=== PATIENT | male | born 1945 | race African-American/Black ===

== ENCOUNTER 2016-06-17 12:29 | Inpatient (IN) | payer OTHER ==
[2016-06-17 12:38] VITALS: BMI 27.4
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
[2016-06-17 15:45] LABS: MCH 29.5 pg (25.7-33.7); MCHC 33.2 g/dl (32.0-35.9); MEAN CELL VOLUME 88.7 fl (80-96); MEAN PLT VOLUME 8.5 fl (7.5-11.1); PLATELET COUNT 175 K/MM3 (134-434); RDW 16.6 % (11.9-15.9); WHITE BLOOD COUNT 6.3 K/mm3 (4.0-10.0)
[2016-06-17 16:12] LABS: ALBUMIN 3.8 g/dl (3.4-5.0); ANION GAP 7 (8-16); BILIRUBIN,TOTAL 0.6 mg/dL (0.2-1.0); CALCIUM 9.2 mg/dL (8.5-10.1); CO2 31 mmol/L (21-32); CREATININE 1.7 mg/dL (0.7-1.3); GLUCOSE,RANDOM 123 mg/dL (74-106); MAGNESIUM 2.3 mg/dL (1.8-2.4); SGOT/AST 12 U/L (15-37); SGPT/ALT 21 U/L (12-78); TOT PROT 7.4 g/dl (6.4-8.2)
[2016-06-17 16:14] LABS: ALK PHOS 90 U/L (45-117); TROPONIN I < 0.02 ng/ml (0.00-0.05)
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
[2016-06-17] MEDS: SODIUM CHLORIDE 1,000 ML IV SCH (19:48)
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
[2016-06-17] MEDS: METOPROLOL TARTRATE 25 MG TABLET (FP) PO SCH (23:29)
[2016-06-17] MEDS: ATORVASTATIN CA 10 MG TABLET (FP) PO SCH (23:37)
[2016-06-18 07:05] LABS: MCH 29.6 pg (25.7-33.7); MCHC 33.2 g/dl (32.0-35.9); MEAN CELL VOLUME 89.3 fl (80-96); MEAN PLT VOLUME 8.4 fl (7.5-11.1); PLATELET COUNT 162 K/MM3 (134-434); RDW 16.9 % (11.9-15.9); WHITE BLOOD COUNT 5.1 K/mm3 (4.0-10.0)
[2016-06-18 07:48] LABS: CALCIUM 8.9 mg/dL (8.5-10.1); CREATININE 1.3 mg/dL (0.7-1.3)
[2016-06-18] MEDS: ASPIRIN 325 MG TABLET PO SCH (09:13)
[2016-06-18] MEDS: amLODIPine BESYLATE 5 MG TABLET (FP) PO SCH (09:13)
[2016-06-18] MEDS: METOPROLOL TARTRATE 25 MG TABLET (FP) PO SCH ×2 (09:13→21:16)
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
--- NOTE | 2016-06-18 15:30 | EKG ---
Test Reason : Blood Pressure : / mmHG Vent. Rate : 074 BPM Atrial Rate : 074 BPM P-R Int : 200 ms QRS Dur : 162 ms QT Int : 404 ms P-R-T Axes : 054 -42 051 degrees QTc Int : 448 ms NORMAL SINUS RHYTHM LEFT AXIS DEVIATION LEFT VENTRICULAR HYPERTROPHY WITH QRS WIDENING NONSPECIFIC ST ABNORMALITY ABNORMAL ECG NO PREVIOUS ECGS AVAILABLE Confirmed by LIDIA PEREZ MD ([id number]) on 06/18/2016 3:29:34 PM Referred By: Confirmed By:LIDIA PEREZ MD
[2016-06-18] MEDS: SODIUM CHLORIDE 1,000 ML IV SCH (19:34)
[2016-06-18] MEDS: ATORVASTATIN CA 10 MG TABLET (FP) PO SCH (21:16)
[2016-06-19 09:01] LABS: CALCIUM 8.7 mg/dL (8.5-10.1); CREATININE 1.3 mg/dL (0.7-1.3)
[2016-06-19] MEDS: amLODIPine BESYLATE 5 MG TABLET (FP) PO SCH (09:33)
[2016-06-19] MEDS: ASPIRIN 325 MG TABLET PO SCH (09:33)
[2016-06-19] MEDS: METOPROLOL TARTRATE 25 MG TABLET (FP) PO SCH ×2 (09:33→21:12)
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
[2016-06-19] MEDS ORDERED: ACETAMINOPHEN 325 MG TABLET (FP) PO ONE (19:20)
[2016-06-19] MEDS ORDERED: ACETAMINOPHEN 325 MG TABLET (FP) ONE (19:21)
[2016-06-19] MEDS: ATORVASTATIN CA 10 MG TABLET (FP) PO SCH (21:12)
[2016-06-19] MEDS: SODIUM CHLORIDE 1,000 ML IV SCH (21:12)
[2016-06-20] MEDS: amLODIPine BESYLATE 5 MG TABLET (FP) PO SCH (09:56)
[2016-06-20] MEDS: METOPROLOL TARTRATE 25 MG TABLET (FP) PO SCH (09:56)
[2016-06-20] MEDS: ASPIRIN 325 MG TABLET PO SCH (09:56)
[2016-06-20 10:15] VITALS: BP 101/58; PULSE 68; TEMP 98.1
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
[2016-06-23 00:07] LABS: ALBUMIN 3.1 g/dL (2.9-4.4); HOMOCYSTEINE (CARDIO) 9.3 umol/L (0.0-15.0); M-SPIKE Not Observed g/dL (Not Observed); TOTAL PROTEIN 6.1 g/dL (6.0-8.5)
== END 2016-06-20 15:00 | disposition home health service (06) | DRG 65 ==
LOC: JER 12:29 → JERBED 17:24 → INTOOBSV 18:07 → UNDOADMOB 18:07 → OBSVTOIN 18:07 → JERBED 22:19 → J4W 22:19
PROVIDERS: ADMIT Internal Medicine; ATTEND Internal Medicine
DX: I63.9 Cerebral infarction, unspecified (principal); N17.9 Acute kidney failure, unspecified; E78.5 Hyperlipidemia, unspecified; D49.6 Neoplasm of unspecified behavior of brain; R42 Dizziness and giddiness; I12.9 Hypertensive chronic kidney disease with stage 1 through stage 4 chronic kidney disease, or unspecified chronic kidney disease; N18.3 Chronic kidney disease, stage 3 (moderate); R29.705 NIHSS score 5
CPT/HCPCS: 36415; 70450-TC; 70486-TC; 80048; 80053; 80061; 82140; 82550; 82607; 83036; 83090; 83721; 83735; 84155; 84165; 84484; 85027; 85651; 86593; 93005; 93010; 93306-TC; 93880-TC; 97116-GP; 97161-GP; 99283-25; G0378

== ENCOUNTER 2017-05-03 07:23 | Inpatient (IN) | payer OTHER ==
--- NOTE | 2017-05-02 09:46 | HP ---
[facility] - Chief Complaint Chief Complaint: right knee pain - Past Medical History Allergies/Adverse Reactions: Allergies Allergy/AdvReac Type Severity Reaction Status Date / Time No Known Drug Allergies Allergy Verified 04/28/17 12:19 - Current Medications Current Medications: Home Medications Medication Instructions Recorded Metoprolol Tartrate [Lopressor] 25 mg PO BID 06/17/16 Simvastatin [Zocor] 20 mg PO DAILY 06/17/16 Clopidogrel Bisulfate [Clopidogrel] 75 mg PO DAILY 04/28/17 Hydrochlorothiazide [Hctz -] 12.5 mg PO DAILY 04/28/17 Lisinopril [Prinivil] 20 mg PO DAILY 04/28/17 [facility] Physical Exam - Physical Examination General Appearance: Well Nourished, Well Developed, Alert & Oriented x3 ENT: Clear Lung: Normal air movement Heart: Regular rate & rhythm Extremities: Other (right knee- + Swelling, + ttp ,decr rom, nvi xrays show grade 4 tricompartmental djd) Neurological: Intact, Alert, Oriented Satellite Impression/Plan - Impression/Plan Impression: right knee djd Operative Procedure: right merline tkr Date to be Performed: 05/03/17
[2017-05-03] MEDS ORDERED: CEFAZOLIN 2 GM in DEXTROSE 5%-WATER - 50 ML IVPB ONE (07:50)
[2017-05-03] MEDS ORDERED: CELECOXIB 200 MG CAPSULE PO ONE (07:50)
[2017-05-03] MEDS ORDERED: TRANEXAMIC ACID 1000 MG/10 ML VIAL IVPUSH ONE (07:50)
[2017-05-03] MEDS ORDERED: GABAPENTIN 300 MG CAPSULE (FP) PO ONE (07:50)
[2017-05-03] MEDS ORDERED: oxyCODONE HCL 10 MG SUSTAINED ACTING TABLET PO ONE (07:50)
[2017-05-03] MEDS ORDERED: DEXAMETHASONE SOD PHOSPHATE/PF 10 MG/ML SDV ONE (09:01)
[2017-05-03] MEDS ORDERED: MIDAZOLAM HCL 2 MG/2 ML SINGLE DOSE VIAL ONE ×2 (09:03→09:26)
[2017-05-03] MEDS ORDERED: ceFAZolin SODIUM 1 GM VIAL ONE ×3 (09:25→09:35)
[2017-05-03] MEDS ORDERED: LIDOCAINE HCL 2% JELLY (5 ML/TUBE) ONE (09:26)
[2017-05-03] MEDS ORDERED: PROPOFOL 20 ML ONE (09:26)
[2017-05-03] MEDS ORDERED: DEXAMETHASONE SOD PHOSPHATE 4 MG/1 ML VIAL ONE (09:26)
[2017-05-03] MEDS ORDERED: LIDOCAINE HCL/PF 2% SDV 5ML VIAL ONE (09:26)
[2017-05-03] MEDS ORDERED: SUCCINYLCHOLINE CHLORIDE 200 MG/10 ML VIAL ONE (09:26)
[2017-05-03] MEDS ORDERED: KETOROLAC TROMETHAMINE 30 MG/1 ML VIAL ONE (09:26)
[2017-05-03] MEDS ORDERED: TRANEXAMIC ACID 1000 MG/10 ML VIAL ONE (09:27)
[2017-05-03] MEDS ORDERED: ROCURONIUM BROMIDE 50 MG/5 ML VIAL ONE (09:30)
[2017-05-03] MEDS ORDERED: METOPROLOL TARTRATE 5 MG/5 ML VIAL ONE (09:57)
[2017-05-03] MEDS ORDERED: VANCOMYCIN 1,000 MG VIAL (RESTRICTED TO ID ONLY) IVPB ONE ×2 (10:16→10:52)
[2017-05-03] MEDS ORDERED: NEOSTIGMINE METHYLSULFATE 0.5 MG/ML - 10 ML MDV ONE (10:21)
[2017-05-03] MEDS ORDERED: GLYCOPYRROLATE 0.2 MG/1 ML VIAL ONE (10:21)
[2017-05-03] MEDS ORDERED: MAG HYDROX/AL HYDROX/SIMETH 30 ML UNIT-DOSE CUP PO PRN (11:20)
[2017-05-03] MEDS ORDERED: MAGNESIUM HYDROX 2400MG/30ML ORAL SUSPENSION 30 ML CUP PO PRN (11:20)
[2017-05-03] MEDS ORDERED: ONDANSETRON 4 MG/2 ML VIAL IVPUSH PRN (11:20)
--- NOTE | 2017-05-03 11:23 | OP ---
Operative Note - Note: Operative Date: 05/03/17 (ben) Pre-Operative Diagnosis: right knee djd Operation: right merline tkr Post-Operative Diagnosis: Same as Pre-op Surgeon: Hero Doan Shearer [employer]: [place] Anesthesiologist/STEAM POWER PLANT OPERATOR: Elie Weiss Anesthesia: General Specimens Removed: bone fragments Estimated Blood Loss (mls): 200 Operative Report Dictated: Yes
[2017-05-03] MEDS ORDERED: LACTATED RINGERS SOLUTION 1,000 ML IV SCH (11:30)
[2017-05-03] MEDS ORDERED: oxyCODONE HCL 5 MG TABLET PO PRN (11:40)
[2017-05-03] MEDS ORDERED: ONDANSETRON 4 MG/2 ML VIAL ONE (12:41)
[2017-05-03] MEDS ORDERED: oxyCODONE HCL 5 MG TABLET ONE (13:10)
[2017-05-03] MEDS: oxyCODONE HCL 5 MG TABLET PO PRN (13:25)
[2017-05-03] MEDS: ACETAMINOPHEN 325 MG TABLET (FP) PO SCH ×3 (13:25→20:48)
[2017-05-03] MEDS: CEFAZOLIN 2 GM/D5W 2 GM/50 ML ML IVPB SCH (17:58)
[2017-05-03] MEDS: ATORVASTATIN CA 10 MG TABLET (FP) PO SCH (21:59)
[2017-05-03] MEDS: METOPROLOL TARTRATE 25 MG TABLET (FP) PO SCH (21:59)
[2017-05-03] MEDS ORDERED: METOPROLOL TARTRATE 50 MG TABLET (FP) PO SCH (22:00)
[2017-05-03] MEDS: SENNOSIDES/DOCUSATE COMBO (SENNA PLUS) TABLET (UD) PO SCH (22:00)
[2017-05-03] MEDS: GABAPENTIN 300 MG CAPSULE (FP) PO SCH (22:00)
[2017-05-04] MEDS: ACETAMINOPHEN 325 MG TABLET (FP) PO SCH ×4 (01:32→21:02)
[2017-05-04] MEDS: CEFAZOLIN 2 GM/D5W 2 GM/50 ML ML IVPB SCH (01:33)
[2017-05-04] MEDS: oxyCODONE HCL 5 MG TABLET PO PRN (06:49)
[2017-05-04 08:11] LABS: HEMATOCRIT 35.3 % (35.4-49); MCH 30.2 pg (25.7-33.7); MCHC 33.9 g/dl (32.0-35.9); MEAN CELL VOLUME 89.1 fl (80-96); MEAN PLT VOLUME 8.6 fl (7.5-11.1); PLATELET COUNT 153 K/MM3 (134-434); RBC 3.96 M/mm3 (4.00-5.60); RDW 15.2 % (11.9-15.9); WHITE BLOOD COUNT 8.9 K/mm3 (4.0-10.8)
[2017-05-04] MEDS: PANTOPRAZOLE 40 MG TABLET (FP) PO SCH (09:45)
[2017-05-04] MEDS: HYDROCHLOROTHIAZIDE 12.5 MG CAPSULE (FP) PO SCH (09:46)
[2017-05-04] MEDS: MULTIVITAMINS (DAILY MVI) TABLET (FP) PO SCH (09:46)
[2017-05-04] MEDS: METOPROLOL TARTRATE 25 MG TABLET (FP) PO SCH ×2 (09:46→21:55)
[2017-05-04] MEDS: CLOPIDOGREL BISULFATE 75 MG TABLET (FP) PO SCH (09:46)
[2017-05-04] MEDS: GABAPENTIN 300 MG CAPSULE (FP) PO SCH ×2 (09:46→21:55)
[2017-05-04] MEDS: LISINOPRIL 20 MG TABLET (FP) PO SCH (09:46)
[2017-05-04] MEDS: SENNOSIDES/DOCUSATE COMBO (SENNA PLUS) TABLET (UD) PO SCH ×2 (09:47→21:56)
--- NOTE | 2017-05-04 09:47 | PN ---
Progress Note (short form) - Note Progress Note: Ortho Pt seen and examined s/p right merline tkr pod #1 Selected Entries 05/04/17 05:18 Temperature 98.0 F Pulse Rate 67 Respiratory 18 Rate Blood Pressure 116/96 Laboratory Tests 05/04/17 07:40 WBC 8.9 Hgb 12.0 Hct 35.3 L Plt Count 153 dressing c/d/i, calf soft, nt rom 0-50, nvi a/p PT dvt ppx pain control d/c home tomorrow if stable
[2017-05-04] MEDS ORDERED: PATIENT'S OWN MEDICATION (NON-FORMULARY) (Simvastatin [Zocor] 20 MG) PO SCH (10:00)
--- NOTE | 2017-05-04 10:15 | PN ---
Progress Note (short form) - Note Progress Note: 72M POD1 s/p right TKR merline under spinal and peripheral nerve blocks. Pt states that pain is well controlled, reports no anesthetic complications. Sensory and motor function is intact in bilateral lower extremities.
--- NOTE | 2017-05-04 10:20 | SPEC ---
DATE OF OPERATION: 05/03/2017 PREOPERATIVE DIAGNOSIS: Degenerative joint disease, right knee. POSTOPERATIVE DIAGNOSIS: Degenerative joint disease, right knee. PROCEDURE: Right total knee replacement with robotic-assisted navigation (Makoplasty). SURGICAL ATTENDING: Hero Doan M.D. MOLD CLOSER HELPER: Kassidy Melchor ANESTHESIA: Regional and general. CLOSURE: A knee system cemented with a 6 femur, 6 tibia, 11 polyethylene, 35 patella, number 1 Vicryl fascia, 0 and 2-0 subcutaneous, 3-0 Monocryl subcuticular with skin glue for skin, 4-0 undyed Vicryl for pin sites. ESTIMATED BLOOD LOSS: Negligible. TOURNIQUET TIME: Approximately 1/2 an hour. COMPLICATIONS: None. CONDITION: To recovery room in stable condition. DESCRIPTION OF OPERATIVE PROCEDURE: Patient was taken to the operating room on May 03, 2017. Regional and general anesthesia was administered by the anesthesiologist. IV Kefzol and TXA were administered by the anesthesiologist. Well-padded pneumatic tourniquet was placed on the proximal thigh. The right lower extremity was prepped and draped in the usual sterile fashion. The leg was exsanguinated with an Esmarch bandage, and tourniquet was inflated to 275 mmHg. A 12 to 15-cm longitudinal midline incision was incised while centered over the patella. The dissection was carried down to the level of the extensor mechanism with sufficient flaps made to adequately perform the procedure. A medial parapatellar arthrotomy was then performed. We made a cuff of tissue on the patella for later closure. The patella was inverted, the knee was flexed up. The fat pad was excised. The subperiosteal dissection was on the anteromedial proximal tibia around towards the direction of the MCL. The ACL and the PCL were transected and debrided. The meniscal remnants of the medial and lateral meniscus were debrided and removed. This allowed the knee to be able to "be brought forward." The checkpoints were malleted into the tibia and into the femur. Two threaded pins were drilled anteroposteriorly proximal to the knee through the previous incision, through the anterior cortex, then just engaging the posterior cortex. To these pins was assembled the femoral navigation array. One handbreadth below the tibial tubercle, 2 stab incisions were used to drill 2 threaded pins in parallel fashion into the tibia, again through the anterior cortex and just engaging the posterior cortex. To these pins was fastened the tibial arrays. The knee was then registered with the navigation device with center of rotation of the hip, medial and lateral malleoli, both checkpoints, and multiple points on both the femur and the tibia to ensure excellent registration. The navigation device was directed off the "top of the bubbles" on both the femur and the tibia. The navigation passed within less than 0.5 mm to plan. The knee was then thoroughly inspected to remove all osteophytes both medially, laterally, and on the femur and the tibia, and whatever osteophytes were available for dissection. The knee was then taken to extension and to flexion, and stressed in both varus and valgus to assess flexion gaps. The virtual position of the components on the navigation device were then manipulated to optimize the position and to ensure equal gaps in both flexion and extension, and both medially and laterally. The robot was then brought into the field and was registered. The cuts were then made both on the femur and on the tibia as to plan. All osteophytes posteriorly were then removed as well. The gaps were then measured again in flexion and extension to be equal in both flexion and extension and medial and laterally. The femoral notch was then made, as we were doing a posterior stabilizing component, with the appropriate sized box. Trial reduction of the femur achieved excellent [id number] fit. A tibial baseplate of appropriate polyethylene thickness was "floated in the knee." It was ensured to be in the excellent position by navigation devices and was pinned in place. The knee was taken through a range of motion, and found to have excellent stability throughout flexion and extension. The patella was calibrated for thickness and osteotomized down to the appropriate level. The appropriate lollipop was used to drill the lug holes in the patella and the trial button was applied. The knee was taken through a range of motion and found to have excellent tracking of the patella, and patella from full extension to full flexion. Trial components were removed, the keel was punched and drilled, and a sclerotic bone on the tibia was drilled to help with cement interdigitation. The knee was thoroughly irrigated with the pulse antibiotic seafood farmer. The real components were then cemented in using monitored arrangement cement techniques with antibiotic cement, and pressurization and extension. After the cement was hardened, the knee was thoroughly inspected to remove any extra cement. The real polyethylene component was then clipped into place. Range of motion, stability, and tracking were as described earlier. The checkpoints and the pins were removed. The knee was thoroughly irrigated with antibiotic irrigation. Vancomycin powder was placed into the knee for antibiotic prophylaxis. The medial parapatellar arthrotomy was then closed using number 1 Vicryl interrupted suture. After closure of the deep layer, the knee was taken through a range of motion, and found to have excellent stability of the patella with no dislocation and no undue tension on the repair. The subcutaneous was pulse antibiotic irrigated, and was then closed with 2-0 Vicryl, 3-0 Monocryl subcuticular with the skin glue for the skin. The distal tibial pin site was irrigated thoroughly as well and then closed with 4-0 undyed Vicryl. A sterile Aquacel dressing was applied, followed by a Glez dressing. Tourniquet was deflated. Total tourniquet time was approximately 30 minutes. No complications. Patient was awakened from anesthesia and transferred to recovery room in stable condition. Postoperative x-rays revealed excellent position of the components. Ronald [id number]
--- NOTE | 2017-05-04 13:57 | CONSULT ---
Consultation: REQUESTING PROVIDER: Dr Doan CONSULT REQUEST: We have been asked to medically evaluate this patient for altered mental status (rapid response). HISTORY OF PRESENT ILLNESS: Patient is a 72 y/o male with a past medical history of CVA (right sided hemiparesis), hypertension, and HLD. Patient is s/ p right total knee replacement, POD#1, Dr Doan. Patient was found unresponsive with no palpable pulse and hypotensive by RN, rapid response was called at 1330 , chest compressions initated and patient regained consciousness soon after, patient remains lethargic REVIEW OF SYSTEMS: CONSTITUTIONAL: present: generalized weakness, Absent: fever, chills, diaphoresis, malaise, loss of appetite, weight change HEENT: Absent: rhinorrhea, nasal congestion, throat pain, throat swelling, difficulty swallowing, mouth swelling, ear pain, eye pain, visual changes CARDIOVASCULAR: Absent: chest pain, syncope, palpitations, irregular heart rate, lightheadedness , peripheral edema RESPIRATORY: Absent: cough, shortness of breath, dyspnea with exertion, orthopnea, wheezing, stridor, hemoptysis GASTROINTESTINAL: Absent: abdominal pain, abdominal distension, nausea, vomiting, diarrhea, constipation, melena, hematochezia GENITOURINARY: Absent: dysuria, frequency, urgency, hesitancy, hematuria, flank pain, genital pain MUSCULOSKELETAL: Absent: myalgia, arthralgia, joint swelling, back pain, neck pain SKIN: Absent: rash, itching, pallor HEMATOLOGIC/IMMUNOLOGIC: Absent: easy bleeding, easy bruising, lymphadenopathy, frequent infections ENDOCRINE: Absent: unexplained weight gain, unexplained weight loss, heat intolerance, cold intolerance NEUROLOGIC: present: altered mental status, bladder incontience, Absent: headache, focal weakness or paresthesias, dizziness, unsteady gait, seizure, bowel incontinence PSYCHIATRIC: Absent: anxiety, depression, suicidal or homicidal ideation, hallucinations. PHYSICAL EXAMINATION Vital Signs - 24 hr 05/03/17 05/03/17 05/03/17 14:11 14:51 22:49 Temperature 97.7 F 97.7 F 98.7 F Pulse Rate 62 62 87 Respiratory 19 19 18 Rate Blood Pressure 144/88 144/88 124/74 O2 Sat by Pulse 100 100 97 Oximetry (%) 05/04/17 05/04/17 05/04/17 05:18 08:22 09:44 Temperature 98.0 F Pulse Rate 67 85 Respiratory 18 18 Rate Blood Pressure 116/96 113/64 O2 Sat by Pulse 97 97 Oximetry (%) GENERAL: lethargic, opens eyes to verbal stimuli and oriented times person and place. HEAD: Normal with no signs of trauma. EYES: Pupils equal, round and reactive to light, extraocular movements intact, sclera anicteric, conjunctiva clear. No lid lag. EARS, NOSE, THROAT: Ears normal, nares patent, oropharynx clear without exudates. Moist mucous membranes. NECK: Normal range of motion, supple without lymphadenopathy, JVD, or masses. LUNGS: Breath sounds equal, clear to auscultation bilaterally. No wheezes, and no crackles. No accessory muscle use. HEART: Regular rate and rhythm, normal S1 and S2 without murmur, rub or gallop. ABDOMEN: Soft, nontender, not distended, normoactive bowel sounds, no guarding, no rebound, no masses. No hepatomegaly or splenomegaly. MUSCULOSKELETAL: No bony deformities or tenderness. No CVA tenderness 4/5. UPPER EXTREMITIES: 2+ pulses, warm, well-perfused. No cyanosis. No clubbing. Cap refill <2 seconds. No peripheral edema. 4/5 RIGHT LOWER EXTREMITY:dressing cdi, less than 3 second capillary refill, + 3 pedal pulse LOWER EXTREMITIES: 2+ pulses, warm, well-perfused. No calf tenderness. No peripheral edema. NEUROLOGICAL: Cranial nerves II-XII intact. Normal speech.. PSYCHIATRIC: Cooperative. Good eye contact. SKIN: Warm, dry, normal turgor, no rashes or lesions noted. Laboratory Results - last 24 hr 05/04/17 07:40 WBC 8.9 RBC 3.96 L Hgb 12.0 Hct 35.3 L MCV 89.1 MCH 30.2 MCHC 33.9 RDW 15.2 Plt Count 153 MPV 8.6 Active Medications Generic Name Dose Route Start Last Admin Trade Name Freq PRN Reason Stop Dose Admin Acetaminophen 650 mg 05/03/17 14:00 05/04/17 07:50 Tylenol - PO 05/06/17 13:59 650 mg Q6H ESAU Administration Al Hydroxide/Mg Hydroxide 30 ml 05/03/17 11:20 Mylanta Oral Suspension - PO Q4H PRN DYSPEPSIA Atorvastatin Calcium 10 mg 05/03/17 22:00 05/03/17 21:59 Lipitor - PO 10 mg HS ESAU Administration Clopidogrel Bisulfate 75 mg 05/04/17 10:00 05/04/17 09:46 Plavix - PO 75 mg DAILY ESAU Administration Gabapentin 300 mg 05/03/17 22:00 05/04/17 09:46 Neurontin - PO 300 mg BID ESAU Administration Hydrochlorothiazide 12.5 mg 05/04/17 10:00 05/04/17 09:46 Hctz - PO 12.5 mg DAILY ESAU Administration Lisinopril 20 mg 05/04/17 10:00 05/04/17 09:46 Prinivil PO 20 mg DAILY ESAU Administration Magnesium Hydroxide 30 ml 05/03/17 11:20 Milk Of Magnesia - PO PRN PRN CONSTIPATION Metoprolol Tartrate 25 mg 05/03/17 22:00 05/04/17 09:46 Lopressor - PO 25 mg BID [facility] Administration Multivitamins/Minerals/Vitamin C 1 tab 05/04/17 10:00 05/04/17 09:46 Tab-A-Vit - PO 1 tab DAILY [facility] Administration Ondansetron HCl 4 mg 05/03/17 11:20 Zofran Injection IVPUSH Q6H PRN NAUSEA Oxycodone HCl 5 mg 05/03/17 11:40 05/04/17 06:49 Roxicodone - PO 5 mg Q3H PRN Administration PAIN LEVEL 1-5 Pantoprazole Sodium 40 mg 05/04/17 10:00 05/04/17 09:45 Protonix - PO 40 mg DAILY [facility] Administration Senna/Docusate Sodium 2 tablet 05/03/17 22:00 05/04/17 09:47 Pericolace - PO 2 tablet BID ESAU Administration ASSESSMENT/PLAN: 1) MS s/p right TKR, Pod #1 - Dr Doan following, PT as per orthopedist - incentive spirometer - advise holding narcotic pain medication due to altered mental status - monitor cbc 2) neuro altered mental status - pt remains lethargic but arousable to verbal stimuli, previous ct scan of head reviewed (06/15) 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 - caution with beta shanti (lopressor) and lisinopril, hctz, strict parameters hyperlipidemia - continue lipitor Dispo: We will continue to follow the patient. Thank you for this consultative opportunity. Visit type - Emergency Visit Emergency Visit: No - New Patient This patient is new to me today: Yes Date on this admission: 05/04/17 - Critical Care Critical Care patient: Yes Total Critical Care Time (in minutes): 45 Critical Care Statement: The care of this patient involved high complexity decision making to prevent further life threatening deterioration of the patient 's condition and/or to evaluate & treat vital organ system(s) failure or risk of failure.
[2017-05-04] MEDS ORDERED: SODIUM CHLORIDE 500 ML IV STA (14:09)
[2017-05-04 14:15] LABS: BASO % 0.4 % (0-2.0); EOS % 1.2 % (0-4.5); HEMATOCRIT 34.5 % (35.4-49); HEMOGLOBIN 11.2 GM/dl (11.7-16.9); LYMPH % 8.5 % (8-40); MCHC 32.4 g/dl (32.0-35.9); MEAN CELL VOLUME 89.3 fl (80-96); MEAN PLT VOLUME 8.8 fl (7.5-11.1); MONO % 15.7 % (3.8-10.2); NEUT % 74.2 % (42.8-82.8); PLATELET COUNT 145 K/MM3 (134-434); RBC 3.87 M/mm3 (4.00-5.60); RDW 15.5 % (11.9-15.9); WHITE BLOOD COUNT 12.3 K/mm3 (4.0-10.8)
[2017-05-04 14:23] LABS: ALK PHOS 52 U/L (32-92); ANION GAP 7 (8-16); BILIRUBIN,TOTAL 0.6 mg/dl (0.2-1.0); BLOOD UREA NITROGEN 25 mg/dl (7-18); CALCIUM 8.8 mg/dl (8.4-10.2); CHLORIDE 105 mmol/L (98-107); CO2 26 mmol/L (22-28); GLUCOSE,RANDOM 150 mg/dl (74-106); MAGNESIUM 1.7 mg/dL (1.8-2.4); PHOSPHOROUS 3.9 mg/dl (2.5-4.6); POTASSIUM 4.1 mmol/L (3.5-5.1); SGOT/AST 16 U/L (10-42); SGPT/ALT 8 U/L (10-40); SODIUM 138 mmol/L (136-145); TOT PROT 5.5 g/dl (6.4-8.3)
[2017-05-04 14:24] LABS: INR 1.18 (0.82-1.09); PROTHROMBIN TIME (PATIENT) 13.2 SEC (10.2-13.0)
[2017-05-04 15:42] LABS: TROPONIN I (DFP) < 0.03 ng/ml (0.03-0.50)
[2017-05-04 16:06] LABS: ARTERIAL BLD GAS O2 SATURATION 99.4 % (90-98.9); ARTERIAL BLOOD GAS BASE EXCESS 1.2 meq/l (-2-2); ARTERIAL BLOOD GAS PCO2 42.6 mmHg (35-45)
[2017-05-04] MEDS ORDERED: levETIRAcetam 500 MG/5 ML INJECTION VIAL IVPB ONE (16:45)
--- NOTE | 2017-05-04 17:20 | HOSP ---
Physical Examination Vital Signs: Vital Signs Temperature 98.0 F 05/04/17 05:18 Pulse Rate 80 05/04/17 15:52 Respiratory Rate 16 05/04/17 15:47 Blood Pressure 123/2 05/04/17 15:47 O2 Sat by Pulse Oximetry (%) 100 05/04/17 15:52 Findings/Remarks: Called by Dr. Doan at 1705 that he would like the hospitalist group to assume care of the patient being transferred from [place] to [facility]. Brief hx provided: Patient had total knee replacement and was found unconscious in his bed today, pulse lost, CPR started, patient had SROC. Informed by Dr. Doan that Dr. Thomas consulted and Keppra 500mg IVPB ordered. Transfer to [facility] CT results reviewed: Interval increased size of the extra axial neoplasm measuring approximately 4.0cm x 4.3cm, with edema in the left frontal lobe, increased mass effects on the overlying frontal lobs, increased compression and displacement of the left lateral ventricle. No midline shift, herniation pattern , or hydrocephalus. No acute intracranial hemorrhage. Called and spoke to Dr. Thomas at 1715, reviewed CT results. Recommendations to start Decadron 10mg IVPB stat followed by Decadron 4mg IVPB q6h. Neurosurgery consult placed. Spoke to Nishi, nursing co supervisor grounds and landscape at [place] to give stat dose of Decadron 10mg IVPB. Per Dr. Eva Almodovar (cardiology) aware Called and left message for Dr. Huerta at 1720, awaiting call back. Call back from Dr. Huerta, reviewed case and CT results. He will evaluate the patient. Trop x1 negative. Will trend troponins. ECHO ordered. Continuous cardiac monitoring Labs: CBC, BMP 05/04/17 13:46 05/04/17 13:46
[2017-05-04] MEDS ORDERED: DEXAMETHASONE SOD PHOSPHATE 10 MG/1 ML VIAL IVPUSH ONE (17:30)
--- NOTE | 2017-05-04 20:24 | EKG ---
Test Reason : Blood Pressure : / mmHG Vent. Rate : 078 BPM Atrial Rate : 078 BPM P-R Int : 192 ms QRS Dur : 090 ms QT Int : 380 ms P-R-T Axes : 046 -28 -87 degrees QTc Int : 433 ms POOR DATA QUALITY, INTERPRETATION MAY BE ADVERSELY AFFECTED NORMAL SINUS RHYTHM MODERATE VOLTAGE CRITERIA FOR LVH, MAY BE NORMAL VARIANT CANNOT RULE OUT SEPTAL INFARCT , AGE UNDETERMINED NONSPECIFIC ST AND T WAVE ABNORMALITY ABNORMAL ECG WHEN COMPARED WITH ECG OF 17-JUN-2016 19:43, NONSPECIFIC T WAVE ABNORMALITY are now present in INFERIOR LEADS Confirmed by RUBIA BARRAGAN MD ([id number]) on 05/04/2017 8:24:15 PM Referred By: Hero Doan Confirmed By:RUBIA BARRAGAN MD
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
[2017-05-04] MEDS ORDERED: DEXAMETHASONE SOD PHOSPHATE 4 MG/1 ML VIAL IVPUSH SCH (21:00)
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
[2017-05-04] MEDS: ATORVASTATIN CA 10 MG TABLET (FP) PO SCH (21:54)
[2017-05-04] MEDS: levETIRAcetam 500 MG TABLET (FP) PO SCH (21:54)
[2017-05-04] MEDS: DEXAMETHASONE SOD PHOSPHATE 4 MG/1 ML VIAL IVPUSH SCH (21:56)
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
[2017-05-04 23:45] VITALS: BMI 28.0
[2017-05-05] MEDS ORDERED: MAGNESIUM SULF 50% (8.12 MEQ/2 ML-1 GM VIAL) IVPB ONE (00:39)
[2017-05-05] MEDS: ACETAMINOPHEN 325 MG TABLET (FP) PO SCH ×2 (01:22→09:12)
[2017-05-05] MEDS: DEXAMETHASONE SOD PHOSPHATE 4 MG/1 ML VIAL IVPUSH SCH ×4 (03:00→21:07)
[2017-05-05 06:12] LABS: HEMATOCRIT 31.2 % (35.4-49); HEMOGLOBIN 10.3 GM/dL (11.7-16.9); MCH 29.5 pg (25.7-33.7); MCHC 33.1 g/dl (32.0-35.9); PLATELET COUNT 139 K/MM3 (134-434); RDW 16.2 % (11.9-15.9); WHITE BLOOD COUNT 13.2 K/mm3 (4.0-10.0)
[2017-05-05 06:40] LABS: ALBUMIN 2.8 g/dl (3.4-5.0); ANION GAP 8 (8-16); BLOOD UREA NITROGEN 19 mg/dL (7-18); CALCIUM 9.1 mg/dL (8.5-10.1); CHLORIDE 105 mmol/L (98-107); CO2 29 mmol/L (21-32); GLUCOSE,RANDOM 128 mg/dL (74-106); MAGNESIUM 2.1 mg/dL (1.8-2.4); POTASSIUM 4.5 mmol/L (3.5-5.1); SODIUM 142 mmol/L (136-145)
[2017-05-05 06:46] LABS: ALK PHOS 58 U/L (45-117); BILIRUBIN,TOTAL 0.5 mg/dL (0.2-1.0); CREATININE 1.6 mg/dL (0.7-1.3); PHOSPHOROUS 3.4 mg/dL (2.5-4.9); SGOT/AST 9 U/L (15-37); SGPT/ALT 10 U/L (12-78); TOT PROT 5.9 g/dl (6.4-8.2)
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
[2017-05-05] MEDS: PANTOPRAZOLE 40 MG TABLET (FP) PO SCH (09:12)
[2017-05-05] MEDS: METOPROLOL TARTRATE 25 MG TABLET (FP) PO SCH ×2 (09:12→21:07)
[2017-05-05] MEDS: MULTIVITAMINS (DAILY MVI) TABLET (FP) PO SCH (09:13)
[2017-05-05] MEDS: LISINOPRIL 20 MG TABLET (FP) PO SCH (09:13)
[2017-05-05] MEDS: SENNOSIDES/DOCUSATE COMBO (SENNA PLUS) TABLET (UD) PO SCH ×2 (09:13→21:07)
[2017-05-05] MEDS: HYDROCHLOROTHIAZIDE 12.5 MG CAPSULE (FP) PO SCH (09:13)
[2017-05-05] MEDS: CLOPIDOGREL BISULFATE 75 MG TABLET (FP) PO SCH (09:13)
[2017-05-05] MEDS: GABAPENTIN 300 MG CAPSULE (FP) PO SCH ×2 (09:13→21:07)
[2017-05-05] MEDS: levETIRAcetam 500 MG TABLET (FP) PO SCH ×2 (09:13→21:07)
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
--- NOTE | 2017-05-05 10:11 | PN ---
Progress Note (short form) - Note Progress Note: Ortho Pt seen and examined s/p right merline tkr pod #2- Had episode where pt was found non-responsive and code was called. Pt regained consciousness soon after. Transferred from [facility] to ICU. Selected Entries 05/05/17 06:00 Temperature 98.6 F Pulse Rate 80 Respiratory 16 Rate Blood Pressure 113/76 Laboratory Tests 05/04/17 05/04/17 05/05/17 13:46 21:20 05:00 WBC 13.2 H D Hgb 10.3 L D Hct 31.2 L D Plt Count 139 Troponin I < 0.03 L < 0.02 dressing c/d/i, calf soft, nt rom 0-50, nvi a/p s/p right tkr, questionable cardiac event vs syncopal episode PT when cleared to do so Neurosurgery consult dvt ppx pain control will follow d/w Dr. Doan
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
[2017-05-05] MEDS ORDERED: MAG HYDROX/AL HYDROX/SIMETH 30 ML UNIT-DOSE CUP PO PRN (11:52)
[2017-05-05] MEDS ORDERED: oxyCODONE HCL 5 MG TABLET PO PRN (11:52)
[2017-05-05] MEDS ORDERED: ONDANSETRON 4 MG/2 ML VIAL IVPUSH PRN (11:52)
[2017-05-05] MEDS ORDERED: MAGNESIUM HYDROX 2400MG/30ML ORAL SUSPENSION 30 ML CUP PO PRN (11:52)
--- NOTE | 2017-05-05 13:07 | PN ---
Teaching Attending Note Name of Resident: Zeenat Wang ATTENDING PHYSICIAN STATEMENT I saw and evaluated the patient. I reviewed the resident's note and discussed the case with the resident. I agree with the resident's findings and plan as documented. SUBJECTIVE: Pt seen and examined in the ICU. No events overnight, no seizure activity noted. OBJECTIVE: Last Vital Signs Temp Pulse Resp BP Pulse Ox 98.0 F 92 H 18 141/100 94 L 05/05/17 10:00 05/05/17 10:00 05/05/17 10:00 05/05/17 10:00 05/05/17 11:54 Intake & Output 05/02/17 05/03/17 05/04/17 05/05/17 23:59 23:59 23:59 23:59 Intake Total 1550 2075 200 Output Total 420 580 100 Balance 1130 1495 100 Weight 192 lb 201 lb 8 oz Gen: NAD at rest Heart: RRR Lung: decreased breath sounds at the bases Abd: soft, nontender Ext: no edema, dressings clean CBC, BMP 05/05/17 05:00 05/05/17 05:00 Active Medications Acetaminophen (Tylenol -) 650 mg PO Q6H ESAU Stop: 05/06/17 13:59 Al Hydroxide/Mg Hydroxide (Mylanta Oral Suspension -) 30 ml PO Q4H PRN PRN Reason: DYSPEPSIA Atorvastatin Calcium (Lipitor -) 10 mg PO HS ESAU Clopidogrel Bisulfate (Plavix -) 75 mg PO DAILY [facility] Dexamethasone Sodium Phosphate (Decadron Injection -) 4 mg IVPUSH Q6H-IV ESA[facility] Gabapentin (Neurontin -) 300 mg PO BID [facility] Hydrochlorothiazide (Hctz -) 12.5 mg PO DAILY [facility] Levetiracetam (Keppra -) 500 mg PO BID [facility] Lisinopril (Prinivil) 20 mg PO DAILY [facility] Magnesium Hydroxide (Milk Of Magnesia -) 30 ml PO PRN PRN PRN Reason: CONSTIPATION Metoprolol Tartrate (Lopressor -) 25 mg PO BID [facility] Multivitamins/Minerals/Vitamin C (Tab-A-Vit -) 1 tab PO DAILY [facility] Ondansetron HCl (Zofran Injection) 4 mg IVPUSH Q6H PRN PRN Reason: NAUSEA Oxycodone HCl (Roxicodone -) 5 mg PO Q3H PRN PRN Reason: PAIN LEVEL 1-5 Pantoprazole Sodium (Protonix -) 40 mg PO DAILY [facility] Senna/Docusate Sodium (Pericolace -) 2 tablet PO BID [facility] ASSESSMENT AND PLAN: s/p R TKR r/o Seizure Meningioma HTN Hyperlipidemia h/o CVA - continue antiepileptics - decadron - pain control - PO as tolerated - OOB to chair - rehab/PT - DVT prophylaxis - can monitor on floor
--- NOTE | 2017-05-05 13:25 | CONSULT ---
Consult - text type - Consultation Consultation Note: NEUROLOGY CONSULTATION is greatly appreciated: Chart and neuroimages reviewed. Case discussed with Drs. Wang and Eva. Patient examined. This 72 yo RH single man lives alone. PMH of HTN, Chol on metoprolol, lisinopril, atorvastatin. Admitted [facility] - after falling with Right sided weakness. Pt. was seen by Dr. Gallegos. Meningioma described but not mentioned in the discharge summery. Pt. reportly was told "stroke" and discharged on Clopidogrel with residual right sided weakness. Review of 2 non-contrast CT scans from that hospitalization supported the presence of a Left parafalcine meningioma with moderate mass effect on the Right lateral ventricle with predominantly downward displacement. The diameter of the diffusely calcified tumor is 3-4 cm. Patient underwent Partial knee replacement yesterday complicated by cardiovascular arrest and possible seizure. Successfully resuscitated. Repeat CT of head (reviewed): shows increased size of the parafalcine meningioma with significant spread over the Right frontal cortex and downward displacement of both lateral horns (L>R) with only min-moderate edema around the tumor. PHAN: No bruits. Cor reg. NEURO: Awake, alert, apathetic and withdrawn. Some left-sided neglect CN: Full lepe. No facial. Decreased tongue KJ's. Gag OK. Motor: Bilateral drift L>R with decreased KJ's, brisk reflexes and b /l Babinskis. Coord: No obvious FTN dystaxia Sensory: Normal IMP: Bilateral Motor signs (L>R) with apathy and "frontal lobe syndrome c/w the large B/L parafalcine meningioma. Possible seizure. Plan: Continue decadron 4 mg q 6 hrs. Continue Keppra 500 mg PO BID. Repeat CT of head WITH Contrast and/or MRI of brain WITH contrast to define and delineate tumor. Await neurosurgical opinion and/or transfer to tertiary care center with a neuro/neurosurgical ICU for resection of meningioma. Thank you very much, Hero Thomas MD
--- NOTE | 2017-05-05 13:45 | PN ---
Physical Exam: SUBJECTIVE: Patient seen and examined at bedside. 24 hr events -Patient received in unit -no seizure activity seen -afebrile overnight Today -resting comfortably in bed, denies NAGEL, fever, chills, double vision, dizziness -seen by Dr. Thomas -for transfer to med surg unit. Order is in. OBJECTIVE: Vital Signs Period Temp Pulse Resp BP Sys/Chin Pulse Ox Last 24 Hr 97.9 F-99.6 F 74-93 12-20 96-142/66-100 94-100 GENERAL: The patient is resting comfortably. AAOx2 (not to time) in no acute distress HEAD: Normal with no signs of trauma. EYES: left gaze palsy noted ENT: Ears normal, nares patent, oropharynx clear without exudates, moist mucous membranes. NECK: Trachea midline, supple LUNGS: Breath sounds equal, clear to auscultation bilaterally, no wheezes, no crackles, no accessory muscle use. HEART: Regular rate and rhythm, S1, S2 without murmur, rub or gallop. 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 tender in upper extremities, inability to complete rapid finger tapping test, sensation intact LOWER EXTREMITIES: b/l babinski, sensation intact PSYCH: apathetic Laboratory Tests 05/04/17 05/04/17 05/04/17 13:46 13:46 14:05 WBC 12.3 H D RBC 3.87 L Hgb 11.2 L Hct 34.5 L RDW Puncture Site Right radial ABG pH 7.40 ABG pCO2 at Pt Temp 42.6 ABG pO2 at Pt Temp 300.0 H* ABG HCO3 25.7 ABG O2 Sat (Measured) 99.4 H ABG O2 Content 19.6 BUN 25 H Creatinine 2.0 H Troponin I < 0.03 L 05/04/17 05/05/17 05/05/17 21:20 05:00 05:00 WBC 13.2 H D RBC 3.50 L Hgb 10.3 L D Hct 31.2 L D RDW 16.2 H Puncture Site ABG pH ABG pCO2 at Pt Temp ABG pO2 at Pt Temp ABG HCO3 ABG O2 Sat (Measured) ABG O2 Content BUN 19 H Creatinine 1.6 H D Troponin I < 0.02 Active Medications Generic Name Dose Route Start Last Admin Trade Name Freq PRN Reason Stop Dose Admin Acetaminophen 650 mg 05/05/17 14:00 Tylenol - PO 05/06/17 13:59 Q6H ESAU Al Hydroxide/Mg Hydroxide 30 ml 05/05/17 11:52 Mylanta Oral Suspension - PO Q4H PRN DYSPEPSIA Atorvastatin Calcium 10 mg 05/05/17 22:00 Lipitor - PO HS [facility] Clopidogrel Bisulfate 75 mg 05/06/17 10:00 Plavix - PO DAILY [facility] Dexamethasone Sodium Phosphate 4 mg 05/05/17 15:00 Decadron Injection - IVPUSH Q6H-IV [facility] Gabapentin 300 mg 05/05/17 22:00 Neurontin - PO BID [facility] Hydrochlorothiazide 12.5 mg 05/06/17 10:00 Hctz - PO DAILY [facility] Levetiracetam 500 mg 05/05/17 22:00 Keppra - PO BID [facility] Lisinopril 20 mg 05/06/17 10:00 Prinivil PO DAILY [facility] Magnesium Hydroxide 30 ml 05/05/17 11:52 Milk Of Magnesia - PO PRN PRN CONSTIPATION Metoprolol Tartrate 25 mg 05/05/17 22:00 Lopressor - PO BID [facility] Multivitamins/Minerals/Vitamin C 1 tab 05/06/17 10:00 Tab-A-Vit - PO DAILY [facility] Ondansetron HCl 4 mg 05/05/17 11:52 Zofran Injection IVPUSH Q6H PRN NAUSEA Oxycodone HCl 5 mg 05/05/17 11:52 Roxicodone - PO Q3H PRN PAIN LEVEL 1-5 Pantoprazole Sodium 40 mg 05/06/17 10:00 Protonix - PO DAILY [facility] Senna/Docusate Sodium 2 tablet 05/05/17 22:00 Pericolace - PO BID [facility] ASSESSMENT/PLAN: 72 y/o M with PMH HTN, HLD, CVA (May) with residual R sided weakness, L sided gaze palsy, who presented to the ED from [place] after possible seizure and s/p cardiac arrest after R TKR. After one round of CPR, pt obtained ROSC. CT of head revealed meningioma with localized edema. Pt managed in ICU for meningioma to monitor for potential worsening of cerebral edema. NEURO #Meningioma with mild cerebral edema, tumor effect -Enlarging menangioma-seen with calcification, compared to CT study from May 2016 -pt's apathy most likely 2/2 to suprafrontal location of meningioma -Continue decadron 4mg IV q6hr -Continue Keppra 500mg PO BID seizure ppx -Discussed with Dr. Thomas -Repeat CT of head WITH Contrast and/or MRI of brain w/contrast -F/u neurosurg opinion on resection of meningioma, possible risk sagittal sinus thrombosis -PT- OOB CARDIO #HTN- controlled -Continue HCTZ 12.5 mg PO qd -Lisinopril 20mg PO qd -Lopressor 25mg PO BID #HLD -Continue Lipitor 10mg PO HS #F/E/N -Will continue to follow electrolytes - Regular diet, thin liquids #Prophylaxis DVT: HEATHER's GI: Protonix 40 mg PO qd #Disposition Stable for transfer to med-surg. Order is in Visit type - Emergency Visit Emergency Visit: No - New Patient This patient is new to me today: Yes Date on this admission: 05/05/17 - Critical Care Critical Care patient: Yes Total Critical Care Time (in minutes): 31 Critical Care Statement: The care of this patient involved high complexity decision making to prevent further life threatening deterioration of the patient 's condition and/or to evaluate & treat vital organ system(s) failure or risk of failure.
[2017-05-05] MEDS ORDERED: ACETAMINOPHEN 325 MG TABLET (FP) PO SCH (14:00)
[2017-05-05] MEDS ORDERED: ACETAMINOPHEN 325 MG TABLET (FP) ONE (14:38)
--- NOTE | 2017-05-05 14:59 | CONSULT ---
Consult - text type - Consultation Consultation Note: Asked to see this patient for evaluation of his Intracranial lesion. Christi Nguyen is a 72 year old male with a history of CAD and HTN who was diagnosed with a Left MCA stroke in May and was treated with anticoagulation. He made a reasonable recovery with mild persisting Right hemiparesis. The patient underwent uneventful Right knee CINTHIA procedure (TKR) on Wednesday, May 03, 2017. On his first postoperative day, he was found unresponsive and a Rapid Response code was called. The patient was hypotensive with no detectable pulses and CPR was initiated and the patient recovered quickly and was transferred from [place] to [facility]. The patient was formally ruled out for Myocardial events with serial enzymes and EKG. The patient has returned to his baseline level of functioning. CT head reveals a 4.3 x 4.0 cm Frontal Falcine meningioma which is larger on the Left side and effaces the frontal horn of the Left lateral ventricle. There is posterior/inferior displacement of the corpus callosum and bifrontal edema with mass effect associated with this lesion. There is no clear MCA infarct visible on this study. When compared with the CT performed in May, I note significant progression in the size of the tumor in less than one year from an approximately 3 x 3 cm lesion with less edema and frontal horn effacement/mass effect. The patient has a mild persisting Right hemiparesis and has a somewhat blunted affect. I discussed the risks, benefits and alternatives to microsurgical resection of this lesion with the patient in great detail. I explained that the risks included, but were not limited to: , coma, paralysis, bleeding, infection, CSF leakage possibly requiring spinal drainage or additional surgery and subtotal resection. Indeed, I explained that the deep aspect of the tumor was likely associated with the pericallosal arteries and that the inferior sagittal sinus was likely involved in the cleft between the large Left and smaller Right sided lobes. Although gross total resection via bifrontal craniotomy may be considered, this would place him at risk for bifrontal lobe injury. I described a Left frontal approach for interhemispheric tumor decompression/debulking with the possibility of leaving a small amount of tumor on the pericallosal vessels or on the contralateral side of the falx. This remnant may be treated with radiosurgery or may be followed with serial scans. I explained that uncapping of the Left frontal lobe with possible transfalcine approach may also be considered. The final determination on extent of resection would be guided by intraoperative findings. All questions were answered. Informed consent was obtained. I discussed this case and plans for surgery on May [address] Doan who agrees with the plans and encourages expedited rehabilitation after the surgery and prophylactic antibiotics in the perioperative phase. MRI with gadolinium would be helpful for surgical planning and should ideally be obtained with a MP Rage (3D stereotactic protocol) to facilitate intraoperative navigation. If MRI is contraindicated (elevated BUN/Cr) Then CT with volumetric protocol can be used. MRA/CTA to evaluate the patency of the sinuses may be useful, however, unlike a parasagittal meningioma, this falcine lesion shouldn't compromise the superior sagittal sinus. Both the Superior and Inferior Sagittal sinuses can likely be sacrificed if needed since division would be within the anterior third of these structures.
[2017-05-05] MEDS ORDERED: ACETAMINOPHEN 325 MG TABLET (FP) PO PRN (15:42)
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
[2017-05-05] MEDS ORDERED: SODIUM CHLORIDE 500 ML IV STA (18:29)
--- NOTE | 2017-05-05 18:29 | PN ---
Progress Note (short form) - Note Progress Note: The benefit of obtaining ct head with contrast for this patient outweighs the risk. her brainmass needs to be appropriately evaluated and her creat is currently at or close to baseline. she will be gently hydrated after.
--- NOTE | 2017-05-05 20:09 | PN ---
Teaching Attending Note Name of Resident: Morris Broderick ATTENDING PHYSICIAN STATEMENT I saw and evaluated the patient. I reviewed the resident's note and discussed the case with the resident. I agree with the resident's findings and plan as documented. SUBJECTIVE: Patient in ICU, comfortable. Pt is a 72 y/o M w/ PMHx CVA w/ residual R hemiparesis, HTN, HLD who was sent to ICU from [facility] following a rapid response after the pt was found unresponsive and hypotensive . Pt had unwitnessed seizure activity. Soon after, pt regained normal vital signs. As per patient, had a pain medicationa nd was deep sleep. OBJECTIVE: Vital Signs Temperature 97.3 F L 05/05/17 14:00 Pulse Rate 80 05/05/17 16:00 Respiratory Rate 18 05/05/17 16:00 Blood Pressure 148/68 05/05/17 16:00 O2 Sat by Pulse Oximetry (%) 94 L 05/05/17 11:54 CBCD WBC 13.2 K/mm3 (4.0-10.0) H D 05/05/17 05:00 RBC 3.50 M/mm3 (4.00-5.60) L 05/05/17 05:00 Hgb 10.3 GM/dL (11.7-16.9) L D 05/05/17 05:00 Hct 31.2 % (35.4-49) L D 05/05/17 05:00 MCV 89.0 fl (80-96) 05/05/17 05:00 MCHC 33.1 g/dl (32.0-35.9) 05/05/17 05:00 RDW 16.2 % (11.9-15.9) H 05/05/17 05:00 Plt Count 139 K/MM3 (134-434) 05/05/17 05:00 MPV 9.0 fl (7.5-11.1) 05/05/17 05:00 CMP Sodium 142 mmol/L (136-145) 05/05/17 05:00 Potassium 4.5 mmol/L (3.5-5.1) 05/05/17 05:00 Chloride 105 mmol/L (98-107) 05/05/17 05:00 Carbon Dioxide 29 mmol/L (21-32) 05/05/17 05:00 Anion Gap 8 (8-16) 05/05/17 05:00 BUN 19 mg/dL (7-18) H 05/05/17 05:00 Creatinine 1.6 mg/dL (0.7-1.3) H D 05/05/17 05:00 Creat Clearance w eGFR 42.46 (>60) 05/05/17 05:00 Random Glucose 128 mg/dL (74-106) H D 05/05/17 05:00 Calcium 9.1 mg/dL (8.5-10.1) 05/05/17 05:00 Total Bilirubin 0.5 mg/dL (0.2-1.0) 05/05/17 05:00 AST 9 U/L (15-37) L D 05/05/17 05:00 ALT 10 U/L (12-78) L D 05/05/17 05:00 Alkaline Phosphatase 58 U/L (45-117) D 05/05/17 05:00 Total Protein 5.9 g/dl (6.4-8.2) L D 05/05/17 05:00 Albumin 2.8 g/dl (3.4-5.0) L D 05/05/17 05:00 CARDIAC ENZYMES Creatine Kinase 85 IU/L (39-308) 05/04/17 21:20 Troponin I < 0.02 ng/ml (0.00-0.05) 05/04/17 21:20 Current Medications Generic Name Dose Route Start Last Admin Trade Name Freq PRN Reason Stop Dose Admin Acetaminophen 650 mg 05/05/17 15:42 Tylenol - PO 05/06/17 13:59 Q4H PRN PAIN LEVEL 1-5 Al Hydroxide/Mg Hydroxide 30 ml 05/05/17 11:52 Mylanta Oral Suspension - PO Q4H PRN DYSPEPSIA Atorvastatin Calcium 10 mg 05/05/17 22:00 Lipitor - PO HS ESAU Clopidogrel Bisulfate 75 mg 05/06/17 10:00 Plavix - PO DAILY ESAU Dexamethasone Sodium Phosphate 4 mg 05/05/17 15:00 05/05/17 14:40 Decadron Injection - IVPUSH 4 mg Q6H-IV ESAU Administration Gabapentin 300 mg 05/05/17 22:00 Neurontin - PO BID ESAU Hydrochlorothiazide 12.5 mg 05/06/17 10:00 Hctz - PO DAILY [facility] Sodium Chloride 500 mls @ 75 mls/hr 05/05/17 18:29 05/05/17 19:31 Normal Saline - IV 05/06/17 01:08 75 mls/hr ASDIR STA Administration Levetiracetam 500 mg 05/05/17 22:00 Keppra - PO BID [facility] Lisinopril 20 mg 05/06/17 10:00 Prinivil PO DAILY [facility] Magnesium Hydroxide 30 ml 05/05/17 11:52 Milk Of Magnesia - PO PRN PRN CONSTIPATION Metoprolol Tartrate 25 mg 05/05/17 22:00 Lopressor - PO BID [facility] Multivitamins/Minerals/Vitamin C 1 tab 05/06/17 10:00 Tab-A-Vit - PO DAILY [facility] Ondansetron HCl 4 mg 05/05/17 11:52 Zofran Injection IVPUSH Q6H PRN NAUSEA Oxycodone HCl 5 mg 05/05/17 11:52 Roxicodone - PO Q3H PRN PAIN LEVEL 1-5 Pantoprazole Sodium 40 mg 05/06/17 10:00 Protonix - PO DAILY [facility] Senna/Docusate Sodium 2 tablet 05/05/17 22:00 Pericolace - PO BID [facility] Home Medications Medication Instructions Recorded Metoprolol Tartrate [Lopressor] 25 mg PO BID 06/17/16 Simvastatin [Zocor] 20 mg PO DAILY 06/17/16 Clopidogrel Bisulfate [Clopidogrel] 75 mg PO DAILY 04/28/17 Hydrochlorothiazide [Hctz -] 12.5 mg PO DAILY 04/28/17 Lisinopril [Prinivil] 20 mg PO DAILY 04/28/17 Oxycodone HCl/Acetaminophen 1 - 2 tab PO Q6H #50 tab MDD 8 05/03/17 [Percocet 5-325 mg Tablet] PE: per resident's note ASSESSMENT AND PLAN: Patient is a 72yo male was transferred from [facility] Patient in ICU, comfortable. Pt is a 72 y/o M w/ PMHx CVA w/ residual R hemiparesis, HTN, HLD who was sent to ICU from [facility] following a rapid response after the pt was found unresponsive and hypotensive . Pt had unwitnessed seizure activity. Soon after, pt regained normal vital signs. As per patient, had a pain medication and was deep sleep. #POD #2 s/p right TKR, Dr. Doan on the case. incentive spirometer continue. # s/p altered mental status as per patient due to pain medication.Previous CT scan of head reviewed (06/15) old infarcts noted with menigoma, STAT CT of head ordered, was noted to have solitary 4.1x 3.7x3.7 enhancing frontal falcine mass lesion is noted ost suggestive of a meningioma, perilesional edema is seen, in mild degree.CHronic bl cerebral and cerebellar infarcts suggestive of embolic etiology. Continue to hold narcotic pain medication. Neuro consult neurosurgeon seen the patient , possible surgery on Tuesday since increased the size of meningioma. # Hx of CVA continue plavix # hypertension continue to monitor, echo reviewed (06/15) lv wnl, pending cardiac profile. # Hyperlipidemia continue lipitor DVT Px: SCds.
[2017-05-05] MEDS: ATORVASTATIN CA 10 MG TABLET (FP) PO SCH (21:07)
[2017-05-06] MEDS: DEXAMETHASONE SOD PHOSPHATE 4 MG/1 ML VIAL IVPUSH SCH ×4 (02:34→21:03)
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
[2017-05-06 09:12] LABS: BASO % 0.4 % (0-2.0); HEMATOCRIT 31.3 % (35.4-49); HEMOGLOBIN 10.1 GM/dL (11.7-16.9); LYMPH % 2.6 % (8-40); MCH 28.8 pg (25.7-33.7); MCHC 32.4 g/dl (32.0-35.9); MEAN CELL VOLUME 88.7 fl (80-96); MEAN PLT VOLUME 8.8 fl (7.5-11.1); MONO % 5.7 % (3.8-10.2); NEUT % 91.3 % (42.8-82.8); PLATELET COUNT 150 K/MM3 (134-434); RBC 3.52 M/mm3 (4.00-5.60); RDW 16.3 % (11.9-15.9); WHITE BLOOD COUNT 15.9 K/mm3 (4.0-10.0)
[2017-05-06 09:30] LABS: ANION GAP 7 (8-16); BLOOD UREA NITROGEN 23 mg/dL (7-18); CHLORIDE 105 mmol/L (98-107); CO2 28 mmol/L (21-32); CREATININE 1.5 mg/dL (0.7-1.3); GLUCOSE,RANDOM 120 mg/dL (74-106); POTASSIUM 4.2 mmol/L (3.5-5.1); SODIUM 140 mmol/L (136-145)
[2017-05-06] MEDS: LISINOPRIL 20 MG TABLET (FP) PO SCH (09:51)
[2017-05-06] MEDS: MULTIVITAMINS (DAILY MVI) TABLET (FP) PO SCH (09:51)
[2017-05-06] MEDS: HYDROCHLOROTHIAZIDE 12.5 MG CAPSULE (FP) PO SCH (09:51)
[2017-05-06] MEDS: PANTOPRAZOLE 40 MG TABLET (FP) PO SCH (09:51)
[2017-05-06] MEDS: GABAPENTIN 300 MG CAPSULE (FP) PO SCH ×2 (09:51→21:03)
[2017-05-06] MEDS: levETIRAcetam 500 MG TABLET (FP) PO SCH ×2 (09:52→21:03)
[2017-05-06] MEDS: METOPROLOL TARTRATE 25 MG TABLET (FP) PO SCH ×2 (09:52→21:03)
[2017-05-06] MEDS: SENNOSIDES/DOCUSATE COMBO (SENNA PLUS) TABLET (UD) PO SCH ×2 (09:52→21:03)
[2017-05-06] MEDS ORDERED: CLOPIDOGREL BISULFATE 75 MG TABLET (FP) PO SCH (10:00)
--- NOTE | 2017-05-06 13:56 | PN ---
Teaching Attending Note Name of Resident: Morris Broderick ATTENDING PHYSICIAN STATEMENT I saw and evaluated the patient. I reviewed the resident's note and discussed the case with the resident. I agree with the resident's findings and plan as documented. SUBJECTIVE: Patient is awake, alert, comfortable. NAD. Able to answer appropiately. OBJECTIVE: Vital Signs Temperature 98.7 F 05/06/17 09:59 Pulse Rate 99 H 05/06/17 09:59 Respiratory Rate 20 05/06/17 09:59 Blood Pressure 127/82 05/06/17 09:59 O2 Sat by Pulse Oximetry (%) 94 L 05/05/17 11:54 CBCD WBC 15.9 K/mm3 (4.0-10.0) H 05/06/17 08:55 RBC 3.52 M/mm3 (4.00-5.60) L 05/06/17 08:55 Hgb 10.1 GM/dL (11.7-16.9) L 05/06/17 08:55 Hct 31.3 % (35.4-49) L 05/06/17 08:55 MCV 88.7 fl (80-96) 05/06/17 08:55 MCHC 32.4 g/dl (32.0-35.9) 05/06/17 08:55 RDW 16.3 % (11.9-15.9) H 05/06/17 08:55 Plt Count 150 K/MM3 (134-434) 05/06/17 08:55 MPV 8.8 fl (7.5-11.1) 05/06/17 08:55 CMP Sodium 140 mmol/L (136-145) 05/06/17 08:55 Potassium 4.2 mmol/L (3.5-5.1) 05/06/17 08:55 Chloride 105 mmol/L (98-107) 05/06/17 08:55 Carbon Dioxide 28 mmol/L (21-32) 05/06/17 08:55 Anion Gap 7 (8-16) L 05/06/17 08:55 BUN 23 mg/dL (7-18) H D 05/06/17 08:55 Creatinine 1.5 mg/dL (0.7-1.3) H 05/06/17 08:55 Creat Clearance w eGFR 42.46 (>60) 05/05/17 05:00 Random Glucose 120 mg/dL (74-106) H 05/06/17 08:55 Calcium 9.0 mg/dL (8.5-10.1) 05/06/17 08:55 Total Bilirubin 0.5 mg/dL (0.2-1.0) 05/05/17 05:00 AST 9 U/L (15-37) L D 05/05/17 05:00 ALT 10 U/L (12-78) L D 05/05/17 05:00 Alkaline Phosphatase 58 U/L (45-117) D 05/05/17 05:00 Total Protein 5.9 g/dl (6.4-8.2) L D 05/05/17 05:00 Albumin 2.8 g/dl (3.4-5.0) L D 05/05/17 05:00 CARDIAC ENZYMES Creatine Kinase 85 IU/L (39-308) 05/04/17 21:20 Troponin I < 0.02 ng/ml (0.00-0.05) 05/04/17 21:20 Current Medications Generic Name Dose Route Start Last Admin Trade Name Freq PRN Reason Stop Dose Admin Acetaminophen 650 mg 05/05/17 15:42 Tylenol - PO 05/06/17 13:59 Q4H PRN PAIN LEVEL 1-5 Al Hydroxide/Mg Hydroxide 30 ml 05/05/17 11:52 Mylanta Oral Suspension - PO Q4H PRN DYSPEPSIA Atorvastatin Calcium 10 mg 05/05/17 22:00 05/05/17 21:07 Lipitor - PO 10 mg HS ESAU Administration Clopidogrel Bisulfate 75 mg 05/06/17 10:00 05/06/17 09:52 Plavix - PO 75 mg DAILY E[facility]U Administration Dexamethasone Sodium Phosphate 4 mg 05/05/17 15:00 05/06/17 09:52 Decadron Injection - IVPUSH 4 mg Q6H-IV ESAU Administration Gabapentin 300 mg 05/05/17 22:00 05/06/17 09:51 Neurontin - PO 300 mg BID E[facility]U Administration Hydrochlorothiazide 12.5 mg 05/06/17 10:00 05/06/17 09:51 Hctz - PO 12.5 mg DAILY [facility] Administration Levetiracetam 500 mg 05/05/17 22:00 05/06/17 09:52 Keppra - PO 500 mg BID E[facility]U Administration Lisinopril 20 mg 05/06/17 10:00 05/06/17 09:51 Prinivil PO 20 mg DAILY [facility] Administration Magnesium Hydroxide 30 ml 05/05/17 11:52 Milk Of Magnesia - PO PRN PRN CONSTIPATION Metoprolol Tartrate 25 mg 05/05/17 22:00 05/06/17 09:52 Lopressor - PO 25 mg BID [facility] Administration Multivitamins/Minerals/Vitamin C 1 tab 05/06/17 10:00 05/06/17 09:51 Tab-A-Vit - PO 1 tab DAILY [facility] Administration Ondansetron HCl 4 mg 05/05/17 11:52 Zofran Injection IVPUSH Q6H PRN NAUSEA Oxycodone HCl 5 mg 05/05/17 11:52 Roxicodone - PO Q3H PRN PAIN LEVEL 1-5 Pantoprazole Sodium 40 mg 05/06/17 10:00 05/06/17 09:51 Protonix - PO 40 mg DAILY [facility] Administration Senna/Docusate Sodium 2 tablet 05/05/17 22:00 05/06/17 09:52 Pericolace - PO 2 tablet BID [facility] Administration Home Medications Medication Instructions Recorded Metoprolol Tartrate [Lopressor] 25 mg PO BID 06/17/16 Simvastatin [Zocor] 20 mg PO DAILY 06/17/16 Clopidogrel Bisulfate [Clopidogrel] 75 mg PO DAILY 04/28/17 Hydrochlorothiazide [Hctz -] 12.5 mg PO DAILY 04/28/17 Lisinopril [Prinivil] 20 mg PO DAILY 04/28/17 Oxycodone HCl/Acetaminophen 1 - 2 tab PO Q6H #50 tab MDD 8 05/03/17 [Percocet 5-325 mg Tablet] PE: AA0x3. CHEST: CTABL HEART: S1S2 positive abdomen: SOft, NT, NR, NG Ext: right TKR Neuro: recalls numbers, cn2-12 grossly intact ASSESSMENT AND PLAN: Patient is a 72yo male was transferred from [facility]. Patient in ICU, comfortable. Pt is a 72 y/o M w/ PMHx CVA w/ residual R hemiparesis, HTN, HLD who was sent to ICU from [facility] following a rapid response after the pt was found unresponsive and hypotensive . Pt had unwitnessed seizure activity. Soon after, pt regained normal vital signs. As per patient, had a pain medication and was deep sleep. #POD #3 s/p right TKR, Dr. Doan on the case. incentive spirometer continue. # s/p altered mental status as per patient due to pain medication.Previous CT scan of head reviewed (06/15) old infarcts noted with menigoma, CT of head report was noted to have solitary 4.1x 3.7x3.7 enhancing frontal falcine mass lesion is noted suggestive of a meningioma L>R , perilesional edema is seen, in mild degree.CHronic bl cerebral and cerebellar infarcts suggestive of embolic etiology. Continue to hold narcotic pain medication. Patient is accepted to [facility], accepted by Dr.Kevin Worthington, as soon as bed available , patient will be transferred to [facility]. On decadron q6h continue Neuro is on the case ,contineu decadron 4 mg q 6 hrs and levetiracetam 500 mg q 12 hrs. Hold Clopidogrel in anticipation of possible surgery. For transfer to [facility] (Dr. Alvin Worthington) as soon as a bed becomes available. Discussed with , patient needs to be in tertiary care for further assessment and evaluation. # Hx of CVA hold plavix # hypertension continue to monitor, echo reviewed (06/15) lv wnl, pending cardiac profile. # Hyperlipidemia continue lipitor DVT Px: SCds.
--- NOTE | 2017-05-06 15:02 | PN ---
Progress Note, [employer] - Note Progress Note: Selected Entries 05/05/17 05/05/17 05/05/17 02:00 06:00 10:00 Breakfast Lunch Temperature 99.6 F 98.6 F 98.0 F 05/05/17 05/05/17 05/06/17 14:00 20:00 06:00 Breakfast Lunch Temperature 97.3 F L 98.3 F 98.1 F 05/06/17 05/06/17 09:59 14:25 Breakfast 75% Lunch 100% Temperature 98.7 F 98.1 F Pt on reg diet/thin liquid, tolerating without difficulty. Speech and affect improved. Maintaining eye contact. Smiling.
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
--- NOTE | 2017-05-06 17:36 | PATH ---
Surgical Pathology Report Patient Name: ELVA GARCIA Med. Rec. #: [id number] /Age/Gender: 1945 (Age: 72) / M Account: [id number] Location: [address] [place] [address] Taken: 05/03/2017 Received: 05/03/2017 Reported: 05/06/2017 Physicians: Hero Doan M.D. Specimen(s) Received BONE OF RIGHT KNEE Clinical History Osteoarthritis right knee Final Diagnosis BONE, RIGHT KNEE, TOTAL KNEE REPLACEMENT: DEGENERATIVE JOINT DISEASE. Electronically Signed Stefani Cruz M.D. Gross Description Received in formalin labeled "bone right knee," is a 13.0 x 11.0 x 2.3 cm aggregate of multiple lizama, irregular portions of bone and soft tissue. The tibial plateau measures 8.7 x 6.0 x 1.6 cm. There is a 4 cm in greatest dimension area of eburnation present. The remaining articular surfaces are lizama-yellow and diffusely granular. The underlying trabecular bone is yellow and hard. Apprentice sections are submitted in one cassette, following decalcification. 05/04/201705/04/2017
--- NOTE | 2017-05-06 18:10 | PN ---
Progress Note (short form) - Note Progress Note: NEUROLOGY FOLLOW-UP: Events reviewed and discussed with Drs. Rutledge and Bradley. Also discussed with Dr. Alvin Worthington, Neuro-oncological surgeon at [facility], who agrees to accept the patient for further assessment and treatment. Pt is improved on decadron and ambulated to with assistance. Mr. Nguyen confirms that he had persistent right sided weakness since May effecting hand function, balance and gait. EXAM: Pt is much more alert and interactive. Less apathetic and withdrawn. Pt. is Ox 3 and understands her "has a brain tumor that is making him weak." Memory, reversals, calculations intact. CN II-XII: Normal Motor: Left drift > right persists. Decreased KJ's. Brisk reflexes. Plantars now silent. Balances and takes a few shuffling steps with assistance. Left circumduction. IMP: Large Frontal, parafalcine, Meningioma. Mild B/L motor involvement (L>R) is improved on decadron. 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 Currently, he is competent to participate in medical decision making. Suggest: Continue decadron 4 mg q 6 hrs and levetiracetam 500 mg q 12 hrs. Hold Clopidogrel in anticipation of possible surgery. For transfer to [facility] (Dr. Alvin Worthington) as soon as a bed becomes available. Thank you very much, Hero Thomas MD
[2017-05-06] MEDS: ATORVASTATIN CA 10 MG TABLET (FP) PO SCH (21:04)
[2017-05-07] MEDS: DEXAMETHASONE SOD PHOSPHATE 4 MG/1 ML VIAL IVPUSH SCH ×3 (02:44→15:11)
--- NOTE | 2017-05-07 09:51 | PN ---
Physical Exam: SUBJECTIVE: Patient seen and examined Patient is feeling better with no acute distress. OBJECTIVE: Vital Signs Temperature 98.1 F 05/07/17 05:02 Pulse Rate 76 05/07/17 05:02 Respiratory Rate 20 05/07/17 05:02 Blood Pressure 128/75 05/07/17 05:02 O2 Sat by Pulse Oximetry (%) 94 L 05/05/17 11:54 GENERAL: The patient is awake, alert, and fully oriented, in no acute distress. HEAD: Normal with no signs of trauma. EYES: PERRL, extraocular movements intact, sclera anicteric, conjunctiva clear. No ptosis. ENT: Ears normal, nares patent, oropharynx clear without exudates, moist mucous membranes. NECK: Trachea midline, full range of motion, supple. LUNGS: Breath sounds equal, clear to auscultation bilaterally, no wheezes, no crackles, no accessory muscle use. HEART: Regular rate and rhythm, S1, S2 without murmur, rub or gallop. ABDOMEN: Soft, nontender, nondistended, normoactive bowel sounds, no guarding, no rebound, no hepatosplenomegaly, no masses. EXTREMITIES: 2+ pulses, warm, well-perfused, no edema. NEUROLOGICAL: Cranial nerves II through XII grossly intact. Normal speech, gait not observed. PSYCH: Normal mood, normal affect. SKIN: Warm, dry, normal turgor, no rashes or lesions noted Active Medications Generic Name Dose Route Start Last Admin Trade Name Freq PRN Reason Stop Dose Admin Al Hydroxide/Mg Hydroxide 30 ml 05/05/17 11:52 Mylanta Oral Suspension - PO Q4H PRN DYSPEPSIA Atorvastatin Calcium 10 mg 05/05/17 22:00 05/06/17 21:04 Lipitor - PO 10 mg HS [facility] Administration Dexamethasone Sodium Phosphate 4 mg 05/05/17 15:00 05/07/17 02:44 Decadron Injection - IVPUSH 4 mg Q6H-IV [facility] Administration Gabapentin 300 mg 05/05/17 22:00 05/06/17 21:03 Neurontin - PO 300 mg BID [facility] Administration Hydrochlorothiazide 12.5 mg 05/06/17 10:00 05/06/17 09:51 Hctz - PO 12.5 mg DAILY [facility] Administration Levetiracetam 500 mg 05/05/17 22:00 05/06/17 21:03 Keppra - PO 500 mg BID [facility] Administration Lisinopril 20 mg 05/06/17 10:00 05/06/17 09:51 Prinivil PO 20 mg DAILY [facility] Administration Magnesium Hydroxide 30 ml 05/05/17 11:52 Milk Of Magnesia - PO PRN PRN CONSTIPATION Metoprolol Tartrate 25 mg 05/05/17 22:00 05/06/17 21:03 Lopressor - PO 25 mg BID [facility] Administration Multivitamins/Minerals/Vitamin C 1 tab 05/06/17 10:00 05/06/17 09:51 Tab-A-Vit - PO 1 tab DAILY [facility] Administration Ondansetron HCl 4 mg 05/05/17 11:52 Zofran Injection IVPUSH Q6H PRN NAUSEA Oxycodone HCl 5 mg 05/05/17 11:52 Roxicodone - PO Q3H PRN PAIN LEVEL 1-5 Pantoprazole Sodium 40 mg 05/06/17 10:00 05/06/17 09:51 Protonix - PO 40 mg DAILY [facility] Administration Senna/Docusate Sodium 2 tablet 05/05/17 22:00 05/06/17 21:03 Pericolace - PO 2 tablet BID [facility] Administration Home Medications Medication Instructions Recorded Metoprolol Tartrate [Lopressor] 25 mg PO BID 06/17/16 Simvastatin [Zocor] 20 mg PO DAILY 06/17/16 Clopidogrel Bisulfate [Clopidogrel] 75 mg PO DAILY 04/28/17 Hydrochlorothiazide [Hctz -] 12.5 mg PO DAILY 04/28/17 Lisinopril [Prinivil] 20 mg PO DAILY 04/28/17 Oxycodone HCl/Acetaminophen 1 - 2 tab PO Q6H #50 tab MDD 8 05/03/17 [Percocet 5-325 mg Tablet] Levetiracetam [Keppra -] 500 mg PO BID #60 tablet 05/06/17 Mag Hydrox/Al Hydrox/Simeth 30 ml PO Q4H PRN cup 05/06/17 [Mylanta Oral Suspension -] Multivitamins [Multivit ([facility] 1 tab PO DAILY tab 05/06/17 Formulary)] Pantoprazole Sodium [Protonix -] 40 mg PO DAILY #30 tablet.ec 05/06/17 Sennosides/Docusate Sodium 2 tablet PO BID tablet 05/06/17 [Pericolace -] CBCD WBC 15.9 K/mm3 (4.0-10.0) H 05/06/17 08:55 RBC 3.52 M/mm3 (4.00-5.60) L 05/06/17 08:55 Hgb 10.1 GM/dL (11.7-16.9) L 05/06/17 08:55 Hct 31.3 % (35.4-49) L 05/06/17 08:55 MCV 88.7 fl (80-96) 05/06/17 08:55 MCHC 32.4 g/dl (32.0-35.9) 05/06/17 08:55 RDW 16.3 % (11.9-15.9) H 05/06/17 08:55 Plt Count 150 K/MM3 (134-434) 05/06/17 08:55 MPV 8.8 fl (7.5-11.1) 05/06/17 08:55 CMP Sodium 140 mmol/L (136-145) 05/06/17 08:55 Potassium 4.2 mmol/L (3.5-5.1) 05/06/17 08:55 Chloride 105 mmol/L (98-107) 05/06/17 08:55 Carbon Dioxide 28 mmol/L (21-32) 05/06/17 08:55 Anion Gap 7 (8-16) L 05/06/17 08:55 BUN 23 mg/dL (7-18) H D 05/06/17 08:55 Creatinine 1.5 mg/dL (0.7-1.3) H 05/06/17 08:55 Creat Clearance w eGFR 42.46 (>60) 05/05/17 05:00 Random Glucose 120 mg/dL (74-106) H 05/06/17 08:55 Calcium 9.0 mg/dL (8.5-10.1) 05/06/17 08:55 Total Bilirubin 0.5 mg/dL (0.2-1.0) 05/05/17 05:00 AST 9 U/L (15-37) L D 05/05/17 05:00 ALT 10 U/L (12-78) L D 05/05/17 05:00 Alkaline Phosphatase 58 U/L (45-117) D 05/05/17 05:00 Total Protein 5.9 g/dl (6.4-8.2) L D 05/05/17 05:00 Albumin 2.8 g/dl (3.4-5.0) L D 05/05/17 05:00 CARDIAC ENZYMES Creatine Kinase 85 IU/L (39-308) 05/04/17 21:20 Troponin I < 0.02 ng/ml (0.00-0.05) 05/04/17 21:20 ASSESSMENT/PLAN: Patient is a 72yo male was transferred from [facility]. Patient in ICU, comfortable. Pt is a 72 y/o M w/ PMHx CVA w/ residual R hemiparesis, HTN, HLD who was sent to ICU from [facility] following a rapid response after the pt was found unresponsive and hypotensive . Pt had unwitnessed seizure activity. Soon after, pt regained normal vital signs. As per patient, had a pain medication and was deep sleep. #POD #4 s/p right TKR, Dr. Doan on the case. incentive spirometer continue. # s/p altered mental status as per patient due to pain medication.Previous CT scan of head reviewed (06/15) old infarcts noted with menigoma, CT of head report was noted to have solitary 4.1x 3.7x3.7 enhancing frontal falcine mass lesion is noted suggestive of a meningioma L>R , perilesional edema is seen, in mild degree.CHronic bl cerebral and cerebellar infarcts suggestive of embolic etiology. Continue to hold narcotic pain medication. Patient is accepted to [facility], accepted by Dr.Kevin Worthington, as soon as bed available , patient will be transferred to [facility]. On decadron q6h continue Neuro is on the case ,contineu decadron 4 mg q 6 hrs and levetiracetam 500 mg q 12 hrs. Hold Clopidogrel in anticipation of possible surgery. For transfer to [facility] (Dr. Alvin Worthington) as soon as a bed becomes available. Discussed with , patient needs to be in tertiary care for further assessment and evaluation. # Hx of CVA hold plavix # hypertension continue to monitor, echo reviewed (06/15) lv wnl, pending cardiac profile. # Hyperlipidemia continue lipitor DVT Px: SCds.
--- NOTE | 2017-05-07 10:04 | PN ---
Progress Note (short form) - Note Progress Note: Ortho Pt seen and examined s/p right merline tkr doing well Selected Entries 05/07/17 05:02 Temperature 98.1 F Pulse Rate 76 Respiratory 20 Rate Blood Pressure 128/75 Laboratory Tests 05/06/17 08:55 WBC 15.9 H Hgb 10.1 L Hct 31.3 L Plt Count 150 dressing c/d/i, calf soft, nt rom 0-90, nvi a/p s/p right tkr- doing well, to be transferred for neurosurgery PT dvt ppx pain control will follow d/w Dr. Doan
[2017-05-07] MEDS ORDERED: PT OWN MED DRAWER 7, Y5N ONE (10:23)
[2017-05-07] MEDS: GABAPENTIN 300 MG CAPSULE (FP) PO SCH (10:27)
[2017-05-07] MEDS: levETIRAcetam 500 MG TABLET (FP) PO SCH (10:27)
[2017-05-07] MEDS: METOPROLOL TARTRATE 25 MG TABLET (FP) PO SCH (10:28)
[2017-05-07] MEDS: PANTOPRAZOLE 40 MG TABLET (FP) PO SCH (10:28)
[2017-05-07] MEDS: LISINOPRIL 20 MG TABLET (FP) PO SCH (10:28)
[2017-05-07] MEDS: HYDROCHLOROTHIAZIDE 12.5 MG CAPSULE (FP) PO SCH (10:28)
[2017-05-07] MEDS: MULTIVITAMINS (DAILY MVI) TABLET (FP) PO SCH (10:28)
[2017-05-07] MEDS: SENNOSIDES/DOCUSATE COMBO (SENNA PLUS) TABLET (UD) PO SCH (10:28)
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
--- NOTE | 2017-05-07 19:01 | DS ---
Physical Exam: SUBJECTIVE: Patient seen and examined Patient is feeling better with no acute distress. Bed is available for patient to [facility] OBJECTIVE: Vital Signs Temperature 98.1 F 05/07/17 14:33 Pulse Rate 66 05/07/17 14:33 Respiratory Rate 18 05/07/17 14:33 Blood Pressure 122/76 05/07/17 14:33 O2 Sat by Pulse Oximetry (%) 94 L 05/05/17 11:54 GENERAL: The patient is awake, alert, and fully oriented, in no acute distress. HEAD: Normal with no signs of trauma. EYES: PERRL, extraocular movements intact, sclera anicteric, conjunctiva clear. ENT: Ears normal, nares patent, oropharynx clear without exudates, moist mucous membranes. NECK: Trachea midline, full range of motion, supple. LUNGS: Breath sounds equal, clear to auscultation bilaterally, no wheezes, no crackles, no accessory muscle use. HEART: Regular rate and rhythm, S1, S2 without murmur, rub or gallop. ABDOMEN: Soft, nontender, nondistended, normoactive bowel sounds, no guarding, no rebound, no hepatosplenomegaly, no masses. EXTREMITIES: 2+ pulses, warm, well-perfused, no edema. RTK day#4 NEUROLOGICAL: Cranial nerves II through XII grossly intact. Normal speech, gait not observed. see neurologist neuro exam. PSYCH: Normal mood, normal affect. SKIN: Warm, dry, normal turgor, no rashes or lesions noted. LABS CBCD WBC 15.9 K/mm3 (4.0-10.0) H 05/06/17 08:55 RBC 3.52 M/mm3 (4.00-5.60) L 05/06/17 08:55 Hgb 10.1 GM/dL (11.7-16.9) L 05/06/17 08:55 Hct 31.3 % (35.4-49) L 05/06/17 08:55 MCV 88.7 fl (80-96) 05/06/17 08:55 MCHC 32.4 g/dl (32.0-35.9) 05/06/17 08:55 RDW 16.3 % (11.9-15.9) H 05/06/17 08:55 Plt Count 150 K/MM3 (134-434) 05/06/17 08:55 MPV 8.8 fl (7.5-11.1) 05/06/17 08:55 CMP Sodium 140 mmol/L (136-145) 05/06/17 08:55 Potassium 4.2 mmol/L (3.5-5.1) 05/06/17 08:55 Chloride 105 mmol/L (98-107) 05/06/17 08:55 Carbon Dioxide 28 mmol/L (21-32) 05/06/17 08:55 Anion Gap 7 (8-16) L 05/06/17 08:55 BUN 23 mg/dL (7-18) H D 05/06/17 08:55 Creatinine 1.5 mg/dL (0.7-1.3) H 05/06/17 08:55 Creat Clearance w eGFR 42.46 (>60) 05/05/17 05:00 Random Glucose 120 mg/dL (74-106) H 05/06/17 08:55 Calcium 9.0 mg/dL (8.5-10.1) 05/06/17 08:55 Total Bilirubin 0.5 mg/dL (0.2-1.0) 05/05/17 05:00 AST 9 U/L (15-37) L D 05/05/17 05:00 ALT 10 U/L (12-78) L D 05/05/17 05:00 Alkaline Phosphatase 58 U/L (45-117) D 05/05/17 05:00 Total Protein 5.9 g/dl (6.4-8.2) L D 05/05/17 05:00 Albumin 2.8 g/dl (3.4-5.0) L D 05/05/17 05:00 CARDIAC ENZYMES Creatine Kinase 85 IU/L (39-308) 05/04/17 21:20 Troponin I < 0.02 ng/ml (0.00-0.05) 05/04/17 21:20 Current Medications Generic Name Dose Route Start Last Admin Trade Name Freq PRN Reason Stop Dose Admin Al Hydroxide/Mg Hydroxide 30 ml 05/05/17 11:52 Mylanta Oral Suspension - PO Q4H PRN DYSPEPSIA Atorvastatin Calcium 10 mg 05/05/17 22:00 05/06/17 21:04 Lipitor - PO 10 mg HS ESAU Administration Dexamethasone Sodium Phosphate 4 mg 12/07/17 15:00 05/07/17 15:11 Decadron Injection - IVPUSH 4 mg Q6H-IV ESAU Administration Gabapentin 300 mg 05/05/17 22:00 05/07/17 10:27 Neurontin - PO 300 mg BID ESAU Administration Hydrochlorothiazide 12.5 mg 05/06/17 10:00 05/07/17 10:28 Hctz - PO 12.5 mg DAILY ESAU Administration Levetiracetam 500 mg 05/05/17 22:00 05/07/17 10:27 Keppra - PO 500 mg BID ESAU Administration Lisinopril 20 mg 05/06/17 10:00 05/07/17 10:28 Prinivil PO 20 mg DAILY ESAU Administration Magnesium Hydroxide 30 ml 05/05/17 11:52 Milk Of Magnesia - PO PRN PRN CONSTIPATION Metoprolol Tartrate 25 mg 05/05/17 22:00 05/07/17 10:28 Lopressor - PO 25 mg BID ESAU Administration Multivitamins/Minerals/Vitamin C 1 tab 05/06/17 10:00 05/07/17 10:28 Tab-A-Vit - PO 1 tab DAILY ESAU Administration Ondansetron HCl 4 mg 05/05/17 11:52 Zofran Injection IVPUSH Q6H PRN NAUSEA Oxycodone HCl 5 mg 05/05/17 11:52 Roxicodone - PO Q3H PRN PAIN LEVEL 1-5 Pantoprazole Sodium 40 mg 05/06/17 10:00 05/07/17 10:28 Protonix - PO 40 mg DAILY ESAU Administration Senna/Docusate Sodium 2 tablet 05/05/17 22:00 05/07/17 10:28 Pericolace - PO 2 tablet BID ESAU Administration Home Medications Medication Instructions Recorded Metoprolol Tartrate [Lopressor] 25 mg PO BID 06/17/16 Simvastatin [Zocor] 20 mg PO DAILY 06/17/16 Clopidogrel Bisulfate [Clopidogrel] 75 mg PO DAILY 04/28/17 Hydrochlorothiazide [Hctz -] 12.5 mg PO DAILY 04/28/17 Lisinopril [Prinivil] 20 mg PO DAILY 04/28/17 Oxycodone HCl/Acetaminophen 1 - 2 tab PO Q6H #50 tab MDD 8 05/03/17 [Percocet 5-325 mg Tablet] Levetiracetam [Keppra -] 500 mg PO BID #60 tablet 05/06/17 Mag Hydrox/Al Hydrox/Simeth 30 ml PO Q4H PRN cup 05/06/17 [Mylanta Oral Suspension -] Multivitamins [Multivit ([facility] 1 tab PO DAILY tab 05/06/17 Formulary)] Pantoprazole Sodium [Protonix -] 40 mg PO DAILY #30 tablet.ec 05/06/17 Sennosides/Docusate Sodium 2 tablet PO BID tablet 05/06/17 [Pericolace -] MRI:Large Frontal, parafalcine, Meningioma. HOSPITAL COURSE: Date of Admission:05/03/17 Date of Discharge: 05/07/17 Patient is a 72yo male was transferred from [facility] Patient in ICU, comfortable. Pt is a 72 y/o M w/ PMHx CVA w/ residual R hemiparesis, HTN, HLD who was sent to ICU from [facility] following a rapid response after the pt was found unresponsive and hypotensive . Pt had unwitnessed seizure activity. Soon after, pt regained normal vital signs. As per patient, had a pain medication and was deep sleep. #POD #4 s/p right TKR, Dr. Doan on the case. incentive spirometer continue. # s/p altered mental status as per patient due to pain medication.Previous CT scan of head reviewed (06/15) old infarcts noted with menigoma, CT of head report was noted to have solitary 4.1x 3.7x3.7 enhancing frontal falcine mass lesion is noted suggestive of a meningioma L>R , perilesional edema is seen, in mild degree.CHronic bl cerebral and cerebellar infarcts suggestive of embolic etiology. Continue to hold narcotic pain medication. Patient is accepted to [facility], accepted by Dr.Kevin Worthington, bed is available at this time ,patient is being transferred to [facility]. On decadron q6h continue ;Neuro is on the case ,continue decadron 4 mg q 6 hrs and levetiracetam 500 mg q 12 hrs. Hold Clopidogrel in anticipation of possible surgery. For transfer to [facility] (Dr. Alvin Worthington) as soon as a bed becomes available. Discussed with , patient needs to be in tertiary care for further assessment and evaluation. # Hx of CVA hold plavix # hypertension continue to monitor, echo reviewed (06/15) lv wnl. # Hyperlipidemia continue lipitor DVT Px: SCds. Minutes to complete discharge: 45 Discharge Summary Reason For Visit: OSTEOARTHRITIS Current Active Problems JESS (acute kidney injury) (Acute) Seizure disorder (Acute) Status post total knee replacement, right (Acute) Brain tumor (Chronic) Condition: Good - Instructions Diet, Activity, Other Instructions: While you were admitted at [facility], you were treated for a cardiac arrest and were further evaluated by our neurosurgery team for a significant increase in size of your previously diagnosed brain tumor. Please continue your home medications as previously prescribed. The following medications were added to your regimen during your stay. Please continue to take them as directed: Keppra 500 mg by mouth, twice a day Follow-ups: Please call Dr. Doan at his office to schedule a follow-up appointment in one week. His contact information has been provided. Please follow-up with your neurologist, Dr. Thomas, to schedule an appointment in two weeks. His contact information has been provided in this packet. Diet: Please adhere to a low salt diet Post-op Instructions-Total Knee Replacement Call the office for a follow-up appointment in 1 week - [phone] Aspirin 325mg daily for 6 weeks. Pain medication was sent into your pharmacy. Apply Graduated Compression Stockings (TEDs) to both lower extremities- remove daily for hygiene ONLY Apply Sequential Compression Device (SCDs) to both Lower extremities remove for PT and hygiene ONLY Apply cold packs to affected area for 15 minutes every 2 hours. Physical Therapist will come to your home for the first 5 days. You will be set up with outpatient PT at your first post-operative visit. Patient may ambulate as tolerated-encourage self care (at least every 2-3 hours while awake) with walker or cane Maintain Aquacel (waterproof) dressing to operative wound (will be removed by surgeon at first office visit) Shower with Aquacel dressing in place-if Aquacel integrity compromised, remove and apply dry sterile dressing and notify Orthopedist. DO NOT SHOWER unless Orthopedists approves without Aquacel dressing CONTACT THE OFFICE FOR ANY CHANGE IN YOUR CONDITION (for example-fever greater than 102 degrees, excessive bleeding from operative site, purulent drainage, severe swelling or pain) GO TO THE EMERGENCY ROOM IF THERE IS A MEDICAL EMERGENCY Knee Precautions: * Keep a rolled towel under affected heel while in bed or chair (to keep knee in extension) * Keep affected leg elevated except during mealtimes * DO NOT PLACE PILLOW UNDER AFFECTED KNEE * If you have any questions, please do not hesitate to call the office - . Referrals: Hero Thomas MD [Staff Physician] - 2 Weeks Hero Doan MD [Staff Physician] - 2 Weeks Disposition: TRANSFER ACUTE CARE/OTHER HOSP - Home Medications Comprehensive Discharge Medication List: Ambulatory Orders Metoprolol Tartrate [Lopressor] 25 mg PO BID 06/17/16 Simvastatin [Zocor] 20 mg PO DAILY 06/17/16 Clopidogrel Bisulfate [Clopidogrel] 75 mg PO DAILY 04/28/17 Hydrochlorothiazide [Hctz -] 12.5 mg PO DAILY 04/28/17 Lisinopril [Prinivil] 20 mg PO DAILY 04/28/17 Oxycodone HCl/Acetaminophen [Percocet 5-325 mg Tablet] 1 - 2 tab PO Q6H #50 tab MDD 8 05/03/17 Levetiracetam [Keppra -] 500 mg PO BID #60 tablet 05/06/17 Mag Hydrox/Al Hydrox/Simeth [Mylanta Oral Suspension -] 30 ml PO Q4H PRN cup Multivitamins [Multivit ([facility] Formulary)] 1 tab PO DAILY tab 05/06/17 Pantoprazole Sodium [Protonix -] 40 mg PO DAILY #30 tablet.ec 05/06/17 Sennosides/Docusate Sodium [Pericolace -] 2 tablet PO BID tablet 05/06/17 This patient is new to me today: No Emergency Visit: Yes ED Registration Date: 05/03/17 Care time: The patient presented to the Emergency Department on the above date and was hospitalized for further evaluation of their emergent condition. Critical Care patient: No - Discharge Referral Referred to [facility] Med [facility].C.: No
[2017-05-07 21:35] VITALS: BP 120/80; PULSE 70; TEMP 98
== END 2017-05-06 20:30 | disposition short-term general hospital (02) | DRG 469 ==
LOC: FM/S 07:23 → JICU 05-04 19:56 → J6S 05-05 18:15
PROVIDERS: ADMIT Orthopaedic Surgery; ATTEND Internal Medicine
PROC: 8E0Y0CZ Robotic Assisted Procedure of Lower Extremity, Open Approach (ICD-10-PCS; 2017-05-03)
PROC: 5A12012 Performance of Cardiac Output, Single, Manual (ICD-10-PCS; 2017-05-03)
PROC: 0SRC0JZ Replacement of Right Knee Joint with Synthetic Substitute, Open Approach (ICD-10-PCS; principal; 2017-05-03 09:25)
PROC: 3E0F7GC Introduction of Other Therapeutic Substance into Respiratory Tract, Via Natural or Artificial Opening (ICD-10-PCS; 2017-05-04)
DX: M17.11 Unilateral primary osteoarthritis, right knee (principal); G93.6 Cerebral edema; I46.9 Cardiac arrest, cause unspecified; I69.351 Hemiplegia and hemiparesis following cerebral infarction affecting right dominant side; N17.9 Acute kidney failure, unspecified; I97.121 Postprocedural cardiac arrest following other surgery; I10 Essential (primary) hypertension; E78.5 Hyperlipidemia, unspecified; R41.82 Altered mental status, unspecified; D32.9 Benign neoplasm of meninges, unspecified; D49.7 Neoplasm of unspecified behavior of endocrine glands and other parts of nervous system; E83.42 Hypomagnesemia; I08.0 Rheumatic disorders of both mitral and aortic valves; I27.20 Pulmonary hypertension, unspecified; Y83.8 Other surgical procedures as the cause of abnormal reaction of the patient, or of later complication, without mention of misadventure at the time of the procedure; G40.909 Epilepsy, unspecified, not intractable, without status epilepticus; I95.89 Other hypotension; I25.10 Atherosclerotic heart disease of native coronary artery without angina pectoris
CPT/HCPCS: 36415; 36600; 70450-TC; 70470-TC; 71010-TC; 72131-TC; 73560-TC-RT; 80048; 80053; 82550; 82803; 83735; 84100; 84484; 85025; 85027; 85610; 88304-TC; 88311-TC; 93005; 93306-TC; 94010; 94760; 97116-GP; 97163-GP; J1100

== ENCOUNTER 2017-05-21 13:07 | Inpatient (IN) | payer OTHER ==
[2017-05-21] MEDS ORDERED: SODIUM CHLORIDE 0.9% 1000 ML INFUS.BAG IV ONE (13:26)
[2017-05-21 13:45] LABS: VENOUS PC02 36.2 mmHg (38-52); VENOUS PH 7.43 (7.32-7.42)
[2017-05-21 13:52] VITALS: BMI 28.8
[2017-05-21 13:53] LABS: BASO % 0.5 % (0-2.0); EOS % 0.2 % (0-4.5); HEMATOCRIT 31.2 % (35.4-49); HEMOGLOBIN 10.2 GM/dL (11.7-16.9); LYMPH % 1.9 % (8-40); MCH 28.2 pg (25.7-33.7); MCHC 32.7 g/dl (32.0-35.9); MEAN CELL VOLUME 86.1 fl (80-96); MEAN PLT VOLUME 7.6 fl (7.5-11.1); MONO % 8.5 % (3.8-10.2); NEUT % 88.9 % (42.8-82.8); PLATELET COUNT 394 K/MM3 (134-434); RBC 3.62 M/mm3 (4.00-5.60); RDW 16.5 % (11.9-15.9); WHITE BLOOD COUNT 17.8 K/mm3 (4.0-10.0)
--- NOTE | 2017-05-21 13:54 | PDOC ---
Attending Attestation - Resident Resident Name: Aleena Arnett - HPI HPI: 05/21/17 14:36 72yo M with significant history of HTN, HLD, CVA in May 2016 (with residual R-sided weakness and L eye exotropia), R TKR 05/03/17 c/b cardiac arrest vs seizure on POD 1 (ROSC after 1 round of CPR), brain mass (probable meningioma, currently being worked up at [facility]) presents from [place] for AMS. Pt was minimally responsive per EMS and his daughter Reny. On arrival to ED, BP 70s/ 40s, rectally afebrile to 99, able to follow simple commands but minimally conversive. Two PIVs placed, with 2L NS running, improvement of BP within 15 mins to 90s/50s. Per his daughter, he had been slowly recovering from his recent admission, however became more lethargic 3 days ago. History limited 2/2 mental status. - Physicial Exam PE: 05/21/17 14:57 GENERAL: eyes closed, lethargic but arousable HEAD: No signs of trauma ENT: dry MM LUNGS: Breath sounds equal, clear to auscultation bilaterally. No wheezes, and no crackles HEART: Regular rate and rhythm, normal S1 and S2, no murmurs, rubs or gallops ABDOMEN: Soft, nontender, normoactive bowel sounds. +multiple well healed midline scars. : Rice with minimal UOP, cloudly appearing urine NEUROLOGICAL: follows simple commands, R sided facial droop SKIN: Warm, Dry, normal turgor, no rashes or lesions noted. - Critical Care Time Total Critical Care Time: 60 Critical Care Statement: The care of this patient involved high complexity decision making to prevent further life threatening deterioration of the patient 's condition and/or to evaluate & treat vital organ system(s) failure or risk of failure. - Medical Decision Making 05/21/17 15:17 72-year-old male with multiple medical problems including recent ICU admission for likely seizure versus cardiac arrest, seizure likely due to to brain mass that is currently being worked up, presents with altered mental status. Patient is hypotensive on arrival and lethargic, with minimal urine output and cloudy appearing urine. Likely urosepsis. The patient has been fluid responsive, will obtain labs, blood cultures, CXR, UA, and cover empirically with Vanc/Zosyn. 05/21/17 17:41 BP has been stable. Added CTH and c-spine given AMS and brain mass as well as neck pain. Discussed admission with Dr. Pack who would like to wait for the CTH/c-spine to return before accepting the patient for admission. Will attempt to get pt to CT. 05/21/17 18:[address] 05/21/17 19:22 Pt pending read of CTH/C-spine, signed out to evening attending for further mgmt and dispo
[2017-05-21] MEDS ORDERED: VANCOMYCIN 1,000 MG in DEXTROSE 5%-WATER - 250 ML IVPB ONE (13:55)
[2017-05-21] MEDS ORDERED: PIPERACILLIN/TAZOB 4.5 GM 4.5 GM in DEXTROSE 5%-WATER - 100 ML IVPB ONE (13:55)
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
[2017-05-21 14:07] LABS: INR 1.2 (0.82-1.09); PROTHROMBIN TIME (PATIENT) 13.6 SEC (9.98-11.88)
[2017-05-21] MEDS ORDERED: VANCOMYCIN 1 GRAM (PRE-DOCKED) 1,000 MG/250 ML BAG IVPB ONE ×2 (14:07→14:08)
[2017-05-21] MEDS ORDERED: PIPERACILLIN/TAZOB 4.5 GM 4.5 GM/100 ML BAG IVPB ONE (14:07)
[2017-05-21 14:10] LABS: ACTIVATED PTT 27.9 SECONDS (26.9-34.4)
[2017-05-21 14:16] LABS: ALBUMIN 2.3 g/dl (3.4-5.0); ANION GAP 13 (8-16); BILIRUBIN,TOTAL 0.5 mg/dL (0.2-1.0); BLOOD UREA NITROGEN 75 mg/dL (7-18); CHLORIDE 104 mmol/L (98-107); CO2 24 mmol/L (21-32); CREATININE 3.7 mg/dL (0.7-1.3); GLUCOSE,RANDOM 160 mg/dL (74-106); POTASSIUM 4.4 mmol/L (3.5-5.1); SGOT/AST 27 U/L (15-37); SGPT/ALT 50 U/L (12-78); SODIUM 141 mmol/L (136-145); TOT PROT 6.8 g/dl (6.4-8.2)
[2017-05-21 14:19] LABS: ALK PHOS 139 U/L (45-117)
[2017-05-21] MEDS ORDERED: SODIUM CHLORIDE 0.9% 500 ML INFUS.BAG IV ONE (14:22)
[2017-05-21 15:42] LABS: URINE APPEARANCE CLOUDY; URINE BILIRUBIN NEGATIVE (NEGATIVE); URINE BLOOD 1+ (NEGATIVE); URINE COLOR DKYELLOW; URINE GLUCOSE (UA) 1+ (NEGATIVE); URINE KETONE NEGATIVE (NEGATIVE); URINE NITRITE NEGATIVE (NEGATIVE); URINE UROBILINOGEN NEGATIVE mg/dL (0.2-1.0)
[2017-05-21 15:43] LABS: URINE LEUK ESTERASE 1+ (NEGATIVE); URINE PROTEIN 2+ (NEGATIVE)
[2017-05-21] MEDS ORDERED: ACETAMINOPHEN 1000 MG/100 ML VIAL (NON FORMULARY) IVPB ONE (15:45)
[2017-05-21 15:50] LABS: URINE HYALINE CAST 22 /lpf
[2017-05-21] MEDS ORDERED: ACETAMINOPHEN INJECTION 100 ML IVPB ONE (15:58)
--- NOTE | 2017-05-21 16:11 | EKG ---
Test Reason : Blood Pressure : / mmHG Vent. Rate : 109 BPM Atrial Rate : 109 BPM P-R Int : 168 ms QRS Dur : 092 ms QT Int : 358 ms P-R-T Axes : 061 -29 086 degrees QTc Int : 482 ms SINUS TACHYCARDIA MODERATE VOLTAGE CRITERIA FOR LVH, MAY BE NORMAL VARIANT CANNOT RULE OUT SEPTAL INFARCT (CITED ON OR BEFORE 04-MAY-2017) ABNORMAL ECG WHEN COMPARED WITH ECG OF 04-MAY-2017 13:45, SERIAL CHANGES OF EVOLVING SEPTAL INFARCT PRESENT Confirmed by DOLORES DE LA FUENTE MD ([id number]) on 05/21/2017 4:11:00 PM Referred By: Confirmed By:DOLORES DE LA FUENTE MD
--- NOTE | 2017-05-21 19:19 | PDOC ---
*Physical Exam - Vital Signs Last Vital Signs Temp Pulse Resp BP Pulse Ox 92 H 22 114/77 98 05/21/17 14:21 05/21/17 14:21 05/21/17 14:21 05/21/17 13:10 ED Treatment Course - LABORATORY CBC & Chemistry Diagram: 05/21/17 12:20 05/21/17 12:20 - ADDITIONAL ORDERS Additional order review: Laboratory Results 05/21/17 05/21/17 05/21/17 14:34 13:26 12:38 PT with INR INR PTT (Actin FS) VBG pH 7.43 H POC VBG pCO2 36.2 L POC VBG pO2 113.0 H Mixed VBG HCO3 23.6 Sodium Potassium Chloride Carbon Dioxide Anion Gap BUN Creatinine Creat Clearance w eGFR Random Glucose Lactic Acid 1.1 Calcium Total Bilirubin AST ALT Alkaline Phosphatase Creatine Kinase Creatine Kinase Index CK-MB (CK-2) Troponin I Total Protein Albumin Urine Color Dkyellow Urine Appearance Cloudy Urine pH 6.0 Ur Specific [place] 1.015 Urine Protein 2+ H Urine Glucose (UA) 1+ H Urine Ketones Negative Urine Blood 1+ H Urine Nitrite Negative Urine Bilirubin Negative Urine Urobilinogen Negative Urine WBC (Auto) 130 Urine RBC (Auto) 23 Hyaline Casts 22 Blood Type Antibody Screen 05/21/17 05/21/17 05/21/17 12:20 12:20 12:20 PT with INR 13.60 H INR 1.20 H PTT (Actin FS) 27.9 VBG pH POC VBG pCO2 POC VBG pO2 Mixed VBG HCO3 Sodium 141 Potassium 4.4 Chloride 104 Carbon Dioxide 24 Anion Gap 13 BUN 75 H D Creatinine 3.7 H D Creat Clearance w eGFR 16.14 Random Glucose 160 H D Lactic Acid Calcium 9.0 Total Bilirubin 0.5 AST 27 D ALT 50 D Alkaline Phosphatase 139 H D Creatine Kinase 245 Creatine Kinase Index 1.1 CK-MB (CK-2) 2.796 Troponin I 0.02 Total Protein 6.8 Albumin 2.3 L Urine Color Urine Appearance Urine pH Ur Specific [place] Urine Protein Urine Glucose (UA) Urine Ketones Urine Blood Urine Nitrite Urine Bilirubin Urine Urobilinogen Urine WBC (Auto) Urine RBC (Auto) Hyaline Casts Blood Type O POSITIVE Antibody Screen Negative 05/21/17 12:20 RBC 3.62 L MCV 86.1 MCHC 32.7 RDW 16.5 H MPV 7.6 D Neutrophils % 88.9 H Lymphocytes % 1.9 L D Monocytes % 8.5 Eosinophils % 0.2 D Basophils % 0.5 - Medications Given in the ED: ED Medications Discontinued Medications Generic Name Dose Route Start Last Admin Trade Name Mila PRN Reason Stop Dose Admin Acetaminophen 1,000 mg 05/21/17 15:45 05/21/17 15:58 Ofirmev Injection - IVPB 05/21/17 15:46 1,000 mg ONCE ONE Administration Vancomycin HCl 1,000 mg/ 250 mls @ 250 mls/hr 05/21/17 13:55 05/21/17 14:15 Dextrose IVPB 05/21/17 14:54 250 mls/hr ONCE ONE Administration Protocol Piperacillin Sod/Tazobactam 100 mls @ 200 mls/hr 05/21/17 13:55 05/21/17 14: 30 Sod 4.5 gm/ Dextrose IVPB 05/21/17 14:24 200 mls/hr ONCE ONE Administration Protocol Sodium Chloride 1,000 ml 05/21/17 13:26 05/21/17 13:41 Normal Saline - IV 05/21/17 13:27 1,000 ml ONCE ONE Administration Sodium Chloride 2,000 ml 05/21/17 14:22 05/21/17 13:15 Normal Saline - IV 05/21/17 14:23 2,000 ml ONCE ONE Administration Medical Decision Making - Medical Decision Making 05/21/17 19:[address] Gu. Patient is 72M with history of possible cardiac arrest, seizure, CVA with deficits, unknown intracranial mass here today complaining of AMS. Patient has urosepsis. SBP initially in the 70s. Given 2L, blood pressure normalized. UA positive. Given vanc/zosyn. Pending CT head and c-spine. Will admit to hospitalist. 05/21/17 21:58 CT cervical spine negative. CT head shows 5x4.4x4.3 mass, enlarged from 4.1x3.7x3.7 on 05/05/17. Will admit to hospitalist. *DC/Admit/Observation/Transfer Diagnosis at time of Disposition: Sepsis - Discharge Dispostion Condition at time of disposition: Stable Admit: Yes - Referrals Referrals: Debbie Paulino MD [Primary Care Provider] - - Patient Instructions - Post Discharge Activity
--- NOTE | 2017-05-22 01:14 | PN ---
Teaching Attending Note Name of Resident: Loli Callahan ATTENDING PHYSICIAN STATEMENT I saw and evaluated the patient. I reviewed the resident's note and discussed the case with the resident. I agree with the resident's findings and plan as documented. SUBJECTIVE: patient presented to failure to thrive OBJECTIVE: laying in be arousal, AAOX3 s1 ands 2 RRR foul smelling urine abdomen soft non-tender lungs CTA ASSESSMENT AND PLAN: admit patient to tele start antibiotics for complicated UTI - ceftriaxone fluid hydration monitor patient neurological status admit to tele if the patient mental status deteriorate please consider transfer patient for neurosurger at [address] [place] [address]
[2017-05-22] MEDS ORDERED: ACETAMINOPHEN 325 MG TABLET (FP) PO PRN (01:59)
[2017-05-22] MEDS ORDERED: oxyCODONE HCL 5 MG TABLET PO PRN ×3 (01:59→10:24)
[2017-05-22] MEDS: SODIUM CHLORIDE 1,000 ML IV SCH (02:30)
[2017-05-22] MEDS ORDERED: CEFTRIAXONE 1 GM in DEXTROSE 5%-WATER - 50 ML IVPB ONE (02:58)
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
[2017-05-22] MEDS: DOCUSATE SODIUM 100 MG CAPSULE (FP) PO SCH ×3 (06:23→22:35)
[2017-05-22 08:57] LABS: BASO % 0.4 % (0-2.0); EOS % 0.7 % (0-4.5); HEMATOCRIT 30.6 % (35.4-49); HEMOGLOBIN 9.7 GM/dL (11.7-16.9); LYMPH % 4.1 % (8-40); MCH 27.5 pg (25.7-33.7); MCHC 31.7 g/dl (32.0-35.9); MEAN CELL VOLUME 86.8 fl (80-96); MEAN PLT VOLUME 7.5 fl (7.5-11.1); NEUT % 85.8 % (42.8-82.8); PLATELET COUNT 354 K/MM3 (134-434); RBC 3.53 M/mm3 (4.00-5.60); RDW 17.5 % (11.9-15.9); WHITE BLOOD COUNT 14.5 K/mm3 (4.0-10.0)
[2017-05-22 09:17] LABS: ALBUMIN 2.1 g/dl (3.4-5.0); ANION GAP 11 (8-16); BILIRUBIN,TOTAL 0.3 mg/dL (0.2-1.0); BLOOD UREA NITROGEN 58 mg/dL (7-18); CALCIUM 9.1 mg/dL (8.5-10.1); CHLORIDE 111 mmol/L (98-107); CO2 25 mmol/L (21-32); CREATININE 2.3 mg/dL (0.7-1.3); GLUCOSE,RANDOM 116 mg/dL (74-106); POTASSIUM 4.2 mmol/L (3.5-5.1); SGOT/AST 41 U/L (15-37); SGPT/ALT 49 U/L (12-78); SODIUM 147 mmol/L (136-145); TOT PROT 6.4 g/dl (6.4-8.2)
[2017-05-22 09:18] LABS: ALK PHOS 120 U/L (45-117)
[2017-05-22] MEDS ORDERED: FLU VACCINE QUAD 60 MCG/0.5 ML (MDV 17-18) IM ONE (10:00)
[2017-05-22] MEDS ORDERED: PNEUMOC 13-VAL CONJ-DIP CRM/PF 0.5 ML DISP.SYRIN IM ONE (10:00)
--- NOTE | 2017-05-22 10:37 | PN ---
Teaching Attending Note Name of Resident: . ATTENDING PHYSICIAN STATEMENT SUBJECTIVE: Patient seen and examined, More awake and interactive than when assessed in the ED, denies any pain, minimal single word responses intermittently, denies any dyspnea or pain currently. OBJECTIVE: Vital Signs Period Temp Pulse Resp BP Sys/Chin Pulse Ox Last 24 Hr 97.1 F-99.1 F 92-116 11- 74-134/57-90 98-100 Intake & Output 05/19/17 05/20/17 05/21/17 05/22/17 23:59 23:59 23:59 23:59 Output Total 700 Balance -700 Weight 195 lb 195 lb General: lying in bed(more awake and interactive than yesterday, in no acute distress) CVS:S1S2 regular Chest: decreased effort, unable to appreciate rales or wheezing abdomen: soft, patient keeps asking to not touch his abdomen, ?suprapubic tenderness, no voluntary or involuntary guarding or rigidity, positive bowel sounds Extremities: no edema, right knee surgical incision healing well Neuro Awake, intermittent opens eyes at volition, intermittently responds with words, oriented to self, knows is april, thought was 2017, but not oriented to place (as discussed with Daughter Reny in ED, patient is usually Ox2 since his gradual decline recently), subtle right hand weakness (present from prior as discussed with daughter yesterday in ED), otherwise power 5/5, PERRLA, not co -operative with sensation exam Home Medication List Medication Instructions Recorded Confirmed Type Metoprolol Tartrate [Lopressor] 25 mg PO BID 06/17/16 05/22/17 History Lisinopril [Prinivil] 20 mg PO DAILY 04/28/17 05/22/17 History Docusate Sodium [Colace] 100 mg PO TID 05/22/17 05/22/17 History Heparin - 5,000 unit SQ Q8H-IV 05/22/17 05/22/17 History Lidocaine 5% Patch [Lidoderm Patch 1 patch TP BID 05/22/17 05/22/17 History -] Oxycodone HCl/Acetaminophen 1 - 2 tab PO Q4H MDD 8 05/22/17 05/22/17 History [Percocet 5-325 mg Tablet] Sennosides [Senna] 8.6 mg PO HS 05/22/17 05/22/17 History Active Medications Generic Name Dose Route Start Last Admin Trade Name Freq PRN Reason Stop Dose Admin Acetaminophen 325 mg 05/22/17 01:59 Tylenol - PO Q6H PRN PAIN LEVEL 1-5 Acetaminophen 650 mg 05/22/17 02:03 Tylenol - PO Q6H PRN PAIN LEVEL 6-10 Atorvastatin Calcium 10 mg 05/22/17 22:00 Lipitor - PO HS ESAU Docusate Sodium 100 mg 05/22/17 06:00 05/22/17 06:23 Colace - PO Not Given TID ESAU Sodium Chloride 1,000 mls @ 100 mls/hr 05/22/17 01:15 05/22/17 02:30 Normal Saline - IV 100 mls/hr ASDIR ESAU Administration CEFTRIAXONE 1 G/50 ML PREMIX 50 mls @ 100 mls/hr 05/22/17 10:00 Ceftriaxone 1 Gm-D5w Bag IVPB BID ESAU Levetiracetam 500 mg 05/22/17 10:00 Keppra - PO BID ESAU Oxycodone HCl 5 mg 05/22/17 10:24 Roxicodone - PO Q6H PRN PAIN Pantoprazole Sodium 40 mg 05/22/17 10:00 Protonix - PO DAILY ESAU Senna 1 tab 05/22/17 22:00 Senna - PO HS [facility] Laboratory Results - last 24 hr 05/21/17 05/21/17 05/21/17 12:20 12:20 12:20 WBC 17.8 H RBC 3.62 L Hgb 10.2 L Hct 31.2 L MCV 86.1 MCH 28.2 MCHC 32.7 RDW 16.5 H Plt Count 394 D MPV 7.6 D Neutrophils % 88.9 H Lymphocytes % 1.9 L D Monocytes % 8.5 Eosinophils % 0.2 D Basophils % 0.5 PT with INR 13.60 H INR 1.20 H PTT (Actin FS) 27.9 VBG pH POC VBG pCO2 POC VBG pO2 Mixed VBG HCO3 Sodium 141 Potassium 4.4 Chloride 104 Carbon Dioxide 24 Anion Gap 13 BUN 75 H D Creatinine 3.7 H D Creat Clearance w eGFR 16.14 Random Glucose 160 H D Lactic Acid Calcium 9.0 Total Bilirubin 0.5 AST 27 D ALT 50 D Alkaline Phosphatase 139 H D Creatine Kinase 245 Creatine Kinase Index 1.1 CK-MB (CK-2) 2.796 Troponin I 0.02 Total Protein 6.8 Albumin 2.3 L Urine Color Urine Appearance Urine pH Ur Specific [place] Urine Protein Urine Glucose (UA) Urine Ketones Urine Blood Urine Nitrite Urine Bilirubin Urine Urobilinogen Ur Leukocyte Esterase Urine WBC (Auto) Urine RBC (Auto) Hyaline Casts Blood Type Antibody Screen 05/21/17 05/21/17 05/21/17 12:20 12:38 13:26 WBC RBC Hgb Hct MCV MCH MCHC RDW Plt Count MPV Neutrophils % Lymphocytes % Monocytes % Eosinophils % Basophils % PT with INR INR PTT (Actin FS) VBG pH 7.43 H POC VBG pCO2 36.2 L POC VBG pO2 113.0 H Mixed VBG HCO3 23.6 Sodium Potassium Chloride Carbon Dioxide Anion Gap BUN Creatinine Creat Clearance w eGFR Random Glucose Lactic Acid 1.1 Calcium Total Bilirubin AST ALT Alkaline Phosphatase Creatine Kinase Creatine Kinase Index CK-MB (CK-2) Troponin I Total Protein Albumin Urine Color Urine Appearance Urine pH Ur Specific [place] Urine Protein Urine Glucose (UA) Urine Ketones Urine Blood Urine Nitrite Urine Bilirubin Urine Urobilinogen Ur Leukocyte Esterase Urine WBC (Auto) Urine RBC (Auto) Hyaline Casts Blood Type O POSITIVE Antibody Screen Negative 05/21/17 05/22/17 05/22/17 14:34 08:25 08:25 WBC 14.5 H RBC 3.53 L Hgb 9.7 L Hct 30.6 L MCV 86.8 MCH 27.5 MCHC 31.7 L RDW 17.5 H Plt Count 354 MPV 7.5 Neutrophils % 85.8 H Lymphocytes % 4.1 L D Monocytes % 9.0 Eosinophils % 0.7 D Basophils % 0.4 PT with INR INR PTT (Actin FS) VBG pH POC VBG pCO2 POC VBG pO2 Mixed VBG HCO3 Sodium 147 H Potassium 4.2 Chloride 111 H Carbon Dioxide 25 Anion Gap 11 BUN 58 H D Creatinine 2.3 H D Creat Clearance w eGFR 27.93 Random Glucose 116 H D Lactic Acid Calcium 9.1 Total Bilirubin 0.3 D AST 41 H D ALT 49 Alkaline Phosphatase 120 H Creatine Kinase Creatine Kinase Index CK-MB (CK-2) Troponin I Total Protein 6.4 Albumin 2.1 L Urine Color Dkyellow Urine Appearance Cloudy Urine pH 6.0 Ur Specific [place] 1.015 Urine Protein 2+ H Urine Glucose (UA) 1+ H Urine Ketones Negative Urine Blood 1+ H Urine Nitrite Negative Urine Bilirubin Negative Urine Urobilinogen Negative Ur Leukocyte Esterase 1+ H Urine WBC (Auto) 130 Urine RBC (Auto) 23 Hyaline Casts 22 Blood Type Antibody Screen CT brain - meningioma unchanged from recent study ASSESSMENT AND PLAN: 72 yom with known diagnosis of meningioma since 05/2015, recently admitted for right knee replacement, course complicated by ?cardiac arrest vs seizure, found with meningioma with surrounding edema, trasnferrred to [facility] earlier this month, surgery planned for 06/2017, just discharged to [place] last week, ongoing poor oral intake over last few weeks, brought in this Sepsis secondary to UTI and severe dehydration. -Sepsis secondary to UTI -HYPotension, suspect predominantly from hypovolumia than sepsis -JESS, likely from hypovolumia/sepsis, r/o obstructive process -Meningioma with progressive cognitive decline over last year, more over last 3- 4 weeks -Recent right knee replacement -Dyslipidemia Plan: Ceftriaxone, follow up blood and urine cultures Continue IV hydration. Encourage oral intake. Check CT A/P to r/o stone/obstructive process given vague suprapubic symptoms, with JESS on admission Given nursing concerns, change diet to dysphagia puree with thin liquids. Aspiration precuations, meals with assist. Speech/swallow evaluation. Continue keppra. Monitor off narcotics for now. Tylenol prn. DVTPPX with heparin PT eval Code status: full (confirmed with daughter Reny yesterday) Dispo pending improvement in medical issues. Anticipate will be discharged back to facility when ready.
[2017-05-22] MEDS ORDERED: PT OWN MED DRAWER 7, Y5N ONE (10:38)
[2017-05-22] MEDS: levETIRAcetam 500 MG TABLET (FP) PO SCH ×2 (10:56→22:31)
[2017-05-22] MEDS: PANTOPRAZOLE 40 MG TABLET (FP) PO SCH (10:56)
[2017-05-22] MEDS: CEFTRIAXONE 1 G/50 ML PREMIX 50 ML IVPB SCH ×2 (13:36→22:34)
[2017-05-22] MEDS: SENNOSIDES 8.6MG TABLET (FP) PO SCH (22:35)
[2017-05-22] MEDS: ATORVASTATIN CA 10 MG TABLET (FP) PO SCH (22:35)
[2017-05-23] MEDS: SODIUM CHLORIDE 1,000 ML IV SCH (01:55)
[2017-05-23] MEDS: DOCUSATE SODIUM 100 MG CAPSULE (FP) PO SCH ×3 (06:13→21:54)
[2017-05-23 07:53] LABS: BASO % 0.6 % (0-2.0); EOS % 1.1 % (0-4.5); HEMATOCRIT 28.5 % (35.4-49); HEMOGLOBIN 9.1 GM/dL (11.7-16.9); MCH 27.7 pg (25.7-33.7); MCHC 31.8 g/dl (32.0-35.9); MEAN CELL VOLUME 87.3 fl (80-96); MEAN PLT VOLUME 7.6 fl (7.5-11.1); NEUT % 82.3 % (42.8-82.8); PLATELET COUNT 325 K/MM3 (134-434); RBC 3.26 M/mm3 (4.00-5.60); RDW 16.4 % (11.9-15.9); WHITE BLOOD COUNT 12.3 K/mm3 (4.0-10.0)
[2017-05-23 08:21] LABS: ANION GAP 10 (8-16); BLOOD UREA NITROGEN 41 mg/dL (7-18); CHLORIDE 118 mmol/L (98-107); CO2 26 mmol/L (21-32); GLUCOSE,RANDOM 121 mg/dL (74-106); POTASSIUM 4.3 mmol/L (3.5-5.1); SODIUM 154 mmol/L (136-145)
[2017-05-23 08:25] LABS: ALK PHOS 120 U/L (45-117); BILIRUBIN,TOTAL 0.3 mg/dL (0.2-1.0); CREATININE 1.8 mg/dL (0.7-1.3); SGOT/AST 53 U/L (15-37); SGPT/ALT 72 U/L (12-78); TOT PROT 6.2 g/dl (6.4-8.2)
[2017-05-23] MEDS: PANTOPRAZOLE 40 MG TABLET (FP) PO SCH (09:12)
[2017-05-23] MEDS: levETIRAcetam 500 MG TABLET (FP) PO SCH ×2 (09:12→21:54)
[2017-05-23] MEDS: CEFTRIAXONE 1 G/50 ML PREMIX 50 ML IVPB SCH ×2 (09:13→21:54)
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
[2017-05-23] MEDS: METOPROLOL TARTRATE 25 MG TABLET (FP) PO SCH ×2 (14:11→21:54)
[2017-05-23] MEDS: ACETAMINOPHEN 325 MG TABLET (FP) PO PRN (17:45)
[2017-05-23 19:07] LABS: HEMATOCRIT 30.2 % (35.4-49); HEMOGLOBIN 9.6 GM/dL (11.7-16.9); MCH 27.7 pg (25.7-33.7); MCHC 31.8 g/dl (32.0-35.9); MEAN CELL VOLUME 87.3 fl (80-96); MEAN PLT VOLUME 7.8 fl (7.5-11.1); PLATELET COUNT 327 K/MM3 (134-434); RBC 3.46 M/mm3 (4.00-5.60); RDW 16.9 % (11.9-15.9); WHITE BLOOD COUNT 12.2 K/mm3 (4.0-10.0)
[2017-05-23 21:28] LABS: ANION GAP 5 (8-16); BLOOD UREA NITROGEN 36 mg/dL (7-18); CALCIUM 8.9 mg/dL (8.5-10.1); CHLORIDE 121 mmol/L (98-107); CO2 29 mmol/L (21-32); CREATININE 1.8 mg/dL (0.7-1.3); GLUCOSE,RANDOM 148 mg/dL (74-106); POTASSIUM 4.4 mmol/L (3.5-5.1); SODIUM 155 mmol/L (136-145)
[2017-05-23] MEDS: SENNOSIDES 8.6MG TABLET (FP) PO SCH (21:54)
[2017-05-23] MEDS: ATORVASTATIN CA 10 MG TABLET (FP) PO SCH (21:54)
[2017-05-24] MEDS: DOCUSATE SODIUM 100 MG CAPSULE (FP) PO SCH ×3 (06:34→21:15)
[2017-05-24 06:53] LABS: BASO % 0.7 % (0-2.0); EOS % 1.7 % (0-4.5); HEMATOCRIT 31.3 % (35.4-49); LYMPH % 7.3 % (8-40); MCH 28.1 pg (25.7-33.7); MEAN CELL VOLUME 87.8 fl (80-96); MEAN PLT VOLUME 7.8 fl (7.5-11.1); MONO % 10.1 % (3.8-10.2); NEUT % 80.2 % (42.8-82.8); PLATELET COUNT 371 K/MM3 (134-434); RBC 3.56 M/mm3 (4.00-5.60); RDW 16.9 % (11.9-15.9); WHITE BLOOD COUNT 12.7 K/mm3 (4.0-10.0)
[2017-05-24 07:33] LABS: ANION GAP 8 (8-16); BLOOD UREA NITROGEN 33 mg/dL (7-18); CALCIUM 9.4 mg/dL (8.5-10.1); CHLORIDE 119 mmol/L (98-107); CO2 30 mmol/L (21-32); CREATININE 1.7 mg/dL (0.7-1.3); GLUCOSE,RANDOM 121 mg/dL (74-106); POTASSIUM 4.2 mmol/L (3.5-5.1); SODIUM 157 mmol/L (136-145)
[2017-05-24] MEDS ORDERED: DEXTROSE 5%-WATER - 1,000 ML IV SCH (08:15)
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
[2017-05-24] MEDS: DEXTROSE 5%-WATER - 1,000 ML IV SCH (10:28)
[2017-05-24] MEDS: levETIRAcetam 500 MG TABLET (FP) PO SCH ×2 (10:38→21:15)
[2017-05-24] MEDS: CEFTRIAXONE 1 G/50 ML PREMIX 50 ML IVPB SCH ×2 (10:38→21:14)
[2017-05-24] MEDS: METOPROLOL TARTRATE 25 MG TABLET (FP) PO SCH ×2 (10:38→21:16)
[2017-05-24] MEDS: PANTOPRAZOLE 40 MG TABLET (FP) PO SCH (10:39)
[2017-05-24] MEDS ORDERED: CYCLOBENZAPRINE HCL 5 MG TABLET PO ONE (14:29)
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
[2017-05-24] MEDS ORDERED: CYCLOBENZAPRINE HCL 10 MG TABLET (FP) PO ONE (15:30)
[2017-05-24 17:19] LABS: ANION GAP 9 (8-16); BLOOD UREA NITROGEN 33 mg/dL (7-18); CALCIUM 9.3 mg/dL (8.5-10.1); CHLORIDE 116 mmol/L (98-107); CO2 28 mmol/L (21-32); CREATININE 1.6 mg/dL (0.7-1.3); GLUCOSE,RANDOM 153 mg/dL (74-106); POTASSIUM 4.1 mmol/L (3.5-5.1); SODIUM 153 mmol/L (136-145)
--- NOTE | 2017-05-24 19:59 | PN ---
Physical Exam: SUBJECTIVE: Patient seen and examined. Pt c/o neck pain. Pt denies chest pain , sob, fever, chills, nausea, vomiting, constipation, diarrhea. No events overnight. OBJECTIVE: Vital Signs Period Temp Pulse Resp BP Sys/Chin Pulse Ox Last 24 Hr 98.8 F-100.7 F 95-134 19-22 130-143/75-90 98-98 GENERAL: Oriented x 2 (to self and location), in NAD. LUNGS: Breath sounds equal, clear to auscultation bilaterally. No wheezes, and no crackles. No accessory muscle use. HEART: Regular rate, tachycardic, +S1/S2, no murmur. ABDOMEN: Soft, nontender, not distended. Abdominal scars noted. MS: Neck: no bony point tenderness, no muscle spasms during exam. Pt unable to turn head voluntarily, and not open to active ROM exercises. Pt able to abduct both shoulders to >90 degrees. LOWER EXTREMITIES: Warm, well-perfused. No calf tenderness. No peripheral edema. SKIN: Warm, dry, normal turgor, no rashes or lesions noted. Laboratory Results - last 24 hr 05/23/17 05/24/17 05/24/17 20:00 06:30 06:40 WBC 12.7 H RBC 3.56 L Hgb 10.0 L Hct 31.3 L MCV 87.8 MCH 28.1 MCHC 32.0 RDW 16.9 H Plt Count 371 MPV 7.8 Neutrophils % 80.2 Lymphocytes % 7.3 L D Monocytes % 10.1 Eosinophils % 1.7 Basophils % 0.7 Sodium 155 H Potassium 4.4 Chloride 121 H Carbon Dioxide 29 Anion Gap 5 L BUN 36 H Creatinine 1.8 H Random Glucose 148 H D Serum Osmolality 333 H Calcium 8.9 Ur Random Sodium 05/24/17 05/24/17 05/24/17 06:40 16:00 17:00 WBC RBC Hgb Hct MCV MCH MCHC RDW Plt Count MPV Neutrophils % Lymphocytes % Monocytes % Eosinophils % Basophils % Sodium 157 H 153 H Potassium 4.2 4.1 Chloride 119 H 116 H Carbon Dioxide 30 28 Anion Gap 8 9 BUN 33 H 33 H Creatinine 1.7 H 1.6 H Random Glucose 121 H 153 H D Serum Osmolality Calcium 9.4 9.3 Ur Random Sodium 85 Active Medications Generic Name Dose Route Start Last Admin Trade Name Freq PRN Reason Stop Dose Admin Acetaminophen 325 mg 05/22/17 01:59 Tylenol - PO Q6H PRN PAIN LEVEL 1-5 Acetaminophen 650 mg 05/22/17 02:03 05/23/17 17:45 Tylenol - PO 650 mg Q6H PRN Administration PAIN LEVEL 6-10 Atorvastatin Calcium 10 mg 05/22/17 22:00 05/23/17 21:54 Lipitor - PO 10 mg HS ESAU Administration Docusate Sodium 100 mg 05/22/17 06:00 05/24/17 13:23 Colace - PO Not Given TID ESAU CEFTRIAXONE 1 G/50 ML PREMIX 50 mls @ 100 mls/hr 05/22/17 10:00 05/24/17 10: 38 Ceftriaxone 1 Gm-D5w Bag IVPB 100 mls/hr BID ESAU Administration Dextrose 1,000 mls @ 100 mls/hr 05/24/17 08:15 05/24/17 10:28 D5w - IV 100 mls/hr ASDIR ESAU Administration Levetiracetam 500 mg 05/22/17 10:00 05/24/17 10:38 Keppra - PO 500 mg BID ESAU Administration Metoprolol Tartrate 12.5 mg 05/23/17 13:00 05/24/17 10:38 Lopressor - PO 12.5 mg BID ESAU Administration Pantoprazole Sodium 40 mg 05/22/17 10:00 05/24/17 10:39 Protonix - PO 40 mg DAILY ESAU Administration Senna 1 tab 05/22/17 22:00 05/23/17 21:54 Senna - PO 1 tab HS ESAU Administration ASSESSMENT/PLAN: 72yo M with PMH of meningioma, CVA with residual Right sided weakness, CAD with [place], seizure, presents from [facility] with decreased responsiveness and AMS, admitted for sepsis 2/2 UTI. # sepsis 2/2 complicated UTI - IV Ceftriaxone (Day 3) - IVFs - blood culture (-) x 72 hrs - urine cultures (+) for E. coli # neck pain - pain control with Tylenol prn - pt encouraged to participate with PT - Flexeril one time dose given - consider Neurosurgery Consult (either from here, or the neurosurgeon scheduled to perform surgery in June on the menigioma. Will f/u with dtr.) # meningioma - stable in size - pt scheduled for neurosurgery in 06/2017 - pt currently being worked up at [facility] - monitor pt's neurological status -> if mental status deteriorates consider transfer for neurosurgery. Progressive mental status decline. - continue Keppra for seizure ppx # JESS - improving - continue to monitor UOP and Cr # anemia - likely dilutional - stable - no overt signs of bleeding # htn - pt currently hypotensive - continue to monitor - hold home medications of Lopressor, Lisinopril, Hydrochlorothiazide # hld - continue home med of Lipitor # constipation - continue home meds of Colace and Senna # hypernatremia - start D5 IVFs @ 100 ml/hr - concern for SIADH given menigioma - f/u urine osmolality and urine random sodium labs - f/u Na+ in the afternoon improved to 153 # FEN - Fluids: D5 @ 100 ml/hr - Electrolytes: continue to monitor - Nutrition: regular diet # Prophylaxis - DVT ppx with kevin SCDs. Hold pharmacologic ppx in light of menigioma. Visit type - Emergency Visit Emergency Visit: Yes ED Registration Date: 05/21/17 Care time: The patient presented to the Emergency Department on the above date and was hospitalized for further evaluation of their emergent condition. - New Patient This patient is new to me today: No - Critical Care Critical Care patient: No
[2017-05-24] MEDS: ACETAMINOPHEN 325 MG TABLET (FP) PO PRN (21:15)
[2017-05-24] MEDS: ATORVASTATIN CA 10 MG TABLET (FP) PO SCH (21:16)
[2017-05-24] MEDS: SENNOSIDES 8.6MG TABLET (FP) PO SCH (21:45)
[2017-05-25] MEDS: DOCUSATE SODIUM 100 MG CAPSULE (FP) PO SCH ×3 (05:19→21:59)
[2017-05-25 08:00] LABS: HEMATOCRIT 31.1 % (35.4-49); HEMOGLOBIN 9.9 GM/dL (11.7-16.9); MCH 27.8 pg (25.7-33.7); MCHC 31.9 g/dl (32.0-35.9); MEAN CELL VOLUME 87.2 fl (80-96); MEAN PLT VOLUME 8.1 fl (7.5-11.1); PLATELET COUNT 339 K/MM3 (134-434); RBC 3.57 M/mm3 (4.00-5.60); RDW 17.2 % (11.9-15.9); WHITE BLOOD COUNT 14.7 K/mm3 (4.0-10.0)
[2017-05-25 08:05] LABS: ANION GAP 9 (8-16); BLOOD UREA NITROGEN 33 mg/dL (7-18); CALCIUM 9.3 mg/dL (8.5-10.1); CHLORIDE 117 mmol/L (98-107); CO2 28 mmol/L (21-32); CREATININE 1.6 mg/dL (0.7-1.3); GLUCOSE,RANDOM 114 mg/dL (74-106); POTASSIUM 4.4 mmol/L (3.5-5.1); SODIUM 154 mmol/L (136-145)
--- NOTE | 2017-05-25 08:39 | PN ---
Physical Exam: SUBJECTIVE: Patient seen and examined. Pt was persistently tachycardic overnight, but slept comfortably for the whole night per nurse. Pt still c/o of neck pain to back of neck limiting range of motion, however no bony tenderness appreciated. No fevers, chills. Rice D/Jeremy. OBJECTIVE: Vital Signs Period Temp Pulse Resp BP Sys/Chin Pulse Ox Last 24 Hr 97.6 F-100.7 F 102-134 18-22 108-138/74-84 97-98 GENERAL: Oriented x 2 (to self and location), in NAD. LUNGS: Breath sounds equal, clear to auscultation bilaterally. No wheezes, and no crackles. No accessory muscle use. HEART: Regular rate, tachycardic, +S1/S2, no murmur. ABDOMEN: Soft, nontender, not distended. Abdominal scars noted. MS: Neck: no bony point tenderness, no muscle spasms during exam. Pt able to turn head voluntarily more to the Left today as compared to yesterday. LOWER EXTREMITIES: Warm, well-perfused. No calf tenderness. No peripheral edema. SKIN: Warm, dry, normal turgor, no rashes or lesions noted. Laboratory Results - last 24 hr 05/24/17 05/24/17 05/24/17 06:30 16:00 17:00 WBC RBC Hgb Hct MCV MCH MCHC RDW Plt Count MPV Sodium 153 H Potassium 4.1 Chloride 116 H Carbon Dioxide 28 Anion Gap 9 BUN 33 H Creatinine 1.6 H Random Glucose 153 H D Serum Osmolality 333 H Calcium 9.3 Urine Osmolality 409 Ur Random Sodium 05/24/17 05/25/17 05/25/17 17:00 05:05 05:05 WBC 14.7 H RBC 3.57 L Hgb 9.9 L Hct 31.1 L MCV 87.2 MCH 27.8 MCHC 31.9 L RDW 17.2 H Plt Count 339 MPV 8.1 Sodium 154 H Potassium 4.4 Chloride 117 H Carbon Dioxide 28 Anion Gap 9 BUN 33 H Creatinine 1.6 H Random Glucose 114 H D Serum Osmolality Calcium 9.3 Urine Osmolality Ur Random Sodium 85 Active Medications Generic Name Dose Route Start Last Admin Trade Name Freq PRN Reason Stop Dose Admin Acetaminophen 325 mg 05/22/17 01:59 Tylenol - PO Q6H PRN PAIN LEVEL 1-5 Acetaminophen 650 mg 05/22/17 02:03 05/24/17 21:15 Tylenol - PO 650 mg Q6H PRN Administration PAIN LEVEL 6-10 Atorvastatin Calcium 10 mg 05/22/17 22:00 05/24/17 21:16 Lipitor - PO 10 mg HS ESAU Administration Docusate Sodium 100 mg 05/22/17 06:00 05/25/17 05:19 Colace - PO Not Given TID ESAU CEFTRIAXONE 1 G/50 ML PREMIX 50 mls @ 100 mls/hr 05/22/17 10:00 05/24/17 21: 14 Ceftriaxone 1 Gm-D5w Bag IVPB 100 mls/hr BID ESAU Administration Dextrose 1,000 mls @ 100 mls/hr 05/24/17 08:15 05/24/17 10:28 D5w - IV 100 mls/hr ASDIR ESAU Administration Levetiracetam 500 mg 05/22/17 10:00 05/24/17 21:15 Keppra - PO 500 mg BID ESAU Administration Metoprolol Tartrate 12.5 mg 05/23/17 13:00 05/24/17 21:16 Lopressor - PO 12.5 mg BID ESAU Administration Pantoprazole Sodium 40 mg 05/22/17 10:00 05/24/17 10:39 Protonix - PO 40 mg DAILY ESAU Administration Senna 1 tab 05/22/17 22:00 05/24/17 21:45 Senna - PO 1 tab HS ESAU Administration ASSESSMENT/PLAN: 72yo M with PMH of meningioma, CVA with residual Right sided weakness, CAD with [place], seizure, presents from [facility] with decreased responsiveness and AMS, admitted for sepsis 2/2 UTI. # sepsis 2/2 complicated UTI - IV Ceftriaxone (Day 4) - can transition to Keflex on discharge - IVFs - blood culture (-) x 72 hrs - urine cultures (+) for E. coli # neck pain - pain control with Tylenol prn - pt encouraged to participate with PT - consider Neurosurgery Consult # meningioma - stable in size - pt scheduled for neurosurgery in 06/2017 - pt currently being worked up at [facility] (per daughter: Dr. Alvin Worthington neurosurgeon affiliated with [facility] scheduled to perform surgery on 06/30/17 in [place], ) - monitor pt's neurological status -> if mental status deteriorates consider transfer for neurosurgery. Progressive mental status decline. - continue Keppra for seizure ppx # JESS - improving - continue to monitor UOP and Cr # anemia - likely dilutional - hgb stable - no overt signs of bleeding # htn - pt currently normotensive, continue to monitor - hold home medications of Lopressor, Lisinopril, Hydrochlorothiazide # hld - continue home med of Lipitor # constipation - continue home meds of Colace and Senna # hypernatremia - continue hypotonic IVFs - Free Water Deficit 4.4 L - concern for Diabetes Insipidus given menigioma - serum osmolality 333 elevated, urine osmolality 409 wnl (300-900), urine random Na 85 - consider ADH challenge # FEN - Fluids: D5 @ 100 ml/hr, also encourage fluids po - Electrolytes: continue to monitor - Nutrition: regular diet # Prophylaxis - DVT ppx with kevin SCDs. Hold pharmacologic ppx in light of menigioma. - deconditioning ppx with PT - encourage participation Visit type - Emergency Visit Emergency Visit: Yes ED Registration Date: 05/21/17 Care time: The patient presented to the Emergency Department on the above date and was hospitalized for further evaluation of their emergent condition. - New Patient This patient is new to me today: No - Critical Care Critical Care patient: No
[2017-05-25] MEDS: levETIRAcetam 500 MG TABLET (FP) PO SCH ×2 (10:32→21:59)
[2017-05-25] MEDS: PANTOPRAZOLE 40 MG TABLET (FP) PO SCH (10:32)
[2017-05-25] MEDS: METOPROLOL TARTRATE 25 MG TABLET (FP) PO SCH (10:32)
[2017-05-25] MEDS: CEFTRIAXONE 1 G/50 ML PREMIX 50 ML IVPB SCH ×2 (10:33→22:26)
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
[2017-05-25] MEDS: DEXTROSE 5%-WATER - 1,000 ML IV SCH (13:21)
--- NOTE | 2017-05-25 13:23 | CONSULT ---
Consultation: REQUESTING PROVIDER: CONSULT REQUEST: We have been asked to medically evaluate this patient for ( hypernatremia). HISTORY OF PRESENT ILLNESS: This is a 72 yo M [facility] resident, with PMH of meningioma, CVA with residual Right sided weakness, CAD s/p [place], SZ and a cardiac arrest 05/15, who presented in severe sepsis due to UTI with hypotension responsive to fluids. Initialy had JESS on CKD, whihc has resolved but over hospital stay developed hypernatremia. Currently tolerating PO and mental status is improved REVIEW OF SYSTEMS: unable to obtain in full due to mental status; denies pain PHYSICAL EXAMINATION Vital Signs - 24 hr 05/24/17 05/24/17 05/24/17 14:25 18:00 19:57 Temperature 100.2 F H 98.2 F Pulse Rate 119 H 110 H Respiratory 19 19 18 Rate Blood Pressure 130/82 119/80 O2 Sat by Pulse 97 Oximetry (%) 05/24/17 05/25/17 05/25/17 20:05 02:00 05:19 Temperature 97.8 F 97.6 F 98.3 F Pulse Rate 118 H 102 H 108 H Respiratory 20 20 20 Rate Blood Pressure 122/78 108/74 115/84 O2 Sat by Pulse Oximetry (%) 05/25/17 06:49 Temperature Pulse Rate Respiratory 20 Rate Blood Pressure O2 Sat by Pulse 98 Oximetry (%) GENERAL: Awake, alert, oriented to self, nad HEAD: Normal with no signs of trauma. EYES: Pupils equal, round and reactive to light, extraocular movements intact, sclera anicteric, conjunctiva clear. No lid lag. EARS, NOSE, THROAT: Moist mucous membranes. NECK: Nsupple LUNGS: Breath sounds equal, clear to auscultation bilaterally. HEART: Regular rate and rhythm, normal S1 and S2 without murmur, rub or gallop. ABDOMEN: Soft, nontender, not distended, normoactive bowel sounds, no guarding, no rebound, no masses. MUSCULOSKELETAL: Normal range of motion at all joints. No bony deformities or tenderness. No CVA tenderness. UPPER EXTREMITIES: 2+ pulses, warm, well-perfused. No cyanosis. No peripheral edema. LOWER EXTREMITIES: 1+ pulses, warm, well-perfused. No calf tenderness. No peripheral edema. NEUROLOGICAL: Cranial nerves II-XII grossly intact. Normal speech. PSYCHIATRIC: Cooperative. SKIN: Warm, dry Laboratory Results - last 24 hr 05/24/17 05/24/17 05/24/17 16:00 17:00 17:00 WBC RBC Hgb Hct MCV MCH MCHC RDW Plt Count MPV Sodium 153 H Potassium 4.1 Chloride 116 H Carbon Dioxide 28 Anion Gap 9 BUN 33 H Creatinine 1.6 H Random Glucose 153 H D Calcium 9.3 Urine Osmolality 409 Ur Random Sodium 85 05/25/17 05/25/17 05:05 05:05 WBC 14.7 H RBC 3.57 L Hgb 9.9 L Hct 31.1 L MCV 87.2 MCH 27.8 MCHC 31.9 L RDW 17.2 H Plt Count 339 MPV 8.1 Sodium 154 H Potassium 4.4 Chloride 117 H Carbon Dioxide 28 Anion Gap 9 BUN 33 H Creatinine 1.6 H Random Glucose 114 H D Calcium 9.3 Urine Osmolality Ur Random Sodium Active Medications Generic Name Dose Route Start Last Admin Trade Name Freq PRN Reason Stop Dose Admin Acetaminophen 325 mg 05/22/17 01:59 Tylenol - PO Q6H PRN PAIN LEVEL 1-5 Acetaminophen 650 mg 05/22/17 02:03 05/24/17 21:15 Tylenol - PO 650 mg Q6H PRN Administration PAIN LEVEL 6-10 Atorvastatin Calcium 10 mg 05/22/17 22:00 05/24/17 21:16 Lipitor - PO 10 mg HS ESAU Administration Docusate Sodium 100 mg 05/22/17 06:00 05/25/17 05:19 Colace - PO Not Given TID ESAU CEFTRIAXONE 1 G/50 ML PREMIX 50 mls @ 100 mls/hr 05/22/17 10:00 05/25/17 10: 33 Ceftriaxone 1 Gm-D5w Bag IVPB 100 mls/hr BID ESAU Administration Dextrose 1,000 mls @ 100 mls/hr 05/24/17 08:15 05/24/17 10:28 D5w - IV 100 mls/hr ASDIR ESAU Administration Levetiracetam 500 mg 05/22/17 10:00 05/25/17 10:32 Keppra - PO 500 mg BID ESAU Administration Metoprolol Tartrate 12.5 mg 05/23/17 13:00 05/25/17 10:32 Lopressor - PO 12.5 mg BID ESAU Administration Pantoprazole Sodium 40 mg 05/22/17 10:00 05/25/17 10:32 Protonix - PO 40 mg DAILY ESAU Administration Senna 1 tab 05/22/17 22:00 05/24/17 21:45 Senna - PO 1 tab HS ESAU Administration ASSESSMENT/PLAN: This is a 72 yo M [facility] resident, with PMH of meningioma, CVA with residual Right sided weakness, CAD s/p [place], SZ and a cardiac arrest 05/15, who presented in severe sepsis due to UTI with hypotension responsive to fluids. Initialy had JESS on CKD, whihc has resolved but over hospital stay developed hypernatremia. JESS on CKD -secondary to sepsis -jess resolved, creat 1.6 at baseline Hypernatremia -Na 154, likely secondary to NS hydration for sepsis BP support -free water deficit 4.4 -continue D5W @ 100, encourage free water intake PO -BMP daily -uo adequate, d/c pugh, void check Complicated UTI -e coli cultures -continue recephin CAD -limit IVF rate to 100 -monitor for overload SZ -keppra Dispo: We will continue to follow the patient. Thank you for this consultative opportunity. Problem List - Problems (1) UTI (urinary tract infection) Code(s): N39.0 - URINARY TRACT INFECTION, SITE NOT SPECIFIED (2) Severe sepsis Code(s): A41.9 - SEPSIS, UNSPECIFIED ORGANISM; R65.20 - SEVERE SEPSIS WITHOUT SEPTIC SHOCK (3) Hypernatremia Code(s): E87.0 - HYPEROSMOLALITY AND HYPERNATREMIA (4) Sepsis Code(s): A41.9 - SEPSIS, UNSPECIFIED ORGANISM Qualifiers: Sepsis type: sepsis due to unspecified organism Qualified Code(s): A41.9 - Sepsis, unspecified organism (5) JESS (acute kidney injury) Code(s): N17.9 - ACUTE KIDNEY FAILURE, UNSPECIFIED (6) Seizure disorder Code(s): G40.909 - EPILEPSY, UNSP, NOT INTRACTABLE, WITHOUT STATUS EPILEPTICUS (7) Status post total knee replacement, right Code(s): Z96.651 - PRESENCE OF RIGHT ARTIFICIAL KNEE JOINT (8) Brain tumor Code(s): D49.6 - NEOPLASM OF UNSPECIFIED BEHAVIOR OF BRAIN (9) HLD (hyperlipidemia) Code(s): E78.5 - HYPERLIPIDEMIA, UNSPECIFIED Qualifiers: Hyperlipidemia type: pure hypercholesterolemia Qualified Code(s): E78.00 - Pure hypercholesterolemia, unspecified; E78.0 - Pure hypercholesterolemia (10) HTN (hypertension) Code(s): I10 - ESSENTIAL (PRIMARY) HYPERTENSION Qualifiers: Hypertension type: essential hypertension Qualified Code(s): I10 - Essential (primary) hypertension (11) CVA (cerebral vascular accident) Code(s): I63.9 - CEREBRAL INFARCTION, UNSPECIFIED Qualifiers: CVA mechanism: unspecified Qualified Code(s): I63.9 - Cerebral infarction, unspecified Visit type - Emergency Visit Emergency Visit: Yes ED Registration Date: 05/21/17 Care time: The patient presented to the Emergency Department on the above date and was hospitalized for further evaluation of their emergent condition. - New Patient This patient is new to me today: Yes Date on this admission: 05/25/17 - Critical Care Critical Care patient: No
--- NOTE | 2017-05-25 13:40 | PN ---
Teaching Attending Note Name of Resident: Josee Oshea (Nephrology) ATTENDING PHYSICIAN STATEMENT I saw and evaluated the patient. I reviewed the resident's note and discussed the case with the resident. I agree with the resident's findings and plan as documented. Renal Please see consult filled out by resident. Pt is a 72 year old male with pmhx of ckd and cardiac arrest was sent in with altered mental status and was found to be septic. I was called to evaluate the patient for JESS and hypernatremia. He is a poor historian. His renal function is improving PMHX cardiac arrest ckd nkda social hx neg ros neg family hx non contrib Current Medications Generic Name Dose Route Start Last Admin Trade Name Freq PRN Reason Stop Dose Admin Acetaminophen 325 mg 05/22/17 01:59 Tylenol - PO Q6H PRN PAIN LEVEL 1-5 Acetaminophen 650 mg 05/22/17 02:03 05/24/17 21:15 Tylenol - PO 650 mg Q6H PRN Administration PAIN LEVEL 6-10 Atorvastatin Calcium 10 mg 05/22/17 22:00 05/24/17 21:16 Lipitor - PO 10 mg HS ESAU Administration Docusate Sodium 100 mg 05/22/17 06:00 05/25/17 05:19 Colace - PO Not Given TID ESAU CEFTRIAXONE 1 G/50 ML PREMIX 50 mls @ 100 mls/hr 05/22/17 10:00 05/25/17 10: 33 Ceftriaxone 1 Gm-D5w Bag IVPB 100 mls/hr BID ESAU Administration Dextrose 1,000 mls @ 100 mls/hr 05/24/17 08:15 05/25/17 13:21 D5w - IV 100 mls/hr ASDIR ESAU Administration Levetiracetam 500 mg 05/22/17 10:00 05/25/17 10:32 Keppra - PO 500 mg BID ESAU Administration Metoprolol Tartrate 25 mg 05/25/17 13:33 Lopressor - PO BID ESAU Pantoprazole Sodium 40 mg 05/22/17 10:00 05/25/17 10:32 Protonix - PO 40 mg DAILY ESAU Administration Senna 1 tab 05/22/17 22:00 05/24/17 21:45 Senna - PO 1 tab HS ESAU Administration Last Vital Signs Temp Pulse Resp BP Pulse Ox 98.3 F 108 H 20 115/84 96 05/25/17 05:19 05/25/17 05:19 05/25/17 08:00 05/25/17 05:19 05/25/17 08:00 Laboratory Tests 05/21/17 05/21/17 05/22/17 12:20 14:34 08:25 Hgb Sodium Creatinine 3.7 H D 2.3 H D Urine Protein 2+ H Urine Glucose (UA) 1+ H 05/23/17 05/24/17 05/25/17 06:37 06:40 05:05 Hgb Sodium 157 H 154 H Creatinine 1.8 H D 1.6 H Urine Protein Urine Glucose (UA) 05/25/17 05:05 Hgb 9.9 L Sodium Creatinine Urine Protein Urine Glucose (UA) Impression 1. JESS 2. CKD 3. CHF 4. c/p cardiac arrest 5. UTI 6. sepsis 7. hypernatremia Plan - cont with hypotonic fluid - renal function is improved - repeat labs in am - discussed with resident and rounds made at bedside - lisette d/c lexy - will follow Dr Flores
--- NOTE | 2017-05-25 13:47 | PN ---
Teaching Attending Note Name of Resident: Loli Callahan ATTENDING PHYSICIAN STATEMENT I saw and evaluated the patient. I reviewed the resident's note and discussed the case with the resident. I agree with the resident's findings and plan as documented. SUBJECTIVE:states neck pain has improved. denies CP, SOB, fever, chills, N/V/C/D OBJECTIVE: Last Vital Signs Temp Pulse Resp BP Pulse Ox 98.3 F 108 H 20 115/84 96 05/25/17 05:19 05/25/17 05:19 05/25/17 08:00 05/25/17 05:19 05/25/17 08:00 General NAD A&O x2 (self and location) back no muscle spasms along the neck, no bone point tenderness, unable to turn head to the left ASSESSMENT AND PLAN: 72 yo M with known diagnosis of meningioma since 05/2015, recently admitted for right knee replacement, course complicated by ?cardiac arrest vs seizure, found with meningioma with surrounding edema, transferred to [facility] earlier this month, surgery planned for 06/2017, just discharged to [place] last week, ongoing poor oral intake over last few weeks, brought in this Sepsis secondary to UTI and severe dehydration. 1.Sepsis secondary to UTI- afebrile. slight uptrend in leukotysis. no fevers. mental status improved. on ceftriaxone day 4. dawkins-sensitive. will transition to keflex when medically optimized. 2. Hypotension- likley sepsis. now resolved. increase metoprolol to 25mg BID 3. Hypernatremia-concern for DI given meningoma. fluid deficit improved 4.5L today. check BMP Q8H. will cont IVF at this time. consider ADH challenge. consult nephrology. 4. JESS- due to sepsis. improving. cont to monitor 5. neck pain- somewhat improved. did not receive flexeril as pt was too sleepy per RN. encouraged to participate with PT. 6. Anemia- likely dilutional. no signs of bleeding.Hgb stable. no indication for transfusion 7. meninigoma- progressive mental status decline. stable in size. planned surgery 06/2017. cont keppra for seizure prophylaxis 8. DVT ppx- SCD. hold pharmacologic in setting of meningioma.
[2017-05-25 17:27] LABS: ANION GAP 9 (8-16); BLOOD UREA NITROGEN 34 mg/dL (7-18); CALCIUM 8.8 mg/dL (8.5-10.1); CHLORIDE 114 mmol/L (98-107); CO2 28 mmol/L (21-32); CREATININE 1.7 mg/dL (0.7-1.3); GLUCOSE,RANDOM 142 mg/dL (74-106); POTASSIUM 4.1 mmol/L (3.5-5.1); SODIUM 151 mmol/L (136-145)
[2017-05-25 19:02] LABS: URINE APPEARANCE SLCLOUDY; URINE BILIRUBIN NEGATIVE (NEGATIVE); URINE BLOOD 2+ (NEGATIVE); URINE COLOR YELLOW; URINE GLUCOSE (UA) NEGATIVE (NEGATIVE); URINE KETONE NEGATIVE (NEGATIVE); URINE LEUK ESTERASE TRACE (NEGATIVE); URINE NITRITE NEGATIVE (NEGATIVE); URINE UROBILINOGEN NEGATIVE mg/dL (0.2-1.0)
[2017-05-25 19:23] LABS: URINE PROTEIN 2+ (NEGATIVE)
[2017-05-25] MEDS: ATORVASTATIN CA 10 MG TABLET (FP) PO SCH (21:59)
[2017-05-25] MEDS: SENNOSIDES 8.6MG TABLET (FP) PO SCH (21:59)
[2017-05-25] MEDS ORDERED: METOPROLOL TARTRATE 25 MG TABLET (FP) PO SCH (22:00)
[2017-05-25 22:01] LABS: URINE MUCUS RARE
[2017-05-26] MEDS: DEXTROSE 5%-WATER - 1,000 ML IV SCH ×2 (01:46→09:31)
[2017-05-26] MEDS: DOCUSATE SODIUM 100 MG CAPSULE (FP) PO SCH ×3 (06:45→21:49)
[2017-05-26 07:19] LABS: HEMATOCRIT 31.4 % (35.4-49); MCH 27.7 pg (25.7-33.7); MCHC 31.8 g/dl (32.0-35.9); MEAN CELL VOLUME 87.1 fl (80-96); MEAN PLT VOLUME 7.9 fl (7.5-11.1); PLATELET COUNT 308 K/MM3 (134-434); RDW 17.1 % (11.9-15.9); WHITE BLOOD COUNT 14.3 K/mm3 (4.0-10.0)
[2017-05-26 07:21] LABS: ANION GAP 7 (8-16); BLOOD UREA NITROGEN 33 mg/dL (7-18); CALCIUM 8.7 mg/dL (8.5-10.1); CHLORIDE 113 mmol/L (98-107); CO2 28 mmol/L (21-32); CREATININE 1.7 mg/dL (0.7-1.3); GLUCOSE,RANDOM 158 mg/dL (74-106); POTASSIUM 3.9 mmol/L (3.5-5.1); SODIUM 148 mmol/L (136-145)
[2017-05-26] MEDS: levETIRAcetam 500 MG TABLET (FP) PO SCH ×2 (09:10→21:49)
[2017-05-26] MEDS: METOPROLOL TARTRATE 50 MG TABLET (FP) PO SCH ×2 (09:10→21:49)
[2017-05-26] MEDS: PANTOPRAZOLE 40 MG TABLET (FP) PO SCH (09:11)
[2017-05-26] MEDS: CEFTRIAXONE 1 G/50 ML PREMIX 50 ML IVPB SCH ×2 (09:12→21:48)
--- NOTE | 2017-05-26 13:31 | PN ---
Teaching Attending Note Name of Resident: Loli Callahan ATTENDING PHYSICIAN STATEMENT I saw and evaluated the patient. I reviewed the resident's note and discussed the case with the resident. I agree with the resident's findings and plan as documented. SUBJECTIVE:neck pain improved. deneis CP, SOB, fever, chills, N/V/C/D OBJECTIVE: Last Vital Signs Temp Pulse Resp BP Pulse Ox 99.1 F 92 H 18 128/75 97 05/26/17 11:48 05/26/17 11:48 05/26/17 11:48 05/26/17 11:48 05/25/17 21:00 General NAD A&O x2 (self and location) back no muscle spasms along the neck, no bone point tenderness, ROM of neck improved. full ROM of B/L shoulders ASSESSMENT AND PLAN: 72 yo M with known diagnosis of meningioma since 05/2015, recently admitted for right knee replacement, course complicated by ?cardiac arrest vs seizure, found with meningioma with surrounding edema, transferred to [facility] earlier this month, surgery planned for 06/2017, just discharged to [place] last week, ongoing poor oral intake over last few weeks, brought in this Sepsis secondary to UTI and severe dehydration. 1.Sepsis secondary to UTI- afebrile. leukocytosis stable. mental status improved. on ceftriaxone day 5. dawkins-sensitive. will transition to keflex when medically optimized. and complete 7 day course 2. Hypotension- likley sepsis. now resolved. increase metoprolol to 50mg BID 3. Hypernatremia-concern for DI given meningoma. improving. will d/c IVF. encourage po water intake. hold diuretic on discharge. nephrology on board 4. JESS- due to sepsis. improving. cont to monitor 5. neck pain- improved. encouraged to participate with PT. 6. Anemia- likely dilutional. no signs of bleeding.Hgb stable. no indication for transfusion 7. meninigoma- progressive mental status decline. stable in size. planned surgery 06/2017. cont keppra for seizure prophylaxis 8. DVT ppx- SCD. hold pharmacologic in setting of meningioma. 9. medically optimized for discharge to [facility]. awaiting placement
--- NOTE | 2017-05-26 15:43 | PN ---
Progress Note, Physician History of Present Illness: Pt seen and examined at bedside. He is more awake and interactive today. - Current Medication List Current Medications: Active Medications Acetaminophen (Tylenol -) 325 mg PO Q6H PRN PRN Reason: PAIN LEVEL 1-5 Acetaminophen (Tylenol -) 650 mg PO Q6H PRN PRN Reason: PAIN LEVEL 6-10 Last Admin: 05/24/17 21:15 Dose: 650 mg Atorvastatin Calcium (Lipitor -) 10 mg PO HS [facility] Last Admin: 05/25/17 21:59 Dose: 10 mg Docusate Sodium (Colace -) 100 mg PO TID [facility] Last Admin: 05/26/17 06:45 Dose: Not Given CEFTRIAXONE 1 G/50 ML PREMIX (Ceftriaxone 1 Gm-D5w Bag) 50 mls @ 100 mls/hr IVPB BID [facility] Last Admin: 05/26/17 09:12 Dose: 100 mls/hr Dextrose (D5w -) 1,000 mls @ 100 mls/hr IV ASDIR [facility] Last Admin: 05/26/17 09:31 Dose: Not Given Levetiracetam (Keppra -) 500 mg PO BID [facility] Last Admin: 05/26/17 09:10 Dose: 500 mg Metoprolol Tartrate (Lopressor -) 50 mg PO BID [facility] Last Admin: 05/26/17 09:10 Dose: 50 mg Pantoprazole Sodium (Protonix -) 40 mg PO DAILY [facility] Last Admin: 05/26/17 09:11 Dose: 40 mg Senna (Senna -) 1 tab PO [facility] Last Admin: 05/25/17 21:59 Dose: 1 tab - Objective Vital Signs: Vital Signs Temperature 98.7 F 05/26/17 14:24 Pulse Rate 99 H 05/26/17 14:24 Respiratory Rate 20 05/26/17 14:24 Blood Pressure 131/87 05/26/17 14:24 O2 Sat by Pulse Oximetry (%) 97 05/25/17 21:00 Constitutional: Yes: Calm Eyes: Yes: Conjunctiva Clear HENT: Yes: Atraumatic Neck: Yes: Supple Cardiovascular: Yes: S1, S2 Respiratory: Yes: CTA Bilaterally Gastrointestinal: Yes: Soft Genitourinary: Yes: WNL Musculoskeletal: Yes: WNL Edema: No Neurological: Yes: Pre-Existing Deficit Labs: CBC, BMP 05/26/17 05:05 05/26/17 05:05 INR, PTT INR 1.20 (0.82-1.09) H 05/21/17 12:20 Problem List - Problems (1) Hypernatremia Code(s): E87.0 - HYPEROSMOLALITY AND HYPERNATREMIA (2) Sepsis Code(s): A41.9 - SEPSIS, UNSPECIFIED ORGANISM Qualifiers: Sepsis type: sepsis due to unspecified organism Qualified Code(s): A41.9 - Sepsis, unspecified organism (3) UTI (urinary tract infection) Code(s): N39.0 - URINARY TRACT INFECTION, SITE NOT SPECIFIED (4) JESS (acute kidney injury) Code(s): N17.9 - ACUTE KIDNEY FAILURE, UNSPECIFIED Assessment/Plan Current Medications Generic Name Dose Route Start Last Admin Trade Name Freq PRN Reason Stop Dose Admin Acetaminophen 325 mg 05/22/17 01:59 Tylenol - PO Q6H PRN PAIN LEVEL 1-5 Acetaminophen 650 mg 05/22/17 02:03 05/24/17 21:15 Tylenol - PO 650 mg Q6H PRN Administration PAIN LEVEL 6-10 Atorvastatin Calcium 10 mg 05/22/17 22:00 05/25/17 21:59 Lipitor - PO 10 mg HS ESAU Administration Docusate Sodium 100 mg 05/22/17 06:00 05/26/17 06:45 Colace - PO Not Given TID ESAU CEFTRIAXONE 1 G/50 ML PREMIX 50 mls @ 100 mls/hr 05/22/17 10:00 05/26/17 09: 12 Ceftriaxone 1 Gm-D5w Bag IVPB 100 mls/hr BID ESAU Administration Dextrose 1,000 mls @ 100 mls/hr 05/24/17 08:15 05/26/17 09:31 D5w - IV Not Given ASDIR ESAU Levetiracetam 500 mg 05/22/17 10:00 05/26/17 09:10 Keppra - PO 500 mg BID ESAU Administration Metoprolol Tartrate 50 mg 05/26/17 10:00 05/26/17 09:10 Lopressor - PO 50 mg BID ESAU Administration Pantoprazole Sodium 40 mg 05/22/17 10:00 05/26/17 09:11 Protonix - PO 40 mg DAILY ESAU Administration Senna 1 tab 05/22/17 22:00 05/25/17 21:59 Senna - PO 1 tab HS ESAU Administration Laboratory Tests 05/24/17 05/24/17 06:30 17:00 Serum Osmolality 333 H Urine Osmolality 409 Impression 1. JESS 2. CKD 3. CHF 4. c/p cardiac arrest 5. UTI 6. sepsis 7. hypernatremia Plan - cont with d5w at 100 cc - sodium is improving - encourage free water intake, pt will need one to one assistance - creatinine at baseline - repeat labs in am - will follow Dr Flores
[2017-05-26] MEDS: SENNOSIDES 8.6MG TABLET (FP) PO SCH (21:49)
[2017-05-26] MEDS: ATORVASTATIN CA 10 MG TABLET (FP) PO SCH (21:49)
--- NOTE | 2017-05-26 23:47 | PN ---
Physical Exam: SUBJECTIVE: Patient seen and examined. Neck pain improving everyday, though still present. Rice removed and pt is voiding. Pt denies chest pain, sob, fever, chills, nausea, vomiting, constipation, diarrhea. OBJECTIVE: Vital Signs Period Temp Pulse Resp BP Sys/Chin Pulse Ox Last 24 Hr 98.0 F-99.1 F 92-113 18-20 105-160/70-123 96-96 GENERAL: Oriented x 2 (to self and location), in NAD. LUNGS: Breath sounds equal, clear to auscultation bilaterally. No wheezes, and no crackles. No accessory muscle use. HEART: Regular rate, tachycardic, +S1/S2, no murmur. ABDOMEN: Soft, nontender, not distended. MS: Neck: no bony point tenderness, no muscle spasms during exam. Pt able to turn head voluntarily more to the Left today as compared to yesterday. LOWER EXTREMITIES: Warm, well-perfused. No calf tenderness. No peripheral edema. SKIN: Warm, dry, normal turgor, no rashes or lesions noted. Laboratory Results - last 24 hr 05/26/17 05/26/17 05:05 05:05 WBC 14.3 H RBC 3.60 L Hgb 10.0 L Hct 31.4 L MCV 87.1 MCH 27.7 MCHC 31.8 L RDW 17.1 H Plt Count 308 MPV 7.9 Sodium 148 H Potassium 3.9 Chloride 113 H Carbon Dioxide 28 Anion Gap 7 L BUN 33 H Creatinine 1.7 H Random Glucose 158 H Calcium 8.7 Active Medications Generic Name Dose Route Start Last Admin Trade Name Freq PRN Reason Stop Dose Admin Acetaminophen 325 mg 05/22/17 01:59 Tylenol - PO Q6H PRN PAIN LEVEL 1-5 Acetaminophen 650 mg 05/22/17 02:03 05/24/17 21:15 Tylenol - PO 650 mg Q6H PRN Administration PAIN LEVEL 6-10 Atorvastatin Calcium 10 mg 05/22/17 22:00 05/26/17 21:49 Lipitor - PO 10 mg HS ESAU Administration Docusate Sodium 100 mg 05/22/17 06:00 05/26/17 21:49 Colace - PO 100 mg TID ESAU Administration CEFTRIAXONE 1 G/50 ML PREMIX 50 mls @ 100 mls/hr 05/22/17 10:00 05/26/17 21: 48 Ceftriaxone 1 Gm-D5w Bag IVPB 100 mls/hr BID ESAU Administration Dextrose 1,000 mls @ 100 mls/hr 05/24/17 08:15 05/26/17 09:31 D5w - IV Not Given ASDIR ESAU Levetiracetam 500 mg 05/22/17 10:00 05/26/17 21:49 Keppra - PO 500 mg BID ESAU Administration Metoprolol Tartrate 50 mg 05/26/17 10:00 05/26/17 21:49 Lopressor - PO 50 mg BID ESAU Administration Pantoprazole Sodium 40 mg 05/22/17 10:00 05/26/17 09:11 Protonix - PO 40 mg DAILY ESAU Administration Senna 1 tab 05/22/17 22:00 05/26/17 21:49 Senna - PO 1 tab HS ESAU Administration ASSESSMENT/PLAN: 72yo M with PMH of meningioma, CVA with residual Right sided weakness, CAD with [place], seizure, presents from [facility] with decreased responsiveness and AMS, admitted for sepsis 2/2 UTI. # sepsis 2/2 complicated UTI - mental status improved - IV Ceftriaxone (Day 5) - can transition to Keflex on discharge - IVFs - blood culture (-) x 72 hrs - urine cultures (+) for E. coli # neck pain - pain control with Tylenol prn - pt encouraged to participate with PT # meningioma - stable in size - pt scheduled for neurosurgery in 06/2017 - pt currently being worked up at [facility] (per daughter: Dr. Alvin Worthington neurosurgeon affiliated with [facility] scheduled to perform surgery on 06/30/17 in [place], ) - monitor pt's neurological status - continue Keppra for seizure ppx # JESS - Nephrology (Dr. Flores) recs appreciated: Cr at baseline - IVFs - continue to monitor UOP and Cr # anemia - likely dilutional - hgb stable - no overt signs of bleeding # htn - Lopressor - hold home medications of Lisinopril, Hydrochlorothiazide # hld - continue home med of Lipitor # constipation - continue home meds of Colace and Senna # hypernatremia - continue hypotonic IVFs - Free Water Deficit 2.5 L - hold diuretic on discharge # FEN - Fluids: D5 @ 100 ml/hr, also encourage fluids po - Electrolytes: continue to monitor - Nutrition: regular diet # Prophylaxis - DVT ppx with kevin SCDs. Hold pharmacologic ppx in light of menigioma. - deconditioning ppx with PT - encourage participation # dispo - pt medically optimized for discharge to [facility], awaiting placement Visit type - Emergency Visit Emergency Visit: Yes ED Registration Date: 05/21/17 Care time: The patient presented to the Emergency Department on the above date and was hospitalized for further evaluation of their emergent condition. - New Patient This patient is new to me today: No - Critical Care Critical Care patient: No
[2017-05-27] MEDS: DOCUSATE SODIUM 100 MG CAPSULE (FP) PO SCH ×2 (05:10→14:21)
[2017-05-27 08:12] LABS: CHLORIDE 107 mmol/L (98-107); POTASSIUM 4.1 mmol/L (3.5-5.1); SODIUM 144 mmol/L (136-145)
[2017-05-27 08:18] LABS: ANION GAP 10 (8-16); BLOOD UREA NITROGEN 29 mg/dL (7-18); CALCIUM 8.9 mg/dL (8.5-10.1); CO2 27 mmol/L (21-32); CREATININE 1.5 mg/dL (0.7-1.3); GLUCOSE,RANDOM 117 mg/dL (74-106)
[2017-05-27] MEDS: levETIRAcetam 500 MG TABLET (FP) PO SCH (09:44)
[2017-05-27] MEDS: METOPROLOL TARTRATE 50 MG TABLET (FP) PO SCH (09:44)
[2017-05-27] MEDS: PANTOPRAZOLE 40 MG TABLET (FP) PO SCH (09:44)
[2017-05-27] MEDS: CEFTRIAXONE 1 G/50 ML PREMIX 50 ML IVPB SCH (09:44)
[2017-05-27] MEDS: DEXTROSE 5%-WATER - 1,000 ML IV SCH (09:45)
--- NOTE | 2017-05-27 12:44 | PN ---
Teaching Attending Note Name of Resident: Loli Callahan ATTENDING PHYSICIAN STATEMENT I saw and evaluated the patient. I reviewed the resident's note and discussed the case with the resident. I agree with the resident's findings and plan as documented. SUBJECTIVE:neck pain improved. denies Cp, SOB, fever, chills, N/V/C/D OBJECTIVE: Last Vital Signs Temp Pulse Resp BP Pulse Ox 98.7 F 113 H 20 132/78 97 05/27/17 05:10 05/26/17 20:27 05/27/17 08:00 05/27/17 05:10 05/27/17 08:00 General NAD A&O x2 (self and location) back no muscle spasms along the neck, no bone point tenderness, ROM of neck improved. full ROM of B/L shoulders ASSESSMENT AND PLAN: 72 yo M with known diagnosis of meningioma since 05/2015, recently admitted for right knee replacement, course complicated by ?cardiac arrest vs seizure, found with meningioma with surrounding edema, transferred to [facility] earlier this month, surgery planned for 06/2017, just discharged to [place] last week, ongoing poor oral intake over last few weeks, brought in this Sepsis secondary to UTI and severe dehydration. 1.Sepsis secondary to UTI- afebrile. leukocytosis stable. mental status improved. on ceftriaxone day 6. dawkins-sensitive. will transition to keflex to complete 7 day course 2. Hypotension- likley sepsis. now resolved. increase metoprolol to 50mg BID 3. Hypernatremia-concern for DI given meningoma. resolved. encourage po water intake. hold diuretic on discharge. nephrology on board 4. JESS- due to sepsis. improving. cont to monitor 5. neck pain- improved. encouraged to participate with PT. cont PT if does not improve can speak with neurosurgeon if there are any surgical options 6. Anemia- likely dilutional. no signs of bleeding.Hgb stable. no indication for transfusion 7. meninigoma- progressive mental status decline. stable in size. planned surgery 06/2017. cont keppra for seizure prophylaxis 8. DVT ppx- SCD. hold pharmacologic in setting of meningioma. 9. d/c today
--- NOTE | 2017-05-27 15:32 | PN ---
Progress Note, Physician History of Present Illness: Pt seen and examined at bedside. He is awake and appears comfortable. - Current Medication List Current Medications: Active Medications Acetaminophen (Tylenol -) 325 mg PO Q6H PRN PRN Reason: PAIN LEVEL 1-5 Acetaminophen (Tylenol -) 650 mg PO Q6H PRN PRN Reason: PAIN LEVEL 6-10 Last Admin: 05/24/17 21:15 Dose: 650 mg Atorvastatin Calcium (Lipitor -) 10 mg PO HS [facility] Last Admin: 05/26/17 21:49 Dose: 10 mg Docusate Sodium (Colace -) 100 mg PO TID [facility] Last Admin: 05/27/17 14:21 Dose: 100 mg CEFTRIAXONE 1 G/50 ML PREMIX (Ceftriaxone 1 Gm-D5w Bag) 50 mls @ 100 mls/hr IVPB BID [facility] Last Admin: 05/27/17 09:44 Dose: 100 mls/hr Dextrose (D5w -) 1,000 mls @ 100 mls/hr IV ASDIR [facility] Last Admin: 05/27/17 09:45 Dose: 100 mls/hr Levetiracetam (Keppra -) 500 mg PO BID [facility] Last Admin: 05/27/17 09:44 Dose: 500 mg Metoprolol Tartrate (Lopressor -) 50 mg PO BID [facility] Last Admin: 05/27/17 09:44 Dose: 50 mg Pantoprazole Sodium (Protonix -) 40 mg PO DAILY [facility] Last Admin: 05/27/17 09:44 Dose: 40 mg Senna (Senna -) 1 tab PO [facility] Last Admin: 05/26/17 21:49 Dose: 1 tab - Objective Vital Signs: Vital Signs Temperature 98.1 F 05/27/17 14:00 Pulse Rate 93 H 05/27/17 14:00 Respiratory Rate 20 05/27/17 08:00 Blood Pressure 124/77 05/27/17 14:00 O2 Sat by Pulse Oximetry (%) 97 05/27/17 08:00 Constitutional: Yes: Calm Eyes: Yes: Conjunctiva Clear HENT: Yes: Atraumatic Neck: Yes: Supple Cardiovascular: Yes: S1, S2 Respiratory: Yes: CTA Bilaterally Gastrointestinal: Yes: Soft Genitourinary: Yes: WNL Musculoskeletal: Yes: WNL Edema: No Neurological: Yes: Pre-Existing Deficit Labs: CBC, BMP 05/26/17 05:05 05/27/17 06:20 INR, PTT INR 1.20 (0.82-1.09) H 05/21/17 12:20 Problem List - Problems (1) Hypernatremia Code(s): E87.0 - HYPEROSMOLALITY AND HYPERNATREMIA (2) Sepsis Code(s): A41.9 - SEPSIS, UNSPECIFIED ORGANISM Qualifiers: Sepsis type: sepsis due to unspecified organism Qualified Code(s): A41.9 - Sepsis, unspecified organism (3) UTI (urinary tract infection) Code(s): N39.0 - URINARY TRACT INFECTION, SITE NOT SPECIFIED (4) JESS (acute kidney injury) Code(s): N17.9 - ACUTE KIDNEY FAILURE, UNSPECIFIED Assessment/Plan Current Medications Generic Name Dose Route Start Last Admin Trade Name Freq PRN Reason Stop Dose Admin Acetaminophen 325 mg 05/22/17 01:59 Tylenol - PO Q6H PRN PAIN LEVEL 1-5 Acetaminophen 650 mg 05/22/17 02:03 05/24/17 21:15 Tylenol - PO 650 mg Q6H PRN Administration PAIN LEVEL 6-10 Atorvastatin Calcium 10 mg 05/22/17 22:00 05/26/17 21:49 Lipitor - PO 10 mg HS ESAU Administration Docusate Sodium 100 mg 05/22/17 06:00 05/27/17 14:21 Colace - PO 100 mg TID ESAU Administration CEFTRIAXONE 1 G/50 ML PREMIX 50 mls @ 100 mls/hr 05/22/17 10:00 05/27/17 09: 44 Ceftriaxone 1 Gm-D5w Bag IVPB 100 mls/hr BID ESAU Administration Dextrose 1,000 mls @ 100 mls/hr 05/24/17 08:15 05/27/17 09:45 D5w - IV 100 mls/hr ASDIR ESAU Administration Levetiracetam 500 mg 05/22/17 10:00 05/27/17 09:44 Keppra - PO 500 mg BID ESAU Administration Metoprolol Tartrate 50 mg 05/26/17 10:00 05/27/17 09:44 Lopressor - PO 50 mg BID ESAU Administration Pantoprazole Sodium 40 mg 05/22/17 10:00 05/27/17 09:44 Protonix - PO 40 mg DAILY E[facility]U Administration Senna 1 tab 05/22/17 22:00 05/26/17 21:49 Senna - PO 1 tab HS ESAU Administration Impression 1. JESS 2. CKD 3. CHF 4. c/p cardiac arrest 5. UTI 6. sepsis 7. hypernatremia Plan - sodium is improving - encourage free water intake, pt will need one to one assistance and will not drink on his own - cont fluids for now - renal function is improving - will follow Dr Flores
--- NOTE | 2017-05-27 18:48 | DS ---
Physical Exam: SUBJECTIVE: Patient seen and examined. Pt denies chest pain, sob, abdominal pain, fever, chills. Neck pain improved, and ROM markedly improved. OBJECTIVE: Vital Signs Period Temp Pulse Resp BP Sys/Chin Pulse Ox Last 24 Hr 97.9 F-99.1 F 93-113 20-20 97-132/64-85 96-97 PHYSICAL EXAM GENERAL: Oriented x 2 (to self and location), in NAD. LUNGS: Breath sounds equal, clear to auscultation bilaterally. No wheezes, and no crackles. No accessory muscle use. HEART: Regular rate, tachycardic, +S1/S2, no murmur. ABDOMEN: Soft, nontender, not distended. MS: Neck: no bony point tenderness, no muscle spasms during exam. Pt able to turn head voluntarily more to the Left today as compared to yesterday. LOWER EXTREMITIES: Warm, well-perfused. No calf tenderness. No peripheral edema. SKIN: Warm, dry, normal turgor, no rashes or lesions noted. LABS Laboratory Results - last 24 hr 05/27/17 06:20 Sodium 144 Potassium 4.1 Chloride 107 Carbon Dioxide 27 Anion Gap 10 BUN 29 H Creatinine 1.5 H Random Glucose 117 H D Calcium 8.9 HOSPITAL COURSE: Date of Admission:05/21/17 Date of Discharge: 05/27/17 72yo M with PMH of meningioma, CVA with residual Right sided weakness, CAD with SC, seizure, presents from [facility] with decreased responsiveness and AMS, admitted for sepsis 2/2 UTI. Pt received IV antibiotics. Pt c/o neck pain: pt encouraged to participate in PT and pain was controlled with Tylenol prn. Pt experienced persistent hypernatremia during this hospitalization. Pt was encouraged to drink fluids po and was given IV fluids. 05/21/17 CXR -> no acute chest pathology 05/21/[address] -> degenerative changes. No acute fracture or subluxation. 05/21/[address] -> no gross evidence of any acute interval changes to known meningioma. 05/22/17 Ab/Pel CT -> no renal calculi or significant hydronephrosis. 05/21/17 blood cultures (-) x 5 days 05/21/17 urine culture (+) for E. coli Pt's known meningioma is stable in size. Pt is scheduled for neurosurgery on 06/30/[address] Alvin Worthington, neurosurgeon affiliated with [facility] ([phone]) . Pt walked 5 ft with PT today with rolling walker, shuffling, unsteady gait. Pt is medically stable for discharge to SNF. Minutes to complete discharge: 35 Discharge Summary Reason For Visit: SEPSIS Current Active Problems Hypernatremia (Acute) Sepsis (Acute) Severe sepsis (Acute) UTI (urinary tract infection) (Acute) Condition: Stable - Instructions Diet, Activity, Other Instructions: -You were admitted for a urinary tract infection that required IV antibiotics. -You will be discharged with antibiotics to complete a total of 7 days. You filemon complete the antibiotics tomorrow. -Your Blood pressure medication Metoprolol has been increased and now you will take 50mg twice a day -Two of your medications, lisinopril and Hydrochlorothiazide, has been stopped -Continue taking Keppra to avoid seizures -Continue with physical therapy for your neck pain. If your pain does not improve speak with your neurosurgeon if there are surgical options -Please follow up with your primary care physician -You may resume your Dysphagia Puree diet and it is encouraged to drink plenty of water to prevent from becoming dehydrated -If you experience any symptoms such as fever >101, chest pain, shortness of breath, etc, please return to the emergency department Referrals: Debbie Paulino MD [Primary Care Provider] - Disposition: [facility] - Home Medications Comprehensive Discharge Medication List: Ambulatory Orders Metoprolol Tartrate [Lopressor] 25 mg PO BID 06/17/16 Levetiracetam [Keppra -] 500 mg PO BID #60 tablet 05/06/17 Pantoprazole Sodium [Protonix -] 40 mg PO DAILY #30 tablet.ec 05/06/17 Atorvastatin Ca [Lipitor] 10 mg PO HS tablet 05/07/17 Docusate Sodium [Colace] 100 mg PO TID 05/22/17 Sennosides [Senna] 8.6 mg PO HS 05/22/17 Acetaminophen [Tylenol .Regular Strength -] 325 mg PO Q6H PRN tablet 05/27/17 Acetaminophen [Tylenol .Regular Strength -] 650 mg PO Q6H PRN tablet 05/27/17 Cephalexin [Keflex] 500 mg PO BID #3 capsule 05/27/17 Lisinopril 5 mg PO DAILY #15 tablet 05/27/17 Metoprolol Tartrate [Lopressor -] 50 mg PO BID tablet 05/27/17 This patient is new to me today: No Emergency Visit: Yes ED Registration Date: 05/21/17 Care time: The patient presented to the Emergency Department on the above date and was hospitalized for further evaluation of their emergent condition. Critical Care patient: No - Discharge Referral Referred to [facility] Med P.C.: No
[2017-05-27 22:51] VITALS: BP 106/70; PULSE 88; TEMP 98.8
== END 2017-05-27 19:36 | DRG 872 ==
LOC: JER 13:07 → JERBED 22:02 → J4W 05-22 00:26
PROVIDERS: ADMIT Internal Medicine; ATTEND Internal Medicine
DX: A41.9 Sepsis, unspecified organism (principal); I69.351 Hemiplegia and hemiparesis following cerebral infarction affecting right dominant side; G40.802 Other epilepsy, not intractable, without status epilepticus; N39.0 Urinary tract infection, site not specified; N17.9 Acute kidney failure, unspecified; E87.0 Hyperosmolality and hypernatremia; I25.10 Atherosclerotic heart disease of native coronary artery without angina pectoris; I25.2 Old myocardial infarction; D32.9 Benign neoplasm of meninges, unspecified; I12.9 Hypertensive chronic kidney disease with stage 1 through stage 4 chronic kidney disease, or unspecified chronic kidney disease; N18.9 Chronic kidney disease, unspecified; E78.5 Hyperlipidemia, unspecified; K21.9 Gastro-esophageal reflux disease without esophagitis; K59.09 Other constipation; I95.89 Other hypotension; D64.9 Anemia, unspecified; M54.2 Cervicalgia; E86.0 Dehydration; Z96.651 Presence of right artificial knee joint; Z90.81 Acquired absence of spleen
CPT/HCPCS: 36415; 70450-TC; 71010-TC; 72125-TC; 74176-TC; 80048; 80053; 81003; 81015; 82550; 82553; 82803; 83605; 83930; 83935; 84300; 84484; 85025; 85027; 85610; 85730; 86850; 86900; 86901; 87040; 87086; 87186; 93005; 93010; 97116-GP; 97161-GP; 99284-25

== ENCOUNTER 2017-06-01 14:45 | Inpatient (IN) | payer OTHER ==
[2017-06-01 16:08] VITALS: BMI 29.5
[2017-06-01] MEDS ORDERED: SODIUM CHLORIDE 1,000 ML IV STA (16:29)
[2017-06-01] MEDS ORDERED: ACETAMINOPHEN 1000 MG/100 ML VIAL (NON FORMULARY) IVPB ONE (16:29)
[2017-06-01] MEDS ORDERED: ACETAMINOPHEN INJECTION 100 ML IVPB ONE (16:38)
[2017-06-01 17:15] LABS: URINE APPEARANCE SLCLOUDY; URINE BILIRUBIN NEGATIVE (NEGATIVE); URINE BLOOD 1+ (NEGATIVE); URINE COLOR YELLOW; URINE GLUCOSE (UA) NEGATIVE (NEGATIVE); URINE KETONE NEGATIVE (NEGATIVE); URINE NITRITE NEGATIVE (NEGATIVE); URINE UROBILINOGEN NEGATIVE mg/dL (0.2-1.0)
[2017-06-01] MEDS ORDERED: VANCOMYCIN 1,000 MG in DEXTROSE 5%-WATER - 250 ML IVPB ONE (17:18)
[2017-06-01] MEDS ORDERED: VANCOMYCIN 1 GRAM (PRE-DOCKED) 1,000 MG/250 ML BAG IVPB ONE (17:24)
[2017-06-01 17:27] LABS: BASO % 0.8 % (0-2.0); EOS % 0.1 % (0-4.5); HEMATOCRIT 28.4 % (35.4-49); HEMOGLOBIN 9.1 GM/dL (11.7-16.9); LYMPH % 3.2 % (8-40); MCH 27.7 pg (25.7-33.7); MCHC 32.2 g/dl (32.0-35.9); MEAN PLT VOLUME 8.1 fl (7.5-11.1); MONO % 7.2 % (3.8-10.2); NEUT % 88.7 % (42.8-82.8); PLATELET COUNT 306 K/MM3 (134-434); RDW 17.1 % (11.9-15.9); WHITE BLOOD COUNT 22.6 K/mm3 (4.0-10.0)
[2017-06-01] MEDS ORDERED: PIPERACILLIN/TAZOB 3.375 GM 3.375 GM in DEXTROSE 5%-WATER - 50 ML IVPB SCH (17:30)
[2017-06-01 17:34] LABS: VENOUS PC02 32.6 mmHg (38-52); VENOUS PH 7.4 (7.32-7.42)
[2017-06-01] MEDS ORDERED: PIPERACILLIN/TAZOB 3.375 GM 3.375 GM/50 ML BAG IVPB ONE (17:42)
[2017-06-01 17:46] LABS: INR 1.37 (0.82-1.09); PROTHROMBIN TIME (PATIENT) 15.5 SEC (9.98-11.88)
--- NOTE | 2017-06-01 17:47 | PDOC ---
*Physical Exam - Vital Signs Last Vital Signs Temp Pulse Resp BP Pulse Ox 101.6 F H 113 H 22 109/81 99 06/01/17 16:06 06/01/17 16:06 06/01/17 16:06 06/01/17 16:06 06/01/17 16:06 - Physical Exam Comments: 06/01/17 17:46 Pt seen by Midlevel Provider under my direct supervision Pt interviewed and examined Ancillary studies reviewed I agree with plan as outlined by Midlevel Provider EKG: Sinus tachycardia, rate of 116 bpm, left axis deviation, no ST elevations or depressions T wave inversion I, aVL ED Treatment Course - LABORATORY CBC & Chemistry Diagram: 06/02/17 07:20 06/02/17 07:20 - ADDITIONAL ORDERS Additional order review: Laboratory Results 06/01/17 16:16 VBG pH 7.40 POC VBG pCO2 32.6 L POC VBG pO2 157.0 H* D Mixed VBG HCO3 24.3 - Medications Given in the ED: ED Medications Discontinued Medications Generic Name Dose Route Start Last Admin Trade Name Mila PRN Reason Stop Dose Admin Acetaminophen 1,000 mg 06/01/17 16:29 06/01/17 17:17 Ofirmev Injection - IVPB 06/01/17 16:30 1,000 mg ONCE ONE Administration Sodium Chloride 1,000 mls @ 1,000 mls/hr 06/01/17 16:29 06/01/17 17:17 Normal Saline - IV 06/01/17 17:28 1,000 mls/hr ASDIR STA Administration *DC/Admit/Observation/Transfer Diagnosis at time of Disposition: Sepsis, Pneumonia - Referrals - Patient Instructions - Post Discharge Activity
[2017-06-01 17:48] LABS: ACTIVATED PTT 25.9 SECONDS (26.9-34.4)
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
[2017-06-01 18:17] LABS: ALBUMIN 1.8 g/dl (3.4-5.0); ANION GAP 8 (8-16); BILIRUBIN,TOTAL 0.3 mg/dL (0.2-1.0); BLOOD UREA NITROGEN 57 mg/dL (7-18); CALCIUM 8.9 mg/dL (8.5-10.1); CHLORIDE 113 mmol/L (98-107); CO2 28 mmol/L (21-32); CREATININE 2.7 mg/dL (0.7-1.3); GLUCOSE,RANDOM 125 mg/dL (74-106); SGOT/AST 40 U/L (15-37); SGPT/ALT 76 U/L (12-78); SODIUM 149 mmol/L (136-145); TOT PROT 6.8 g/dl (6.4-8.2)
[2017-06-01 18:20] LABS: ALK PHOS 133 U/L (45-117)
[2017-06-01 18:30] LABS: URINE LEUK ESTERASE 3+ (NEGATIVE); URINE PROTEIN 1+ (NEGATIVE)
--- NOTE | 2017-06-01 19:54 | HP ---
CHIEF COMPLAINT: PCP: HISTORY OF PRESENT ILLNESS: ER course was notable for: (1) (2) (3) Recent Travel: PAST MEDICAL HISTORY: PAST SURGICAL HISTORY: Social History: Smoking: Alcohol: Drugs: Family History: Allergies No Known Drug Allergies Allergy (Verified 04/28/17 12:19) HOME MEDICATIONS: Home Medications Medication Instructions Recorded Aa/Hydrolyzed Collagen, Whey [Lps 30 ml PO BID 06/01/17 15-30 Liquid] Acetaminophen [Tylenol] 650 mg PO QID 06/01/17 Atorvastatin Ca [Lipitor] 10 mg PO HS 06/01/17 Ceftriaxone 1 gm/D5w [Rocephin 1 1 gm IV DAILY 06/01/17 gm Premix Ivpb -] Docusate Sodium [Colace] 300 mg PO HS 06/01/17 Levetiracetam 500 mg PO BID 06/01/17 Lisinopril 5 mg PO DAILY 06/01/17 Metoprolol Tartrate 50 mg PO BID 06/01/17 Omeprazole Magnesium [Prilosec] 10 mg PO HS 06/01/17 Sennosides [Senna] 2 tab PO DAILY 06/01/17 REVIEW OF SYSTEMS CONSTITUTIONAL: Absent: fever, chills, diaphoresis, generalized weakness, malaise, loss of appetite, weight change HEENT: Absent: rhinorrhea, nasal congestion, throat pain, throat swelling, difficulty swallowing, mouth swelling, ear pain, eye pain, visual changes CARDIOVASCULAR: Absent: chest pain, syncope, palpitations, irregular heart rate, lightheadedness , peripheral edema RESPIRATORY: Absent: cough, shortness of breath, dyspnea with exertion, orthopnea, wheezing, stridor, hemoptysis GASTROINTESTINAL: Absent: abdominal pain, abdominal distension, nausea, vomiting, diarrhea, constipation, melena, hematochezia GENITOURINARY: Absent: dysuria, frequency, urgency, hesitancy, hematuria, flank pain, genital pain MUSCULOSKELETAL: Absent: myalgia, arthralgia, joint swelling, back pain, neck pain SKIN: Absent: rash, itching, pallor HEMATOLOGIC/IMMUNOLOGIC: Absent: easy bleeding, easy bruising, lymphadenopathy, frequent infections ENDOCRINE: Absent: unexplained weight gain, unexplained weight loss, heat intolerance, cold intolerance NEUROLOGIC: Absent: headache, focal weakness or paresthesias, dizziness, unsteady gait, seizure, mental status changes, bladder or bowel incontinence PSYCHIATRIC: Absent: anxiety, depression, suicidal or homicidal ideation, hallucinations. PHYSICAL EXAMINATION Vital Signs - 24 hr 06/01/17 16:06 Temperature 101.6 F H Pulse Rate 113 H Respiratory 22 Rate Blood Pressure 109/81 O2 Sat by Pulse 99 Oximetry (%) GENERAL: Awake, alert, and fully oriented, in no acute distress. HEAD: Normal with no signs of trauma. EYES: Pupils equal, round and reactive to light, extraocular movements intact, sclera anicteric, conjunctiva clear. No lid lag. EARS, NOSE, THROAT: Ears normal, nares patent, oropharynx clear without exudates. Moist mucous membranes. NECK: Normal range of motion, supple without lymphadenopathy, JVD, or masses. LUNGS: Breath sounds equal, clear to auscultation bilaterally. No wheezes, and no crackles. No accessory muscle use. HEART: Regular rate and rhythm, normal S1 and S2 without murmur, rub or gallop. ABDOMEN: Soft, nontender, not distended, normoactive bowel sounds, no guarding, no rebound, no masses. No hepatomegaly or splenomegaly. MUSCULOSKELETAL: Normal range of motion at all joints. No bony deformities or tenderness. No CVA tenderness. UPPER EXTREMITIES: 2+ pulses, warm, well-perfused. No cyanosis. No clubbing. No peripheral edema. LOWER EXTREMITIES: 2+ pulses, warm, well-perfused. No calf tenderness. No peripheral edema. NEUROLOGICAL: Cranial nerves II-XII intact. Normal speech. Normal gait. PSYCHIATRIC: Cooperative. Good eye contact. Appropriate mood and affect. SKIN: Warm, dry, normal turgor, no rashes or lesions noted, normal capillary refill. Laboratory Results - last 24 hr 06/01/17 06/01/17 06/01/17 16:16 16:16 16:16 WBC 22.6 H D RBC 3.30 L Hgb 9.1 L Hct 28.4 L MCV 86.0 MCH 27.7 MCHC 32.2 RDW 17.1 H Plt Count 306 MPV 8.1 Neutrophils % 88.7 H Lymphocytes % 3.2 L D Monocytes % 7.2 Eosinophils % 0.1 D Basophils % 0.8 PT with INR INR PTT (Actin FS) VBG pH 7.40 POC VBG pCO2 32.6 L POC VBG pO2 157.0 H* D Mixed VBG HCO3 24.3 Sodium Potassium Chloride Carbon Dioxide Anion Gap BUN Creatinine Creat Clearance w eGFR Random Glucose Lactic Acid 1.0 Calcium Total Bilirubin AST ALT Alkaline Phosphatase Creatine Kinase Troponin I Total Protein Albumin Urine Color Urine Appearance Urine pH Ur Specific Balm Urine Protein Urine Glucose (UA) Urine Ketones Urine Blood Urine Nitrite Urine Bilirubin Urine Urobilinogen 06/01/17 06/01/17 06/01/17 17:10 17:10 17:10 WBC RBC Hgb Hct MCV MCH MCHC RDW Plt Count MPV Neutrophils % Lymphocytes % Monocytes % Eosinophils % Basophils % PT with INR 15.50 H INR 1.37 H PTT (Actin FS) 25.9 L VBG pH POC VBG pCO2 POC VBG pO2 Mixed VBG HCO3 Sodium 149 H Potassium 5.0 D Chloride 113 H Carbon Dioxide 28 Anion Gap 8 BUN 57 H D Creatinine 2.7 H D Creat Clearance w eGFR 23.22 Random Glucose 125 H Lactic Acid Calcium 8.9 Total Bilirubin 0.3 AST 40 H D ALT 76 Alkaline Phosphatase 133 H Creatine Kinase 144 Troponin I 0.02 Total Protein 6.8 Albumin 1.8 L Urine Color Yellow Urine Appearance Slcloudy Urine pH 7.0 D Ur Specific Balm 1.014 Urine Protein 1+ H Urine Glucose (UA) Negative Urine Ketones Negative Urine Blood 1+ H Urine Nitrite Negative Urine Bilirubin Negative Urine Urobilinogen Negative CBC, BMP 06/01/17 16:16 06/01/17 17:10 EKG: Sinus tachycardia, rate of 116 bpm, left axis deviation, no ST elevations or depressions T wave inversion I, aVL ASSESSMENT/PLAN:
[2017-06-01 20:25] LABS: EPI CELLS RARE /HPF (FEW); URINE MUCUS RARE
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
[2017-06-01] MEDS: SODIUM CHLORIDE 1,000 ML IV SCH (21:41)
--- NOTE | 2017-06-01 21:50 | PN ---
Teaching Attending Note Name of Resident: Brittney Rosado ATTENDING PHYSICIAN STATEMENT I saw and evaluated the patient. I reviewed the resident's note and discussed the case with the resident. I agree with the resident's findings and plan as documented. SUBJECTIVE:information gathered from daughter present at bedside 72 year old male with a PMHx of Meningioma, CVA with residual right sided weakness, HTN, HLD, CAD, GERD who was sent from [facility] due to fever. as per daughter he appears to be at baseline. was notified by SNF that he was having non productive cough and weakness with temp 100.4 and CXR was done there showing PNA. pt admits to cough. dneies Cp, SOB, chills, N/v/C/D, neck pain OBJECTIVE: Last Vital Signs Temp Pulse Resp BP Pulse Ox 99.5 F 104 H 14 102/61 99 06/01/17 20:29 06/01/17 20:29 06/01/17 20:29 06/01/17 20:29 06/01/17 16:06 General mild tachypnic CV S1 S2 RRR no murmur/rub/gallop Lungs poor air entry, decreased breath sounds anteriorly Abdomen soft NT/ND Extremities no pedal edema ASSESSMENT AND PLAN: 72 year old male with a PMHx of Meningioma, CVA with residual right sided weakness, HTN, HLD, CAD, GERD who was sent from [facility] due to fever 1. Sepsis due to PNA- concern for aspiration vs HCAP with recent hospitalization. medicine admission. Tm101.6. tachycardic and leukocytosis. NPO , IVF, cont Zosyn started in the ER, and tylenol prn. elevate HOB. Consult swallow therapist. was on puree diet last admission. lactic acidosis negative. ID consulted. supplemental oxygen to maintain spO2 .90% 2. Hypernatremia- likley due to poor po intake. IVF. 3. JESS- due to dehydration. IVF. avoid nephrotoxic agents 4. Meningioma- planned surgery next month. cont keppra prophylaxis 5. HTN- hold oral antihypertensives during sepsis. will re-start as needed 6. DVT ppx- hep sq 7. case spoke with daughter present at bedside. all questions answered. verbalized understanding and agreement with plan
[2017-06-01] MEDS ORDERED: PANTOPRAZOLE 20 MG TABLET (FP) PO SCH (22:15)
[2017-06-01] MEDS: DOCUSATE SODIUM 100 MG CAPSULE (FP) PO SCH (23:30)
[2017-06-01] MEDS: ATORVASTATIN CA 10 MG TABLET (FP) PO SCH (23:30)
[2017-06-01] MEDS: levETIRAcetam 500 MG TABLET (FP) PO SCH (23:30)
[2017-06-02] MEDS: SODIUM CHLORIDE 1,000 ML IV SCH (02:04)
[2017-06-02] MEDS: PIPERACILLIN/TAZOB 2.25 GM 2.25 GM/50 ML BAG IVPB SCH ×3 (02:34→18:13)
[2017-06-02] MEDS: HEPARIN NA (PORCINE) 5,000 UNITS/ML 1ML VIAL SQ SCH ×3 (06:17→22:57)
[2017-06-02 07:36] LABS: HEMATOCRIT 26.8 % (35.4-49); HEMOGLOBIN 8.4 GM/dL (11.7-16.9); MCH 27.3 pg (25.7-33.7); MCHC 31.4 g/dl (32.0-35.9); MEAN PLT VOLUME 8.3 fl (7.5-11.1); PLATELET COUNT 347 K/MM3 (134-434); RBC 3.08 M/mm3 (4.00-5.60); RDW 17.3 % (11.9-15.9); WHITE BLOOD COUNT 26.1 K/mm3 (4.0-10.0)
[2017-06-02 08:01] LABS: ALBUMIN 1.7 g/dl (3.4-5.0); ANION GAP 11 (8-16); BILIRUBIN,TOTAL 0.4 mg/dL (0.2-1.0); BLOOD UREA NITROGEN 46 mg/dL (7-18); CALCIUM 8.5 mg/dL (8.5-10.1); CHLORIDE 117 mmol/L (98-107); CO2 25 mmol/L (21-32); GLUCOSE,RANDOM 119 mg/dL (74-106); POTASSIUM 4.5 mmol/L (3.5-5.1); SGOT/AST 40 U/L (15-37); SGPT/ALT 63 U/L (12-78); SODIUM 153 mmol/L (136-145); TOT PROT 6.4 g/dl (6.4-8.2)
[2017-06-02 08:02] LABS: ALK PHOS 124 U/L (45-117)
[2017-06-02] MEDS ORDERED: DEXTROSE 5%-0.45% SALINE 1,000 ML IV SCH (08:15)
[2017-06-02] MEDS ORDERED: ACETAMINOPHEN INJECTION 100 ML IVPB ONE (09:26)
[2017-06-02] MEDS ORDERED: ACETAMINOPHEN 1000 MG/100 ML VIAL (NON FORMULARY) IVPB ONE (09:26)
[2017-06-02] MEDS: ACETAMINOPHEN 1000 MG/100 ML VIAL (NON FORMULARY) IVPB ONE ×2 (09:33→09:34)
[2017-06-02] MEDS: DEXTROSE 5%-WATER - 1,000 ML IV SCH (09:34)
[2017-06-02] MEDS ORDERED: PIPERACILLIN/TAZOBACTAM 2.25 GM VIAL IVPB ONE (09:43)
[2017-06-02] MEDS: levETIRAcetam 500 MG TABLET (FP) PO SCH (09:50)
[2017-06-02] MEDS: SENNOSIDES 8.6MG TABLET (FP) PO SCH (09:50)
[2017-06-02 10:21] LABS: ARTERIAL BLD GAS O2 SATURATION 93.4 % (90-98.9); ARTERIAL BLOOD GAS BASE EXCESS -1.5 meq/l (-2-2); ARTERIAL BLOOD GAS PCO2 40.5 mmHg (35-45); ARTERIAL BLOOD GAS PO2 73.2 mmHg (70-100); ARTERIAL BLOOD GAS pH 7.37 (7.35-7.45)
[2017-06-02 10:24] LABS: ALLENS TEST POSITIVE
[2017-06-02] MEDS ORDERED: AZITHROMYCIN IVPB 500 MG in DEXTROSE 5%-WATER - 250 ML IVPB SCH (10:45)
[2017-06-02] MEDS ORDERED: AZITHROMYCIN IVPB 250 ML IVPB ONE (10:58)
--- NOTE | 2017-06-02 12:18 | PN ---
Progress Note (short form) - Note Progress Note: PULMONARY CONSULTATION DICTATED 06/02/17 IMP ACUTE RESPIRATORY DISTRESS PNEUMONIA LIKELY ASPIRATION SIRS S/P CVA MENINGIOMA HTN HLD HYPERNATREMIA ACUTE ON CHRONIC KIDNEY INJURY PLAN IV ANTIBIOTICS O2 NIPPV IF PT DEVELOPES INCREASED RESPIRATORY DISTRESS INHALED BRONCHODILATORS STEROIDS X 24HRS CULTURES CHEST CT IVF MONITOR LYTES,NA,RENAL FUNCTION DR LERMA Problem List - Problems (1) Pneumonia Code(s): J18.9 - PNEUMONIA, UNSPECIFIED ORGANISM (2) Sepsis Code(s): A41.9 - SEPSIS, UNSPECIFIED ORGANISM Qualifiers: Sepsis type: sepsis due to unspecified organism Qualified Code(s): A41.9 - Sepsis, unspecified organism (3) Brain tumor Code(s): D49.6 - NEOPLASM OF UNSPECIFIED BEHAVIOR OF BRAIN (4) HTN (hypertension) Code(s): I10 - ESSENTIAL (PRIMARY) HYPERTENSION Qualifiers: Hypertension type: essential hypertension Qualified Code(s): I10 - Essential (primary) hypertension (5) CVA (cerebral vascular accident) Code(s): I63.9 - CEREBRAL INFARCTION, UNSPECIFIED Qualifiers: CVA mechanism: unspecified Qualified Code(s): I63.9 - Cerebral infarction, unspecified (6) Yzedo-jc-yevgyud kidney injury Code(s): N17.9 - ACUTE KIDNEY FAILURE, UNSPECIFIED; N18.9 - CHRONIC KIDNEY DISEASE, UNSPECIFIED (7) Hypernatremia Code(s): E87.0 - HYPEROSMOLALITY AND HYPERNATREMIA (8) Respiratory distress Code(s): R06.03 - ACUTE RESPIRATORY DISTRESS
[2017-06-02] MEDS ORDERED: ALBUTEROL SO4 0.083% IH SOL 2.5 MG/3 ML VIAL.NEB. NEB PRN (12:26)
--- NOTE | 2017-06-02 12:30 | EKG ---
Test Reason : Blood Pressure : / mmHG Vent. Rate : 116 BPM Atrial Rate : 116 BPM P-R Int : 158 ms QRS Dur : 090 ms QT Int : 326 ms P-R-T Axes : 068 -42 082 degrees QTc Int : 453 ms POOR DATA QUALITY, INTERPRETATION MAY BE ADVERSELY AFFECTED SINUS TACHYCARDIA LEFT AXIS DEVIATION MODERATE VOLTAGE CRITERIA FOR LVH, MAY BE NORMAL VARIANT CANNOT RULE OUT ANTERIOR INFARCT (CITED ON OR BEFORE 04-MAY-2017) ABNORMAL ECG WHEN COMPARED WITH ECG OF 21-MAY-2017 13:46, QUESTIONABLE CHANGE IN INITIAL FORCES OF SEPTAL LEADS T WAVE INVERSION LESS EVIDENT IN LATERAL LEADS Confirmed by JADIEL ROCHA, LUCAS ([id number]) on 06/02/2017 12:29:57 PM Referred By: Confirmed By:LUCAS DUVALL MD
--- NOTE | 2017-06-02 12:57 | CONS ---
DATE OF CONSULTATION: 06/02/2017 REFERRING PHYSICIAN: Inge Pack MD The patient is a 72-year-old black male, custodial resident, past medical history of meningioma, CVA with residual right-sided weakness, hypertension, hyperlipidemia, ASHD, GERD, transferred from [facility] secondary to fever. Apparently the patient is having a nonproductive cough and weakness, and temperature 100.4 at the custodial. Chest x-ray is performed, which revealed pneumonia. Patient was transferred to [facility] with the above. On admission, he was noted to be febrile to 101. He was also to be congested. He was evaluated by Dr. Osorio, who placed him on broad-spectrum antibiotics. No further history is available at the time. The patient is currently nonverbal, in moderate respiratory distress. Past medical history, again, includes meningioma, CVA with residual right-sided weakness, hypertension, hyperlipidemia, ASHD, GERD. REVIEW OF SYSTEMS: Unable to obtain. Current medications include Zithromax, acetaminophen, Keppra, pantoprazole, vancomycin, piperacillin. PHYSICAL EXAMINATION: General: The patient is a thin black male, well developed, awake, congested, in moderate respiratory distress. Vital Signs: Currently temperature is 101, heart rate is 118, blood pressure 130/99, respiratory rate is 26, O2 saturation is 98% on 2 L. HEENT: Normocephalic, atraumatic. Neck: Supple. Heart: Tachycardic, S1, S2. Chest: Bilateral rhonchi throughout. Abdomen: Soft. Bowel sounds are positive. Extremities: No cyanosis, edema. LABORATORY DATA: WBC is 26.1, hemoglobin 8.4, hematocrit 26.8, with a platelet count of 347,000. INR is 1.37. Blood gas: pH 7.37, pCO2 of 40, pO2 of 73, bicarbonate 23, and saturation of 93.4 on 2.5 L. Chemistries: BUN 46, creatinine 2.0. BNP is 947. Chest x-ray: Has a small right basilar infiltrate. IMPRESSION: 1. Respiratory distress secondary to likely pneumonia, right lower lobe, healthcare-associated pneumonia. 2. Cerebrovascular accident. 3. History of meningioma. 4. Hypertension. 5. Hyperlipidemia. PLAN: IV antibiotics, inhaled bronchodilator, supplemental O2, BiPAP if patient develops increased respiratory distress. Short course of IV steroids. CT scan of the chest. Also obtain cultures, aspiration precautions. VANITA LERMA M.D. DOMINIQUE/[id number]
[2017-06-02] MEDS: methylPREDNISolone NA SUCC 40 MG/1 ML VIAL IVPUSH SCH ×2 (13:06→18:12)
--- NOTE | 2017-06-02 15:09 | PN ---
Physical Exam: SUBJECTIVE: Patient seen and examined. Drowsy, but arousable. Pt denies chest pain, abdominal pain, neck pain. No events overnight. OBJECTIVE: Vital Signs Period Temp Pulse Resp BP Sys/Chin Pulse Ox Last 24 Hr 98.8 F-101.6 F 104-129 14-26 102-141/61-99 96-99 GENERAL: The patient is awake, alert, and fully oriented, in no acute distress. HEAD: Normal with no signs of trauma. LUNGS: Scattered rhonchi appreciated. HEART: Regular rhythm, tachycardic, S1, S2 without murmur, rub or gallop. ABDOMEN: Soft, nontender, nondistended, no guarding. EXTREMITIES: Warm, well-perfused, no edema. PSYCH: Normal mood, normal affect. SKIN: Warm, dry, normal turgor, no rashes or lesions noted Laboratory Results - last 24 hr 06/01/17 06/01/17 06/01/17 16:16 16:16 16:16 WBC 22.6 H D RBC 3.30 L Hgb 9.1 L Hct 28.4 L MCV 86.0 MCH 27.7 MCHC 32.2 RDW 17.1 H Plt Count 306 MPV 8.1 Neutrophils % 88.7 H Lymphocytes % 3.2 L D Monocytes % 7.2 Eosinophils % 0.1 D Basophils % 0.8 PT with INR INR PTT (Actin FS) Puncture Site ABG pH ABG pCO2 at Pt Temp ABG pO2 at Pt Temp ABG HCO3 ABG O2 Sat (Measured) ABG O2 Content ABG Base Excess Jeff Test VBG pH 7.40 POC VBG pCO2 32.6 L POC VBG pO2 157.0 H* D Mixed VBG HCO3 24.3 O2 Delivery Device Oxygen Flow Rate Mechanical Rate PEEP Sodium Potassium Chloride Carbon Dioxide Anion Gap BUN Creatinine Creat Clearance w eGFR POC Glucometer Random Glucose Lactic Acid 1.0 Calcium Total Bilirubin AST ALT Alkaline Phosphatase Creatine Kinase Troponin I B-Natriuretic Peptide Total Protein Albumin Urine Color Urine Appearance Urine pH Ur Specific [place] Urine Protein Urine Glucose (UA) Urine Ketones Urine Blood Urine Nitrite Urine Bilirubin Urine Urobilinogen Ur Leukocyte Esterase Urine WBC (Auto) Urine RBC (Auto) Ur Epithelial Cells Urine Mucus 06/01/17 06/01/17 06/01/17 17:10 17:10 17:10 WBC RBC Hgb Hct MCV MCH MCHC RDW Plt Count MPV Neutrophils % Lymphocytes % Monocytes % Eosinophils % Basophils % PT with INR 15.50 H INR 1.37 H PTT (Actin FS) 25.9 L Puncture Site ABG pH ABG pCO2 at Pt Temp ABG pO2 at Pt Temp ABG HCO3 ABG O2 Sat (Measured) ABG O2 Content ABG Base Excess Jeff Test VBG pH POC VBG pCO2 POC VBG pO2 Mixed VBG HCO3 O2 Delivery Device Oxygen Flow Rate Mechanical Rate PEEP Sodium 149 H Potassium 5.0 D Chloride 113 H Carbon Dioxide 28 Anion Gap 8 BUN 57 H D Creatinine 2.7 H D Creat Clearance w eGFR 23.22 POC Glucometer Random Glucose 125 H Lactic Acid Calcium 8.9 Total Bilirubin 0.3 AST 40 H D ALT 76 Alkaline Phosphatase 133 H Creatine Kinase 144 Troponin I 0.02 B-Natriuretic Peptide Total Protein 6.8 Albumin 1.8 L Urine Color Yellow Urine Appearance Slcloudy Urine pH 7.0 D Ur Specific [place] 1.014 Urine Protein 1+ H Urine Glucose (UA) Negative Urine Ketones Negative Urine Blood 1+ H Urine Nitrite Negative Urine Bilirubin Negative Urine Urobilinogen Negative Ur Leukocyte Esterase 1+ H Urine WBC (Auto) 147 Urine RBC (Auto) None Ur Epithelial Cells Rare Urine Mucus Rare 06/01/17 06/02/17 06/02/17 21:45 07:20 07:20 WBC 26.1 H RBC 3.08 L Hgb 8.4 L Hct 26.8 L MCV 87.0 MCH 27.3 MCHC 31.4 L RDW 17.3 H Plt Count 347 MPV 8.3 Neutrophils % Lymphocytes % Monocytes % Eosinophils % Basophils % PT with INR INR PTT (Actin FS) Puncture Site ABG pH ABG pCO2 at Pt Temp ABG pO2 at Pt Temp ABG HCO3 ABG O2 Sat (Measured) ABG O2 Content ABG Base Excess Jeff Test VBG pH POC VBG pCO2 POC VBG pO2 Mixed VBG HCO3 O2 Delivery Device Oxygen Flow Rate Mechanical Rate PEEP Sodium 153 H Potassium 4.5 Chloride 117 H Carbon Dioxide 25 Anion Gap 11 BUN 46 H Creatinine 2.0 H D Creat Clearance w eGFR 32.82 POC Glucometer Random Glucose 119 H Lactic Acid 1.1 Calcium 8.5 Total Bilirubin 0.4 D AST 40 H ALT 63 Alkaline Phosphatase 124 H Creatine Kinase Troponin I B-Natriuretic Peptide Total Protein 6.4 Albumin 1.7 L Urine Color Urine Appearance Urine pH Ur Specific [place] Urine Protein Urine Glucose (UA) Urine Ketones Urine Blood Urine Nitrite Urine Bilirubin Urine Urobilinogen Ur Leukocyte Esterase Urine WBC (Auto) Urine RBC (Auto) Ur Epithelial Cells Urine Mucus 06/02/17 06/02/17 06/02/17 08:14 10:10 10:15 WBC RBC Hgb Hct MCV MCH MCHC RDW Plt Count MPV Neutrophils % Lymphocytes % Monocytes % Eosinophils % Basophils % PT with INR INR PTT (Actin FS) Puncture Site Right radial ABG pH 7.37 ABG pCO2 at Pt Temp 40.5 ABG pO2 at Pt Temp 73.2 D ABG HCO3 23.0 ABG O2 Sat (Measured) 93.4 ABG O2 Content 10.8 L ABG Base Excess -1.5 Jeff Test Positive VBG pH POC VBG pCO2 POC VBG pO2 Mixed VBG HCO3 O2 Delivery Device Nasal cannula Oxygen Flow Rate 2.5 Mechanical Rate No PEEP 0.0 Sodium Potassium Chloride Carbon Dioxide Anion Gap BUN Creatinine Creat Clearance w eGFR POC Glucometer 123 Random Glucose Lactic Acid Calcium Total Bilirubin AST ALT Alkaline Phosphatase Creatine Kinase Troponin I B-Natriuretic Peptide 947.62 H Total Protein Albumin Urine Color Urine Appearance Urine pH Ur Specific [place] Urine Protein Urine Glucose (UA) Urine Ketones Urine Blood Urine Nitrite Urine Bilirubin Urine Urobilinogen Ur Leukocyte Esterase Urine WBC (Auto) Urine RBC (Auto) Ur Epithelial Cells Urine Mucus 06/02/17 10:15 WBC RBC Hgb Hct MCV MCH MCHC RDW Plt Count MPV Neutrophils % Lymphocytes % Monocytes % Eosinophils % Basophils % PT with INR INR PTT (Actin FS) Puncture Site ABG pH ABG pCO2 at Pt Temp ABG pO2 at Pt Temp ABG HCO3 ABG O2 Sat (Measured) ABG O2 Content ABG Base Excess Jeff Test VBG pH POC VBG pCO2 POC VBG pO2 Mixed VBG HCO3 O2 Delivery Device Oxygen Flow Rate Mechanical Rate PEEP Sodium Potassium Chloride Carbon Dioxide Anion Gap BUN Creatinine Creat Clearance w eGFR POC Glucometer Random Glucose Lactic Acid 1.3 Calcium Total Bilirubin AST ALT Alkaline Phosphatase Creatine Kinase Troponin I B-Natriuretic Peptide Total Protein Albumin Urine Color Urine Appearance Urine pH Ur Specific [place] Urine Protein Urine Glucose (UA) Urine Ketones Urine Blood Urine Nitrite Urine Bilirubin Urine Urobilinogen Ur Leukocyte Esterase Urine WBC (Auto) Urine RBC (Auto) Ur Epithelial Cells Urine Mucus Active Medications Generic Name Dose Route Start Last Admin Trade Name Freq PRN Reason Stop Dose Admin Albuterol Sulfate 1 amp 06/02/17 12:26 Ventolin 0.083% Nebulizer Soln - NEB Q4H PRN SHORT OF BREATH/WHEEZING Albuterol/Ipratropium 1 amp 06/02/17 18:00 Duoneb - NEB QIDR ESAU Atorvastatin Calcium 10 mg 06/01/17 22:00 06/01/17 23:30 Lipitor - PO 10 mg HS ESAU Administration Docusate Sodium 300 mg 06/01/17 22:00 06/01/17 23:30 Colace - PO 300 mg HS ESAU Administration Heparin Sodium (Porcine) 5,000 unit 06/02/17 06:00 06/02/17 14:22 Heparin - SQ 5,000 unit TID ESAU Administration Piperacillin/Tazobactam/Dextrose 2.25 gm in 50 mls @ 100 mls/hr 06/02/17 02: 00 06/02/17 09:50 Zosyn 2.25gm Ivpb (Premix) IVPB 100 mls/hr Q8H-IV ESAU Administration Protocol Dextrose 1,000 mls @ 100 mls/hr 06/02/17 09:15 06/02/17 09:34 D5w - IV 100 mls/hr ASDIR ESAU Administration Azithromycin 500 mg/ Dextrose 250 mls @ 250 mls/hr 06/02/17 10:45 06/02/17 10 :56 IVPB 250 mls/hr DAILY ESAU Administration Levetiracetam 500 mg 06/01/17 22:00 06/02/17 09:50 Keppra - PO 500 mg BID ESAU Administration Methylprednisolone Sodium Succinate 40 mg 06/02/17 12:30 06/02/17 13:06 Solu-Medrol - IVPUSH 40 mg Q8H-IV ESAU Administration Pantoprazole Sodium 20 mg 06/01/17 22:15 06/01/17 23:30 Protonix - PO 20 mg HS ESAU Administration Senna 2 tab 06/02/17 10:00 06/02/17 09:50 Senna - PO 2 tab DAILY ESAU Administration IMAGIN06/01/17 CXR -> probably small Right basilar infiltrate and/or small Right pleural effusion 06/02/17 CXR -> no evidence of pulmonary infiltrates, CHF, PTX, or large pleural effusion ASSESSMENT/PLAN: 72M with PMH Meningioma, CVA (with residual Right sided weakness), htn, hld, CAD , GERD, presents with fever and CXR suggestive of asp pna. # sepsis 2/2 asp pna vs HAP - Day 2 IV Zosyn - IV Vanc given in ER - Influenza A&B (-) - Legionella and strep pneumo (-) - f/u RSV - f/u urine and blood cultures - IVFs - Pulmonary (Dr. Lundberg) recs appreciated: O2 prn, Duonebs, Albuterol, Solu- medrol x 24 hrs # JESS - likely 2/2 dehydration - avoid nephrotoxic agents - continue to monitor - IVFs # meningioma - known, neurosurgery scheduled on 06/30/[address] Alvin Worthington, neurosurgeon affiliated with [facility] ([phone]) - continue home med of Keppra for seizure prevention # htn - currently normotensive - hold home meds for now # hypernatremia - likely 2/2 poor po intake / dehydration - Free Water Deficit 4.2 L - IVFs # FEN - Fluids: D5 @ 100 ml/hr - Electrolytes: hypernatremia noted, continue to monitor - Nutrition: npo # Prophylaxis - DVT ppx with Heparin - GI ppx with Protonix Visit type - Emergency Visit Emergency Visit: Yes ED Registration Date: 06/01/17 Care time: The patient presented to the Emergency Department on the above date and was hospitalized for further evaluation of their emergent condition. - New Patient This patient is new to me today: Yes Date on this admission: 06/02/17 - Critical Care Critical Care patient: No
--- NOTE | 2017-06-02 17:33 | PN ---
Teaching Attending Note Name of Resident: Loli Callahan ATTENDING PHYSICIAN STATEMENT Time of evaluation: 10:10 AM I saw and evaluated the patient. I reviewed the resident's note and discussed the case with the resident. I agree with the resident's findings and plan as documented. SUBJECTIVE: Patient was seen in Ed, was noted dyspneic, tachycardic, and tachypneic with audible gurgling. minimal verbal responses at baseline. denies any pain or dyspnea currently, further ROS limited. OBJECTIVE: Vital Signs Period Temp Pulse Resp BP Sys/Chin Pulse Ox Last 24 Hr 98.8 F-101 F 104-129 14-26 102-141/61-99 96-99 Intake & Output 05/30/17 05/31/17 06/01/17 06/02/17 23:59 23:59 23:59 23:59 Intake Total 1633 Output Total 200 Balance 1433 Weight 200 lb 200 lb General: lying in bed, tachypneic, with some use of accessory muscles of respiration, CVS: S1s2 regular tachycardic Chest: coarse scattered rhonchi, few right basilar rales, positive air entry bilaterally Abdomen: soft, NT, ND, positive bowel sounds Extremities: no edema neuro right facial droop and right sided subtle weakness (which was present on my previous during his recent admission) Home Medication List Medication Instructions Recorded Confirmed Type Aa/Hydrolyzed Collagen, Whey [Lps 30 ml PO BID 06/01/17 06/01/17 History 15-30 Liquid] Acetaminophen [Tylenol] 650 mg PO QID 06/01/17 06/01/17 History Atorvastatin Ca [Lipitor] 10 mg PO HS 06/01/17 06/01/17 History Ceftriaxone 1 gm/D5w [Rocephin 1 1 gm IV DAILY 06/01/17 06/01/17 History gm Premix Ivpb -] Docusate Sodium [Colace] 300 mg PO HS 06/01/17 06/01/17 History Levetiracetam 500 mg PO BID 06/01/17 06/01/17 History Lisinopril 5 mg PO DAILY 06/01/17 06/01/17 History Metoprolol Tartrate 50 mg PO BID 06/01/17 06/01/17 History Omeprazole Magnesium [Prilosec] 10 mg PO HS 06/01/17 06/01/17 History Sennosides [Senna] 2 tab PO DAILY 06/01/17 06/01/17 History Active Medications Generic Name Dose Route Start Last Admin Trade Name Mila PRN Reason Stop Dose Admin Albuterol Sulfate 1 amp 06/02/17 12:26 Ventolin 0.083% Nebulizer Soln - NEB Q4H PRN SHORT OF BREATH/WHEEZING Albuterol/Ipratropium 1 amp 06/02/17 18:00 Duoneb - NEB QIDR ESAU Atorvastatin Calcium 10 mg 06/01/17 22:00 06/01/17 23:30 Lipitor - PO 10 mg HS ESAU Administration Docusate Sodium 300 mg 06/01/17 22:00 06/01/17 23:30 Colace - PO 300 mg HS ESAU Administration Heparin Sodium (Porcine) 5,000 unit 06/02/17 06:00 06/02/17 14:22 Heparin - SQ 5,000 unit TID ESAU Administration Piperacillin/Tazobactam/Dextrose 2.25 gm in 50 mls @ 100 mls/hr 06/02/17 02: 00 06/02/17 09:50 Zosyn 2.25gm Ivpb (Premix) IVPB 100 mls/hr Q8H-IV ESAU Administration Protocol Dextrose 1,000 mls @ 100 mls/hr 06/02/17 09:15 06/02/17 09:34 D5w - IV 100 mls/hr ASDIR ESAU Administration Levetiracetam 500 mg 06/01/17 22:00 06/02/17 09:50 Keppra - PO 500 mg BID ESAU Administration Methylprednisolone Sodium Succinate 40 mg 06/02/17 12:30 06/02/17 13:06 Solu-Medrol - IVPUSH 40 mg Q8H-IV ESAU Administration Pantoprazole Sodium 20 mg 06/01/17 22:15 06/01/17 23:30 Protonix - PO 20 mg HS ESAU Administration Senna 2 tab 06/02/17 10:00 06/02/17 09:50 Senna - PO 2 tab DAILY ESAU Administration Laboratory Results - last 24 hr 06/01/17 06/01/17 06/01/17 16:16 16:16 16:16 WBC 22.6 H D RBC 3.30 L Hgb 9.1 L Hct 28.4 L MCV 86.0 MCH 27.7 MCHC 32.2 RDW 17.1 H Plt Count 306 MPV 8.1 Neutrophils % 88.7 H Lymphocytes % 3.2 L D Monocytes % 7.2 Eosinophils % 0.1 D Basophils % 0.8 PT with INR INR PTT (Actin FS) Puncture Site ABG pH ABG pCO2 at Pt Temp ABG pO2 at Pt Temp ABG HCO3 ABG O2 Sat (Measured) ABG O2 Content ABG Base Excess Jeff Test VBG pH 7.40 POC VBG pCO2 32.6 L POC VBG pO2 157.0 H* D Mixed VBG HCO3 24.3 O2 Delivery Device Oxygen Flow Rate Mechanical Rate PEEP Sodium Potassium Chloride Carbon Dioxide Anion Gap BUN Creatinine Creat Clearance w eGFR POC Glucometer Random Glucose Lactic Acid 1.0 Calcium Total Bilirubin AST ALT Alkaline Phosphatase Creatine Kinase Troponin I B-Natriuretic Peptide Total Protein Albumin Urine Color Urine Appearance Urine pH Ur Specific [place] Urine Protein Urine Glucose (UA) Urine Ketones Urine Blood Urine Nitrite Urine Bilirubin Urine Urobilinogen Ur Leukocyte Esterase Urine WBC (Auto) Urine RBC (Auto) Ur Epithelial Cells Urine Mucus 06/01/17 06/01/17 06/01/17 17:10 17:10 17:10 WBC RBC Hgb Hct MCV MCH MCHC RDW Plt Count MPV Neutrophils % Lymphocytes % Monocytes % Eosinophils % Basophils % PT with INR 15.50 H INR 1.37 H PTT (Actin FS) 25.9 L Puncture Site ABG pH ABG pCO2 at Pt Temp ABG pO2 at Pt Temp ABG HCO3 ABG O2 Sat (Measured) ABG O2 Content ABG Base Excess Jeff Test VBG pH POC VBG pCO2 POC VBG pO2 Mixed VBG HCO3 O2 Delivery Device Oxygen Flow Rate Mechanical Rate PEEP Sodium 149 H Potassium 5.0 D Chloride 113 H Carbon Dioxide 28 Anion Gap 8 BUN 57 H D Creatinine 2.7 H D Creat Clearance w eGFR 23.22 POC Glucometer Random Glucose 125 H Lactic Acid Calcium 8.9 Total Bilirubin 0.3 AST 40 H D ALT 76 Alkaline Phosphatase 133 H Creatine Kinase 144 Troponin I 0.02 B-Natriuretic Peptide Total Protein 6.8 Albumin 1.8 L Urine Color Yellow Urine Appearance Slcloudy Urine pH 7.0 D Ur Specific [place] 1.014 Urine Protein 1+ H Urine Glucose (UA) Negative Urine Ketones Negative Urine Blood 1+ H Urine Nitrite Negative Urine Bilirubin Negative Urine Urobilinogen Negative Ur Leukocyte Esterase 1+ H Urine WBC (Auto) 147 Urine RBC (Auto) None Ur Epithelial Cells Rare Urine Mucus Rare 06/01/17 06/02/17 06/02/17 21:45 07:20 07:20 WBC 26.1 H RBC 3.08 L Hgb 8.4 L Hct 26.8 L MCV 87.0 MCH 27.3 MCHC 31.4 L RDW 17.3 H Plt Count 347 MPV 8.3 Neutrophils % Lymphocytes % Monocytes % Eosinophils % Basophils % PT with INR INR PTT (Actin FS) Puncture Site ABG pH ABG pCO2 at Pt Temp ABG pO2 at Pt Temp ABG HCO3 ABG O2 Sat (Measured) ABG O2 Content ABG Base Excess Jeff Test VBG pH POC VBG pCO2 POC VBG pO2 Mixed VBG HCO3 O2 Delivery Device Oxygen Flow Rate Mechanical Rate PEEP Sodium 153 H Potassium 4.5 Chloride 117 H Carbon Dioxide 25 Anion Gap 11 BUN 46 H Creatinine 2.0 H D Creat Clearance w eGFR 32.82 POC Glucometer Random Glucose 119 H Lactic Acid 1.1 Calcium 8.5 Total Bilirubin 0.4 D AST 40 H ALT 63 Alkaline Phosphatase 124 H Creatine Kinase Troponin I B-Natriuretic Peptide Total Protein 6.4 Albumin 1.7 L Urine Color Urine Appearance Urine pH Ur Specific [place] Urine Protein Urine Glucose (UA) Urine Ketones Urine Blood Urine Nitrite Urine Bilirubin Urine Urobilinogen Ur Leukocyte Esterase Urine WBC (Auto) Urine RBC (Auto) Ur Epithelial Cells Urine Mucus 06/02/17 06/02/17 06/02/17 08:14 10:10 10:15 WBC RBC Hgb Hct MCV MCH MCHC RDW Plt Count MPV Neutrophils % Lymphocytes % Monocytes % Eosinophils % Basophils % PT with INR INR PTT (Actin FS) Puncture Site Right radial ABG pH 7.37 ABG pCO2 at Pt Temp 40.5 ABG pO2 at Pt Temp 73.2 D ABG HCO3 23.0 ABG O2 Sat (Measured) 93.4 ABG O2 Content 10.8 L ABG Base Excess -1.5 Jeff Test Positive VBG pH POC VBG pCO2 POC VBG pO2 Mixed VBG HCO3 O2 Delivery Device Nasal cannula Oxygen Flow Rate 2.5 Mechanical Rate No PEEP 0.0 Sodium Potassium Chloride Carbon Dioxide Anion Gap BUN Creatinine Creat Clearance w eGFR POC Glucometer 123 Random Glucose Lactic Acid Calcium Total Bilirubin AST ALT Alkaline Phosphatase Creatine Kinase Troponin I B-Natriuretic Peptide 947.62 H Total Protein Albumin Urine Color Urine Appearance Urine pH Ur Specific [place] Urine Protein Urine Glucose (UA) Urine Ketones Urine Blood Urine Nitrite Urine Bilirubin Urine Urobilinogen Ur Leukocyte Esterase Urine WBC (Auto) Urine RBC (Auto) Ur Epithelial Cells Urine Mucus 06/02/17 10:15 WBC RBC Hgb Hct MCV MCH MCHC RDW Plt Count MPV Neutrophils % Lymphocytes % Monocytes % Eosinophils % Basophils % PT with INR INR PTT (Actin FS) Puncture Site ABG pH ABG pCO2 at Pt Temp ABG pO2 at Pt Temp ABG HCO3 ABG O2 Sat (Measured) ABG O2 Content ABG Base Excess Jeff Test VBG pH POC VBG pCO2 POC VBG pO2 Mixed VBG HCO3 O2 Delivery Device Oxygen Flow Rate Mechanical Rate PEEP Sodium Potassium Chloride Carbon Dioxide Anion Gap BUN Creatinine Creat Clearance w eGFR POC Glucometer Random Glucose Lactic Acid 1.3 Calcium Total Bilirubin AST ALT Alkaline Phosphatase Creatine Kinase Troponin I B-Natriuretic Peptide Total Protein Albumin Urine Color Urine Appearance Urine pH Ur Specific [place] Urine Protein Urine Glucose (UA) Urine Ketones Urine Blood Urine Nitrite Urine Bilirubin Urine Urobilinogen Ur Leukocyte Esterase Urine WBC (Auto) Urine RBC (Auto) Ur Epithelial Cells Urine Mucus Microbiology 06/01/17 17:10 Blood - Peripheral Venous Blood Culture - Preliminary NO GROWTH OBTAINED AFTER 24 HOURS, INCUBATION TO CONTINUE FOR 4 DAYS. 06/02/17 01:00 Urine For Antigen Detection Legionella Antigen - Final 06/02/17 01:00 Urine For Antigen Detection Streptococcus pneumoniae Antigen (M - Final 06/02/17 01:00 Urine For Antigen Detection Legionella Antigen - Final 06/02/17 01:00 Urine For Antigen Detection Streptococcus pneumoniae Antigen (M - Final 06/02/17 12:00 Nasopharyngeal Swab Respiratory Virus (PCR) - Preliminary 06/01/17 17:10 Nasopharyngeal Swab Influenza Types A,B Antigen (SADIQ) - Final 06/01/17 17:10 Nasopharyngeal Swab - Final CXr 1 - ?right basilar infiltrate/Right effusion CXR 2 reviewed personally, overall unchanged EKG sinus tachycardia 120s, no acute ST-T changes ASSESSMENT AND PLAN: 72 year old male with a PMHx of Meningioma, CVA with residual right sided weakness, HTN, HLD, CAD, GERD, recently admitted to [facility] with dehydration/Sepsis /UTI/hypernatremia, readmitted with sepsis, likely from aspiration PNA, hypovolumia and hypernatremia. -Sepsis, likely aspiration pneumonia, based on current audible gurgling on exam and decreased mental status -Hypernatremia -Dehydration -Hyperchloremia -JESS, suspect prerenal from poor oral intake, more than from sepsis based on exam -Meningioma/CVA right sided weakness -Seizure disorder -HTN -HLD -?CAD -GERD Plan: Zosyn day 1, add azithromycin, follow up blood cultures. Sputum cultures as available. Urine pNA studies neg. Flu neg. Check RVP. Discuss with ID if needs MRSA coverage Aspiration precautions, NPO PUlmonary input noted, placed on short course of solumedrol. Check CT chest non contrast. Recent 2D echo reviewed. change IVF to D5W at 100 ml/hr (similar course on recent admit when was seen by nephrology and placed on D5W). Repeat Na later today. renal function improved with hydration. Seizure precautions. Change keppra and Protonix to IV for now. DVTPPX dispo transfer to telemetry, patient has recurrent admission with hypernatremia, also concerns of poor oral intake at the intermediate given his progressive functional and neurological decline over last year. Nutrition input when infectious symptoms improved. Will need to address PEG till planned for meningioma surgery if similar recent occurances. Prognosis guarded currently.
[2017-06-02] MEDS: ALBUTEROL SO4 2.5/IPRATROPIUM 0.5 INH SOL 3 ML VIAL.NEB. NEB SCH ×2 (17:40→23:13)
[2017-06-02 18:47] LABS: ANION GAP 8 (8-16); BLOOD UREA NITROGEN 41 mg/dL (7-18); CALCIUM 8.6 mg/dL (8.5-10.1); CHLORIDE 117 mmol/L (98-107); CO2 27 mmol/L (21-32); CREATININE 1.7 mg/dL (0.7-1.3); GLUCOSE,RANDOM 174 mg/dL (74-106); POTASSIUM 4.7 mmol/L (3.5-5.1); SODIUM 152 mmol/L (136-145)
[2017-06-02] MEDS ORDERED: levETIRAcetam 500 MG/5 ML INJECTION VIAL IVPB SCH (22:00)
[2017-06-02] MEDS: LEVETIRACETAM INJECTION 500 MG in DEXTROSE 5%-WATER - 100 ML IVPB SCH (22:55)
[2017-06-02] MEDS: ATORVASTATIN CA 10 MG TABLET (FP) PO SCH (22:57)
[2017-06-02] MEDS: DOCUSATE SODIUM 100 MG CAPSULE (FP) PO SCH (22:57)
[2017-06-03] MEDS: PIPERACILLIN/TAZOB 2.25 GM 2.25 GM/50 ML BAG IVPB SCH ×3 (01:50→17:31)
[2017-06-03] MEDS: methylPREDNISolone NA SUCC 40 MG/1 ML VIAL IVPUSH SCH ×3 (01:50→17:30)
[2017-06-03] MEDS: HEPARIN NA (PORCINE) 5,000 UNITS/ML 1ML VIAL SQ SCH ×3 (05:40→22:46)
[2017-06-03] MEDS ORDERED: ACETAMINOPHEN 325 MG TABLET (FP) PO ONE (06:45)
[2017-06-03] MEDS: ALBUTEROL SO4 2.5/IPRATROPIUM 0.5 INH SOL 3 ML VIAL.NEB. NEB SCH ×4 (06:45→23:35)
--- NOTE | 2017-06-03 08:44 | PN ---
Teaching Attending Note Name of Resident: Loli Callahan ATTENDING PHYSICIAN STATEMENT Time of evaluation: 11:30 AM I saw and evaluated the patient. I reviewed the resident's note and discussed the case with the resident. I agree with the resident's findings and plan as documented. SUBJECTIVE: Patient seen and examined. more awake and conversant today, no pain or dyspnea, headache earlier that resolved with tylenol. OBJECTIVE: Vital Signs Period Temp Pulse Resp BP Sys/Chin Pulse Ox Last 24 Hr 97.6 F-101 F 101-122 19-26 114-141/73-96 95-99 Intake & Output 05/31/17 06/01/17 06/02/17 06/03/17 23:59 23:59 23:59 23:59 Intake Total 1633 2620 Output Total 200 Balance 1433 2620 Weight 200 lb 200 lb General: more awake and conversant today CVS: S1S2 regular Chest: better effort, few right basilar rales Abdomen: soft, NT, ND, positive bowel sounds extremities: no edema Home Medication List Medication Instructions Recorded Confirmed Type Aa/Hydrolyzed Collagen, Whey [Lps 30 ml PO BID 06/01/17 06/01/17 History 15-30 Liquid] Acetaminophen [Tylenol] 650 mg PO QID 06/01/17 06/01/17 History Atorvastatin Ca [Lipitor] 10 mg PO HS 06/01/17 06/01/17 History Ceftriaxone 1 gm/D5w [Rocephin 1 1 gm IV DAILY 06/01/17 06/01/17 History gm Premix Ivpb -] Docusate Sodium [Colace] 300 mg PO HS 06/01/17 06/01/17 History Levetiracetam 500 mg PO BID 06/01/17 06/01/17 History Lisinopril 5 mg PO DAILY 06/01/17 06/01/17 History Metoprolol Tartrate 50 mg PO BID 06/01/17 06/01/17 History Omeprazole Magnesium [Prilosec] 10 mg PO HS 06/01/17 06/01/17 History Sennosides [Senna] 2 tab PO DAILY 06/01/17 06/01/17 History Active Medications Generic Name Dose Route Start Last Admin Trade Name Freq PRN Reason Stop Dose Admin Albuterol Sulfate 1 amp 06/02/17 12:26 Ventolin 0.083% Nebulizer Soln - NEB Q4H PRN SHORT OF BREATH/WHEEZING Albuterol/Ipratropium 1 amp 06/02/17 18:00 06/03/17 06:45 Duoneb - NEB 1 amp QIDR ESAU Administration Atorvastatin Calcium 10 mg 06/01/17 22:00 06/02/17 22:57 Lipitor - PO 10 mg HS ESAU Administration Docusate Sodium 300 mg 06/01/17 22:00 06/02/17 22:57 Colace - PO 300 mg HS ESAU Administration Heparin Sodium (Porcine) 5,000 unit 06/02/17 06:00 06/03/17 05:40 Heparin - SQ 5,000 unit TID ESAU Administration Piperacillin/Tazobactam/Dextrose 2.25 gm in 50 mls @ 100 mls/hr 06/02/17 02: 00 06/03/17 01:50 Zosyn 2.25gm Ivpb (Premix) IVPB 100 mls/hr Q8H-IV ESAU Administration Protocol Dextrose 1,000 mls @ 100 mls/hr 06/02/17 09:15 06/02/17 09:34 D5w - IV 100 mls/hr ASDIR ESAU Administration Levetiracetam 500 mg/ Dextrose 105 mls @ 420 mls/hr 06/02/17 22:00 06/02/17 22:55 IVPB 420 mls/hr BID ESAU Administration Methylprednisolone Sodium Succinate 40 mg 06/02/17 12:30 06/03/17 01:50 Solu-Medrol - IVPUSH 40 mg Q8H-IV ESAU Administration Pantoprazole Sodium 40 mg 06/03/17 10:00 Protonix Iv IVPUSH DAILY ESAU Senna 2 tab 06/02/17 10:00 06/02/17 09:50 Senna - PO 2 tab DAILY ESAU Administration Microbiology 06/01/17 16:16 Blood - Peripheral Venous Blood Culture - Preliminary NO GROWTH OBTAINED AFTER 24 HOURS, INCUBATION TO CONTINUE FOR 4 DAYS. 06/01/17 17:10 Blood - Peripheral Venous Blood Culture - Preliminary NO GROWTH OBTAINED AFTER 24 HOURS, INCUBATION TO CONTINUE FOR 4 DAYS. 06/02/17 01:00 Urine For Antigen Detection Legionella Antigen - Final 06/02/17 01:00 Urine For Antigen Detection Streptococcus pneumoniae Antigen (M - Final 06/02/17 01:00 Urine For Antigen Detection Legionella Antigen - Final 06/02/17 01:00 Urine For Antigen Detection Streptococcus pneumoniae Antigen (M - Final 06/02/17 12:00 Nasopharyngeal Swab Respiratory Virus (PCR) - Preliminary 06/01/17 17:10 Nasopharyngeal Swab Influenza Types A,B Antigen (SADIQ) - Final 06/01/17 17:10 Nasopharyngeal Swab - Final Laboratory Results - last 24 hr 06/01/17 06/02/17 06/03/17 21:45 18:00 05:25 WBC 22.4 H RBC 2.94 L Hgb 8.0 L Hct 25.4 L MCV 86.2 MCH 27.2 MCHC 31.5 L RDW 18.0 H Plt Count 344 MPV 8.3 Neutrophils % (Manual) 97.0 H* Band Neutrophils % 0.0 Lymphocytes % (Manual) 1.0 L Monocytes % (Manual) 1 L Eosinophils % (Manual) 0.0 Basophils % (Manual) 0.0 Myelocytes % (Man) 0 Metamyelocytes 0 Hypochromia 0 Platelet Estimate Normal Polychromasia 0 Poikilocytosis 0 Anisocytosis 2+ Microcytosis 1+ Macrocytosis 1+ Sodium 152 H Potassium 4.7 Chloride 117 H Carbon Dioxide 27 Anion Gap 8 BUN 41 H Creatinine 1.7 H Creat Clearance w eGFR Random Glucose 174 H D Calcium 8.6 Phosphorus Magnesium Total Bilirubin AST ALT Alkaline Phosphatase Total Protein Albumin M.pneumoniae IgM Titer <770 06/03/17 05:25 WBC RBC Hgb Hct MCV MCH MCHC RDW Plt Count MPV Neutrophils % (Manual) Band Neutrophils % Lymphocytes % (Manual) Monocytes % (Manual) Eosinophils % (Manual) Basophils % (Manual) Myelocytes % (Man) Metamyelocytes Hypochromia Platelet Estimate Polychromasia Poikilocytosis Anisocytosis Microcytosis Macrocytosis Sodium 149 H Potassium 4.1 Chloride 114 H Carbon Dioxide 24 Anion Gap 11 BUN 39 H Creatinine 1.4 H Creat Clearance w eGFR 49.54 Random Glucose 187 H Calcium 8.7 Phosphorus 2.6 D Magnesium 2.6 H D Total Bilirubin 0.4 AST 38 H ALT 60 Alkaline Phosphatase 122 H Total Protein 6.2 L Albumin 1.6 L M.pneumoniae IgM Titer CT chest results reviewed ASSESSMENT AND PLAN: 72 year old male with a PMHx of Meningioma, CVA with residual right sided weakness, HTN, HLD, CAD, GERD, recently admitted to [facility] with dehydration/Sepsis /UTI/hypernatremia, readmitted with sepsis, likely from aspiration PNA, hypovolumia and hypernatremia. -Sepsis, likely bibasilar aspiration pneumonia, based on current audible gurgling on exam and decreased mental status -Hypernatremia -Dehydration -Hyperchloremia -JESS, suspect prerenal from poor oral intake, more than from sepsis based on exam -Meningioma/CVA right sided weakness -Seizure disorder -HTN -HLD -?CAD -GERD Plan: Zosyn day 3, received azithromycin on admission but atypical studies neg and presentation more consistent with aspiration, follow up blood cultures. Sputum cultures as available. Urine pNA studies neg. Flu neg. Follow up RVP. ID input appreciated Aspiration precautions, speech/swallow input appreciated. Dysphagia puree with nectar thick liquids. PUlmonary input noted, placed on short course of solumedrol. CT chest results noted. Recent 2D echo reviewed. IVF to D5W at 100 ml/hr (similar course on recent admit when was seen by nephrology and placed on D5W). Monitor sodium levels, improved today renal function improved with hydration. Seizure precautions. Change keppra and protonix back to PO. . DVTPPX dispo pending improvement in symptoms. patient has recurrent admission with hypernatremia, also concerns of poor oral intake at the retirement given his progressive functional and neurological decline over last year. Nutrition input when infectious symptoms improved. Will need to address PEG till planned for meningioma surgery if similar recent occurances. Prognosis guarded currently.
[2017-06-03 08:50] LABS: HEMATOCRIT 25.4 % (35.4-49); MCH 27.2 pg (25.7-33.7); MCHC 31.5 g/dl (32.0-35.9); MEAN CELL VOLUME 86.2 fl (80-96); MEAN PLT VOLUME 8.3 fl (7.5-11.1); PLATELET COUNT 344 K/MM3 (134-434); RBC 2.94 M/mm3 (4.00-5.60); WHITE BLOOD COUNT 22.4 K/mm3 (4.0-10.0)
[2017-06-03 08:58] LABS: ALBUMIN 1.6 g/dl (3.4-5.0); ANION GAP 11 (8-16); BLOOD UREA NITROGEN 39 mg/dL (7-18); CALCIUM 8.7 mg/dL (8.5-10.1); CHLORIDE 114 mmol/L (98-107); CO2 24 mmol/L (21-32); GLUCOSE,RANDOM 187 mg/dL (74-106); MAGNESIUM 2.6 mg/dL (1.8-2.4); POTASSIUM 4.1 mmol/L (3.5-5.1); SODIUM 149 mmol/L (136-145)
[2017-06-03 09:03] LABS: ALK PHOS 122 U/L (45-117); BILIRUBIN,TOTAL 0.4 mg/dL (0.2-1.0); CREATININE 1.4 mg/dL (0.7-1.3); PHOSPHOROUS 2.6 mg/dL (2.5-4.9); SGOT/AST 38 U/L (15-37); SGPT/ALT 60 U/L (12-78); TOT PROT 6.2 g/dl (6.4-8.2)
[2017-06-03] MEDS ORDERED: PANTOPRAZOLE SODIUM 40 MG VIAL IVPUSH SCH (10:00)
--- NOTE | 2017-06-03 10:29 | EKG ---
Test Reason : Blood Pressure : / mmHG Vent. Rate : 120 BPM Atrial Rate : 120 BPM P-R Int : 162 ms QRS Dur : 092 ms QT Int : 314 ms P-R-T Axes : 000 222 104 degrees QTc Int : 443 ms SINUS TACHYCARDIA RIGHT SUPERIOR AXIS DEVIATION ABNORMAL ECG Confirmed by LIDIA PEREZ MD ([id number]) on 06/03/2017 10:29:39 AM Referred By: Confirmed By:LIDIA PEREZ MD
[2017-06-03] MEDS: DEXTROSE 5%-WATER - 1,000 ML IV SCH ×2 (10:37→17:32)
[2017-06-03] MEDS: SENNOSIDES 8.6MG TABLET (FP) PO SCH (10:37)
[2017-06-03] MEDS: LEVETIRACETAM INJECTION 500 MG in DEXTROSE 5%-WATER - 100 ML IVPB SCH (10:38)
--- NOTE | 2017-06-03 12:05 | PN ---
Progress Note, Physician History of Present Illness: PULMONARY ALERT,LESS CONGESTED,LESS DYSPNEIC - Current Medication List Current Medications: Active Medications Albuterol Sulfate (Ventolin 0.083% Nebulizer Soln -) 1 amp NEB Q4H PRN PRN Reason: SHORT OF BREATH/WHEEZING Albuterol/Ipratropium (Duoneb -) 1 amp NEB QIDR [facility] Last Admin: 06/03/17 06:45 Dose: 1 amp Atorvastatin Calcium (Lipitor -) 10 mg PO HS [facility] Last Admin: 06/02/17 22:57 Dose: 10 mg Docusate Sodium (Colace -) 300 mg PO HS [facility] Last Admin: 06/02/17 22:57 Dose: 300 mg Heparin Sodium (Porcine) (Heparin -) 5,000 unit SQ TID [facility] Last Admin: 06/03/17 05:40 Dose: 5,000 unit Piperacillin/Tazobactam/Dextrose (Zosyn 2.25gm Ivpb (Premix)) 2.25 gm in 50 mls @ 100 mls/hr IVPB Q8H-IV ESAU PRN Reason: Protocol Last Admin: 06/03/17 10:38 Dose: 100 mls/hr Dextrose (D5w -) 1,000 mls @ 100 mls/hr IV ASDIR [facility] Last Admin: 06/03/17 10:37 Dose: Not Given Levetiracetam 500 mg/ Dextrose 105 mls @ 420 mls/hr IVPB BID [facility] Last Admin: 06/03/17 10:38 Dose: 420 mls/hr Methylprednisolone Sodium Succinate (Solu-Medrol -) 40 mg IVPUSH Q8H-IV [facility] Last Admin: 06/03/17 10:36 Dose: 40 mg Pantoprazole Sodium (Protonix Iv) 40 mg IVPUSH DAILY [facility] Last Admin: 06/03/17 10:37 Dose: 40 mg Senna (Senna -) 2 tab PO DAILY [facility] Last Admin: 06/03/17 10:37 Dose: Not Given - Objective Vital Signs: Vital Signs Temperature 98.1 F 06/03/17 08:19 Pulse Rate 101 H 06/03/17 08:19 Respiratory Rate 20 06/03/17 08:19 Blood Pressure 132/80 06/03/17 08:19 O2 Sat by Pulse Oximetry (%) 96 06/03/17 08:00 Constitutional: Yes: Well Nourished, Calm Eyes: Yes: WNL HENT: Yes: WNL Neck: Yes: WNL Cardiovascular: Yes: Regular Rate and Rhythm, S1, S2 Respiratory: Yes: Rhonchi (LESS RHONCHI KAELA,COARSE RALES KAELA) Gastrointestinal: Yes: Normal Bowel Sounds, Soft Extremities: Yes: WNL Edema: No Labs: CBC, BMP 06/03/17 05:25 06/03/17 05:25 INR, PTT INR 1.37 (0.82-1.09) H 06/01/17 17:10 - ....Imaging Cat Scan: Report Reviewed, Image Reviewed Problem List - Problems (1) Pneumonia Code(s): J18.9 - PNEUMONIA, UNSPECIFIED ORGANISM (2) Sepsis Code(s): A41.9 - SEPSIS, UNSPECIFIED ORGANISM Qualifiers: Sepsis type: sepsis due to unspecified organism Qualified Code(s): A41.9 - Sepsis, unspecified organism (3) Brain tumor Code(s): D49.6 - NEOPLASM OF UNSPECIFIED BEHAVIOR OF BRAIN (4) HTN (hypertension) Code(s): I10 - ESSENTIAL (PRIMARY) HYPERTENSION Qualifiers: Hypertension type: essential hypertension Qualified Code(s): I10 - Essential (primary) hypertension (5) CVA (cerebral vascular accident) Code(s): I63.9 - CEREBRAL INFARCTION, UNSPECIFIED Qualifiers: CVA mechanism: unspecified Qualified Code(s): I63.9 - Cerebral infarction, unspecified (6) [id number] kidney injury Code(s): N17.9 - ACUTE KIDNEY FAILURE, UNSPECIFIED; N18.9 - CHRONIC KIDNEY DISEASE, UNSPECIFIED (7) Hypernatremia Code(s): E87.0 - HYPEROSMOLALITY AND HYPERNATREMIA (8) Respiratory distress Code(s): R06.03 - ACUTE RESPIRATORY DISTRESS Assessment/Plan IMP ACUTE RESPIRATORY DISTRESS PNEUMONIA LIKELY ASPIRATION SIRS S/P CVA MENINGIOMA HTN HLD HYPERNATREMIA ACUTE ON CHRONIC KIDNEY INJURY PLAN IV ANTIBIOTICS O2 NIPPV IF PT DEVELOPES INCREASED RESPIRATORY DISTRESS INHALED BRONCHODILATORS STEROIDS IVF MONITOR LYTES,NA,RENAL FUNCTION DR LERMA Problem List - Problems (1) Pneumonia Code(s): J18.9 - PNEUMONIA, UNSPECIFIED ORGANISM (2) Sepsis Code(s): A41.9 - SEPSIS, UNSPECIFIED ORGANISM Qualifiers: Sepsis type: sepsis due to unspecified organism Qualified Code(s): A41.9 - Sepsis, unspecified organism (3) Brain tumor Code(s): D49.6 - NEOPLASM OF UNSPECIFIED BEHAVIOR OF BRAIN (4) HTN (hypertension) Code(s): I10 - ESSENTIAL (PRIMARY) HYPERTENSION Qualifiers: Hypertension type: essential hypertension Qualified Code(s): I10 - Essential (primary) hypertension (5) CVA (cerebral vascular accident) Code(s): I63.9 - CEREBRAL INFARCTION, UNSPECIFIED Qualifiers: CVA mechanism: unspecified Qualified Code(s): I63.9 - Cerebral infarction, unspecified (6) [id number] kidney injury Code(s): N17.9 - ACUTE KIDNEY FAILURE, UNSPECIFIED; N18.9 - CHRONIC KIDNEY DISEASE, UNSPECIFIED (7) Hypernatremia Code(s): E87.0 - HYPEROSMOLALITY AND HYPERNATREMIA (8) Respiratory distress Code(s): R06.03 - ACUTE RESPIRATORY DISTRESS
--- NOTE | 2017-06-03 12:31 | PN ---
Progress Note, Physician History of Present Illness: much more awake and alert says he is feeling ebtter - Current Medication List Current Medications: Active Medications Albuterol Sulfate (Ventolin 0.083% Nebulizer Soln -) 1 amp NEB Q4H PRN PRN Reason: SHORT OF BREATH/WHEEZING Albuterol/Ipratropium (Duoneb -) 1 amp NEB QIDR [facility] Last Admin: 06/03/17 06:45 Dose: 1 amp Atorvastatin Calcium (Lipitor -) 10 mg PO HS [facility] Last Admin: 06/02/17 22:57 Dose: 10 mg Docusate Sodium (Colace -) 300 mg PO HS [facility] Last Admin: 06/02/17 22:57 Dose: 300 mg Heparin Sodium (Porcine) (Heparin -) 5,000 unit SQ TID [facility] Last Admin: 06/03/17 05:40 Dose: 5,000 unit Piperacillin/Tazobactam/Dextrose (Zosyn 2.25gm Ivpb (Premix)) 2.25 gm in 50 mls @ 100 mls/hr IVPB Q8H-IV ESAU PRN Reason: Protocol Last Admin: 06/03/17 10:38 Dose: 100 mls/hr Dextrose (D5w -) 1,000 mls @ 100 mls/hr IV ASDIR [facility] Last Admin: 06/03/17 10:37 Dose: Not Given Levetiracetam 500 mg/ Dextrose 105 mls @ 420 mls/hr IVPB BID [facility] Last Admin: 06/03/17 10:38 Dose: 420 mls/hr Methylprednisolone Sodium Succinate (Solu-Medrol -) 40 mg IVPUSH Q8H-IV [facility] Last Admin: 06/03/17 10:36 Dose: 40 mg Pantoprazole Sodium (Protonix Iv) 40 mg IVPUSH DAILY [facility] Last Admin: 06/03/17 10:37 Dose: 40 mg Senna (Senna -) 2 tab PO DAILY [facility] Last Admin: 06/03/17 10:37 Dose: Not Given - Objective Vital Signs: Vital Signs Temperature 98.1 F 06/03/17 08:19 Pulse Rate 101 H 06/03/17 08:19 Respiratory Rate 20 06/03/17 08:19 Blood Pressure 132/80 06/03/17 08:19 O2 Sat by Pulse Oximetry (%) 96 06/03/17 08:00 Constitutional: Yes: No Distress, Calm Cardiovascular: Yes: Regular Rate and Rhythm Respiratory: Yes: Regular, Poor Air Entry, Rhonchi Gastrointestinal: Yes: Normal Bowel Sounds, Soft Musculoskeletal: Yes: WNL Extremities: Yes: WNL Neurological: Yes: Alert, Oriented Psychiatric: Yes: Alert Labs: CBC, BMP 06/03/17 05:25 06/03/17 05:25 INR, PTT INR 1.37 (0.82-1.09) H 06/01/17 17:10 Assessment/Plan patient probably has aspiration pneumonia Problem List - Problems (1) Pneumonia Code(s): J18.9 - PNEUMONIA, UNSPECIFIED ORGANISM (2) Sepsis Code(s): A41.9 - SEPSIS, UNSPECIFIED ORGANISM Qualifiers: Sepsis type: sepsis due to unspecified organism Qualified Code(s): A41.9 - Sepsis, unspecified organism (3) Brain tumor Code(s): D49.6 - NEOPLASM OF UNSPECIFIED BEHAVIOR OF BRAIN (4) HTN (hypertension) Code(s): I10 - ESSENTIAL (PRIMARY) HYPERTENSION Qualifiers: Hypertension type: essential hypertension Qualified Code(s): I10 - Essential (primary) hypertension (5) CVA (cerebral vascular accident) Code(s): I63.9 - CEREBRAL INFARCTION, UNSPECIFIED Qualifiers: CVA mechanism: unspecified Qualified Code(s): I63.9 - Cerebral infarction, unspecified (6) Pwwuy-fy-[id number] kidney injury Code(s): N17.9 - ACUTE KIDNEY FAILURE, UNSPECIFIED; N18.9 - CHRONIC KIDNEY DISEASE, UNSPECIFIED (7) Hypernatremia Code(s): E87.0 - HYPEROSMOLALITY AND HYPERNATREMIA (8) Respiratory distress Code(s): R06.03 - ACUTE RESPIRATORY DISTRESS plan continue abx incentive lata nutrition rest as per primary
[2017-06-03 12:37] LABS: ANISOCYTOSIS 2+; MACROCYTOSIS 1+; PLATELET ESTIMATE NORMAL
--- NOTE | 2017-06-03 14:45 | PN ---
Physical Exam: SUBJECTIVE: Patient seen and examined. Pt drowsy, but much more conversant today upon arousable. Pt AAOx3. Pt denies chest pain, abdominal pain, neck pain, sob. Pt c/o headache, relieved with Tylenol. OBJECTIVE: Vital Signs Period Temp Pulse Resp BP Sys/Chin Pulse Ox Last 24 Hr 97.6 F-98.5 F 101-109 19-24 114-137/73-86 95-96 GENERAL: The patient is awake, alert, and fully oriented, in no acute distress. LUNGS: less rhonchi than yesterday, coarse kevin rales. HEART: Regular rhythm, tachycardic, S1, S2 without murmur, rub or gallop. ABDOMEN: Soft, nontender, nondistended, normoactive bowel sounds, no guarding. EXTREMITIES: Warm, well-perfused, no edema. NEURO: Muscle strength 5/5 for kevin hip flexion, kevin elbow flexion/extension, hand squeeze. Sensation intact and symmetric throughout. PSYCH: Normal mood, normal affect. SKIN: Warm, dry, normal turgor, no rashes or lesions noted Laboratory Results - last 24 hr 06/02/17 06/03/17 06/03/17 18:00 05:25 05:25 WBC 22.4 H RBC 2.94 L Hgb 8.0 L Hct 25.4 L MCV 86.2 MCH 27.2 MCHC 31.5 L RDW 18.0 H Plt Count 344 MPV 8.3 Neutrophils % (Manual) 97.0 H* Band Neutrophils % 0.0 Lymphocytes % (Manual) 1.0 L Monocytes % (Manual) 1 L Eosinophils % (Manual) 0.0 Basophils % (Manual) 0.0 Myelocytes % (Man) 0 Metamyelocytes 0 Hypochromia 0 Platelet Estimate Normal Polychromasia 0 Poikilocytosis 0 Anisocytosis 2+ Microcytosis 1+ Macrocytosis 1+ Sodium 152 H 149 H Potassium 4.7 4.1 Chloride 117 H 114 H Carbon Dioxide 27 24 Anion Gap 8 11 BUN 41 H 39 H Creatinine 1.7 H 1.4 H Creat Clearance w eGFR 49.54 Random Glucose 174 H D 187 H Calcium 8.6 8.7 Phosphorus 2.6 D Magnesium 2.6 H D Total Bilirubin 0.4 AST 38 H ALT 60 Alkaline Phosphatase 122 H Total Protein 6.2 L Albumin 1.6 L Active Medications Generic Name Dose Route Start Last Admin Trade Name Freq PRN Reason Stop Dose Admin Albuterol Sulfate 1 amp 06/02/17 12:26 Ventolin 0.083% Nebulizer Soln - NEB Q4H PRN SHORT OF BREATH/WHEEZING Albuterol/Ipratropium 1 amp 06/02/17 18:00 06/03/17 11:30 Duoneb - NEB 1 amp QIDR E[facility]U Administration Atorvastatin Calcium 10 mg 06/01/17 22:00 06/02/17 22:57 Lipitor - PO 10 mg HS ESAU Administration Docusate Sodium 300 mg 06/01/17 22:00 06/02/17 22:57 Colace - PO 300 mg HS ESAU Administration Heparin Sodium (Porcine) 5,000 unit 06/02/17 06:00 06/03/17 14:11 Heparin - SQ Not Given TID ESAU Piperacillin/Tazobactam/Dextrose 2.25 gm in 50 mls @ 100 mls/hr 06/02/17 02: 00 06/03/17 10:38 Zosyn 2.25gm Ivpb (Premix) IVPB 100 mls/hr Q8H-IV ESAU Administration Protocol Dextrose 1,000 mls @ 100 mls/hr 06/02/17 09:15 06/03/17 10:37 D5w - IV Not Given ASDIR ESAU Levetiracetam 500 mg/ Dextrose 105 mls @ 420 mls/hr 06/02/17 22:00 06/03/17 10:38 IVPB 420 mls/hr BID ESAU Administration Methylprednisolone Sodium Succinate 40 mg 06/02/17 12:30 06/03/17 10:36 Solu-Medrol - IVPUSH 40 mg Q8H-IV ESAU Administration Pantoprazole Sodium 40 mg 06/03/17 10:00 06/03/17 10:37 Protonix Iv IVPUSH 40 mg DAILY ESAU Administration Senna 2 tab 06/02/17 10:00 06/03/17 10:37 Senna - PO Not Given DAILY E[facility]U IMAGIN06/03/[address] -> kevin subpleural opacity within mid and lower posterior chest, which may be atelectasis and/or infiltrates. Very small Right pleural effusion. 2.3 cm Right upper lobe subpleural opacity probably localized atelectasis or small infiltrate vs (less likely) neoplastic. Rec f/u CT in 6 weeks. ASSESSMENT/PLAN: 72M with PMH Meningioma, CVA (with residual Right sided weakness), htn, hld, CAD , GERD, presents with fever and CXR suggestive of asp pna. # sepsis 2/2 asp pna vs HAP - Day 3 IV Zosyn - ID (Dr. Osorio) recs appreciated: continue current antibiotic regimen - urine culture (-) - blood culture (-) x 24 hrs - f/u RSV - IVFs - Pulmonary (Dr. Lundberg) recs appreciated: O2 prn, Duonebs, Albuterol, Solu- medrol for one more day # JESS - likely 2/2 dehydration - improving - avoid nephrotoxic agents - continue to monitor - IVFs # meningioma - known, neurosurgery scheduled on 06/30/[address] Alvin Worthington, neurosurgeon affiliated with [facility] ([phone]) - continue home med of Keppra for seizure prevention # htn - currently normotensive - hold home meds for now # hypernatremia - likely 2/2 poor po intake / dehydration - Free Water Deficit 2.9 L - f/u Speech and Swallow eval for po recommendations - consider PEG placement for adequate nutrition and fluids prior to neurosurgery - IVFs # FEN - Fluids: D5 @ 100 ml/hr - Electrolytes: hypernatremia noted, continue to monitor - Nutrition: npo # Prophylaxis - DVT ppx with Heparin - GI ppx with Protonix - deconditioning ppx with PT Visit type - Emergency Visit Emergency Visit: Yes ED Registration Date: 06/01/17 Care time: The patient presented to the Emergency Department on the above date and was hospitalized for further evaluation of their emergent condition. - New Patient This patient is new to me today: No - Critical Care Critical Care patient: No
--- NOTE | 2017-06-03 15:56 | CONSULT ---
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, Seizure (Possible seizure due to neoplasm), Other (Suspect enlarging menigioma) Cardiovascular: Yes: Aneurysm, Aortic Insufficiency, HTN, Hyperlipdemia, Mitral Insufficiency, Pulmonary Hypertension Pulmonary: Yes: Other (dyspnea) Gastrointestinal: Yes: GERD, Other (Abd trauma) Renal/: Yes: Other (JESS) Musculoskeletal: Yes: Hemiparesis - Past Surgical History Past Surgical History: Yes: Joint Replacement - Smoking History Smoking history: Never smoked Have you smoked in the past 12 months: No If you are a former smoker, when did you quit?: 60 YRS AGO - Alcohol/Substance Use Hx Alcohol Use: No History - Admission Reason For Visit: SEVERE SEPSIS - Diagnostics X-ray: Report Reviewed - General Mental Status: Awake and Alert, Able to Follow Commands Attention: Intact Ability to Follow Directions: Good Head/Neck Control: WFL - Hearing Hearing: Normal Speech Evaluation - Communication Primary Language: WOLOF - Speech Characteristics Voice Loudness: Normal Voice Pitch: Yes: Normal Voice Phonatory-based Quality: Yes: Breathy Nasal Resonance: Hypernasal Articulation: Yes: Precise Rate of Speech: Intact - Language/Auditory Comprehension Observation: Comprehends Conversational Speech: Yes - Swallow Evaluation/Bedside Assessment Current Nutritional Intake: NPO Oral Secretions: Yes: WFL Tracheostomy Present: No Patient on Ventilator: No Dentition: Yes: Edentulous Facial Symmetry at Rest: Facial Droop Right Facial Symmetry on Retraction: Facial Droop Right Facial Movement: Controlled Sensation: Normal Jaw Position: Closed at Rest Against Resistance Opening: Normal Pucker Lips: Normal Smile: Weak Lingual Movement: Deviates Right Lingual Movement Strgth Against Opposition: Reduced Soft Palate Description: Normal Color Hard Palate Description: Normal Color Gag Reflex: Strong Velopharyngeal Movement: Hypernasality Laryngeal Elevation: WFL Laryngeal Movement: Able to Palpate Needs Assistance: Yes Rate of Intake: WFL Bolus Size: WFL Labial Seal: WFL Oral Prep Time: WFL A-P Transit: WFL Pocketing: None Timing of Swallow: Delayed Coughing/Throat Clear: No Change in Voice: No Recommendations - Dysphagia Impressions/Plan Swallowing Skills: Impaired Dysphagia Impressions: Mild Impairment Dysphagia Evaluation Summary: 72 year old male with mild signs of aspiration [ increased respiration] after the swallow for thin liquids. Patient is able to tolerate purees and nectar thickened liquids without signs of aspiration. 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
[2017-06-03] MEDS: levETIRAcetam 500 MG TABLET (FP) PO SCH (22:46)
[2017-06-03] MEDS: ATORVASTATIN CA 10 MG TABLET (FP) PO SCH (22:46)
[2017-06-03] MEDS: DOCUSATE SODIUM 100 MG CAPSULE (FP) PO SCH (22:46)
[2017-06-04] MEDS ORDERED: PT OWN MED DRAWER 7, Y5N ONE (02:17)
[2017-06-04] MEDS: PIPERACILLIN/TAZOB 2.25 GM 2.25 GM/50 ML BAG IVPB SCH ×3 (02:19→17:07)
[2017-06-04] MEDS: methylPREDNISolone NA SUCC 40 MG/1 ML VIAL IVPUSH SCH ×4 (02:19→22:38)
[2017-06-04] MEDS: HEPARIN NA (PORCINE) 5,000 UNITS/ML 1ML VIAL SQ SCH ×3 (06:08→22:38)
[2017-06-04] MEDS: ALBUTEROL SO4 2.5/IPRATROPIUM 0.5 INH SOL 3 ML VIAL.NEB. NEB SCH ×4 (06:25→23:46)
[2017-06-04 08:56] LABS: ANION GAP 10 (8-16); BLOOD UREA NITROGEN 42 mg/dL (7-18); CALCIUM 8.6 mg/dL (8.5-10.1); CHLORIDE 113 mmol/L (98-107); CO2 25 mmol/L (21-32); GLUCOSE,RANDOM 145 mg/dL (74-106); POTASSIUM 3.9 mmol/L (3.5-5.1); SODIUM 148 mmol/L (136-145)
[2017-06-04 08:59] LABS: CREATININE 1.5 mg/dL (0.7-1.3)
[2017-06-04 08:59] LABS: HEMATOCRIT 24.7 % (35.4-49); HEMOGLOBIN 7.8 GM/dL (11.7-16.9); MCH 27.1 pg (25.7-33.7); MCHC 31.5 g/dl (32.0-35.9); MEAN PLT VOLUME 7.9 fl (7.5-11.1); PLATELET COUNT 350 K/MM3 (134-434); RBC 2.87 M/mm3 (4.00-5.60); RDW 17.6 % (11.9-15.9); WHITE BLOOD COUNT 22.9 K/mm3 (4.0-10.0)
[2017-06-04] MEDS: SENNOSIDES 8.6MG TABLET (FP) PO SCH (10:21)
[2017-06-04] MEDS: PANTOPRAZOLE SOD 40 MG SUSPENSION PACKET PO SCH (10:21)
[2017-06-04] MEDS: DEXTROSE 5%-WATER - 1,000 ML IV SCH (10:21)
[2017-06-04] MEDS: levETIRAcetam 500 MG TABLET (FP) PO SCH ×2 (10:21→22:38)
--- NOTE | 2017-06-04 10:55 | PN ---
Progress Note, Physician History of Present Illness: PULMONARY ALERT,COMFORTABLE,NAD,LESS CONGESTION - Current Medication List Current Medications: Active Medications Albuterol Sulfate (Ventolin 0.083% Nebulizer Soln -) 1 amp NEB Q4H PRN PRN Reason: SHORT OF BREATH/WHEEZING Albuterol/Ipratropium (Duoneb -) 1 amp NEB QIDR [facility] Last Admin: 06/04/17 06:25 Dose: 1 amp Atorvastatin Calcium (Lipitor -) 10 mg PO HS [facility] Last Admin: 06/03/17 22:46 Dose: 10 mg Docusate Sodium (Colace -) 300 mg PO HS [facility] Last Admin: 06/03/17 22:46 Dose: 300 mg Heparin Sodium (Porcine) (Heparin -) 5,000 unit SQ TID [facility] Last Admin: 06/04/17 06:08 Dose: 5,000 unit Piperacillin/Tazobactam/Dextrose (Zosyn 2.25gm Ivpb (Premix)) 2.25 gm in 50 mls @ 100 mls/hr IVPB Q8H-IV ESAU PRN Reason: Protocol Last Admin: 06/04/17 10:31 Dose: 100 mls/hr Dextrose (D5w -) 1,000 mls @ 100 mls/hr IV ASDIR [facility] Last Admin: 06/04/17 10:21 Dose: 100 mls/hr Levetiracetam (Keppra -) 500 mg PO BID [facility] Last Admin: 06/04/17 10:21 Dose: 500 mg Methylprednisolone Sodium Succinate (Solu-Medrol -) 40 mg IVPUSH Q8H-IV [facility] Last Admin: 06/04/17 10:21 Dose: 40 mg Pantoprazole Sodium (Protonix Packets For Oral Suspension -) 40 mg PO DAILY [facility] Last Admin: 06/04/17 10:21 Dose: 40 mg Senna (Senna -) 2 tab PO DAILY [facility] Last Admin: 06/04/17 10:21 Dose: 2 tab - Objective Vital Signs: Vital Signs Temperature 98.3 F 06/04/17 06:21 Pulse Rate 103 H 06/04/17 06:21 Respiratory Rate 20 06/04/17 06:21 Blood Pressure 129/90 06/04/17 06:21 O2 Sat by Pulse Oximetry (%) 98 06/03/17 21:00 Constitutional: Yes: Well Nourished, Calm Eyes: Yes: WNL HENT: Yes: WNL Neck: Yes: WNL Cardiovascular: Yes: Regular Rate and Rhythm, S1, S2 Respiratory: Yes: Rhonchi (FEW RNONCHI) Gastrointestinal: Yes: Normal Bowel Sounds, Soft Extremities: Yes: WNL Edema: No Peripheral Pulses WNL: No Labs: CBC, BMP 06/04/17 08:35 06/04/17 05:25 INR, PTT INR 1.37 (0.82-1.09) H 06/01/17 17:10 Problem List - Problems (1) Pneumonia Code(s): J18.9 - PNEUMONIA, UNSPECIFIED ORGANISM (2) Sepsis Code(s): A41.9 - SEPSIS, UNSPECIFIED ORGANISM Qualifiers: Sepsis type: sepsis due to unspecified organism Qualified Code(s): A41.9 - Sepsis, unspecified organism (3) Brain tumor Code(s): D49.6 - NEOPLASM OF UNSPECIFIED BEHAVIOR OF BRAIN (4) HTN (hypertension) Code(s): I10 - ESSENTIAL (PRIMARY) HYPERTENSION Qualifiers: Hypertension type: essential hypertension Qualified Code(s): I10 - Essential (primary) hypertension (5) CVA (cerebral vascular accident) Code(s): I63.9 - CEREBRAL INFARCTION, UNSPECIFIED Qualifiers: CVA mechanism: unspecified Qualified Code(s): I63.9 - Cerebral infarction, unspecified (6) [id number]-tfoqlsa kidney injury Code(s): N17.9 - ACUTE KIDNEY FAILURE, UNSPECIFIED; N18.9 - CHRONIC KIDNEY DISEASE, UNSPECIFIED (7) Hypernatremia Code(s): E87.0 - HYPEROSMOLALITY AND HYPERNATREMIA (8) Respiratory distress Code(s): R06.03 - ACUTE RESPIRATORY DISTRESS Assessment/Plan IMP ACUTE RESPIRATORY DISTRESS IMPROVED PNEUMONIA LIKELY ASPIRATION SIRS S/P CVA MENINGIOMA HTN HLD HYPERNATREMIA ACUTE ON CHRONIC KIDNEY INJURY PLAN IV ANTIBIOTICS PER ID O2 NIPPV IF PT DEVELOPES INCREASED RESPIRATORY DISTRESS INHALED BRONCHODILATORS STEROID TAPER IVF MONITOR LYTES,NA,RENAL FUNCTION DR LERMA Problem List - Problems (1) Pneumonia Code(s): J18.9 - PNEUMONIA, UNSPECIFIED ORGANISM (2) Sepsis Code(s): A41.9 - SEPSIS, UNSPECIFIED ORGANISM Qualifiers: Sepsis type: sepsis due to unspecified organism Qualified Code(s): A41.9 - Sepsis, unspecified organism (3) Brain tumor Code(s): D49.6 - NEOPLASM OF UNSPECIFIED BEHAVIOR OF BRAIN (4) HTN (hypertension) Code(s): I10 - ESSENTIAL (PRIMARY) HYPERTENSION Qualifiers: Hypertension type: essential hypertension Qualified Code(s): I10 - Essential (primary) hypertension (5) CVA (cerebral vascular accident) Code(s): I63.9 - CEREBRAL INFARCTION, UNSPECIFIED Qualifiers: CVA mechanism: unspecified Qualified Code(s): I63.9 - Cerebral infarction, unspecified (6) Wlnhl-zr-[id number] kidney injury Code(s): N17.9 - ACUTE KIDNEY FAILURE, UNSPECIFIED; N18.9 - CHRONIC KIDNEY DISEASE, UNSPECIFIED (7) Hypernatremia Code(s): E87.0 - HYPEROSMOLALITY AND HYPERNATREMIA (8) Respiratory distress Code(s): R06.03 - ACUTE RESPIRATORY DISTRESS
--- NOTE | 2017-06-04 11:06 | PN ---
Teaching Attending Note Name of Resident: . ATTENDING PHYSICIAN STATEMENT Time of evaluation: 9:10 AM I saw and evaluated the patient. I reviewed the resident's note and discussed the case with the resident. I agree with the resident's findings and plan as documented. SUBJECTIVE: Patient seen and examined. more awake, appropriately conversant today, denies any pain or dyspnea, trying to urinate but unable to OBJECTIVE: Vital Signs Period Temp Pulse Resp BP Sys/Chin Pulse Ox Last 24 Hr 97.9 F-98.8 F 100-111 19-20 117-142/69-90 98 Intake & Output 06/01/17 06/02/17 06/03/17 06/04/17 23:59 23:59 23:59 23:59 Intake Total 1633 2630 850 Output Total 200 Balance 1433 2630 850 Weight 200 lb 200 lb General: lying in bed awake and conversant Chest: bibasilar rales, improved effort Abdomen: soft, nT, ND, positive bowel sound, urge to urinate on suprapubic palpation, Extremites: no edema Home Medication List Medication Instructions Recorded Confirmed Type Aa/Hydrolyzed Collagen, Whey [Lps 30 ml PO BID 06/01/17 06/01/17 History 15-30 Liquid] Acetaminophen [Tylenol] 650 mg PO QID 06/01/17 06/01/17 History Atorvastatin Ca [Lipitor] 10 mg PO HS 06/01/17 06/01/17 History Ceftriaxone 1 gm/D5w [Rocephin 1 1 gm IV DAILY 06/01/17 06/01/17 History gm Premix Ivpb -] Docusate Sodium [Colace] 300 mg PO HS 06/01/17 06/01/17 History Levetiracetam 500 mg PO BID 06/01/17 06/01/17 History Lisinopril 5 mg PO DAILY 06/01/17 06/01/17 History Metoprolol Tartrate 50 mg PO BID 06/01/17 06/01/17 History Omeprazole Magnesium [Prilosec] 10 mg PO HS 06/01/17 06/01/17 History Sennosides [Senna] 2 tab PO DAILY 06/01/17 06/01/17 History Active Medications Generic Name Dose Route Start Last Admin Trade Name Freq PRN Reason Stop Dose Admin Albuterol Sulfate 1 amp 06/02/17 12:26 Ventolin 0.083% Nebulizer Soln - NEB Q4H PRN SHORT OF BREATH/WHEEZING Albuterol/Ipratropium 1 amp 06/02/17 18:00 06/04/17 06:25 Duoneb - NEB 1 amp QIDR [facility] Administration Atorvastatin Calcium 10 mg 06/01/17 22:00 06/03/17 22:46 Lipitor - PO 10 mg HS [facility] Administration Docusate Sodium 300 mg 06/01/17 22:00 06/03/17 22:46 Colace - PO 300 mg HS [facility]U Administration Heparin Sodium (Porcine) 5,000 unit 06/02/17 06:00 06/04/17 06:08 Heparin - SQ 5,000 unit TID [facility] Administration Piperacillin/Tazobactam/Dextrose 2.25 gm in 50 mls @ 100 mls/hr 06/02/17 02: 00 06/04/17 10:31 Zosyn 2.25gm Ivpb (Premix) IVPB 100 mls/hr Q8H-IV [facility] Administration Protocol Dextrose 1,000 mls @ 100 mls/hr 06/02/17 09:15 06/04/17 10:21 D5w - IV 100 mls/hr ASDIR [facility] Administration Levetiracetam 500 mg 06/03/17 22:00 06/04/17 10:21 Keppra - PO 500 mg BID E[facility] Administration Methylprednisolone Sodium Succinate 40 mg 06/04/17 11:00 Solu-Medrol - IVPUSH Q12H [facility] Pantoprazole Sodium 40 mg 06/04/17 10:00 06/04/17 10:21 Protonix Packets For Oral Suspension - PO 40 mg DAILY [facility] Administration Senna 2 tab 06/02/17 10:00 06/04/17 10:21 Senna - PO 2 tab DAILY [facility] Administration Laboratory Results - last 24 hr 06/01/17 06/03/17 06/04/17 21:45 05:25 05:25 WBC RBC Hgb Hct MCV MCH MCHC RDW Plt Count MPV Neutrophils % (Manual) 97.0 H* Band Neutrophils % 0.0 Lymphocytes % (Manual) 1.0 L Monocytes % (Manual) 1 L Eosinophils % (Manual) 0.0 Basophils % (Manual) 0.0 Myelocytes % (Man) 0 Metamyelocytes 0 Hypochromia 0 Platelet Estimate Normal Polychromasia 0 Poikilocytosis 0 Anisocytosis 2+ Microcytosis 1+ Macrocytosis 1+ Sodium 148 H Potassium 3.9 Chloride 113 H Carbon Dioxide 25 Anion Gap 10 BUN 42 H Creatinine 1.5 H Random Glucose 145 H D Calcium 8.6 M.pneumoniae IgM Titer <770 06/04/17 08:35 WBC 22.9 H RBC 2.87 L Hgb 7.8 L Hct 24.7 L MCV 86.0 MCH 27.1 MCHC 31.5 L RDW 17.6 H Plt Count 350 MPV 7.9 Neutrophils % (Manual) Band Neutrophils % Lymphocytes % (Manual) Monocytes % (Manual) Eosinophils % (Manual) Basophils % (Manual) Myelocytes % (Man) Metamyelocytes Hypochromia Platelet Estimate Polychromasia Poikilocytosis Anisocytosis Microcytosis Macrocytosis Sodium Potassium Chloride Carbon Dioxide Anion Gap BUN Creatinine Random Glucose Calcium M.pneumoniae IgM Titer Microbiology 06/03/17 03:00 Sputum - Expectorated Gram Stain - Final 06/03/17 03:00 Sputum - Expectorated Sputum Culture - Preliminary NORMAL RESPIRATORY FRAN 06/01/17 16:16 Blood - Peripheral Venous Blood Culture - Preliminary NO GROWTH OBTAINED AFTER 48 HOURS, INCUBATION TO CONTINUE FOR 3 DAYS. 06/01/17 17:10 Blood - Peripheral Venous Blood Culture - Preliminary NO GROWTH OBTAINED AFTER 48 HOURS, INCUBATION TO CONTINUE FOR 3 DAYS. 06/01/17 17:10 Urine - Urine Pugh Urine Culture - Final NO GROWTH OBTAINED 06/02/17 01:00 Urine For Antigen Detection Legionella Antigen - Final 06/02/17 01:00 Urine For Antigen Detection Streptococcus pneumoniae Antigen (M - Final 06/02/17 01:00 Urine For Antigen Detection Legionella Antigen - Final 06/02/17 01:00 Urine For Antigen Detection Streptococcus pneumoniae Antigen (M - Final 06/02/17 12:00 Nasopharyngeal Swab Respiratory Virus (PCR) - Preliminary 06/01/17 17:10 Nasopharyngeal Swab Influenza Types A,B Antigen (SADIQ) - Final 06/01/17 17:10 Nasopharyngeal Swab - Final CT chest reviewed ASSESSMENT AND PLAN: 72 year old male with a PMHx of Meningioma, CVA with residual right sided weakness, HTN, HLD, CAD, GERD, recently admitted to [facility] with dehydration/Sepsis /UTI/hypernatremia, readmitted with sepsis, likely from aspiration PNA, hypovolumia and hypernatremia. -Sepsis, likely bibasilar aspiration pneumonia, based on current audible gurgling on exam and decreased mental status -Hypernatremia -Dehydration -Hyperchloremia -JESS, suspect prerenal from poor oral intake, more than from sepsis based on exam -Meningioma/CVA right sided weakness -Seizure disorder -HTN -HLD -?CAD -GERD Plan: Zosyn day 4, received azithromycin on admission but atypical studies neg and presentation more consistent with aspiration, follow up blood cultures. Sputum cultures nnoted, discuss with ID if Vanco indicated. However, leucocytosis could be from steroids and patient also looks much improved clinically. Urine pNA studies neg. Flu neg. Follow up RVP. Aspiration precautions, speech/swallow input appreciated. Dysphagia puree with nectar thick liquids. 1:1 assist. PUlmonary input noted, placed on short course of solumedrol. CT chest results noted. Taper solumedrol to 40 mg iV q12h today. Recent 2D echo reviewed. IVF to D5W at 100 ml/hr (similar course on recent admit when was seen by nephrology and placed on D5W). Monitor sodium levels, improved today renal function improved with hydration. Mild bump, ?urinary retention, asked RN to bladder scan and pugh placement if > 300 ml, Encourage OOB, Bowel regimen. Flomax as indicated. Seizure precautions. Continue keppra. PPI DVTPPX dispo pending improvement in symptoms. encourage OOB, PT eval, d/c planning in 2-3 days if continues to improve.
--- NOTE | 2017-06-04 12:30 | PN ---
Progress Note, Physician History of Present Illness: Infectious Disease f/u: Pt seen and examined. Records reviewed, events noted. Pt today is arousable, responsive but weak. Does not appear to be in acute distress. Remains afebrile. - Current Medication List Current Medications: Active Medications Albuterol Sulfate (Ventolin 0.083% Nebulizer Soln -) 1 amp NEB Q4H PRN PRN Reason: SHORT OF BREATH/WHEEZING Albuterol/Ipratropium (Duoneb -) 1 amp NEB QIDR [facility] Last Admin: 06/04/17 11:54 Dose: 1 amp Atorvastatin Calcium (Lipitor -) 10 mg PO HS [facility] Last Admin: 06/03/17 22:46 Dose: 10 mg Docusate Sodium (Colace -) 300 mg PO HS [facility] Last Admin: 06/03/17 22:46 Dose: 300 mg Heparin Sodium (Porcine) (Heparin -) 5,000 unit SQ TID [facility] Last Admin: 06/04/17 06:08 Dose: 5,000 unit Piperacillin/Tazobactam/Dextrose (Zosyn 2.25gm Ivpb (Premix)) 2.25 gm in 50 mls @ 100 mls/hr IVPB Q8H-IV [facility] PRN Reason: Protocol Last Admin: 06/04/17 10:31 Dose: 100 mls/hr Dextrose (D5w -) 1,000 mls @ 100 mls/hr IV ASDIR [facility] Last Admin: 06/04/17 10:21 Dose: 100 mls/hr Levetiracetam (Keppra -) 500 mg PO BID [facility] Last Admin: 06/04/17 10:21 Dose: 500 mg Methylprednisolone Sodium Succinate (Solu-Medrol -) 40 mg IVPUSH Q12H [facility] Last Admin: 06/04/17 11:14 Dose: Not Given Pantoprazole Sodium (Protonix Packets For Oral Suspension -) 40 mg PO DAILY [facility] Last Admin: 06/04/17 10:21 Dose: 40 mg Senna (Senna -) 2 tab PO DAILY [facility] Last Admin: 06/04/17 10:21 Dose: 2 tab - Objective Vital Signs: Vital Signs Temperature 98.3 F 06/04/17 06:21 Pulse Rate 103 H 06/04/17 06:21 Respiratory Rate 20 06/04/17 06:21 Blood Pressure 129/90 06/04/17 06:21 O2 Sat by Pulse Oximetry (%) 98 06/03/17 21:00 Constitutional: Yes: No Distress HENT: Yes: Atraumatic Neck: Yes: Supple Cardiovascular: Yes: Tachycardia Respiratory: Yes: Regular, Rhonchi Gastrointestinal: Yes: Normal Bowel Sounds, Soft Genitourinary: Yes: WNL Musculoskeletal: Yes: WNL Extremities: Yes: WNL Neurological: Yes: Lethargy Labs: CBC, BMP 06/04/17 08:35 06/04/17 05:25 INR, PTT INR 1.37 (0.82-1.09) H 06/01/17 17:10 - ....Imaging Cat Scan: Report Reviewed (b/l subpleural opacities, Rt effusion, RUL opacity) Problem List - Problems (1) Leukocytosis Code(s): D72.829 - ELEVATED WHITE BLOOD CELL COUNT, UNSPECIFIED (2) Pneumonia Code(s): J18.9 - PNEUMONIA, UNSPECIFIED ORGANISM (3) Sepsis Code(s): A41.9 - SEPSIS, UNSPECIFIED ORGANISM Qualifiers: Sepsis type: sepsis due to unspecified organism Qualified Code(s): A41.9 - Sepsis, unspecified organism (4) Brain tumor Code(s): D49.6 - NEOPLASM OF UNSPECIFIED BEHAVIOR OF BRAIN (5) HTN (hypertension) Code(s): I10 - ESSENTIAL (PRIMARY) HYPERTENSION Qualifiers: Hypertension type: essential hypertension Qualified Code(s): I10 - Essential (primary) hypertension (6) CVA (cerebral vascular accident) Code(s): I63.9 - CEREBRAL INFARCTION, UNSPECIFIED Qualifiers: CVA mechanism: unspecified Qualified Code(s): I63.9 - Cerebral infarction, unspecified Assessment/Plan Patient with persistent leukocytosis, slightly improved from previous, on steroids Suspected Aspiration PNA - cont. current antibiotics for now - monitor wbc - afebrile, BP stable continue monitor closely
[2017-06-04] MEDS: ATORVASTATIN CA 10 MG TABLET (FP) PO SCH (22:38)
[2017-06-04] MEDS: DOCUSATE SODIUM 100 MG CAPSULE (FP) PO SCH (22:38)
[2017-06-05] MEDS: PIPERACILLIN/TAZOB 2.25 GM 2.25 GM/50 ML BAG IVPB SCH ×2 (03:30→11:27)
[2017-06-05] MEDS: ALBUTEROL SO4 2.5/IPRATROPIUM 0.5 INH SOL 3 ML VIAL.NEB. NEB SCH ×4 (06:30→23:34)
[2017-06-05] MEDS: HEPARIN NA (PORCINE) 5,000 UNITS/ML 1ML VIAL SQ SCH ×4 (07:21→21:46)
[2017-06-05 07:23] LABS: BASO % 0.2 % (0-2.0); HEMATOCRIT 24.9 % (35.4-49); HEMOGLOBIN 7.9 GM/dL (11.7-16.9); LYMPH % 3.1 % (8-40); MCH 27.5 pg (25.7-33.7); MCHC 31.9 g/dl (32.0-35.9); MEAN CELL VOLUME 86.1 fl (80-96); MEAN PLT VOLUME 8.1 fl (7.5-11.1); MONO % 3.4 % (3.8-10.2); NEUT % 93.3 % (42.8-82.8); PLATELET COUNT 372 K/MM3 (134-434); RBC 2.89 M/mm3 (4.00-5.60); RDW 17.4 % (11.9-15.9)
[2017-06-05 07:44] LABS: ANION GAP 7 (8-16); BLOOD UREA NITROGEN 36 mg/dL (7-18); CALCIUM 8.4 mg/dL (8.5-10.1); CHLORIDE 111 mmol/L (98-107); CO2 28 mmol/L (21-32); GLUCOSE,RANDOM 158 mg/dL (74-106); POTASSIUM 4.6 mmol/L (3.5-5.1); SODIUM 146 mmol/L (136-145)
[2017-06-05 07:45] LABS: CREATININE 1.4 mg/dL (0.7-1.3)
[2017-06-05] MEDS: levETIRAcetam 500 MG TABLET (FP) PO SCH ×2 (09:28→21:46)
[2017-06-05] MEDS: SENNOSIDES 8.6MG TABLET (FP) PO SCH (09:28)
[2017-06-05] MEDS: PANTOPRAZOLE SOD 40 MG SUSPENSION PACKET PO SCH (09:28)
--- NOTE | 2017-06-05 10:33 | PN ---
Teaching Attending Note Name of Resident: . ATTENDING PHYSICIAN STATEMENT SUBJECTIVE: Patient seen and examined, More awake and conversant. No complaints. OBJECTIVE: Vital Signs Period Temp Pulse Resp BP Sys/Chin Pulse Ox Last 24 Hr 98.0 F-98.6 F 77-100 18-20 118-135/75-99 97 Intake & Output 06/02/17 06/03/17 06/04/17 06/05/17 23:59 23:59 23:59 23:59 Intake Total 1633 2630 1090 Output Total 200 Balance 1433 2630 1090 Weight 200 lb General: lying in bed awake and conversant Abdomen: soft, NT, ND, positive bowel sounds CVS:S1S2 regular Chest: few basilar rales, improved air entry Extremities: no edema Home Medication List Medication Instructions Recorded Confirmed Type Aa/Hydrolyzed Collagen, Whey [Lps 30 ml PO BID 06/01/17 06/01/17 History 15-30 Liquid] Acetaminophen [Tylenol] 650 mg PO QID 06/01/17 06/01/17 History Atorvastatin Ca [Lipitor] 10 mg PO HS 06/01/17 06/01/17 History Ceftriaxone 1 gm/D5w [Rocephin 1 1 gm IV DAILY 06/01/17 06/01/17 History gm Premix Ivpb -] Docusate Sodium [Colace] 300 mg PO HS 06/01/17 06/01/17 History Levetiracetam 500 mg PO BID 06/01/17 06/01/17 History Lisinopril 5 mg PO DAILY 06/01/17 06/01/17 History Metoprolol Tartrate 50 mg PO BID 06/01/17 06/01/17 History Omeprazole Magnesium [Prilosec] 10 mg PO HS 06/01/17 06/01/17 History Sennosides [Senna] 2 tab PO DAILY 06/01/17 06/01/17 History Active Medications Generic Name Dose Route Start Last Admin Trade Name Freq PRN Reason Stop Dose Admin Albuterol Sulfate 1 amp 06/02/17 12:26 Ventolin 0.083% Nebulizer Soln - NEB Q4H PRN SHORT OF BREATH/WHEEZING Albuterol/Ipratropium 1 amp 06/02/17 18:00 06/05/17 06:30 Duoneb - NEB 1 amp QIDR [facility] Administration Atorvastatin Calcium 10 mg 06/01/17 22:00 06/04/17 22:38 Lipitor - PO 10 mg HS [facility] Administration Docusate Sodium 300 mg 06/01/17 22:00 06/04/17 22:38 Colace - PO 300 mg HS [facility] Administration Heparin Sodium (Porcine) 5,000 unit 06/02/17 06:00 06/05/17 07:21 Heparin - SQ 5,000 unit TID [facility]U Administration Piperacillin/Tazobactam/Dextrose 2.25 gm in 50 mls @ 100 mls/hr 06/02/17 02: 00 06/05/17 03:30 Zosyn 2.25gm Ivpb (Premix) IVPB 100 mls/hr Q8H-IV E[facility]U Administration Protocol Dextrose 1,000 mls @ 100 mls/hr 06/02/17 09:15 06/04/17 10:21 D5w - IV 100 mls/hr ASDIR [facility] Administration Levetiracetam 500 mg 06/03/17 22:00 06/04/17 22:38 Keppra - PO 500 mg BID [facility] Administration Methylprednisolone Sodium Succinate 40 mg 06/04/17 11:00 06/04/17 22:38 Solu-Medrol - IVPUSH 40 mg Q12H [facility] Administration Pantoprazole Sodium 40 mg 06/04/17 10:00 06/04/17 10:21 Protonix Packets For Oral Suspension - PO 40 mg DAILY [facility] Administration Senna 2 tab 06/02/17 10:00 06/04/17 10:21 Senna - PO 2 tab DAILY [facility] Administration Laboratory Results - last 24 hr 06/05/17 06/05/17 06/05/17 05:25 05:25 05:25 WBC 19.0 H RBC 2.89 L Hgb 7.9 L Hct 24.9 L MCV 86.1 MCH 27.5 MCHC 31.9 L RDW 17.4 H Plt Count 372 MPV 8.1 Neutrophils % 93.3 H Lymphocytes % 3.1 L Monocytes % 3.4 L Eosinophils % 0.0 D Basophils % 0.2 Sodium 146 H Potassium 4.6 Chloride 111 H Carbon Dioxide 28 Anion Gap 7 L BUN 36 H Creatinine 1.4 H Random Glucose 158 H Hemoglobin A1c % 6.9 H D Calcium 8.4 L Microbiology 06/01/17 16:16 Blood - Peripheral Venous Blood Culture - Preliminary NO GROWTH OBTAINED AFTER 72 HOURS, INCUBATION TO CONTINUE FOR 2 DAYS. 06/01/17 17:10 Blood - Peripheral Venous Blood Culture - Preliminary NO GROWTH OBTAINED AFTER 72 HOURS, INCUBATION TO CONTINUE FOR 2 DAYS. 06/03/17 03:00 Sputum - Expectorated Gram Stain - Final 06/03/17 03:00 Sputum - Expectorated Sputum Culture - Preliminary NORMAL RESPIRATORY FRAN 06/01/17 17:10 Urine - Urine Rice Urine Culture - Final NO GROWTH OBTAINED 06/02/17 01:00 Urine For Antigen Detection Legionella Antigen - Final 06/02/17 01:00 Urine For Antigen Detection Streptococcus pneumoniae Antigen (M - Final 06/02/17 01:00 Urine For Antigen Detection Legionella Antigen - Final 06/02/17 01:00 Urine For Antigen Detection Streptococcus pneumoniae Antigen (M - Final 06/02/17 12:00 Nasopharyngeal Swab Respiratory Virus (PCR) - Preliminary 06/01/17 17:10 Nasopharyngeal Swab Influenza Types A,B Antigen (SADIQ) - Final 06/01/17 17:10 Nasopharyngeal Swab - Final ASSESSMENT AND PLAN: 72 year old male with a PMHx of Meningioma, CVA with residual right sided weakness, HTN, HLD, CAD, GERD, recently admitted to [facility] with dehydration/Sepsis /UTI/hypernatremia, readmitted with sepsis, likely from aspiration PNA, hypovolumia and hypernatremia. -Sepsis, likely bibasilar aspiration pneumonia, based on current audible gurgling on exam and decreased mental status -Hypernatremia -Dehydration -Hyperchloremia -JESS, suspect prerenal from poor oral intake, more than from sepsis based on exam -Meningioma/CVA right sided weakness -Seizure disorder -HTN -HLD -?CAD -GERD Plan: Zosyn day 5, received azithromycin on admission but atypical studies neg and presentation more consistent with aspiration, Blood cultures neg so far. Sputum cultures noted, ID input appreciated, WBC improved, saturating well on room air (confirmed with RN). Urine pNA studies neg. Flu neg. Follow up RVP. Aspiration precautions, speech/swallow input appreciated. Dysphagia puree with nectar thick liquids. 1:1 assist. PUlmonary input noted, placed on short course of solumedrol. CT chest results noted. Change to prednisone 60 mg daily today. Recent 2D echo reviewed. IVF to D5W at 100 ml/hr (similar course on recent admit when was seen by nephrology and placed on D5W). Monitor sodium levels, improved today renal function improved with hydration. Encourage OOB, Bowel regimen. Seizure precautions. Continue keppra. PPI DVTPPX dispo pending improvement in symptoms. encourage OOB, PT eval, d/c planning in 2-3 days if continues to improve. Plan discussed with RN in detail, all questions answered.
--- NOTE | 2017-06-05 11:06 | PN ---
Progress Note, Physician History of Present Illness: PULMONARY ALERT,FEELING BETTER,-RESP DISTRESS - Current Medication List Current Medications: Active Medications Albuterol Sulfate (Ventolin 0.083% Nebulizer Soln -) 1 amp NEB Q4H PRN PRN Reason: SHORT OF BREATH/WHEEZING Albuterol/Ipratropium (Duoneb -) 1 amp NEB QIDR [facility] Last Admin: 06/05/17 06:30 Dose: 1 amp Atorvastatin Calcium (Lipitor -) 10 mg PO HS [facility] Last Admin: 06/04/17 22:38 Dose: 10 mg Docusate Sodium (Colace -) 300 mg PO HS [facility] Last Admin: 06/04/17 22:38 Dose: 300 mg Heparin Sodium (Porcine) (Heparin -) 5,000 unit SQ TID [facility] Last Admin: 06/05/17 07:21 Dose: 5,000 unit Piperacillin/Tazobactam/Dextrose (Zosyn 2.25gm Ivpb (Premix)) 2.25 gm in 50 mls @ 100 mls/hr IVPB Q8H-IV [facility] PRN Reason: Protocol Last Admin: 06/05/17 03:30 Dose: 100 mls/hr Dextrose (D5w -) 1,000 mls @ 100 mls/hr IV ASDIR [facility] Last Admin: 06/04/17 10:21 Dose: 100 mls/hr Levetiracetam (Keppra -) 500 mg PO BID [facility] Last Admin: 06/04/17 22:38 Dose: 500 mg Pantoprazole Sodium (Protonix Packets For Oral Suspension -) 40 mg PO DAILY [facility] Last Admin: 06/04/17 10:21 Dose: 40 mg Prednisone (Deltasone -) 60 mg PO DAILY [facility] Senna (Senna -) 2 tab PO DAILY [facility] Last Admin: 06/04/17 10:21 Dose: 2 tab - Objective Vital Signs: Vital Signs Temperature 98.4 F 06/05/17 06:00 Pulse Rate 94 H 06/05/17 06:00 Respiratory Rate 20 06/05/17 06:00 Blood Pressure 118/90 06/05/17 06:00 O2 Sat by Pulse Oximetry (%) 97 06/04/17 21:00 Constitutional: Yes: Calm, Thin Eyes: Yes: WNL HENT: Yes: WNL Neck: Yes: WNL Cardiovascular: Yes: Regular Rate and Rhythm, S1, S2 Respiratory: Yes: Rales (BIBASILAR CRACKLES) Gastrointestinal: Yes: Normal Bowel Sounds, Soft Extremities: Yes: WNL Edema: No Labs: CBC, BMP 06/05/17 05:25 06/05/17 05:25 INR, PTT INR 1.37 (0.82-1.09) H 06/01/17 17:10 Problem List - Problems (1) Pneumonia Code(s): J18.9 - PNEUMONIA, UNSPECIFIED ORGANISM (2) Sepsis Code(s): A41.9 - SEPSIS, UNSPECIFIED ORGANISM Qualifiers: Sepsis type: sepsis due to unspecified organism Qualified Code(s): A41.9 - Sepsis, unspecified organism (3) Brain tumor Code(s): D49.6 - NEOPLASM OF UNSPECIFIED BEHAVIOR OF BRAIN (4) HTN (hypertension) Code(s): I10 - ESSENTIAL (PRIMARY) HYPERTENSION Qualifiers: Hypertension type: essential hypertension Qualified Code(s): I10 - Essential (primary) hypertension (5) CVA (cerebral vascular accident) Code(s): I63.9 - CEREBRAL INFARCTION, UNSPECIFIED Qualifiers: CVA mechanism: unspecified Qualified Code(s): I63.9 - Cerebral infarction, unspecified (6) Ewngn-te-zdqpcty kidney injury Code(s): N17.9 - ACUTE KIDNEY FAILURE, UNSPECIFIED; N18.9 - CHRONIC KIDNEY DISEASE, UNSPECIFIED (7) Hypernatremia Code(s): E87.0 - HYPEROSMOLALITY AND HYPERNATREMIA (8) Respiratory distress Code(s): R06.03 - ACUTE RESPIRATORY DISTRESS Assessment/Plan IMP ACUTE RESPIRATORY DISTRESS IMPROVED PNEUMONIA LIKELY ASPIRATION SIRS S/P CVA MENINGIOMA HTN HLD HYPERNATREMIA IMPROVING ACUTE ON CHRONIC KIDNEY INJURY PLAN IV ANTIBIOTICS PER ID O2 INHALED BRONCHODILATORS PREDNISONE IVF MONITOR LYTES,NA,RENAL FUNCTION DR LERMA Problem List - Problems (1) Pneumonia Code(s): J18.9 - PNEUMONIA, UNSPECIFIED ORGANISM (2) Sepsis Code(s): A41.9 - SEPSIS, UNSPECIFIED ORGANISM Qualifiers: Sepsis type: sepsis due to unspecified organism Qualified Code(s): A41.9 - Sepsis, unspecified organism (3) Brain tumor Code(s): D49.6 - NEOPLASM OF UNSPECIFIED BEHAVIOR OF BRAIN (4) HTN (hypertension) Code(s): I10 - ESSENTIAL (PRIMARY) HYPERTENSION Qualifiers: Hypertension type: essential hypertension Qualified Code(s): I10 - Essential (primary) hypertension (5) CVA (cerebral vascular accident) Code(s): I63.9 - CEREBRAL INFARCTION, UNSPECIFIED Qualifiers: CVA mechanism: unspecified Qualified Code(s): I63.9 - Cerebral infarction, unspecified (6) Yqscx-yo-pmdmgww kidney injury Code(s): N17.9 - ACUTE KIDNEY FAILURE, UNSPECIFIED; N18.9 - CHRONIC KIDNEY DISEASE, UNSPECIFIED (7) Hypernatremia Code(s): E87.0 - HYPEROSMOLALITY AND HYPERNATREMIA (8) Respiratory distress Code(s): R06.03 - ACUTE RESPIRATORY DISTRESS
[2017-06-05] MEDS: DEXTROSE 5%-WATER - 1,000 ML IV SCH (11:28)
[2017-06-05] MEDS: predniSONE 20 MG TABLET (UD) PO SCH (11:29)
--- NOTE | 2017-06-05 14:46 | PN ---
Progress Note, Physician History of Present Illness: Pt denies shortness of breath, no cough. Denies fever/chills. - Current Medication List Current Medications: Active Medications Albuterol Sulfate (Ventolin 0.083% Nebulizer Soln -) 1 amp NEB Q4H PRN PRN Reason: SHORT OF BREATH/WHEEZING Albuterol/Ipratropium (Duoneb -) 1 amp NEB QIDR [facility] Last Admin: 06/05/17 12:00 Dose: 1 amp Atorvastatin Calcium (Lipitor -) 10 mg PO HS [facility] Last Admin: 06/04/17 22:38 Dose: 10 mg Docusate Sodium (Colace -) 300 mg PO HS [facility] Last Admin: 06/04/17 22:38 Dose: 300 mg Heparin Sodium (Porcine) (Heparin -) 5,000 unit SQ TID [facility] Last Admin: 06/05/17 14:09 Dose: Not Given Piperacillin/Tazobactam/Dextrose (Zosyn 2.25gm Ivpb (Premix)) 2.25 gm in 50 mls @ 100 mls/hr IVPB Q8H-IV [facility] PRN Reason: Protocol Last Admin: 06/05/17 11:27 Dose: 100 mls/hr Dextrose (D5w -) 1,000 mls @ 100 mls/hr IV ASDIR [facility] Last Admin: 06/05/17 11:28 Dose: 100 mls/hr Levetiracetam (Keppra -) 500 mg PO BID [facility] Last Admin: 06/05/17 09:28 Dose: 500 mg Pantoprazole Sodium (Protonix Packets For Oral Suspension -) 40 mg PO DAILY [facility] Last Admin: 06/05/17 09:28 Dose: 40 mg Prednisone (Deltasone -) 60 mg PO DAILY [facility] Last Admin: 06/05/17 11:29 Dose: 60 mg Senna (Senna -) 2 tab PO DAILY [facility] Last Admin: 06/05/17 09:28 Dose: 2 tab - Objective Vital Signs: Vital Signs Temperature 98.8 F 06/05/17 14:36 Pulse Rate 91 H 06/05/17 14:36 Respiratory Rate 20 06/05/17 14:36 Blood Pressure 117/83 06/05/17 14:36 O2 Sat by Pulse Oximetry (%) 97 06/04/17 21:00 Constitutional: Yes: No Distress, Calm Cardiovascular: Yes: Regular Rate and Rhythm Respiratory: Yes: CTA Bilaterally Gastrointestinal: Yes: Normal Bowel Sounds, Soft Genitourinary: Yes: WNL Neurological: Yes: Alert, Oriented Labs: CBC, BMP 06/05/17 05:25 06/05/17 05:25 INR, PTT INR 1.37 (0.82-1.09) H 06/01/17 17:10 Problem List - Problems (1) Leukocytosis Code(s): D72.829 - ELEVATED WHITE BLOOD CELL COUNT, UNSPECIFIED (2) Pneumonia Code(s): J18.9 - PNEUMONIA, UNSPECIFIED ORGANISM (3) Sepsis Code(s): A41.9 - SEPSIS, UNSPECIFIED ORGANISM Qualifiers: Sepsis type: sepsis due to unspecified organism Qualified Code(s): A41.9 - Sepsis, unspecified organism (4) Brain tumor Code(s): D49.6 - NEOPLASM OF UNSPECIFIED BEHAVIOR OF BRAIN (5) HTN (hypertension) Code(s): I10 - ESSENTIAL (PRIMARY) HYPERTENSION Qualifiers: Hypertension type: essential hypertension Qualified Code(s): I10 - Essential (primary) hypertension (6) CVA (cerebral vascular accident) Code(s): I63.9 - CEREBRAL INFARCTION, UNSPECIFIED Qualifiers: CVA mechanism: unspecified Qualified Code(s): I63.9 - Cerebral infarction, unspecified Assessment/Plan Patient with persistent leukocytosis, slightly improved from previous, on steroids Suspected Aspiration PNA s/p Acute respiratory distress - cont. Zosyn - monitor wbc - afebrile, BP stable continue monitor closely
[2017-06-05] MEDS: ATORVASTATIN CA 10 MG TABLET (FP) PO SCH (21:46)
[2017-06-05] MEDS: DOCUSATE SODIUM 100 MG CAPSULE (FP) PO SCH (21:46)
[2017-06-06] MEDS: PIPERACILLIN/TAZOB 2.25 GM 2.25 GM/50 ML BAG IVPB SCH ×4 (02:19→17:18)
[2017-06-06] MEDS: HEPARIN NA (PORCINE) 5,000 UNITS/ML 1ML VIAL SQ SCH ×3 (06:27→22:20)
[2017-06-06] MEDS: ALBUTEROL SO4 2.5/IPRATROPIUM 0.5 INH SOL 3 ML VIAL.NEB. NEB SCH ×3 (06:55→16:15)
[2017-06-06 07:27] LABS: HEMATOCRIT 25.2 % (35.4-49); HEMOGLOBIN 7.9 GM/dL (11.7-16.9); MCHC 31.3 g/dl (32.0-35.9); MEAN CELL VOLUME 86.3 fl (80-96); PLATELET COUNT 332 K/MM3 (134-434); RBC 2.92 M/mm3 (4.00-5.60); RDW 17.5 % (11.9-15.9)
[2017-06-06 08:00] LABS: ANION GAP 6 (8-16); BLOOD UREA NITROGEN 33 mg/dL (7-18); CALCIUM 8.3 mg/dL (8.5-10.1); CHLORIDE 112 mmol/L (98-107); CO2 31 mmol/L (21-32); CREATININE 1.2 mg/dL (0.7-1.3); GLUCOSE,RANDOM 104 mg/dL (74-106); MAGNESIUM 2.3 mg/dL (1.8-2.4); PHOSPHOROUS 2.6 mg/dL (2.5-4.9); SODIUM 149 mmol/L (136-145)
[2017-06-06] MEDS: predniSONE 20 MG TABLET (UD) PO SCH (09:46)
[2017-06-06] MEDS: DEXTROSE 5%-WATER - 1,000 ML IV SCH ×2 (09:46→12:39)
[2017-06-06] MEDS: levETIRAcetam 500 MG TABLET (FP) PO SCH ×2 (09:47→22:20)
[2017-06-06] MEDS: PANTOPRAZOLE SOD 40 MG SUSPENSION PACKET PO SCH (09:47)
[2017-06-06] MEDS: SENNOSIDES 8.6MG TABLET (FP) PO SCH (09:47)
[2017-06-06 11:48] LABS: ANISOCYTOSIS 1+; MACROCYTOSIS 0; PLATELET ESTIMATE NORMAL; TARGET CELLS 1+
--- NOTE | 2017-06-06 11:48 | PN ---
Progress Note, Physician History of Present Illness: pulmonary alert,oob-chair,-c/o sob,-cough,-congestion - Current Medication List Current Medications: Active Medications Albuterol Sulfate (Ventolin 0.083% Nebulizer Soln -) 1 amp NEB Q4H PRN PRN Reason: SHORT OF BREATH/WHEEZING Albuterol/Ipratropium (Duoneb -) 1 amp NEB QIDR [facility] Last Admin: 06/06/17 11:05 Dose: Not Given Atorvastatin Calcium (Lipitor -) 10 mg PO HS [facility] Last Admin: 06/05/17 21:46 Dose: 10 mg Docusate Sodium (Colace -) 300 mg PO HS [facility] Last Admin: 06/05/17 21:46 Dose: 300 mg Heparin Sodium (Porcine) (Heparin -) 5,000 unit SQ TID [facility] Last Admin: 06/06/17 06:27 Dose: 5,000 unit Piperacillin/Tazobactam/Dextrose (Zosyn 2.25gm Ivpb (Premix)) 2.25 gm in 50 mls @ 100 mls/hr IVPB Q8H-IV [facility] PRN Reason: Protocol Last Admin: 06/06/17 09:46 Dose: Not Given Dextrose (D5w -) 1,000 mls @ 100 mls/hr IV ASDIR [facility] Last Admin: 06/06/17 09:46 Dose: Not Given Levetiracetam (Keppra -) 500 mg PO BID [facility] [place] Last Admin: 06/06/17 09:47 Dose: 500 mg Pantoprazole Sodium (Protonix Packets For Oral Suspension -) 40 mg PO DAILY [facility] [place] Last Admin: 06/06/17 09:47 Dose: 40 mg Prednisone (Deltasone -) 60 mg PO DAILY [facility] [place] Last Admin: 06/06/17 09:46 Dose: 60 mg Senna (Senna -) 2 tab PO DAILY [facility] Last Admin: 06/06/17 09:47 Dose: 2 tab - Objective Vital Signs: Vital Signs Temperature 98.1 F 06/06/17 09:42 Pulse Rate 85 06/06/17 09:42 Respiratory Rate 20 06/06/17 09:42 Blood Pressure 150/90 06/06/17 09:42 O2 Sat by Pulse Oximetry (%) 98 06/06/17 09:00 Constitutional: Yes: Well Nourished, Calm Eyes: Yes: WNL HENT: Yes: WNL Neck: Yes: WNL Cardiovascular: Yes: Regular Rate and Rhythm, S1, S2 Respiratory: Yes: Diminished Gastrointestinal: Yes: Normal Bowel Sounds, Soft Extremities: Yes: WNL Edema: No Labs: CBC, BMP 06/06/17 07:00 06/06/17 07:00 INR, PTT INR 1.37 (0.82-1.09) H 06/01/17 17:10 Problem List - Problems (1) Pneumonia Code(s): J18.9 - PNEUMONIA, UNSPECIFIED ORGANISM (2) Sepsis Code(s): A41.9 - SEPSIS, UNSPECIFIED ORGANISM Qualifiers: Sepsis type: sepsis due to unspecified organism Qualified Code(s): A41.9 - Sepsis, unspecified organism (3) Brain tumor Code(s): D49.6 - NEOPLASM OF UNSPECIFIED BEHAVIOR OF BRAIN (4) HTN (hypertension) Code(s): I10 - ESSENTIAL (PRIMARY) HYPERTENSION Qualifiers: Hypertension type: essential hypertension Qualified Code(s): I10 - Essential (primary) hypertension (5) CVA (cerebral vascular accident) Code(s): I63.9 - CEREBRAL INFARCTION, UNSPECIFIED Qualifiers: CVA mechanism: unspecified Qualified Code(s): I63.9 - Cerebral infarction, unspecified (6) Wndnh-ut-cqrgtey kidney injury Code(s): N17.9 - ACUTE KIDNEY FAILURE, UNSPECIFIED; N18.9 - CHRONIC KIDNEY DISEASE, UNSPECIFIED (7) Hypernatremia Code(s): E87.0 - HYPEROSMOLALITY AND HYPERNATREMIA (8) Respiratory distress Code(s): R06.03 - ACUTE RESPIRATORY DISTRESS Assessment/Plan IMP ACUTE RESPIRATORY DISTRESS IMPROVED PNEUMONIA LIKELY ASPIRATION SIRS S/P CVA MENINGIOMA HTN HLD HYPERNATREMIA IMPROVING ACUTE ON CHRONIC KIDNEY INJURY PLAN IV ANTIBIOTICS PER ID O2 INHALED BRONCHODILATORS PREDNISONE IVF MONITOR LYTES,NA,RENAL FUNCTION DR LERMA Problem List - Problems (1) Pneumonia Code(s): J18.9 - PNEUMONIA, UNSPECIFIED ORGANISM (2) Sepsis Code(s): A41.9 - SEPSIS, UNSPECIFIED ORGANISM Qualifiers: Sepsis type: sepsis due to unspecified organism Qualified Code(s): A41.9 - Sepsis, unspecified organism (3) Brain tumor Code(s): D49.6 - NEOPLASM OF UNSPECIFIED BEHAVIOR OF BRAIN (4) HTN (hypertension) Code(s): I10 - ESSENTIAL (PRIMARY) HYPERTENSION Qualifiers: Hypertension type: essential hypertension Qualified Code(s): I10 - Essential (primary) hypertension (5) CVA (cerebral vascular accident) Code(s): I63.9 - CEREBRAL INFARCTION, UNSPECIFIED Qualifiers: CVA mechanism: unspecified Qualified Code(s): I63.9 - Cerebral infarction, unspecified (6) Vgxci-cf-ophfpiu kidney injury Code(s): N17.9 - ACUTE KIDNEY FAILURE, UNSPECIFIED; N18.9 - CHRONIC KIDNEY DISEASE, UNSPECIFIED (7) Hypernatremia Code(s): E87.0 - HYPEROSMOLALITY AND HYPERNATREMIA (8) Respiratory distress Code(s): R06.03 - ACUTE RESPIRATORY DISTRESS
[2017-06-06 11:50] LABS: CORRECTED WBC 21.58 K/mm3; WHITE BLOOD COUNT 24.6 K/mm3 (4.0-10.0)
--- NOTE | 2017-06-06 12:42 | PN ---
Teaching Attending Note Name of Resident: Loli Callahan ATTENDING PHYSICIAN STATEMENT Time of evaluation: 11:00 AM I saw and evaluated the patient. I reviewed the resident's note and discussed the case with the resident. I agree with the resident's findings and plan as documented. SUBJECTIVE: patient seen and examined. awake, appropriate conversant, oriented to self and hospital. Denies any pain, dyspnea or new complaints. OBJECTIVE: Vital Signs Period Temp Pulse Resp BP Sys/Chin Pulse Ox Last 24 Hr 97.7 F-98.8 F 82-94 18-20 117-150/53-90 96-98 Intake & Output 06/03/17 06/04/17 06/05/17 06/06/17 23:59 23:59 23:59 23:59 Intake Total 2630 1090 360 Balance 2630 1090 360 General: lying in bed awake, no distress CVS:S1S2 regular Chest: few basilar rales, improved air entry Extremities: o edema Home Medication List Medication Instructions Recorded Confirmed Type Aa/Hydrolyzed Collagen, Whey [Lps 30 ml PO BID 06/01/17 06/01/17 History 15-30 Liquid] Acetaminophen [Tylenol] 650 mg PO QID 06/01/17 06/01/17 History Atorvastatin Ca [Lipitor] 10 mg PO HS 06/01/17 06/01/17 History Ceftriaxone 1 gm/D5w [Rocephin 1 1 gm IV DAILY 06/01/17 06/01/17 History gm Premix Ivpb -] Docusate Sodium [Colace] 300 mg PO HS 06/01/17 06/01/17 History Levetiracetam 500 mg PO BID 06/01/17 06/01/17 History Lisinopril 5 mg PO DAILY 06/01/17 06/01/17 History Metoprolol Tartrate 50 mg PO BID 06/01/17 06/01/17 History Omeprazole Magnesium [Prilosec] 10 mg PO HS 06/01/17 06/01/17 History Sennosides [Senna] 2 tab PO DAILY 06/01/17 06/01/17 History Active Medications Generic Name Dose Route Start Last Admin Trade Name Freq PRN Reason Stop Dose Admin Albuterol Sulfate 1 amp 06/02/17 12:26 Ventolin 0.083% Nebulizer Soln - NEB Q4H PRN SHORT OF BREATH/WHEEZING Albuterol/Ipratropium 1 amp 06/02/17 18:00 06/06/17 11:05 Duoneb - NEB Not Given QIDR ESAU Atorvastatin Calcium 10 mg 06/01/17 22:00 06/05/17 21:46 Lipitor - PO 10 mg HS ESAU Administration Docusate Sodium 300 mg 06/01/17 22:00 06/05/17 21:46 Colace - PO 300 mg HS ESAU Administration Heparin Sodium (Porcine) 5,000 unit 06/02/17 06:00 06/06/17 06:27 Heparin - SQ 5,000 unit TID ESAU Administration Piperacillin/Tazobactam/Dextrose 2.25 gm in 50 mls @ 100 mls/hr 06/02/17 02: 00 06/06/17 12:15 Zosyn 2.25gm Ivpb (Premix) IVPB 100 mls/hr Q8H-IV ESAU Administration Protocol Dextrose 1,000 mls @ 100 mls/hr 06/02/17 09:15 06/06/17 12:39 D5w - IV 100 mls/hr ASDIR ESAU Administration Levetiracetam 500 mg 06/03/17 22:00 06/06/17 09:47 Keppra - PO 500 mg BID ESAU Administration Pantoprazole Sodium 40 mg 06/04/17 10:00 06/06/17 09:47 Protonix Packets For Oral Suspension - PO 40 mg DAILY ESAU Administration Prednisone 60 mg 06/05/17 10:45 06/06/17 09:46 Deltasone - PO 60 mg DAILY ESAU Administration Senna 2 tab 06/02/17 10:00 06/06/17 09:47 Senna - PO 2 tab DAILY ESAU Administration Laboratory Results - last 24 hr 06/06/17 06/06/17 07:00 07:00 WBC 24.6 H Corrected WBC (auto) 21.58 RBC 2.92 L Hgb 7.9 L Hct 25.2 L MCV 86.3 MCH 27.0 MCHC 31.3 L RDW 17.5 H Plt Count 332 MPV 8.0 Neutrophils % No Result Required. Neutrophils % (Manual) 84.4 H Band Neutrophils % 0.0 Lymphocytes % No Result Required. Lymphocytes % (Manual) 6.3 L D Monocytes % (Manual) 5 D Eosinophils % (Manual) 0.0 Basophils % (Manual) 0.0 Myelocytes % (Man) 1 D Nucleated RBC % 14 H* Metamyelocytes 0 Hypochromia 1+ Platelet Estimate Normal Polychromasia 1+ Poikilocytosis 1+ Anisocytosis 1+ Microcytosis 1+ Macrocytosis 0 Target Cells 1+ Sodium 149 H Potassium 4.0 Chloride 112 H Carbon Dioxide 31 Anion Gap 6 L BUN 33 H Creatinine 1.2 Random Glucose 104 D Calcium 8.3 L Phosphorus 2.6 Magnesium 2.3 Ferritin 1569.229 H Microbiology 06/01/17 16:16 Blood - Peripheral Venous Blood Culture - Preliminary NO GROWTH OBTAINED AFTER 96 HOURS, INCUBATION TO CONTINUE FOR 1 DAYS. 06/01/17 17:10 Blood - Peripheral Venous Blood Culture - Preliminary NO GROWTH OBTAINED AFTER 96 HOURS, INCUBATION TO CONTINUE FOR 1 DAYS. 06/03/17 03:00 Sputum - Expectorated Gram Stain - Final 06/03/17 03:00 Sputum - Expectorated Sputum Culture - Final NORMAL RESPIRATORY FRAN 06/01/17 17:10 Urine - Urine Rice Urine Culture - Final NO GROWTH OBTAINED 06/02/17 01:00 Urine For Antigen Detection Legionella Antigen - Final 06/02/17 01:00 Urine For Antigen Detection Streptococcus pneumoniae Antigen (M - Final 06/02/17 01:00 Urine For Antigen Detection Legionella Antigen - Final 06/02/17 01:00 Urine For Antigen Detection Streptococcus pneumoniae Antigen (M - Final 06/02/17 12:00 Nasopharyngeal Swab Respiratory Virus (PCR) - Preliminary 06/01/17 17:10 Nasopharyngeal Swab Influenza Types A,B Antigen (SADIQ) - Final 06/01/17 17:10 Nasopharyngeal Swab - Final ASSESSMENT AND PLAN: 72 year old male with a PMHx of Meningioma, CVA with residual right sided weakness, HTN, HLD, CAD, GERD, recently admitted to [facility] with dehydration/Sepsis /UTI/hypernatremia, readmitted with sepsis, likely from aspiration PNA, hypovolumia and hypernatremia. -Sepsis, likely bibasilar aspiration pneumonia -Hypernatremia -Dehydration -Hyperchloremia -JESS, suspect prerenal from poor oral intake, more than from sepsis based on exam -Meningioma/CVA right sided weakness -Seizure disorder -HTN -HLD -?CAD -GERD Plan: Zosyn day 6 , received azithromycin on admission but atypical studies neg and presentation more consistent with aspiration, Blood cultures neg so far. Sputum cultures noted, ID input appreciated, WBC worsening today, unable to get antibiotics overnight (multiple attempts at IV and patient refused), but improved clinically. Strict aspiration precautions, HOB elevated, trend WBC and follow up with ID for now. Repeat CXR tomorrow if WBC continue to rise or new fevers. Urine pNA studies neg. Flu neg. Follow up RVP. Patient more awake, discussed with Edda Powell, will re-assess if able to have free water. PUlmonary input noted, solumedrol changed to prednisone, taper to 50 mg daily for now. Recent 2D echo reviewed. IVF to D5W at 100 ml/hr (similar course on recent admit when was seen by nephrology and placed on D5W). Worsening hypernatremia, likely from inablity to get IVF overnight and lack of free water in diet. IVF resumed, discussed with Edda, will follow up. Monitor sodium levels. renal function improved with hydration. Encourage OOB, Bowel regimen. Seizure precautions. Continue keppra. PPI DVTPPX dispo pending improvement in symptoms. encourage OOB, PT eval, Patient with recurrent admissions with hypernatremia/dehydration and sepsis. Per discussion with daughter on prior admission, has had progressive cognitive decline over last 1 year, is planned for meningioma resection in 06/2017. Dr. Osorio also suggests that may be a candidate for PEG tube in the interim. GI consult for possible PEG if persistent poor oral intake, lack of free water and hypernatremia after infectious symptoms have improved. Daughter agreable with PEG as indicated. Plan discussed with RN in detail, all questions answered.
--- NOTE | 2017-06-06 13:32 | PN ---
Progress Note, Physician History of Present Illness: stable improving much better - Current Medication List Current Medications: Active Medications Albuterol Sulfate (Ventolin 0.083% Nebulizer Soln -) 1 amp NEB Q4H PRN PRN Reason: SHORT OF BREATH/WHEEZING Albuterol/Ipratropium (Duoneb -) 1 amp NEB QIDR [facility] Last Admin: 06/06/17 11:05 Dose: Not Given Atorvastatin Calcium (Lipitor -) 10 mg PO HS [facility] Last Admin: 06/05/17 21:46 Dose: 10 mg Docusate Sodium (Colace -) 300 mg PO HS [facility] Last Admin: 06/05/17 21:46 Dose: 300 mg Heparin Sodium (Porcine) (Heparin -) 5,000 unit SQ TID [facility] Last Admin: 06/06/17 06:27 Dose: 5,000 unit Piperacillin/Tazobactam/Dextrose (Zosyn 2.25gm Ivpb (Premix)) 2.25 gm in 50 mls @ 100 mls/hr IVPB Q8H-IV ESAU PRN Reason: Protocol Last Admin: 06/06/17 12:15 Dose: 100 mls/hr Dextrose (D5w -) 1,000 mls @ 100 mls/hr IV ASDIR [facility] Last Admin: 06/06/17 12:39 Dose: 100 mls/hr Levetiracetam (Keppra -) 500 mg PO BID [facility] Last Admin: 06/06/17 09:47 Dose: 500 mg Pantoprazole Sodium (Protonix Packets For Oral Suspension -) 40 mg PO DAILY [facility] Last Admin: 06/06/17 09:47 Dose: 40 mg Prednisone (Deltasone -) 50 mg PO DAILY [facility] Senna (Senna -) 2 tab PO DAILY [facility] Last Admin: 06/06/17 09:47 Dose: 2 tab - Objective Vital Signs: Vital Signs Temperature 98.1 F 06/06/17 09:42 Pulse Rate 85 06/06/17 09:42 Respiratory Rate 20 06/06/17 09:42 Blood Pressure 150/90 06/06/17 09:42 O2 Sat by Pulse Oximetry (%) 98 06/06/17 09:00 Constitutional: Yes: No Distress, Calm Cardiovascular: Yes: Regular Rate and Rhythm Respiratory: Yes: Regular, Poor Air Entry Gastrointestinal: Yes: Normal Bowel Sounds, Soft Musculoskeletal: Yes: WNL Extremities: Yes: WNL Neurological: Yes: Alert, Oriented Psychiatric: Yes: Alert, Oriented Labs: CBC, BMP 06/06/17 07:00 06/06/17 07:00 INR, PTT INR 1.37 (0.82-1.09) H 06/01/17 17:10 Assessment/Plan patient probably has aspiration pneumonia Problem List - Problems (1) Pneumonia Code(s): J18.9 - PNEUMONIA, UNSPECIFIED ORGANISM (2) Sepsis Code(s): A41.9 - SEPSIS, UNSPECIFIED ORGANISM Qualifiers: Sepsis type: sepsis due to unspecified organism Qualified Code(s): A41.9 - Sepsis, unspecified organism (3) Brain tumor Code(s): D49.6 - NEOPLASM OF UNSPECIFIED BEHAVIOR OF BRAIN (4) HTN (hypertension) Code(s): I10 - ESSENTIAL (PRIMARY) HYPERTENSION Qualifiers: Hypertension type: essential hypertension Qualified Code(s): I10 - Essential (primary) hypertension (5) CVA (cerebral vascular accident) Code(s): I63.9 - CEREBRAL INFARCTION, UNSPECIFIED Qualifiers: CVA mechanism: unspecified Qualified Code(s): I63.9 - Cerebral infarction, unspecified (6) [id number] kidney injury Code(s): N17.9 - ACUTE KIDNEY FAILURE, UNSPECIFIED; N18.9 - CHRONIC KIDNEY DISEASE, UNSPECIFIED (7) Hypernatremia Code(s): E87.0 - HYPEROSMOLALITY AND HYPERNATREMIA (8) Respiratory distress Code(s): R06.03 - ACUTE RESPIRATORY DISTRESS plan continue iv abx will monitor the progreass rest continue current mgmt incentive lata
--- NOTE | 2017-06-06 14:27 | PN ---
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 as per daughter he appears to be at baseline. was notified by SNF that he was having non productive cough and weakness with temp 100.4 and CXR was done there showing PNA. Pt was recently admitted with uti in [place] puree/thin liquid based on 05/24/[address] [facility] evaluation. At [facility], diet order was puree/nectar thick liquids. 06/03/17 Initial Swallowing evaluation performed with the following Recommendations - Dysphagia Impressions/Plan Swallowing Skills: Impaired Dysphagia Impressions: Mild Impairment Dysphagia Evaluation Summary: 72 year old male with mild signs of aspiration [ increased respiration] after the swallow for thin liquids. Patient is able to tolerate purees and nectar thickened liquids without signs of aspiration. - Recommendations Diet Consistency: Dysphagia Minced Medication Administration: Crushed with applesauce Liquids: [place] Thick Selected Entries 05/22/17 05/22/17 05/22/17 11:50 13:29 19:00 Breakfast 50% Lunch 100% Supper 100% Temperature 05/23/17 05/23/17 05/23/17 01:00 05:00 10:00 Breakfast Lunch Supper Temperature 98.2 F 99.6 F 99.6 F 05/23/17 05/23/17 05/23/17 11:25 14:00 18:00 Breakfast 50% Lunch Supper 75% Temperature 98.8 F 99.5 F 05/23/17 05/24/17 05/24/17 22:00 02:00 06:00 Breakfast Lunch Supper Temperature 98.8 F 98.9 F 98.8 F 06/05/17 06/05/17 06/05/17 02:00 06:00 10:00 Breakfast Lunch Supper Temperature 98.1 F 98.4 F 98.6 F 06/05/17 06/05/17 06/05/17 10:57 14:36 17:00 Breakfast 100% Lunch 100% Supper Temperature 98.8 F 98.0 F 06/05/17 06/05/17 06/06/17 19:00 22:00 02:00 Breakfast Lunch Supper 100% Temperature 97.7 F 98.7 F 06/06/17 06/06/17 06/06/17 06:00 09:42 10:00 Breakfast 50% Lunch Supper Temperature 98.1 F 98.1 F 06/06/17 06/06/17 06/06/17 11:20 14:19 14:20 Breakfast 75% Lunch 75% Supper Temperature 98.8 F Laboratory Tests 05/22/17 05/23/17 05/24/17 08:25 06:37 06:40 WBC 14.5 H 12.3 H 12.7 H 06/02/17 06/03/17 06/04/17 07:20 05:25 08:35 WBC 26.1 H 22.4 H 22.9 H 06/05/17 06/06/17 05:25 07:00 WBC 19.0 H 24.6 H Per EMR Worsening hypernatremia, likely from inablity to get IVF overnight and lack of free water in diet. Asked to reevaluate for possible tolerance of thin liquids. Pt exhausted after up OOB all day. Not arousable sufficiently for PO trials, IMP: Admitted with PNA following puree/nectar thick liquid diet order at [place]. REC: MBS to upgrade diet safely, r/o silent aspiration.
--- NOTE | 2017-06-06 16:39 | PN ---
Physical Exam: SUBJECTIVE: Patient seen and examined. Pt alert, OOB to wheelchair, much more conversant today. Pt AAOx2, to self and place. Pt denies pain, sob. OBJECTIVE: Vital Signs Period Temp Pulse Resp BP Sys/Chin Pulse Ox Last 24 Hr 97.7 F-98.8 F 82-94 18-20 120-150/53-90 96-98 GENERAL: AAOx2, NAD. LUNGS: Few bibasilar rales. HEART: Regular rhythm, tachycardic, S1, S2 without murmur, rub or gallop. ABDOMEN: Soft, nontender, nondistended, no guarding. EXTREMITIES: Warm, well-perfused, no edema. PSYCH: Normal mood, normal affect. SKIN: Warm, dry, normal turgor, no rashes or lesions noted Laboratory Results - last 24 hr 06/06/17 06/06/17 07:00 07:00 WBC 24.6 H Corrected WBC (auto) 21.58 RBC 2.92 L Hgb 7.9 L Hct 25.2 L MCV 86.3 MCH 27.0 MCHC 31.3 L RDW 17.5 H Plt Count 332 MPV 8.0 Neutrophils % No Result Required. Neutrophils % (Manual) 84.4 H Band Neutrophils % 0.0 Lymphocytes % No Result Required. Lymphocytes % (Manual) 6.3 L D Monocytes % (Manual) 5 D Eosinophils % (Manual) 0.0 Basophils % (Manual) 0.0 Myelocytes % (Man) 1 D Nucleated RBC % 14 H* Metamyelocytes 0 Hypochromia 1+ Platelet Estimate Normal Polychromasia 1+ Poikilocytosis 1+ Anisocytosis 1+ Microcytosis 1+ Macrocytosis 0 Target Cells 1+ Sodium 149 H Potassium 4.0 Chloride 112 H Carbon Dioxide 31 Anion Gap 6 L BUN 33 H Creatinine 1.2 Random Glucose 104 D Calcium 8.3 L Phosphorus 2.6 Magnesium 2.3 Ferritin 1569.229 H Active Medications Generic Name Dose Route Start Last Admin Trade Name Freq PRN Reason Stop Dose Admin Albuterol Sulfate 1 amp 06/02/17 12:26 Ventolin 0.083% Nebulizer Soln - NEB Q4H PRN SHORT OF BREATH/WHEEZING Albuterol/Ipratropium 1 amp 06/02/17 18:00 06/06/17 11:05 Duoneb - NEB Not Given QIDR ESAU Amino Acids 30 ml 06/06/17 17:30 Prosource No Carb Liquid Pkt PO BID@0800,1730 ESAU Atorvastatin Calcium 10 mg 06/01/17 22:00 06/05/17 21:46 Lipitor - PO 10 mg HS ESAU Administration Docusate Sodium 300 mg 06/01/17 22:00 06/05/17 21:46 Colace - PO 300 mg HS ESAU Administration Heparin Sodium (Porcine) 5,000 unit 06/02/17 06:00 06/06/17 14:08 Heparin - SQ 5,000 unit TID ESAU Administration Piperacillin/Tazobactam/Dextrose 2.25 gm in 50 mls @ 100 mls/hr 06/02/17 02: 00 06/06/17 12:15 Zosyn 2.25gm Ivpb (Premix) IVPB 100 mls/hr Q8H-IV ESAU Administration Protocol Dextrose 1,000 mls @ 100 mls/hr 06/02/17 09:15 06/06/17 12:39 D5w - IV 100 mls/hr ASDIR ESAU Administration Levetiracetam 500 mg 06/03/17 22:00 06/06/17 09:47 Keppra - PO 500 mg BID ESAU Administration Pantoprazole Sodium 40 mg 06/04/17 10:00 06/06/17 09:47 Protonix Packets For Oral Suspension - PO 40 mg DAILY E[facility]U Administration Prednisone 50 mg 06/07/17 10:00 Deltasone - PO DAILY ESAU Senna 2 tab 06/02/17 10:00 06/06/17 09:47 Senna - PO 2 tab DAILY ESAU Administration ASSESSMENT/PLAN: 72M with PMH Meningioma, CVA (with residual Right sided weakness), htn, hld, CAD , GERD, presents with fever and CXR suggestive of asp pna, admitted for sepsis. # sepsis 2/2 asp pna vs HAP - Day 6 IV Zosyn - ID (Dr. Osorio) recs appreciated: continue current antibiotic regimen - blood culture (-) x 96 hrs - f/u RSV - sputum culture (-) - IVFs - Pulmonary (Dr. Lundberg) recs appreciated: O2 prn, Duonebs, Albuterol, Prednisone (taper to 50mg daily for now) - worsening leukocytosis noted today, likely 2/2 difficulty getting IV access overnight causing pt to miss 2 doses of Zosyn. IV access obtained today. Zosyn and IVFs resumed. - aspiration precautions # JESS - likely 2/2 dehydration - resolved - avoid nephrotoxic agents - continue to monitor - IVFs # meningioma - known, neurosurgery scheduled on 06/30/[address] Alvin Worthington, neurosurgeon affiliated with [facility] ([phone]) - continue home med of Keppra for seizure prevention # htn - currently normotensive - hold home meds for now # hypernatremia - likely 2/2 poor po intake / dehydration - worsened since yesterday likely 2/2 to difficulty securing IV access overnight - Free Water Deficit 2.9 L - seen by Speech Therapy -> f/u MBS tomorrow - consider PEG placement for adequate nutrition and fluids prior to neurosurgery. Daughter agreeable. - IVFs # FEN - Fluids: D5 @ 100 ml/hr - Electrolytes: hypernatremia noted, continue to monitor - Nutrition: dysphagia puree with nectar thick liquids, ProSource 30ml BID # Prophylaxis - DVT ppx with Heparin - GI ppx with Protonix - deconditioning ppx with PT, encourage OOB Visit type - Emergency Visit Emergency Visit: Yes ED Registration Date: 06/01/17 Care time: The patient presented to the Emergency Department on the above date and was hospitalized for further evaluation of their emergent condition. - New Patient This patient is new to me today: No - Critical Care Critical Care patient: No
[2017-06-06] MEDS: AMINO ACIDS/PROTEIN HYDROLYS 30 ML LIQUID.PKT PO SCH (17:28)
[2017-06-06] MEDS: DOCUSATE SODIUM 100 MG CAPSULE (FP) PO SCH ×2 (22:20→22:30)
[2017-06-06] MEDS: ATORVASTATIN CA 10 MG TABLET (FP) PO SCH (22:21)
[2017-06-07] MEDS: ALBUTEROL SO4 2.5/IPRATROPIUM 0.5 INH SOL 3 ML VIAL.NEB. NEB SCH ×5 (00:08→20:40)
[2017-06-07] MEDS ORDERED: PT OWN MED DRAWER 7, Y5N ONE ×2 (01:49→18:43)
[2017-06-07] MEDS: PIPERACILLIN/TAZOB 2.25 GM 2.25 GM/50 ML BAG IVPB SCH ×3 (01:57→18:02)
[2017-06-07] MEDS: HEPARIN NA (PORCINE) 5,000 UNITS/ML 1ML VIAL SQ SCH ×3 (06:12→22:01)
[2017-06-07 07:42] LABS: ANION GAP 11 (8-16); BLOOD UREA NITROGEN 27 mg/dL (7-18); CALCIUM 8.5 mg/dL (8.5-10.1); CHLORIDE 110 mmol/L (98-107); CO2 26 mmol/L (21-32); GLUCOSE,RANDOM 119 mg/dL (74-106); POTASSIUM 3.8 mmol/L (3.5-5.1); SODIUM 147 mmol/L (136-145)
[2017-06-07 07:43] LABS: CREATININE 1.3 mg/dL (0.7-1.3)
[2017-06-07 07:49] LABS: HEMATOCRIT 25.7 % (35.4-49); HEMOGLOBIN 7.9 GM/dL (11.7-16.9); MCH 26.8 pg (25.7-33.7); MCHC 30.7 g/dl (32.0-35.9); MEAN CELL VOLUME 87.4 fl (80-96); MEAN PLT VOLUME 8.1 fl (7.5-11.1); PLATELET COUNT 318 K/MM3 (134-434); RBC 2.94 M/mm3 (4.00-5.60); RDW 18.1 % (11.9-15.9); WHITE BLOOD COUNT 21.3 K/mm3 (4.0-10.0)
[2017-06-07 08:57] LABS: SERUM IRON SATURATION 35 % (15-55); TOTAL IRON BINDING CAPACITY 189 ug/dL (250-450); UIBC 122 ug/dL (111-343)
[2017-06-07] MEDS ORDERED: predniSONE 20 MG TABLET (UD) PO SCH (10:00)
[2017-06-07] MEDS: levETIRAcetam 500 MG TABLET (FP) PO SCH ×2 (10:02→22:00)
[2017-06-07] MEDS: AMINO ACIDS/PROTEIN HYDROLYS 30 ML LIQUID.PKT PO SCH ×2 (10:06→16:35)
[2017-06-07] MEDS: SENNOSIDES 8.6MG TABLET (FP) PO SCH (10:07)
[2017-06-07] MEDS: PANTOPRAZOLE SOD 40 MG SUSPENSION PACKET PO SCH (10:07)
--- NOTE | 2017-06-07 10:43 | PN ---
Progress Note, PSYCHIATRIC TECHNICIAN ASSISTANT - Note Progress Note: Pt is awake, verbal. He dislikes the thickened liquids. Edentulous. Pending MBS today to r/o silent aspiration and upgrade diet.
--- NOTE | 2017-06-07 11:19 | PN ---
Progress Note, Physician History of Present Illness: PULMONARY ALERT,NAD,-SOB - Current Medication List Current Medications: Active Medications Albuterol Sulfate (Ventolin 0.083% Nebulizer Soln -) 1 amp NEB Q4H PRN PRN Reason: SHORT OF BREATH/WHEEZING Albuterol/Ipratropium (Duoneb -) 1 amp NEB RQID ESAU Amino Acids (Prosource No Carb Liquid Pkt) 30 ml PO BID@0800,1730 [facility] Last Admin: 06/07/17 10:06 Dose: 30 ml Atorvastatin Calcium (Lipitor -) 10 mg PO HS [facility] Last Admin: 06/06/17 22:21 Dose: 10 mg Docusate Sodium (Colace -) 300 mg PO HS [facility] Last Admin: 06/06/17 22:30 Dose: Not Given Heparin Sodium (Porcine) (Heparin -) 5,000 unit SQ TID [facility] Last Admin: 06/07/17 06:12 Dose: 5,000 unit Piperacillin/Tazobactam/Dextrose (Zosyn 2.25gm Ivpb (Premix)) 2.25 gm in 50 mls @ 100 mls/hr IVPB Q8H-IV ESAU PRN Reason: Protocol Last Admin: 06/07/17 10:15 Dose: 100 mls/hr Dextrose (D5w -) 1,000 mls @ 100 mls/hr IV ASDIR [facility] Last Admin: 06/06/17 12:39 Dose: 100 mls/hr Levetiracetam (Keppra -) 500 mg PO BID [facility] Last Admin: 06/07/17 10:02 Dose: 500 mg Pantoprazole Sodium (Protonix Packets For Oral Suspension -) 40 mg PO DAILY [facility] Last Admin: 06/07/17 10:07 Dose: 40 mg Prednisone (Deltasone -) 50 mg PO DAILY [facility] Last Admin: 06/07/17 10:02 Dose: 50 mg Senna (Senna -) 2 tab PO DAILY [facility] Last Admin: 06/07/17 10:07 Dose: 2 tab - Objective Vital Signs: Vital Signs Temperature 98.1 F 06/07/17 10:00 Pulse Rate 78 06/07/17 10:00 Respiratory Rate 20 06/07/17 10:00 Blood Pressure 143/89 06/07/17 10:00 O2 Sat by Pulse Oximetry (%) 97 06/07/17 09:00 Constitutional: Yes: Well Nourished, Calm Eyes: Yes: WNL HENT: Yes: WNL Neck: Yes: Supple Cardiovascular: Yes: Regular Rate and Rhythm, S1, S2 Respiratory: Yes: Diminished Gastrointestinal: Yes: Normal Bowel Sounds, Soft Extremities: Yes: WNL Edema: No Labs: CBC, BMP 06/07/17 06:50 06/07/17 06:50 INR, PTT INR 1.37 (0.82-1.09) H 06/01/17 17:10 Problem List - Problems (1) Pneumonia Code(s): J18.9 - PNEUMONIA, UNSPECIFIED ORGANISM (2) Sepsis Code(s): A41.9 - SEPSIS, UNSPECIFIED ORGANISM Qualifiers: Sepsis type: sepsis due to unspecified organism Qualified Code(s): A41.9 - Sepsis, unspecified organism (3) Brain tumor Code(s): D49.6 - NEOPLASM OF UNSPECIFIED BEHAVIOR OF BRAIN (4) HTN (hypertension) Code(s): I10 - ESSENTIAL (PRIMARY) HYPERTENSION Qualifiers: Hypertension type: essential hypertension Qualified Code(s): I10 - Essential (primary) hypertension (5) CVA (cerebral vascular accident) Code(s): I63.9 - CEREBRAL INFARCTION, UNSPECIFIED Qualifiers: CVA mechanism: unspecified Qualified Code(s): I63.9 - Cerebral infarction, unspecified (6) [id number]-[id number] kidney injury Code(s): N17.9 - ACUTE KIDNEY FAILURE, UNSPECIFIED; N18.9 - CHRONIC KIDNEY DISEASE, UNSPECIFIED (7) Hypernatremia Code(s): E87.0 - HYPEROSMOLALITY AND HYPERNATREMIA (8) Respiratory distress Code(s): R06.03 - ACUTE RESPIRATORY DISTRESS Assessment/Plan IMP ACUTE RESPIRATORY DISTRESS IMPROVED PNEUMONIA LIKELY ASPIRATION SIRS S/P CVA MENINGIOMA HTN HLD HYPERNATREMIA IMPROVING ACUTE ON CHRONIC KIDNEY INJURY PLAN IV ANTIBIOTICS PER ID O2 INHALED BRONCHODILATORS PREDNISONE TAPER IVF MONITOR LYTES,NA,RENAL FUNCTION DR LERMA Problem List - Problems (1) Pneumonia Code(s): J18.9 - PNEUMONIA, UNSPECIFIED ORGANISM (2) Sepsis Code(s): A41.9 - SEPSIS, UNSPECIFIED ORGANISM Qualifiers: Sepsis type: sepsis due to unspecified organism Qualified Code(s): A41.9 - Sepsis, unspecified organism (3) Brain tumor Code(s): D49.6 - NEOPLASM OF UNSPECIFIED BEHAVIOR OF BRAIN (4) HTN (hypertension) Code(s): I10 - ESSENTIAL (PRIMARY) HYPERTENSION Qualifiers: Hypertension type: essential hypertension Qualified Code(s): I10 - Essential (primary) hypertension (5) CVA (cerebral vascular accident) Code(s): I63.9 - CEREBRAL INFARCTION, UNSPECIFIED Qualifiers: CVA mechanism: unspecified Qualified Code(s): I63.9 - Cerebral infarction, unspecified (6) Bwcvg-vw-fogyevv kidney injury Code(s): N17.9 - ACUTE KIDNEY FAILURE, UNSPECIFIED; N18.9 - CHRONIC KIDNEY DISEASE, UNSPECIFIED (7) Hypernatremia Code(s): E87.0 - HYPEROSMOLALITY AND HYPERNATREMIA (8) Respiratory distress Code(s): R06.03 - ACUTE RESPIRATORY DISTRESS
[2017-06-07] MEDS: DEXTROSE 5%-WATER - 1,000 ML IV SCH ×2 (13:54→21:59)
--- NOTE | 2017-06-07 14:09 | PN ---
Teaching Attending Note Name of Resident: Loli Callahan ATTENDING PHYSICIAN STATEMENT I saw and evaluated the patient. I reviewed the resident's note and discussed the case with the resident. I agree with the resident's findings and plan as documented. SUBJECTIVE:asymptomatic. states his breathing is improved. denies Cp, SOB, fever , chills, N/V/C/D OBJECTIVE: Last Vital Signs Temp Pulse Resp BP Pulse Ox 98.1 F 78 20 143/89 97 06/07/17 10:00 06/07/17 10:00 06/07/17 10:00 06/07/17 10:00 06/07/17 09:00 General NAD A&OX3 CV S1 S2 RRR no murmur/rub/gallop Lungs CTA B/L no wheezing/rales/rhonchi Abdomen soft NT/ND Extremities no pedal edema ASSESSMENT AND PLAN: 72 year old male with a PMHx of Meningioma, CVA with residual right sided weakness, HTN, HLD, CAD, GERD who was sent from [facility] due to fever 1. Sepsis due to PNA- concern for aspiration vs HCAP with recent hospitalization. afebrile. leukocytosis likely due to steroids. on Zosyn day 6. spoke with ID can transition to po abx after 7 days IV. on prednisone 50mg. can do quick taper. MBS scheduled for today to evaluate diet. ID consulted. supplemental oxygen to maintain spO2 >90% 2. Hypernatremia- likley due to poor po intake.improving. cont low dose D5w. 3. JESS- due to dehydration. resolved. avoid nephrotoxic agents 4. Meningioma- planned surgery next month. cont keppra prophylaxis 5. HTN- above goal. will re-start lisinopril 5mg. 6. DVT ppx- hep sq 7. d/c planning tomorrow
--- NOTE | 2017-06-07 15:08 | PN ---
Progress Note, Physician History of Present Illness: patient stable doing well looks much better breathing better - Current Medication List Current Medications: Active Medications Albuterol Sulfate (Ventolin 0.083% Nebulizer Soln -) 1 amp NEB Q4H PRN PRN Reason: SHORT OF BREATH/WHEEZING Albuterol/Ipratropium (Duoneb -) 1 amp NEB RQID [facility] Last Admin: 06/07/17 11:10 Dose: 1 amp Amino Acids (Prosource No Carb Liquid Pkt) 30 ml PO BID@0800,1730 [facility] Last Admin: 06/07/17 10:06 Dose: 30 ml Atorvastatin Calcium (Lipitor -) 10 mg PO HS [facility] Last Admin: 06/06/17 22:21 Dose: 10 mg Docusate Sodium (Colace -) 300 mg PO HS [facility] Last Admin: 06/06/17 22:30 Dose: Not Given Heparin Sodium (Porcine) (Heparin -) 5,000 unit SQ TID [facility] Last Admin: 06/07/17 06:12 Dose: 5,000 unit Piperacillin/Tazobactam/Dextrose (Zosyn 2.25gm Ivpb (Premix)) 2.25 gm in 50 mls @ 100 mls/hr IVPB Q8H-IV [facility] PRN Reason: Protocol Last Admin: 06/07/17 10:15 Dose: 100 mls/hr Dextrose (D5w -) 1,000 mls @ 100 mls/hr IV ASDIR [facility] Last Admin: 06/07/17 13:54 Dose: 100 mls/hr Levetiracetam (Keppra -) 500 mg PO BID [facility] Last Admin: 06/07/17 10:02 Dose: 500 mg Lisinopril (Prinivil) 5 mg PO DAILY [facility] Pantoprazole Sodium (Protonix Packets For Oral Suspension -) 40 mg PO DAILY [facility] Last Admin: 06/07/17 10:07 Dose: 40 mg Prednisone (Deltasone -) 40 mg PO DAILY [facility] Senna (Senna -) 2 tab PO DAILY [facility] Last Admin: 06/07/17 10:07 Dose: 2 tab - Objective Vital Signs: Vital Signs Temperature 98.1 F 06/07/17 10:00 Pulse Rate 78 06/07/17 10:00 Respiratory Rate 20 06/07/17 10:00 Blood Pressure 143/89 06/07/17 10:00 O2 Sat by Pulse Oximetry (%) 97 06/07/17 09:00 Constitutional: Yes: No Distress Cardiovascular: Yes: Regular Rate and Rhythm Respiratory: Yes: Regular, CTA Bilaterally Gastrointestinal: Yes: Normal Bowel Sounds, Soft Musculoskeletal: Yes: WNL Extremities: Yes: WNL Neurological: Yes: Alert, Oriented Psychiatric: Yes: Alert, Oriented Labs: CBC, BMP 06/07/17 06:50 06/07/17 06:50 INR, PTT INR 1.37 (0.82-1.09) H 06/01/17 17:10 Assessment/Plan patient probably has aspiration pneumonia Problem List - Problems (1) Pneumonia Code(s): J18.9 - PNEUMONIA, UNSPECIFIED ORGANISM (2) Sepsis Code(s): A41.9 - SEPSIS, UNSPECIFIED ORGANISM Qualifiers: Sepsis type: sepsis due to unspecified organism Qualified Code(s): A41.9 - Sepsis, unspecified organism (3) Brain tumor Code(s): D49.6 - NEOPLASM OF UNSPECIFIED BEHAVIOR OF BRAIN (4) HTN (hypertension) Code(s): I10 - ESSENTIAL (PRIMARY) HYPERTENSION Qualifiers: Hypertension type: essential hypertension Qualified Code(s): I10 - Essential (primary) hypertension (5) CVA (cerebral vascular accident) Code(s): I63.9 - CEREBRAL INFARCTION, UNSPECIFIED Qualifiers: CVA mechanism: unspecified Qualified Code(s): I63.9 - Cerebral infarction, unspecified (6) Sthyr-jw-qhhqoli kidney injury Code(s): N17.9 - ACUTE KIDNEY FAILURE, UNSPECIFIED; N18.9 - CHRONIC KIDNEY DISEASE, UNSPECIFIED (7) Hypernatremia Code(s): E87.0 - HYPEROSMOLALITY AND HYPERNATREMIA (8) Respiratory distress Code(s): R06.03 - ACUTE RESPIRATORY DISTRESS plan will change to oral abx tomorrow rest as per primary team
[2017-06-07] MEDS: LISINOPRIL 5 MG TABLET (FP) PO SCH (16:10)
--- NOTE | 2017-06-07 19:08 | PN ---
Physical Exam: SUBJECTIVE: Patient seen and examined. Pt AAOx2, to self and place. Pt denies chest pain, sob, abdominal pain, fever, chills. OBJECTIVE: Vital Signs Period Temp Pulse Resp BP Sys/Chin Pulse Ox Last 24 Hr 97.5 F-98.4 F 73-79 20-20 130-150/80-93 97-98 GENERAL: AAOx2, NAD. LUNGS: CTAB. HEART: RRR, S1, S2 without murmur, rub or gallop. ABDOMEN: Soft, nontender, nondistended, no guarding. EXTREMITIES: Warm, well-perfused, no edema. PSYCH: Normal mood, normal affect. SKIN: Warm, dry, normal turgor, no rashes or lesions noted Laboratory Results - last 24 hr 06/06/17 06/07/17 06/07/17 07:00 06:50 06:50 WBC 21.3 H RBC 2.94 L Hgb 7.9 L Hct 25.7 L MCV 87.4 MCH 26.8 MCHC 30.7 L RDW 18.1 H Plt Count 318 MPV 8.1 Sodium 147 H Potassium 3.8 Chloride 110 H Carbon Dioxide 26 Anion Gap 11 BUN 27 H Creatinine 1.3 Random Glucose 119 H Calcium 8.5 Iron 67 TIBC 189 L Iron Saturation 35 Active Medications Generic Name Dose Route Start Last Admin Trade Name Freq PRN Reason Stop Dose Admin Albuterol Sulfate 1 amp 06/02/17 12:26 Ventolin 0.083% Nebulizer Soln - NEB Q4H PRN SHORT OF BREATH/WHEEZING Albuterol/Ipratropium 1 amp 06/07/17 09:06 06/07/17 16:10 Duoneb - NEB Not Given RQID [facility] Amino Acids 30 ml 06/06/17 17:30 06/07/17 16:35 Prosource No Carb Liquid Pkt PO 30 ml BID@0800,1730 [facility] Administration Atorvastatin Calcium 10 mg 06/01/17 22:00 06/06/17 22:21 Lipitor - PO 10 mg HS [facility] Administration Docusate Sodium 300 mg 06/01/17 22:00 06/06/17 22:30 Colace - PO Not Given HS [facility] Heparin Sodium (Porcine) 5,000 unit 06/02/17 06:00 06/07/17 16:10 Heparin - SQ 5,000 unit TID [facility] Administration Piperacillin/Tazobactam/Dextrose 2.25 gm in 50 mls @ 100 mls/hr 06/02/17 02: 00 06/07/17 18:02 Zosyn 2.25gm Ivpb (Premix) IVPB 100 mls/hr Q8H-IV [facility] Administration Protocol Dextrose 1,000 mls @ 100 mls/hr 06/02/17 09:15 06/07/17 13:54 D5w - IV 100 mls/hr ASDIR [facility] Administration Levetiracetam 500 mg 06/03/17 22:00 06/07/17 10:02 Keppra - PO 500 mg BID [facility] Administration Lisinopril 5 mg 06/07/17 14:15 06/07/17 16:10 Prinivil PO 5 mg DAILY [facility] Administration Pantoprazole Sodium 40 mg 06/04/17 10:00 06/07/17 10:07 Protonix Packets For Oral Suspension - PO 40 mg DAILY [facility] Administration Prednisone 40 mg 06/08/17 10:00 Deltasone - PO DAILY [facility] Senna 2 tab 06/02/17 10:00 06/07/17 10:07 Senna - PO 2 tab DAILY [facility] Administration ASSESSMENT/PLAN: 72M with PMH Meningioma, CVA (with residual Right sided weakness), htn, hld, CAD , GERD, presents with fever and CXR suggestive of asp pna, admitted for sepsis. # sepsis 2/2 asp pna vs HAP - Day 6 IV Zosyn - ID (Dr. Oosrio) recs appreciated: can transition to po abx after 7 days of IV. - blood culture (-) x 5 days - RSV (-) - IVFs - Pulmonary (Dr. Lundberg) recs appreciated: O2 prn, Duonebs, Albuterol, Prednisone (taper to 50mg daily for now) - leukocytosis improving - aspiration precautions # JESS - likely 2/2 dehydration - resolved - avoid nephrotoxic agents # meningioma - known, neurosurgery scheduled on 06/30/[address] Alvin Worthington, neurosurgeon affiliated with [facility] ([phone]) - continue home med of Keppra for seizure prevention # htn - home medication of Lisinopril 5mg daily added # hypernatremia - likely 2/2 poor po intake / dehydration - improved since yesterday - Free Water Deficit 2.3 L - MBS -> upgrade to thin liquids per Speech Therapy - consider PEG placement for adequate nutrition and fluids prior to neurosurgery. Daughter agreeable. - continue IVFs # FEN - Fluids: D5 @ 100 ml/hr - Electrolytes: hypernatremia noted, continue to monitor - Nutrition: dysphagia chopped with thin liquids per Speech Therapy after MBS today, ProSource 30ml BID # Prophylaxis - DVT ppx with Heparin - GI ppx with Protonix - deconditioning ppx with PT, encourage OOB Visit type - Emergency Visit Emergency Visit: Yes ED Registration Date: 06/01/17 Care time: The patient presented to the Emergency Department on the above date and was hospitalized for further evaluation of their emergent condition. - New Patient This patient is new to me today: No - Critical Care Critical Care patient: No
[2017-06-07] MEDS: ATORVASTATIN CA 10 MG TABLET (FP) PO SCH (22:00)
[2017-06-07] MEDS: DOCUSATE SODIUM 100 MG CAPSULE (FP) PO SCH (22:01)
[2017-06-08] MEDS: PIPERACILLIN/TAZOB 2.25 GM 2.25 GM/50 ML BAG IVPB SCH ×2 (01:38→10:18)
[2017-06-08] MEDS: HEPARIN NA (PORCINE) 5,000 UNITS/ML 1ML VIAL SQ SCH ×3 (06:03→22:42)
[2017-06-08] MEDS: ALBUTEROL SO4 2.5/IPRATROPIUM 0.5 INH SOL 3 ML VIAL.NEB. NEB SCH ×4 (08:00→22:20)
[2017-06-08 08:50] LABS: HEMATOCRIT 27.2 % (35.4-49); HEMOGLOBIN 8.4 GM/dL (11.7-16.9); MCH 26.6 pg (25.7-33.7); MCHC 30.7 g/dl (32.0-35.9); MEAN CELL VOLUME 86.6 fl (80-96); MEAN PLT VOLUME 8.3 fl (7.5-11.1); PLATELET COUNT 347 K/MM3 (134-434); RBC 3.15 M/mm3 (4.00-5.60); RDW 18.3 % (11.9-15.9); WHITE BLOOD COUNT 23.2 K/mm3 (4.0-10.0)
[2017-06-08 09:15] LABS: CHLORIDE 104 mmol/L (98-107); SODIUM 141 mmol/L (136-145)
[2017-06-08 09:22] LABS: ANION GAP 13 (8-16); BLOOD UREA NITROGEN 24 mg/dL (7-18); CALCIUM 8.8 mg/dL (8.5-10.1); CO2 24 mmol/L (21-32); CREATININE 1.2 mg/dL (0.7-1.3); GLUCOSE,RANDOM 101 mg/dL (74-106)
[2017-06-08] MEDS: DEXTROSE 5%-WATER - 1,000 ML IV SCH (10:19)
[2017-06-08] MEDS: AMINO ACIDS/PROTEIN HYDROLYS 30 ML LIQUID.PKT PO SCH ×2 (10:19→17:04)
[2017-06-08] MEDS: PANTOPRAZOLE SOD 40 MG SUSPENSION PACKET PO SCH (10:19)
[2017-06-08] MEDS: SENNOSIDES 8.6MG TABLET (FP) PO SCH (10:19)
[2017-06-08] MEDS: predniSONE 20 MG TABLET (UD) PO SCH (10:19)
[2017-06-08] MEDS: levETIRAcetam 500 MG TABLET (FP) PO SCH ×2 (10:20→22:42)
[2017-06-08] MEDS: LISINOPRIL 5 MG TABLET (FP) PO SCH (10:21)
--- NOTE | 2017-06-08 11:45 | PN ---
Teaching Attending Note Name of Resident: Loli Callahan ATTENDING PHYSICIAN STATEMENT I saw and evaluated the patient. I reviewed the resident's note and discussed the case with the resident. I agree with the resident's findings and plan as documented. SUBJECTIVE:clinically improved. dneies CP, SOB, fever, chills, cough, N/V/C/D OBJECTIVE: Last Vital Signs Temp Pulse Resp BP Pulse Ox 98.4 F 89 22 107/78 93 L 06/08/17 10:00 06/08/17 10:00 06/08/17 10:00 06/08/17 10:06/08/17 09:00 General NAD A&OX3 CV S1 S2 RRR no murmur/rub/gallop Lungs CTA B/L no wheezing/rales/rhonchi Abdomen soft NT/ND Extremities no pedal edema ASSESSMENT AND PLAN: 72 year old male with a PMHx of Meningioma, CVA with residual right sided weakness, HTN, HLD, CAD, GERD who was sent from [facility] due to fever 1. Sepsis due to PNA- concern for aspiration vs HCAP with recent hospitalization. afebrile. leukocytosis likely due to steroids. on Zosyn day 7. after completion of zosyn today can be d/c on oral abx. awaiting ID to make recommendation. steroid taper. MBS done yesterday and upgrade to chopped diet. ID on board. supplemental oxygen to maintain spO2 >90% 2. Hypernatremia- likley due to poor po intake.resolved. d/c IVF 3. New onset DM- likley due to steroids. educated on importance of dietary changes. will hold starting medications at this time and give chance for patient to make lifestyle adjustments. dietary consult 4. JESS- due to dehydration. resolved. avoid nephrotoxic agents 5. Meningioma- planned surgery next month. cont keppra prophylaxis 6. HTN- improved. cont lisinopril 5mg. 7. DVT ppx- hep sq 8. d/c to [facility] today
--- NOTE | 2017-06-08 11:52 | PN ---
Progress Note, Physician History of Present Illness: pulmonary alert,nad,-dyspnea,-tachypnea - Current Medication List Current Medications: Active Medications Albuterol Sulfate (Ventolin 0.083% Nebulizer Soln -) 1 amp NEB Q4H PRN PRN Reason: SHORT OF BREATH/WHEEZING Albuterol/Ipratropium (Duoneb -) 1 amp NEB RQID [facility] Last Admin: 06/08/17 08:00 Dose: 1 amp Amino Acids (Prosource No Carb Liquid Pkt) 30 ml PO BID@0800,1730 [facility] Last Admin: 06/08/17 10:19 Dose: 30 ml Atorvastatin Calcium (Lipitor -) 10 mg PO HS [facility] Last Admin: 06/07/17 22:00 Dose: 10 mg Docusate Sodium (Colace -) 300 mg PO HS [facility] Last Admin: 06/07/17 22:01 Dose: 300 mg Heparin Sodium (Porcine) (Heparin -) 5,000 unit SQ TID [facility] Last Admin: 06/08/17 06:03 Dose: 5,000 unit Piperacillin/Tazobactam/Dextrose (Zosyn 2.25gm Ivpb (Premix)) 2.25 gm in 50 mls @ 100 mls/hr IVPB Q8H-IV [facility] PRN Reason: Protocol Last Admin: 06/08/17 10:18 Dose: 100 mls/hr Levetiracetam (Keppra -) 500 mg PO BID [facility] Last Admin: 06/08/17 10:20 Dose: 500 mg Lisinopril (Prinivil) 5 mg PO DAILY [facility] Last Admin: 06/08/17 10:21 Dose: 5 mg Pantoprazole Sodium (Protonix Packets For Oral Suspension -) 40 mg PO DAILY [facility] Last Admin: 06/08/17 10:19 Dose: 40 mg Prednisone (Deltasone -) 40 mg PO DAILY [facility] Last Admin: 06/08/17 10:19 Dose: 40 mg Senna (Senna -) 2 tab PO DAILY [facility] Last Admin: 06/08/17 10:19 Dose: 2 tab - Objective Vital Signs: Vital Signs Temperature 98.4 F 06/08/17 10:00 Pulse Rate 89 06/08/17 10:00 Respiratory Rate 22 06/08/17 10:00 Blood Pressure 107/78 06/08/17 10:00 O2 Sat by Pulse Oximetry (%) 93 L 06/08/17 09:00 Constitutional: Yes: Well Nourished, Calm Eyes: Yes: WNL HENT: Yes: WNL Cardiovascular: Yes: Regular Rate and Rhythm, S1, S2 Respiratory: Yes: Diminished Gastrointestinal: Yes: Normal Bowel Sounds, Soft Extremities: Yes: WNL Edema: No Labs: CBC, BMP 06/08/17 05:42 06/08/17 05:42 INR, PTT INR 1.37 (0.82-1.09) H 06/01/17 17:10 Problem List - Problems (1) Pneumonia Code(s): J18.9 - PNEUMONIA, UNSPECIFIED ORGANISM (2) Sepsis Code(s): A41.9 - SEPSIS, UNSPECIFIED ORGANISM Qualifiers: Sepsis type: sepsis due to unspecified organism Qualified Code(s): A41.9 - Sepsis, unspecified organism (3) Brain tumor Code(s): D49.6 - NEOPLASM OF UNSPECIFIED BEHAVIOR OF BRAIN (4) HTN (hypertension) Code(s): I10 - ESSENTIAL (PRIMARY) HYPERTENSION Qualifiers: Hypertension type: essential hypertension Qualified Code(s): I10 - Essential (primary) hypertension (5) CVA (cerebral vascular accident) Code(s): I63.9 - CEREBRAL INFARCTION, UNSPECIFIED Qualifiers: CVA mechanism: unspecified Qualified Code(s): I63.9 - Cerebral infarction, unspecified (6) Eqery-ue-nsevrva kidney injury Code(s): N17.9 - ACUTE KIDNEY FAILURE, UNSPECIFIED; N18.9 - CHRONIC KIDNEY DISEASE, UNSPECIFIED (7) Hypernatremia Code(s): E87.0 - HYPEROSMOLALITY AND HYPERNATREMIA (8) Respiratory distress Code(s): R06.03 - ACUTE RESPIRATORY DISTRESS Assessment/Plan IMP ACUTE RESPIRATORY DISTRESS IMPROVED PNEUMONIA improved S/P CVA MENINGIOMA HTN HLD HYPERNATREMIA IMPROVING ACUTE ON CHRONIC KIDNEY INJURY PLAN O2 prn INHALED BRONCHODILATORS PREDNISONE TAPER DR LERMA Problem List - Problems (1) Pneumonia Code(s): J18.9 - PNEUMONIA, UNSPECIFIED ORGANISM (2) Sepsis Code(s): A41.9 - SEPSIS, UNSPECIFIED ORGANISM Qualifiers: Sepsis type: sepsis due to unspecified organism Qualified Code(s): A41.9 - Sepsis, unspecified organism (3) Brain tumor Code(s): D49.6 - NEOPLASM OF UNSPECIFIED BEHAVIOR OF BRAIN (4) HTN (hypertension) Code(s): I10 - ESSENTIAL (PRIMARY) HYPERTENSION Qualifiers: Hypertension type: essential hypertension Qualified Code(s): I10 - Essential (primary) hypertension (5) CVA (cerebral vascular accident) Code(s): I63.9 - CEREBRAL INFARCTION, UNSPECIFIED Qualifiers: CVA mechanism: unspecified Qualified Code(s): I63.9 - Cerebral infarction, unspecified (6) Jazsf-pp-xepchbj kidney injury Code(s): N17.9 - ACUTE KIDNEY FAILURE, UNSPECIFIED; N18.9 - CHRONIC KIDNEY DISEASE, UNSPECIFIED (7) Hypernatremia Code(s): E87.0 - HYPEROSMOLALITY AND HYPERNATREMIA (8) Respiratory distress Code(s): R06.03 - ACUTE RESPIRATORY DISTRESS
--- NOTE | 2017-06-08 15:07 | PN ---
Progress Note, COPYIST - Note Progress Note: Pt upgraded to chopped diet with thin liquids with good tolerance reported. Suggested adding 1-2 soft items per tray eg pancakes, fish, pasta etc. Selected Entries 06/07/17 06/07/17 06/07/17 02:04 05:46 10:00 Breakfast Supper Temperature 97.5 F L 98.1 F 98.1 F 06/07/17 06/07/17 06/07/17 14:00 17:00 19:48 Breakfast Supper 100% Temperature 98.4 F 97.6 F 06/07/17 06/08/17 06/08/17 22:00 02:59 10:00 Breakfast Supper Temperature 97.8 F 97.7 F 98.4 F 06/08/17 10:42 Breakfast 75% Supper Temperature Laboratory Tests 06/08/17 05:42 WBC 23.2 H
[2017-06-08] MEDS ORDERED: PIPERACILLIN/TAZOB 2.25 GM 2.25 GM/50 ML BAG IVPB ONE (16:00)
[2017-06-08] MEDS ORDERED: PIPERACILLIN/TAZOB 2.25 GM/50 ML PREMIX BAG IVPB ONE (16:00)
--- NOTE | 2017-06-08 16:01 | PN ---
Physical Exam: SUBJECTIVE: Patient seen and examined. Pt is clinically improved. Pt denies chest pain, sob, abdominal pain, fever, chills. No events overnight. OBJECTIVE: Vital Signs Period Temp Pulse Resp BP Sys/Chin Pulse Ox Last 24 Hr 97.6 F-99.0 F 71-101 20-22 107-144/78-93 93-98 GENERAL: AAOx3, NAD. LUNGS: CTAB. HEART: RRR, S1, S2 without murmur, rub or gallop. ABDOMEN: Soft, nontender, nondistended, no guarding. EXTREMITIES: Warm, well-perfused, no edema. PSYCH: Normal mood, normal affect. SKIN: Warm, dry, normal turgor, no rashes or lesions noted Laboratory Results - last 24 hr 06/08/17 06/08/17 05:42 05:42 WBC 23.2 H RBC 3.15 L Hgb 8.4 L Hct 27.2 L MCV 86.6 MCH 26.6 MCHC 30.7 L RDW 18.3 H Plt Count 347 MPV 8.3 Sodium 141 Potassium 4.0 Chloride 104 Carbon Dioxide 24 Anion Gap 13 BUN 24 H Creatinine 1.2 Random Glucose 101 Calcium 8.8 Active Medications Generic Name Dose Route Start Last Admin Trade Name Freq PRN Reason Stop Dose Admin Albuterol Sulfate 1 amp 06/02/17 12:26 Ventolin 0.083% Nebulizer Soln - NEB Q4H PRN SHORT OF BREATH/WHEEZING Albuterol/Ipratropium 1 amp 06/07/17 09:06 06/08/17 08:00 Duoneb - NEB 1 amp RQID [facility] Administration Amino Acids 30 ml 06/06/17 17:30 06/08/17 10:19 Prosource No Carb Liquid Pkt PO 30 ml BID@0800,1730 [facility] Administration Atorvastatin Calcium 10 mg 06/01/17 22:00 06/07/17 22:00 Lipitor - PO 10 mg HS [facility] Administration Docusate Sodium 300 mg 06/01/17 22:00 06/07/17 22:01 Colace - PO 300 mg HS [facility] Administration Heparin Sodium (Porcine) 5,000 unit 06/02/17 06:00 06/08/17 13:47 Heparin - SQ 5,000 unit TID [facility] Administration Levetiracetam 500 mg 06/03/17 22:00 06/08/17 10:20 Keppra - PO 500 mg BID [facility] Administration Lisinopril 5 mg 06/07/17 14:15 06/08/17 10:21 Prinivil PO 5 mg DAILY [facility] Administration Pantoprazole Sodium 40 mg 06/04/17 10:00 06/08/17 10:19 Protonix Packets For Oral Suspension - PO 40 mg DAILY [facility] Administration Piperacillin/Tazobactam/Dextrose 2.25 gm 06/08/17 16:00 Zosyn 2.25gm Ivpb (Premix) IVPB 06/08/17 16:01 ONCE ONE Prednisone 40 mg 06/08/17 10:00 06/08/17 10:19 Deltasone - PO 40 mg DAILY [facility] Administration Senna 2 tab 06/02/17 10:00 06/08/17 10:19 Senna - PO 2 tab DAILY [facility] Administration ASSESSMENT/PLAN: 72M with PMH of Meningioma, CVA (with residual Right sided weakness), htn, hld, CAD, GERD, presents with fever and CXR suggestive of asp pna, admitted for sepsis. # sepsis 2/2 asp pna vs HAP - Day 7 IV Zosyn, last dose today - ID (Dr. Osorio) recs appreciated: can transition to po abx after 7 days of IV. - Pulmonary (Dr. Lundberg) recs appreciated: O2 prn, Duonebs, Albuterol, Prednisone (taper to 40mg today) - leukocytosis likely 2/2 steroids - aspiration precautions # new onset DM - hgba1c 6.9, was 6.2 in 05/2016 - Pt educated on importance of dietary changes. Pt verbalized understanding. Will give pt a chance to make lifestyle changes before starting medication. - Dietary Consult # JESS - likely 2/2 dehydration - resolved - avoid nephrotoxic agents # meningioma - known, neurosurgery scheduled on 06/30/[address] Alvin Worthington, neurosurgeon affiliated with [facility] ([phone]) - continue home med of Keppra for seizure prevention # htn - continue Lisinopril # hypernatremia - likely 2/2 poor po intake / dehydration - resolved - IVFs D/Jeremy - consider PEG placement for adequate nutrition and fluids prior to neurosurgery. Daughter agreeable. # FEN - Fluids: po - Electrolytes: hypernatremia noted, continue to monitor - Nutrition: dysphagia chopped with 1-2 soft items with meals and thin liquids per Speech Therapy, ProSource 30ml BID # Prophylaxis - DVT ppx with Heparin - GI ppx with Protonix - deconditioning ppx with PT, encourage OOB # Dispo - pending authorization for discharge back to [facility] Visit type - Emergency Visit Emergency Visit: Yes ED Registration Date: 06/01/17 Care time: The patient presented to the Emergency Department on the above date and was hospitalized for further evaluation of their emergent condition. - New Patient This patient is new to me today: No - Critical Care Critical Care patient: No
--- NOTE | 2017-06-08 17:59 | PN ---
Progress Note, Physician History of Present Illness: patient stable doing well looks much better - Current Medication List Current Medications: Active Medications Albuterol Sulfate (Ventolin 0.083% Nebulizer Soln -) 1 amp NEB Q4H PRN PRN Reason: SHORT OF BREATH/WHEEZING Albuterol/Ipratropium (Duoneb -) 1 amp NEB RQID [facility] Last Admin: 06/08/17 16:30 Dose: 1 amp Amino Acids (Prosource No Carb Liquid Pkt) 30 ml PO BID@0800,1730 [facility] Last Admin: 06/08/17 17:04 Dose: 30 ml Atorvastatin Calcium (Lipitor -) 10 mg PO HS [facility] Last Admin: 06/07/17 22:00 Dose: 10 mg Docusate Sodium (Colace -) 300 mg PO HS [facility] Last Admin: 06/07/17 22:01 Dose: 300 mg Heparin Sodium (Porcine) (Heparin -) 5,000 unit SQ TID [facility] Last Admin: 06/08/17 13:47 Dose: 5,000 unit Levetiracetam (Keppra -) 500 mg PO BID [facility] Last Admin: 06/08/17 10:20 Dose: 500 mg Lisinopril (Prinivil) 5 mg PO DAILY [facility] Last Admin: 06/08/17 10:21 Dose: 5 mg Pantoprazole Sodium (Protonix Packets For Oral Suspension -) 40 mg PO DAILY [facility] Last Admin: 06/08/17 10:19 Dose: 40 mg Prednisone (Deltasone -) 40 mg PO DAILY [facility] Last Admin: 06/08/17 10:19 Dose: 40 mg Senna (Senna -) 2 tab PO DAILY [facility] Last Admin: 06/08/17 10:19 Dose: 2 tab - Objective Vital Signs: Vital Signs Temperature 99.0 F 06/08/17 14:00 Pulse Rate 101 H 06/08/17 14:00 Respiratory Rate 22 06/08/17 10:00 Blood Pressure 123/84 06/08/17 14:00 O2 Sat by Pulse Oximetry (%) 93 L 06/08/17 09:00 Constitutional: Yes: No Distress, Calm Cardiovascular: Yes: Regular Rate and Rhythm Respiratory: Yes: Regular, Poor Air Entry Gastrointestinal: Yes: Normal Bowel Sounds, Soft Musculoskeletal: Yes: WNL Extremities: Yes: WNL Neurological: Yes: Alert, Oriented Psychiatric: Yes: Alert, Oriented Labs: CBC, BMP 06/08/17 05:42 06/08/17 05:42 INR, PTT INR 1.37 (0.82-1.09) H 06/01/17 17:10 Assessment/Plan patient probably has aspiration pneumonia Problem List - Problems (1) Pneumonia Code(s): J18.9 - PNEUMONIA, UNSPECIFIED ORGANISM (2) Sepsis Code(s): A41.9 - SEPSIS, UNSPECIFIED ORGANISM Qualifiers: Sepsis type: sepsis due to unspecified organism Qualified Code(s): A41.9 - Sepsis, unspecified organism (3) Brain tumor Code(s): D49.6 - NEOPLASM OF UNSPECIFIED BEHAVIOR OF BRAIN (4) HTN (hypertension) Code(s): I10 - ESSENTIAL (PRIMARY) HYPERTENSION Qualifiers: Hypertension type: essential hypertension Qualified Code(s): I10 - Essential (primary) hypertension (5) CVA (cerebral vascular accident) Code(s): I63.9 - CEREBRAL INFARCTION, UNSPECIFIED Qualifiers: CVA mechanism: unspecified Qualified Code(s): I63.9 - Cerebral infarction, unspecified (6) Hgyuc-la-usrkcrl kidney injury Code(s): N17.9 - ACUTE KIDNEY FAILURE, UNSPECIFIED; N18.9 - CHRONIC KIDNEY DISEASE, UNSPECIFIED (7) Hypernatremia Code(s): E87.0 - HYPEROSMOLALITY AND HYPERNATREMIA (8) Respiratory distress Code(s): R06.03 - ACUTE RESPIRATORY DISTRESS plan will change abx to clinda to continue for another 5 days
[2017-06-08] MEDS ORDERED: CLINDAMYCIN HCL 300 MG CAPSULE PO SCH (18:00)
[2017-06-08] MEDS: DOCUSATE SODIUM 100 MG CAPSULE (FP) PO SCH (22:42)
[2017-06-08] MEDS: ATORVASTATIN CA 10 MG TABLET (FP) PO SCH (22:42)
[2017-06-09] MEDS: CLINDAMYCIN HCL 150 MG CAPSULE (FP) PO SCH ×3 (00:20→13:42)
[2017-06-09] MEDS: HEPARIN NA (PORCINE) 5,000 UNITS/ML 1ML VIAL SQ SCH ×2 (06:45→15:45)
[2017-06-09] MEDS: ALBUTEROL SO4 2.5/IPRATROPIUM 0.5 INH SOL 3 ML VIAL.NEB. NEB SCH ×3 (08:00→16:10)
[2017-06-09 09:08] LABS: HEMATOCRIT 26.7 % (35.4-49); HEMOGLOBIN 8.4 GM/dL (11.7-16.9); MCH 27.3 pg (25.7-33.7); MCHC 31.7 g/dl (32.0-35.9); MEAN CELL VOLUME 86.3 fl (80-96); MEAN PLT VOLUME 7.4 fl (7.5-11.1); PLATELET COUNT 356 K/MM3 (134-434); RBC 3.09 M/mm3 (4.00-5.60); RDW 18.1 % (11.9-15.9); WHITE BLOOD COUNT 20.5 K/mm3 (4.0-10.0)
[2017-06-09 09:36] LABS: ANION GAP 7 (8-16); BLOOD UREA NITROGEN 25 mg/dL (7-18); CALCIUM 8.6 mg/dL (8.5-10.1); CHLORIDE 107 mmol/L (98-107); CO2 27 mmol/L (21-32); GLUCOSE,RANDOM 101 mg/dL (74-106); POTASSIUM 3.9 mmol/L (3.5-5.1); SODIUM 141 mmol/L (136-145)
[2017-06-09] MEDS: SENNOSIDES 8.6MG TABLET (FP) PO SCH (10:48)
[2017-06-09] MEDS: PANTOPRAZOLE SOD 40 MG SUSPENSION PACKET PO SCH (10:48)
[2017-06-09] MEDS: LISINOPRIL 5 MG TABLET (FP) PO SCH (10:48)
[2017-06-09] MEDS: levETIRAcetam 500 MG TABLET (FP) PO SCH (10:48)
[2017-06-09] MEDS: AMINO ACIDS/PROTEIN HYDROLYS 30 ML LIQUID.PKT PO SCH (10:48)
[2017-06-09] MEDS: predniSONE 20 MG TABLET (UD) PO SCH (10:48)
--- NOTE | 2017-06-09 11:53 | PN ---
Progress Note, FISH TRAPPER - Note Progress Note: Selected Entries 06/08/17 06/08/17 06/08/17 02:59 10:00 14:00 Breakfast Temperature 97.7 F 98.4 F 99.0 F 06/08/17 06/08/17 06/09/17 17:00 22:00 02:00 Breakfast Temperature 99.1 F 98.2 F 98.3 F 06/09/17 11:07 Breakfast 100% Temperature Laboratory Tests 06/07/17 06/08/17 06/09/17 06:50 05:42 09:01 WBC 21.3 H 23.2 H 20.5 H Tolerating chopped diet weith 1-2 soft items and thin liquid. No overt signs of aspiration and good appetite.
--- NOTE | 2017-06-09 12:56 | PN ---
Progress Note, Physician History of Present Illness: patient looks stable no complaints wbc still high - Current Medication List Current Medications: Active Medications Albuterol Sulfate (Ventolin 0.083% Nebulizer Soln -) 1 amp NEB Q4H PRN PRN Reason: SHORT OF BREATH/WHEEZING Albuterol/Ipratropium (Duoneb -) 1 amp NEB RQID [facility] Last Admin: 06/09/17 08:00 Dose: 1 amp Amino Acids (Prosource No Carb Liquid Pkt) 30 ml PO BID@0800,1730 [facility] Last Admin: 06/09/17 10:48 Dose: 30 ml Atorvastatin Calcium (Lipitor -) 10 mg PO HS [facility] Last Admin: 06/08/17 22:42 Dose: 10 mg Clindamycin HCl (Cleocin -) 300 mg PO Q6HPO [facility] Last Admin: 06/09/17 06:44 Dose: 300 mg Docusate Sodium (Colace -) 300 mg PO HS [facility] Last Admin: 06/08/17 22:42 Dose: 300 mg Heparin Sodium (Porcine) (Heparin -) 5,000 unit SQ TID [facility] Last Admin: 06/09/17 06:45 Dose: 5,000 unit Levetiracetam (Keppra -) 500 mg PO BID [facility] Last Admin: 06/09/17 10:48 Dose: 500 mg Lisinopril (Prinivil) 5 mg PO DAILY [facility] Last Admin: 06/09/17 10:48 Dose: 5 mg Pantoprazole Sodium (Protonix Packets For Oral Suspension -) 40 mg PO DAILY [facility] Last Admin: 06/09/17 10:48 Dose: 40 mg Prednisone (Deltasone -) 40 mg PO DAILY [facility] Last Admin: 06/09/17 10:48 Dose: 40 mg Senna (Senna -) 2 tab PO DAILY [facility] Last Admin: 06/09/17 10:48 Dose: 2 tab - Objective Vital Signs: Vital Signs Temperature 98.3 F 06/09/17 02:00 Pulse Rate 68 06/09/17 08:00 Respiratory Rate 20 06/09/17 06:00 Blood Pressure 147/93 06/09/17 06:00 O2 Sat by Pulse Oximetry (%) 100 06/09/17 08:00 Constitutional: Yes: No Distress, Calm Cardiovascular: Yes: Regular Rate and Rhythm Respiratory: Yes: Regular, CTA Bilaterally Gastrointestinal: Yes: Normal Bowel Sounds, Soft Musculoskeletal: Yes: WNL Extremities: Yes: WNL Neurological: Yes: Alert, Oriented Psychiatric: Yes: Alert, Oriented Labs: CBC, BMP 06/09/17 09:01 06/09/17 09:01 INR, PTT INR 1.37 (0.82-1.09) H 06/01/17 17:10 Assessment/Plan patient probably has aspiration pneumonia Problem List - Problems (1) Pneumonia Code(s): J18.9 - PNEUMONIA, UNSPECIFIED ORGANISM (2) Sepsis Code(s): A41.9 - SEPSIS, UNSPECIFIED ORGANISM Qualifiers: Sepsis type: sepsis due to unspecified organism Qualified Code(s): A41.9 - Sepsis, unspecified organism (3) Brain tumor Code(s): D49.6 - NEOPLASM OF UNSPECIFIED BEHAVIOR OF BRAIN (4) HTN (hypertension) Code(s): I10 - ESSENTIAL (PRIMARY) HYPERTENSION Qualifiers: Hypertension type: essential hypertension Qualified Code(s): I10 - Essential (primary) hypertension (5) CVA (cerebral vascular accident) Code(s): I63.9 - CEREBRAL INFARCTION, UNSPECIFIED Qualifiers: CVA mechanism: unspecified Qualified Code(s): I63.9 - Cerebral infarction, unspecified (6) [id number] kidney injury Code(s): N17.9 - ACUTE KIDNEY FAILURE, UNSPECIFIED; N18.9 - CHRONIC KIDNEY DISEASE, UNSPECIFIED (7) Hypernatremia Code(s): E87.0 - HYPEROSMOLALITY AND HYPERNATREMIA (8) Respiratory distress Code(s): R06.03 - ACUTE RESPIRATORY DISTRESS plan abx changed from clinda to augmentin continue augmentin for another week incentive lata rest as per primary team
[2017-06-09] MEDS ORDERED: AMOX TR/POT CLAV 500MG/125MG TABLETS (FP) PO SCH (13:30)
--- NOTE | 2017-06-09 14:36 | PN ---
Progress Note (short form) - Note Progress Note: PULMONARY Denies shortness of breath or chest pain. No significant cough. No fevers or chills. Last Vital Signs Temp Pulse Resp BP Pulse Ox 98.1 F 68 20 148/91 98 06/09/17 10:00 06/09/17 10:00 06/09/17 10:00 06/09/17 10:00 06/09/17 10:00 Gen: NAD in chair Heart: RRR Lung: decreased breath sounds at the bases Abd: soft, nontender Ext: no edema CBC, BMP 06/09/17 09:01 06/09/17 09:01 Active Medications Albuterol Sulfate (Ventolin 0.083% Nebulizer Soln -) 1 amp NEB Q4H PRN PRN Reason: SHORT OF BREATH/WHEEZING Albuterol/Ipratropium (Duoneb -) 1 amp NEB RQID [facility] Last Admin: 06/09/17 08:00 Dose: 1 amp Amino Acids (Prosource No Carb Liquid Pkt) 30 ml PO BID@0800,1730 [facility] Last Admin: 06/09/17 10:48 Dose: 30 ml Amoxicillin/Clavulanate Potassium (Augmentin - 500mg Tablet) 1 tab PO BID@0800, 1730 [facility] Atorvastatin Calcium (Lipitor -) 10 mg PO HS [facility] Last Admin: 06/08/17 22:42 Dose: 10 mg Docusate Sodium (Colace -) 300 mg PO HS [facility] Last Admin: 06/08/17 22:42 Dose: 300 mg Heparin Sodium (Porcine) (Heparin -) 5,000 unit SQ TID [facility] Last Admin: 06/09/17 06:45 Dose: 5,000 unit Levetiracetam (Keppra -) 500 mg PO BID [facility] Last Admin: 06/09/17 10:48 Dose: 500 mg Lisinopril (Prinivil) 5 mg PO DAILY [facility] Last Admin: 06/09/17 10:48 Dose: 5 mg Pantoprazole Sodium (Protonix Packets For Oral Suspension -) 40 mg PO DAILY [facility] Last Admin: 06/09/17 10:48 Dose: 40 mg Prednisone (Deltasone -) 40 mg PO DAILY [facility] Last Admin: 06/09/17 10:48 Dose: 40 mg Senna (Senna -) 2 tab PO DAILY [facility] Last Admin: 06/09/17 10:48 Dose: 2 tab A/P Pneumonia Acute on Chronic Renal Failure improving HTN Hyperlipidemia - prednisone taper - antibiotics per ID - inhaled bronchodilators - O2 to keep Spo2 >90% - DVT prophylaxis
[2017-06-09 14:44] VITALS: BP 127/79; PULSE 82; TEMP 98.2
--- NOTE | 2017-06-09 16:07 | DS ---
Physical Exam: SUBJECTIVE: Patient seen and examined. Pt is clinically improved. Pt denies chest pain, sob, abdominal pain, fever, chills. No events overnight. OBJECTIVE: Vital Signs Period Temp Pulse Resp BP Sys/Chin Pulse Ox Last 24 Hr 98.1 F-99.1 F 68-84 20-20 120-148/77-93 96-100 PHYSICAL EXAM GENERAL: AAOx3, NAD. LUNGS: CTAB. HEART: RRR, S1, S2 without murmur, rub or gallop. ABDOMEN: Soft, nontender, nondistended, no guarding. EXTREMITIES: Warm, well-perfused, no edema. PSYCH: Normal mood, normal affect. SKIN: Warm, dry, normal turgor, no rashes or lesions noted LABS Laboratory Results - last 24 hr 06/09/17 06/09/17 09:01 09:01 WBC 20.5 H RBC 3.09 L Hgb 8.4 L Hct 26.7 L MCV 86.3 MCH 27.3 MCHC 31.7 L RDW 18.1 H Plt Count 356 MPV 7.4 L D Sodium 141 Potassium 3.9 Chloride 107 Carbon Dioxide 27 Anion Gap 7 L BUN 25 H Creatinine 1.0 Random Glucose 101 Calcium 8.6 HOSPITAL COURSE: Date of Admission:06/01/17 Date of Discharge: 06/09/17 72M with PMH of Meningioma, CVA (with residual Right sided weakness), htn, hld, CAD, GERD, presents with fever and CXR suggestive of asp pna, admitted for sepsis. Pt completed a course of IV antibiotics. Leukocytosis likely 2/2 steroids. Aspiration precautions maintained. Pt found to have newly diagnosed diabetes and received diet education from physicians and Registered Dietitian. Pt presented with JESS and hypernatremia, both likely 2/2 dehydration, both conditions are resolved. Pt has known meningioma with neurosurgery scheduled on 06/30/[address] Alvin Worthington affiliated with [facility] ([phone]). 06/01/17 CXR -> probably small Right basilar infiltrate and/or small Right pleural effusion 06/02/17 CXR -> no evidence of pulmonary infiltrates, CHF, PTX, or large pleural effusion 06/03/[address] -> kevin subpleural opacity within mid and lower posterior chest, which may be atelectasis and/or infiltrates. Very small Right pleural effusion. 2.3 cm Right upper lobe subpleural opacity probably localized atelectasis or small infiltrate vs (less likely) neoplastic. Rec f/u CT in 6 weeks. Microbiology 06/02/17 12:00 Nasopharyngeal Swab Respiratory Virus (PCR) - Final 06/01/17 16:16 Blood - Peripheral Venous Blood Culture - Final NO GROWTH AFTER 5 DAYS INCUBATION 06/01/17 17:10 Blood - Peripheral Venous Blood Culture - Final NO GROWTH AFTER 5 DAYS INCUBATION 06/03/17 03:00 Sputum - Expectorated Gram Stain - Final 06/03/17 03:00 Sputum - Expectorated Sputum Culture - Final NORMAL RESPIRATORY FRAN 06/01/17 17:10 Urine - Urine Rice Urine Culture - Final NO GROWTH OBTAINED 06/02/17 01:00 Urine For Antigen Detection Legionella Antigen - Final 06/02/17 01:00 Urine For Antigen Detection Streptococcus pneumoniae Antigen (M - Final 06/02/17 01:00 Urine For Antigen Detection Legionella Antigen - Final 06/02/17 01:00 Urine For Antigen Detection Streptococcus pneumoniae Antigen (M - Final 06/01/17 17:10 Nasopharyngeal Swab Influenza Types A,B Antigen (SADIQ) - Final 06/01/17 17:10 Nasopharyngeal Swab - Final Pt walked 5 ft with PT. Pt will benefit from SNF. Pt stable for discharge to SNF. Minutes to complete discharge: 35 Discharge Summary Reason For Visit: SEVERE SEPSIS Current Active Problems JESS (acute kidney injury) (Acute) Hypernatremia (Acute) Leukocytosis (Acute) Pneumonia (Acute) Respiratory distress (Acute) Sepsis (Acute) Brain tumor (Chronic) HLD (hyperlipidemia) (Chronic) HTN (hypertension) (Chronic) Status post total knee replacement, right (Chronic) Condition: Improved - Instructions Diet, Activity, Other Instructions: You were treated for pneumonia caused by aspiration. You received a course of IV antibiotics. Changes to your medications: - Antibiotic: Augmentin twice a day for 7 more days - Prednisone (steroid): taper off this medication by taking 40mg on 06/09/17, 30mg on 06/10 and 06/11/17, 20mg on 06/12 and 06/13/17, 10mg on 06/14 and 06/15/17, and you will complete steroid at that time. - Duoneb (breathing treatment) can be up to 4 times a day as needed - stop taking your Metoprolol (blood pressure medication) Please continue taking your other home medications as prescribed. You were diagnosed with diabetes. It is important to start changes to your diet to prevent the need for diabetic medications. Please continue to eat a diabetic diet that is chopped consistency with thin liquids. Follow-ups: - with your Primary Care Doctor (Dr. Urban) in 1 week. You should have your A1c (diabetic number) repeated in 3 months to determine if you will need to start diabetic medications. - get a Chest CT in 6 weeks to follow up a Right upper lung opacity Please return to the hospital immediately if you experience persistent or increased difficulty breathing, chest pain, or for any medical emergency. Referrals: Tex Urban MD [Primary Care Provider] - Disposition: [facility] - Home Medications Comprehensive Discharge Medication List: Ambulatory Orders Aa/Hydrolyzed Collagen, Whey [Lps 15-30 Liquid] 30 ml PO BID 06/01/17 Atorvastatin Ca [Lipitor] 10 mg PO HS 06/01/17 Docusate Sodium [Colace] 300 mg PO HS 06/01/17 Levetiracetam 500 mg PO BID 06/01/17 Lisinopril 5 mg PO DAILY 06/01/17 Omeprazole Magnesium [Prilosec] 10 mg PO HS 06/01/17 Sennosides [Senna] 2 tab PO DAILY 06/01/17 Acetaminophen [Tylenol] 650 mg PO QID PRN #100 tab 06/08/17 Albuterol 2.5/Ipratropium 0.5 [Duoneb -] 1 amp NEB RQID #1 amp 06/08/17 Prednisone See Taper PO ASDIR #16 tablet 06/08/17 Amox-Tr/K Cl [Augmentin - 500Mg Tablet] 1 tab PO BID #14 tab 06/09/17 This patient is new to me today: No Emergency Visit: Yes ED Registration Date: 06/01/17 Care time: The patient presented to the Emergency Department on the above date and was hospitalized for further evaluation of their emergent condition. Critical Care patient: No - Discharge Referral Referred to [facility] Med P.C.: No
--- NOTE | 2017-06-09 16:16 | PN ---
Teaching Attending Note Name of Resident: Loli Callahan ATTENDING PHYSICIAN STATEMENT I saw and evaluated the patient. I reviewed the resident's note and discussed the case with the resident. I agree with the resident's findings and plan as documented. SUBJECTIVE:clinically improved. dneies CP, SOB, fever, chills, cough, N/V/C/D OBJECTIVE: Last Vital Signs Temp Pulse Resp BP Pulse Ox 98.2 F 82 20 127/79 98 06/09/17 14:42 06/09/17 14:42 06/09/17 14:42 06/09/17 14:42 06/09/17 10:00 General NAD A&OX3 ASSESSMENT AND PLAN: 72 year old male with a PMHx of Meningioma, CVA with residual right sided weakness, HTN, HLD, CAD, GERD who was sent from [facility] due to fever 1. Sepsis due to PNA- concern for aspiration vs HCAP with recent hospitalization. afebrile. leukocytosis likely due to steroids. completed zosyn x7 days now on clinda for additional 5 days. steroid taper. MBS done yesterday and upgrade to chopped diet. ID on board. supplemental oxygen to maintain spO2 > 90% 2. Hypernatremia- likley due to poor po intake.resolved. 3. New onset DM- likley due to steroids. educated on importance of dietary changes. will hold starting medications at this time and give chance for patient to make lifestyle adjustments. dietary consult 4. JESS- due to dehydration. resolved. avoid nephrotoxic agents 5. Meningioma- planned surgery next month. cont keppra prophylaxis 6. HTN- improved. cont lisinopril 5mg. 7. DVT ppx- hep sq 8. d/c to [facility] today. was awaiting insurance authorization yesterday which delayed discharge
[2017-06-10] MEDS ORDERED: predniSONE 10 MG TABLET (UD) PO SCH (10:00)
== END 2017-06-09 16:16 | DRG 871 ==
LOC: JER 14:45 → JERBED 18:40 → J4W 06-02 11:12
PROVIDERS: ADMIT Internal Medicine; ATTEND Internal Medicine
DX: A41.9 Sepsis, unspecified organism (principal); J69.0 Pneumonitis due to inhalation of food and vomit; N17.9 Acute kidney failure, unspecified; I69.351 Hemiplegia and hemiparesis following cerebral infarction affecting right dominant side; E87.0 Hyperosmolality and hypernatremia; G40.89 Other seizures; I12.9 Hypertensive chronic kidney disease with stage 1 through stage 4 chronic kidney disease, or unspecified chronic kidney disease; N18.9 Chronic kidney disease, unspecified; E78.5 Hyperlipidemia, unspecified; Z87.891 Personal history of nicotine dependence; I25.10 Atherosclerotic heart disease of native coronary artery without angina pectoris; K21.9 Gastro-esophageal reflux disease without esophagitis; Z96.651 Presence of right artificial knee joint; K59.00 Constipation, unspecified; E86.0 Dehydration; D32.0 Benign neoplasm of cerebral meninges; E87.8 Other disorders of electrolyte and fluid balance, not elsewhere classified; B95.3 Streptococcus pneumoniae as the cause of diseases classified elsewhere; R65.20 Severe sepsis without septic shock; E09.9 Drug or chemical induced diabetes mellitus without complications; T38.0X5A Adverse effect of glucocorticoids and synthetic analogues, initial encounter
CPT/HCPCS: 36415; 36600; 71045-TC; 71250-TC; 74230-TC; 80048; 80053; 81003; 81015; 82550; 82728; 82803; 83036; 83540; 83550; 83605; 83735; 83880; 84100; 84484; 85025; 85027; 85610; 85730; 86738; 87040; 87070; 87086; 87205; 87633; 87804; 87899; 92611-GN; 93005; 93010; 94640; 97116-GP; 97161-GP; 99285-25; J1644

== ENCOUNTER 2017-06-15 10:49 | Observation (INO) | payer BC, OTHER ==
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
--- NOTE | 2017-06-15 11:34 | EKG ---
Test Reason : Blood Pressure : / mmHG Vent. Rate : 094 BPM Atrial Rate : 094 BPM P-R Int : 164 ms QRS Dur : 090 ms QT Int : 352 ms P-R-T Axes : 057 -32 061 degrees QTc Int : 440 ms NORMAL SINUS RHYTHM LEFT AXIS DEVIATION MODERATE VOLTAGE CRITERIA FOR LVH, MAY BE NORMAL VARIANT NONSPECIFIC ST AND T WAVE ABNORMALITY ABNORMAL ECG WHEN COMPARED WITH ECG OF 02-JUN-2017 10:05, QUESTIONABLE CHANGE IN QRS AXIS ST NOW DEPRESSED IN INFERIOR LEADS NONSPECIFIC T WAVE ABNORMALITY, WORSE IN LATERAL LEADS Confirmed by SUKHDEEP ROCHA, DEWAYNE ([id number]) on 06/15/2017 11:34:12 AM Referred By: Confirmed By:DEWAYNE TARANGO MD
[2017-06-15 12:16] LABS: BASO % 0.5 % (0-2.0); EOS % 0.3 % (0-4.5); HEMATOCRIT 30.7 % (35.4-49); HEMOGLOBIN 9.7 GM/dL (11.7-16.9); LYMPH % 7.5 % (8-40); MCH 27.3 pg (25.7-33.7); MCHC 31.6 g/dl (32.0-35.9); MEAN CELL VOLUME 86.6 fl (80-96); MEAN PLT VOLUME 7.2 fl (7.5-11.1); MONO % 7.4 % (3.8-10.2); NEUT % 84.3 % (42.8-82.8); PLATELET COUNT 222 K/MM3 (134-434); RBC 3.55 M/mm3 (4.00-5.60); RDW 19.4 % (11.9-15.9)
[2017-06-15 12:33] LABS: INR 1.06 (0.82-1.09)
[2017-06-15 12:38] LABS: ALBUMIN 2.4 g/dl (3.4-5.0); ANION GAP 7 (8-16); BILIRUBIN,TOTAL 0.4 mg/dL (0.2-1.0); BLOOD UREA NITROGEN 17 mg/dL (7-18); CHLORIDE 100 mmol/L (98-107); CO2 30 mmol/L (21-32); CREATININE 1.1 mg/dL (0.7-1.3); GLUCOSE,RANDOM 120 mg/dL (74-106); POTASSIUM 4.2 mmol/L (3.5-5.1); SGOT/AST 71 U/L (15-37); SGPT/ALT 205 U/L (12-78); SODIUM 137 mmol/L (136-145); TOT PROT 6.8 g/dl (6.4-8.2)
[2017-06-15 12:41] LABS: ALK PHOS 267 U/L (45-117)
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
[2017-06-15] MEDS ORDERED: ALBUTEROL SO4 2.5/IPRATROPIUM 0.5 INH SOL 3 ML VIAL.NEB. NEB PRN (17:23)
[2017-06-15] MEDS ORDERED: SODIUM CHLORIDE 1,000 ML IV SCH (17:30)
[2017-06-15] MEDS ORDERED: OSELTAMIVIR PHOSPHATE 75 MG CAPSULE ONE (18:37)
[2017-06-15] MEDS: OSELTAMIVIR PHOSPHATE 75 MG CAPSULE PO SCH (18:39)
[2017-06-15] MEDS: PANTOPRAZOLE 40 MG TABLET (FP) PO SCH (22:31)
[2017-06-15] MEDS: levETIRAcetam 500 MG TABLET (FP) PO SCH (22:31)
[2017-06-15] MEDS: ATORVASTATIN CA 10 MG TABLET (FP) PO SCH (22:31)
[2017-06-15] MEDS: DOCUSATE SODIUM 100 MG CAPSULE (FP) PO SCH (22:31)
[2017-06-15] MEDS: HEPARIN NA (PORCINE) 5,000 UNITS/ML 1ML VIAL SQ SCH (22:32)
[2017-06-15] MEDS: DEXTROSE 5%-0.45% SALINE 1,000 ML IV SCH (22:36)
[2017-06-16 01:06] VITALS: BMI 24.6
[2017-06-16] MEDS: HEPARIN NA (PORCINE) 5,000 UNITS/ML 1ML VIAL SQ SCH ×3 (06:29→21:34)
[2017-06-16 06:50] LABS: BASO % 0.2 % (0-2.0); EOS % 0.3 % (0-4.5); HEMATOCRIT 27.8 % (35.4-49); HEMOGLOBIN 8.9 GM/dL (11.7-16.9); LYMPH % 6.5 % (8-40); MCH 27.8 pg (25.7-33.7); MCHC 32.1 g/dl (32.0-35.9); MEAN CELL VOLUME 86.6 fl (80-96); MEAN PLT VOLUME 8.1 fl (7.5-11.1); MONO % 8.2 % (3.8-10.2); NEUT % 84.8 % (42.8-82.8); PLATELET COUNT 246 K/MM3 (134-434); RBC 3.21 M/mm3 (4.00-5.60); WHITE BLOOD COUNT 16.8 K/mm3 (4.0-10.0)
[2017-06-16 07:05] LABS: ALBUMIN 2.2 g/dl (3.4-5.0); ANION GAP 9 (8-16); BLOOD UREA NITROGEN 13 mg/dL (7-18); CALCIUM 8.2 mg/dL (8.5-10.1); CHLORIDE 100 mmol/L (98-107); CO2 29 mmol/L (21-32); GLUCOSE,RANDOM 87 mg/dL (74-106); PHOSPHOROUS 3.3 mg/dL (2.5-4.9); POTASSIUM 4.2 mmol/L (3.5-5.1); SGOT/AST 38 U/L (15-37); SGPT/ALT 181 U/L (12-78); SODIUM 138 mmol/L (136-145)
[2017-06-16 07:06] LABS: ALK PHOS 237 U/L (45-117); BILIRUBIN,TOTAL 0.7 mg/dL (0.2-1.0); TOT PROT 6.1 g/dl (6.4-8.2)
--- NOTE | 2017-06-16 08:37 | PN ---
Physical Exam: SUBJECTIVE: Patient seen and examined by me this AM - No major overnight events. Selectively non-verbal with interviewer. Denies NAGEL/ dizziness, fever/chills, SOB, SINGH, N/V, abdominal pain, LE edema. Gestures to R parasternal region when asked to described pain location. Denies current pain. Denies radiation. OBJECTIVE: Vital Signs Intake & Output 06/13/17 06/14/17 06/15/17 06/16/17 23:59 23:59 23:59 23:59 Intake Total 0 0 Balance 0 0 Weight 75.75 kg Period Temp Pulse Resp BP Sys/Chin Pulse Ox Last 24 Hr 97.8 F-98.2 F 79-102 18-20 116-170/68-79 96-100 GENERAL: The patient is awake, alert, and fully oriented, in no acute distress. HEAD: Normal with no signs of trauma. EYES: PERRL, extraocular movements intact, sclera anicteric, conjunctiva clear. No ptosis. ENT: Ears normal, nares patent, oropharynx clear without exudates, moist mucous membranes. NECK: Trachea midline, full range of motion, supple. LUNGS: Poor effort. Decreased air movement BL. Trace bibasilar rales. HEART: Regular rate and rhythm, S1, S2 without murmur, rub or gallop. ABDOMEN: Soft, nontender, nondistended, normoactive bowel sounds, no guarding, no rebound, no hepatosplenomegaly, no masses. negative garza's. EXTREMITIES: 2+ pulses, warm, well-perfused, no edema. NEUROLOGICAL: Cranial nerves II through XII grossly intact. Nonverbal. 4+/5 strength in R hand. 5/5 strength in all other muscle groups. R sided hemiparesis in R extremities PSYCH: Normal mood, normal affect. SKIN: Warm, dry, normal turgor, no rashes or lesions noted Laboratory Results - last 24 hr CBC, BMP 06/16/17 05:35 06/16/17 05:35 06/15/17 06/15/17 06/15/17 12:05 12:05 12:05 WBC 19.0 H RBC 3.55 L Hgb 9.7 L D Hct 30.7 L MCV 86.6 MCH 27.3 MCHC 31.6 L RDW 19.4 H Plt Count 222 D MPV 7.2 L Neutrophils % 84.3 H Lymphocytes % 7.5 L D Monocytes % 7.4 D Eosinophils % 0.3 D Basophils % 0.5 PT with INR 12.00 H INR 1.06 Sodium 137 Potassium 4.2 Chloride 100 Carbon Dioxide 30 Anion Gap 7 L BUN 17 D Creatinine 1.1 Creat Clearance w eGFR > 60 POC Glucometer Random Glucose 120 H Calcium 9.0 Phosphorus Magnesium Total Bilirubin 0.4 AST 71 H D ALT 205 H D Alkaline Phosphatase 267 H D Creatine Kinase 19 L Troponin I < 0.02 Total Protein 6.8 Albumin 2.4 L D 06/15/17 06/16/17 06/16/17 20:45 05:35 05:35 WBC 16.8 H RBC 3.21 L Hgb 8.9 L Hct 27.8 L MCV 86.6 MCH 27.8 MCHC 32.1 RDW 20.0 H Plt Count 246 MPV 8.1 D Neutrophils % 84.8 H Lymphocytes % 6.5 L Monocytes % 8.2 Eosinophils % 0.3 Basophils % 0.2 PT with INR INR Sodium 138 Potassium 4.2 Chloride 100 Carbon Dioxide 29 Anion Gap 9 BUN 13 D Creatinine 1.0 Creat Clearance w eGFR > 60 POC Glucometer Random Glucose 87 D Calcium 8.2 L Phosphorus 3.3 D Magnesium 2.0 Total Bilirubin 0.7 D AST 38 H D ALT 181 H Alkaline Phosphatase 237 H Creatine Kinase Troponin I < 0.02 Total Protein 6.1 L Albumin 2.2 L 06/16/17 06:27 WBC RBC Hgb Hct MCV MCH MCHC RDW Plt Count MPV Neutrophils % Lymphocytes % Monocytes % Eosinophils % Basophils % PT with INR INR Sodium Potassium Chloride Carbon Dioxide Anion Gap BUN Creatinine Creat Clearance w eGFR POC Glucometer 89 Random Glucose Calcium Phosphorus Magnesium Total Bilirubin AST ALT Alkaline Phosphatase Creatine Kinase Troponin I Total Protein Albumin Active Medications Generic Name Dose Route Start Last Admin Trade Name Freq PRN Reason Stop Dose Admin Albuterol/Ipratropium 1 amp 06/15/17 17:23 Duoneb - NEB QID PRN BREATHING Atorvastatin Calcium 10 mg 06/15/17 22:00 06/15/17 22:31 Lipitor - PO 10 mg HS ESAU Administration Docusate Sodium 300 mg 06/15/17 22:00 06/15/17 22:31 Colace - PO 300 mg HS ESAU Administration Heparin Sodium (Porcine) 5,000 unit 06/15/17 22:00 06/16/17 06:29 Heparin - SQ 5,000 unit TID ESAU Administration Dextrose/Sodium Chloride 1,000 mls @ 75 mls/hr 06/15/17 17:30 06/15/17 22:36 D5-1/2ns - IV Not Given ASDIR ESAU Levetiracetam 500 mg 06/15/17 22:00 06/15/17 22:31 Keppra - PO 500 mg BID ESAU Administration Lisinopril 5 mg 06/16/17 10:00 Prinivil PO DAILY ESAU Oseltamivir Phosphate 75 mg 06/15/17 17:30 06/15/17 18:39 Tamiflu - PO 06/20/17 17:29 75 mg DAILY ESAU Administration Pantoprazole Sodium 40 mg 06/15/17 17:15 06/15/17 22:31 Protonix - PO 40 mg DAILY ESAU Administration Prednisone 10 mg 06/16/17 10:00 Deltasone - PO DAILY ESAU Senna 2 tab 06/16/17 10:00 Senna - PO DAILY ESAU No micro pending CXR 06/15: Interval better aeration of the lung with residual minimal atelectatic changes in the right lung base. However, correlation with CT scan of the chest would be more sensitive for comparison to prior CT scan of the chest dated 06/03/2017 RUQ U/S 06/15 - 1. Contracted gallbladder with sludge. No evidence of cholelithiasis. No definite evidence of acute cholecystitis. Prominent gallbladder wall measuring 4-5 mm in thickness may be secondary to contracted gallbladder. 2. Mild dilatation of the proximal common bile duct measuring 9 mm in diameter is similar to the CT, allowing for differences between modalities. No evidence of intrahepatic ductal dilatation. Please correlate with biliary markers. CT abdomen 06/16 - IMPRESSION: 1. Copious stool throughout the colon. Please correlate for constipation. No evidence of bowel obstruction. No definite bowel wall thickening to suggest active enterocolitis. 2. Gallbladder sludge and/or cholelithiasis. No CT evidence of acute cholecystitis. Borderline mild common bile duct dilatation measuring 8-9 mm is unchanged from 05/22/2017 CT. 3. No obstructive uropathy. No urinary tract calculi. 4. Subsegmental opacities in both lung bases (right more than left), may be atelectasis, however, pneumonia cannot be excluded. Please correlate clinically. Echo 06/06 - Normal LV function, EF 74, Mild TR/AR EKG 06/15 - NSR, NAD, rate 94, borderline LVH, No ST or TW changes No events on tele ASSESSMENT/PLAN: 72 yo man w/ pmh of HTN, HLD, CAD (S/P [place]), Aspiration PNA, CVA w/ residual hemiparesis and GERD, admitted for atypical chest pain and elevated LFTs. #Transaminitis - LFTs downtrending (see above); RUQ U/S w/ thickened GB w/ sludge, mild dilatation of proximal CBD; CT abdomen w/ sludge/stones in GB, copious stool - Daily CMPs - unable to obtain MRCP given metal instrumentation from prior spine surgery - f/u as outpt, as pt likely discharge to [place] tomorrow pending PT clearance #Atypical chest pain -Trops neg x2, EKG w/ no ischemic changes - per cardiology, likely non-cardiac - cardiac monitoring #Severe constipation/fecal retension - Ct confirmed - Senna, colace - Mineral oil enema - Miralax PO #Recurrent aspiration PNA - Finished last dose of prednisone today -Complete prior augmentin course yesterday - f/u flu swab; d/c tamiflu - duonebs PRN #HTN - c/w home kylie-i #CAD - c/w home statin #Meningioma - plan resection in jun? - keppra for seizure ppx - outpt f/u w/ neurosurgery #HLD - c/w home statin #GERD PPI PPX PPI HSQ FEN PO hydration Daily BMPs Chopped/thin liquids w/ aspiration precautions Plan discussed with attending, Dr. Sirena Broderick, PGY1 Visit type - Emergency Visit Emergency Visit: Yes ED Registration Date: 06/15/17 Care time: The patient presented to the Emergency Department on the above date and was hospitalized for further evaluation of their emergent condition. - New Patient This patient is new to me today: Yes Date on this admission: 06/17/17 - Critical Care Critical Care patient: No
[2017-06-16] MEDS ORDERED: predniSONE 10 MG TABLET (UD) PO SCH (10:00)
[2017-06-16] MEDS: SENNOSIDES 8.6MG TABLET (FP) PO SCH (10:15)
[2017-06-16] MEDS: LISINOPRIL 5 MG TABLET (FP) PO SCH (10:15)
[2017-06-16] MEDS: levETIRAcetam 500 MG TABLET (FP) PO SCH ×2 (10:15→21:34)
[2017-06-16] MEDS: PANTOPRAZOLE 40 MG TABLET (FP) PO SCH (10:16)
[2017-06-16] MEDS: DEXTROSE 5%-0.45% SALINE 1,000 ML IV SCH (10:16)
[2017-06-16] MEDS ORDERED: PT OWN MED DRAWER 7, Y5N ONE (10:17)
[2017-06-16 10:36] LABS: URINE APPEARANCE CLEAR; URINE BILIRUBIN NEGATIVE (NEGATIVE); URINE BLOOD NEGATIVE (NEGATIVE); URINE COLOR LTYELLOW; URINE GLUCOSE (UA) NEGATIVE (NEGATIVE); URINE KETONE NEGATIVE (NEGATIVE); URINE LEUK ESTERASE NEGATIVE (NEGATIVE); URINE NITRITE NEGATIVE (NEGATIVE); URINE PROTEIN NEGATIVE (NEGATIVE); URINE UROBILINOGEN NEGATIVE mg/dL (0.2-1.0)
[2017-06-16] MEDS: OSELTAMIVIR PHOSPHATE 75 MG CAPSULE PO SCH (11:27)
--- NOTE | 2017-06-16 15:13 | CON.CARD ---
Consult Consult Specialty:: Cardiology Reason for Consultation:: Chest pain - History of Present Illness Chief Complaint: Chest pain History of Present Illness: This is a 72 year old male NHR, PMH of HTN, HLD, CAD s/p [place], recurrent aspiration pneumonia, meningioma, CVA with residual right-sided weakness, seizure disorder, and GERD. He presents with an episode of chest pain. He described to me atypical symptoms. The pain occurred while sitting, it was non radiating and was relieved after he "passed gas." Presently CP free. EKG NSR at 94 bpm with LVH, LAD, and NSSTTW changes. Echocardiogram 06/16/17 Normal LV size and function Normal RV size and function Mild TR Mild AI Troponin negative x 2 - Past Medical History DISTILLER: Yes: CVA, Seizure (Possible seizure due to neoplasm), Other (Suspect enlarging menigioma) Cardio/Vascular: Yes: Aneurysm, Aortic Insufficiency, HTN, Hyperlipdemia, Mitral Insufficiency, Pulmonary Hypertension Pulmonary: Yes: Other (dyspnea) Gastrointestinal: Yes: GERD, Other (Abd trauma) Renal/: Yes: Other (JESS) Musculoskeletal: Yes: Hemiparesis - Past Surgical History Past Surgical History: Yes: Joint Replacement - Alcohol/Substance Use Hx Alcohol Use: No - Smoking History Smoking history: Never smoked Have you smoked in the past 12 months: No If you are a former smoker, when did you quit?: 60 YRS AGO - Social History Usual Living Arrangement: Alone Home Medications - Allergies Allergies/Adverse Reactions: Allergies Allergy/AdvReac Type Severity Reaction Status Date / Time No Known Drug Allergies Allergy Verified 06/15/17 11:00 - Home Medications Home Medications: Ambulatory Orders Aa/Hydrolyzed Collagen, Whey [Lps 15-30 Liquid] 30 ml PO BID 06/01/17 Atorvastatin Ca [Lipitor] 10 mg PO HS 06/01/17 Docusate Sodium [Colace] 300 mg PO HS 06/01/17 Levetiracetam 500 mg PO BID 06/01/17 Lisinopril 5 mg PO DAILY 06/01/17 Omeprazole Magnesium [Prilosec] 10 mg PO HS 06/01/17 Sennosides [Senna] 2 tab PO DAILY 06/01/17 Acetaminophen [Tylenol] 650 mg PO QID PRN #100 tab 06/08/17 Albuterol 2.5/Ipratropium 0.5 [Duoneb -] 1 amp NEB RQID #1 amp 06/08/17 Prednisone See Taper PO ASDIR #16 tablet 06/08/17 Amox-Tr/K Cl [Augmentin - 500Mg Tablet] 1 tab PO BID #14 tab 06/09/17 Acetaminophen [Tylenol] 325 mg PO QID PRN 06/15/17 Albuterol 2.5/Ipratropium 0.5 [Duoneb -] 1 neb NEB QID PRN 06/15/17 Heparin - 5,000 unit SQ BID 06/15/17 Oseltamivir Phosphate [Tamiflu] 75 mg PO DAILY 06/15/17 Review of Systems Findings/Remarks: As per HPI Vital Signs: Vital Signs Temperature 97.4 F L 06/16/17 14:22 Pulse Rate 86 06/16/17 14:22 Respiratory Rate 20 06/16/17 14:22 Blood Pressure 116/71 06/16/17 14:22 O2 Sat by Pulse Oximetry (%) 98 06/16/17 09:19 Constitutional: Yes: No Distress HENT: Yes: WNL Neck: Yes: WNL Respiratory: Yes: CTA Bilaterally Gastrointestinal: Yes: Soft Cardiovascular: Yes: Regular Rate and Rhythm (NL S1S2, no MRHG) JVD: No Extremities: Yes: WNL Edema: No Neurological: Yes: Alert, Oriented (Residual weakness) - Other Data Labs, Other Data: CBC, BMP 06/16/17 05:35 06/16/17 05:35 INR, PTT INR 1.06 (0.82-1.09) 06/15/17 12:05 Troponin, BNP 06/15/17 20:45 Troponin I < 0.02 Troponin, BNP 06/15/17 20:45 Troponin I < 0.02 Assessment/Plan Chest discomfort Seems GI related and not cardiac related Echocardiogram with normal LV function, Troponin negative, EKG non acute No further cardiac studied required at this time HTN Continue lisinopril HLD Continue atorvastatin Call prn
--- NOTE | 2017-06-16 15:18 | PN ---
Teaching Attending Note Name of Resident: Morris Broderick ATTENDING PHYSICIAN STATEMENT Time of evaluation: 12;10 PM I saw and evaluated the patient. I reviewed the resident's note and discussed the case with the resident. I agree with the resident's findings and plan as documented. SUBJECTIVE: Patient seen and examined. No complaints currently, doesnt talk but responds with gestures and follows commands. reports having substernal chest pressure for about 2 minutes yesterday with spontaneous resolution. No dyspnea, palpitations, nausea, vomiting, dizziness or abdominal pain noted. OBJECTIVE: Vital Signs Period Temp Pulse Resp BP Sys/Chin Pulse Ox Last 24 Hr 97.4 F-98.2 F 79-102 20-20 116-170/71-80 98-100 Intake & Output 06/13/17 06/14/17 06/15/17 06/16/17 23:59 23:59 23:59 23:59 Intake Total 0 0 Balance 0 0 Weight 167 lb General: sitting in bed in no acute distress CVS:S1S2 regular chest: decreased effort, few basilar rales Abdomen: soft, NT, Nd, poisitive bowel sounds extremities: no edema Neuro, Awake, responds to name, non verbal currently, right sided hemiparesis, unchanged from recent admit Home Medication List Medication Instructions Recorded Confirmed Type Aa/Hydrolyzed Collagen, Whey [Lps 30 ml PO BID 06/01/17 06/15/17 History 15-30 Liquid] Atorvastatin Ca [Lipitor] 10 mg PO HS 06/01/17 06/15/17 History Docusate Sodium [Colace] 300 mg PO HS 06/01/17 06/15/17 History Levetiracetam 500 mg PO BID 06/01/17 06/15/17 History Lisinopril 5 mg PO DAILY 06/01/17 06/15/17 History Omeprazole Magnesium [Prilosec] 10 mg PO HS 06/01/17 06/15/17 History Sennosides [Senna] 2 tab PO DAILY 06/01/17 06/15/17 History Acetaminophen [Tylenol] 325 mg PO QID PRN 06/15/17 06/15/17 History Albuterol 2.5/Ipratropium 0.5 1 neb NEB QID PRN 06/15/17 06/15/17 History [Duoneb -] Heparin - 5,000 unit SQ BID 06/15/17 06/15/17 History Oseltamivir Phosphate [Tamiflu] 75 mg PO DAILY 06/15/17 06/15/17 History Active Medications Generic Name Dose Route Start Last Admin Trade Name Mila PRN Reason Stop Dose Admin Albuterol/Ipratropium 1 amp 06/15/17 17:23 Duoneb - NEB QID PRN BREATHING Atorvastatin Calcium 10 mg 06/15/17 22:00 06/15/17 22:31 Lipitor - PO 10 mg HS ESAU Administration Docusate Sodium 300 mg 06/15/17 22:00 06/15/17 22:31 Colace - PO 300 mg HS ESAU Administration Heparin Sodium (Porcine) 5,000 unit 06/15/17 22:00 06/16/17 14:24 Heparin - SQ 5,000 unit TID ESAU Administration Dextrose/Sodium Chloride 1,000 mls @ 75 mls/hr 06/15/17 17:30 06/16/17 10:16 D5-1/2ns - IV 75 mls/hr ASDIR ESAU Administration Levetiracetam 500 mg 06/15/17 22:00 06/16/17 10:15 Keppra - PO 500 mg BID ESAU Administration Lisinopril 5 mg 06/16/17 10:00 06/16/17 10:15 Prinivil PO 5 mg DAILY ESAU Administration Oseltamivir Phosphate 75 mg 06/15/17 17:30 06/16/17 11:27 Tamiflu - PO 06/20/17 17:29 75 mg DAILY ESAU Administration Pantoprazole Sodium 40 mg 06/15/17 17:15 06/16/17 10:16 Protonix - PO 40 mg DAILY ESAU Administration Senna 2 tab 06/16/17 10:00 06/16/17 10:15 Senna - PO 2 tab DAILY ESAU Administration Laboratory Results - last 24 hr 06/15/17 06/16/17 06/16/17 20:45 05:35 05:35 WBC 16.8 H RBC 3.21 L Hgb 8.9 L Hct 27.8 L MCV 86.6 MCH 27.8 MCHC 32.1 RDW 20.0 H Plt Count 246 MPV 8.1 D Neutrophils % 84.8 H Lymphocytes % 6.5 L Monocytes % 8.2 Eosinophils % 0.3 Basophils % 0.2 Sodium 138 Potassium 4.2 Chloride 100 Carbon Dioxide 29 Anion Gap 9 BUN 13 D Creatinine 1.0 Creat Clearance w eGFR > 60 POC Glucometer Random Glucose 87 D Calcium 8.2 L Phosphorus 3.3 D Magnesium 2.0 Total Bilirubin 0.7 D AST 38 H D ALT 181 H Alkaline Phosphatase 237 H Troponin I < 0.02 Total Protein 6.1 L Albumin 2.2 L Urine Color Urine Appearance Urine pH Ur Specific [place] Urine Protein Urine Glucose (UA) Urine Ketones Urine Blood Urine Nitrite Urine Bilirubin Urine Urobilinogen Ur Leukocyte Esterase 06/16/17 06/16/17 06/16/17 06:27 09:40 13:48 WBC RBC Hgb Hct MCV MCH MCHC RDW Plt Count MPV Neutrophils % Lymphocytes % Monocytes % Eosinophils % Basophils % Sodium Potassium Chloride Carbon Dioxide Anion Gap BUN Creatinine Creat Clearance w eGFR POC Glucometer 89 123 Random Glucose Calcium Phosphorus Magnesium Total Bilirubin AST ALT Alkaline Phosphatase Troponin I Total Protein Albumin Urine Color Ltyellow Urine Appearance Clear Urine pH 5.0 D Ur Specific [place] 1.010 Urine Protein Negative Urine Glucose (UA) Negative Urine Ketones Negative Urine Blood Negative Urine Nitrite Negative Urine Bilirubin Negative Urine Urobilinogen Negative Ur Leukocyte Esterase Negative 2D echo results reviewed EKG NSR 94 ASSESSMENT AND PLAN: 72 yom with PMhx of Meningioma planned for resection in 05/2017, CVA with right hemiparesis, HTN, HLD, recently admitted with aspiration PNA, d/nguyen on augmentin and prednisone taper, h/o hypernatremia, admitted with chest pain and abnormal LFTs -Chest pain, -Abnormal LFTs, ?medication related (was recently on zosyn/augmentin) -recent aspiration PNA -H/o hypernatremia -Meningioma, planned for resection in 05/2017 -h/o CVA with residual right hemiparesis -HTN -HLD Plan: telemetry uneventful. ACS ruled out. 2D echo reviewed. Await cardiology input. LFTs improved. Abdominal exam benign. ?recent antibiotic related. ULtrasound noted, Unable to get MRCP. Will check CT with oral contrast, however low concern for acute pathology. finsihed augmentin yesterday. last dose of prednisone planned for 06/15, will d/c now. resume chopped diet with thin liquids and aspiration precautions after CT A/P and d/c IVF accordingly. Continue home seizure/hypertensive meds. DVTppx dispo d/c back to [facility] in 24 hours if no new events, pending Cardiology input and CT A/P.
[2017-06-16] MEDS ORDERED: MINERAL OIL ENEMA 133 ML ENEMA PR ONE (16:24)
[2017-06-16] MEDS: DOCUSATE SODIUM 100 MG CAPSULE (FP) PO SCH (21:34)
[2017-06-16] MEDS: ATORVASTATIN CA 10 MG TABLET (FP) PO SCH (21:34)
--- NOTE | 2017-06-17 05:14 | PN ---
Physical Exam: SUBJECTIVE: Patient seen and examined by me this AM - No overnight events. Pt with 1 large BM overnight. Nonverbal w/ interviewer again denies, but nods head to questions. Denies fever/chills, SOB, CP, abdominal pain, N/V, dysuria, diarrhea, peripheral weakness. Pt slightly hypotensive briefly to 90s systolic overnight per nursing. No other issues. OBJECTIVE: Vital Signs Intake & Output 06/14/17 06/15/17 06/16/17 06/17/17 23:59 23:59 23:59 23:59 Intake Total 0 200 Balance 0 200 Weight 75.75 kg Period Temp Pulse Resp BP Sys/Chin Pulse Ox Last 24 Hr 97.4 F-98.6 F 86-102 20-20 104-118/66-80 98-98 GENERAL: The patient is awake, alert, and fully oriented, in no acute distress. HEAD: Normal with no signs of trauma. EYES: PERRL, extraocular movements intact, sclera anicteric, conjunctiva clear. No ptosis. ENT: Ears normal, nares patent, oropharynx clear without exudates, moist mucous membranes. NECK: Trachea midline, full range of motion, supple. LUNGS: Good air entry today, better effort on exam. Breath sounds equal, clear to auscultation bilaterally, no wheezes, no crackles, no accessory muscle use. HEART: Regular rate and rhythm, S1, S2 without murmur, rub or gallop. ABDOMEN: Soft, nontender, nondistended, normoactive bowel sounds, no guarding, no rebound, no hepatosplenomegaly, no masses. EXTREMITIES: 2+ pulses, warm, well-perfused, no edema. NEUROLOGICAL: Cranial nerves II through XII grossly intact. Normal speech, gait not observed. PSYCH: Normal mood, normal affect. SKIN: Warm, dry, normal turgor, no rashes or lesions noted Laboratory Results - last 24 hr CBC, BMP 06/17/17 06:25 06/17/17 06:25 06/16/17 05:35 06/16/17 05:35 06/16/17 06/16/17 06/16/17 05:35 05:35 06:27 WBC 16.8 H RBC 3.21 L Hgb 8.9 L Hct 27.8 L MCV 86.6 MCH 27.8 MCHC 32.1 RDW 20.0 H Plt Count 246 MPV 8.1 D Neutrophils % 84.8 H Lymphocytes % 6.5 L Monocytes % 8.2 Eosinophils % 0.3 Basophils % 0.2 Sodium 138 Potassium 4.2 Chloride 100 Carbon Dioxide 29 Anion Gap 9 BUN 13 D Creatinine 1.0 Creat Clearance w eGFR > 60 POC Glucometer 89 Random Glucose 87 D Calcium 8.2 L Phosphorus 3.3 D Magnesium 2.0 Total Bilirubin 0.7 D AST 38 H D ALT 181 H Alkaline Phosphatase 237 H Total Protein 6.1 L Albumin 2.2 L Urine Color Urine Appearance Urine pH Ur Specific Cadott Urine Protein Urine Glucose (UA) Urine Ketones Urine Blood Urine Nitrite Urine Bilirubin Urine Urobilinogen Ur Leukocyte Esterase 06/16/17 06/16/17 06/16/17 09:40 13:48 17:47 WBC RBC Hgb Hct MCV MCH MCHC RDW Plt Count MPV Neutrophils % Lymphocytes % Monocytes % Eosinophils % Basophils % Sodium Potassium Chloride Carbon Dioxide Anion Gap BUN Creatinine Creat Clearance w eGFR POC Glucometer 123 106 Random Glucose Calcium Phosphorus Magnesium Total Bilirubin AST ALT Alkaline Phosphatase Total Protein Albumin Urine Color Ltyellow Urine Appearance Clear Urine pH 5.0 D Ur Specific Cadott 1.010 Urine Protein Negative Urine Glucose (UA) Negative Urine Ketones Negative Urine Blood Negative Urine Nitrite Negative Urine Bilirubin Negative Urine Urobilinogen Negative Ur Leukocyte Esterase Negative Active Medications Generic Name Dose Route Start Last Admin Trade Name Freq PRN Reason Stop Dose Admin Albuterol/Ipratropium 1 amp 06/15/17 17:23 Duoneb - NEB QID PRN BREATHING Atorvastatin Calcium 10 mg 06/15/17 22:00 06/16/17 21:34 Lipitor - PO 10 mg HS ESAU Administration Docusate Sodium 300 mg 06/15/17 22:00 06/16/17 21:34 Colace - PO 300 mg HS ESAU Administration Heparin Sodium (Porcine) 5,000 unit 06/15/17 22:00 06/16/17 21:34 Heparin - SQ 5,000 unit TID ESAU Administration Levetiracetam 500 mg 06/15/17 22:00 06/16/17 21:34 Keppra - PO 500 mg BID ESAU Administration Lisinopril 5 mg 06/16/17 10:00 06/16/17 10:15 Prinivil PO 5 mg DAILY ESAU Administration Oseltamivir Phosphate 75 mg 06/15/17 17:30 06/16/17 11:27 Tamiflu - PO 06/20/17 17:29 75 mg DAILY ESAU Administration Pantoprazole Sodium 40 mg 06/15/17 17:15 06/16/17 10:16 Protonix - PO 40 mg DAILY ESAU Administration Polyethylene Glycol 17 gm 06/17/17 10:00 Miralax (For Daily Use) - PO DAILY ESAU Senna 2 tab 06/16/17 10:00 06/16/17 10:15 Senna - PO 2 tab DAILY ESAU Administration No micro pending CXR 06/15: Interval better aeration of the lung with residual minimal atelectatic changes in the right lung base. However, correlation with CT scan of the chest would be more sensitive for comparison to prior CT scan of the chest dated 06/03/2017 RUQ U/S 06/15 - 1. Contracted gallbladder with sludge. No evidence of cholelithiasis. No definite evidence of acute cholecystitis. Prominent gallbladder wall measuring 4-5 mm in thickness may be secondary to contracted gallbladder. 2. Mild dilatation of the proximal common bile duct measuring 9 mm in diameter is similar to the CT, allowing for differences between modalities. No evidence of intrahepatic ductal dilatation. Please correlate with biliary markers. CT abdomen 06/16 - IMPRESSION: 1. Copious stool throughout the colon. Please correlate for constipation. No evidence of bowel obstruction. No definite bowel wall thickening to suggest active enterocolitis. 2. Gallbladder sludge and/or cholelithiasis. No CT evidence of acute cholecystitis. Borderline mild common bile duct dilatation measuring 8-9 mm is unchanged from 05/22/2017 CT. 3. No obstructive uropathy. No urinary tract calculi. 4. Subsegmental opacities in both lung bases (right more than left), may be atelectasis, however, pneumonia cannot be excluded. Please correlate clinically. Echo 06/06 - Normal LV function, EF 74, Mild TR/AR EKG 06/15 - NSR, NAD, rate 94, borderline LVH, No ST or TW changes No events on tele ASSESSMENT/PLAN: 72 yo man w/ pmh of HTN, HLD, CAD (S/P [place]), Aspiration PNA, CVA w/ residual hemiparesis and GERD, admitted for atypical chest pain and elevated LFTs. #Transaminitis - RUQ U/S thick GB wall w/ sludge, mild dilatation of proximal CBD; - f/u AM CMP - CT abdomen w/ sludge/stones in GB, copious stool -> possible element of cholestasis - will require outpt GI followup #Atypical chest pain - pain resolved - No ekg changes, negs trops - cardiac monitoring #Constipation - confirm on CT; one large BM overnight - c/w Senna, colace - received enema last night - Miralax PO #Recurrent aspiration PNA - prednisone d/c'ed, augmention course completed from prior admission - flu swab neg; tamiflu, isolation precautions removed - Duonebs QIDR PRN #HTN - hypotensive to 90s systolic overnight - c/w home BP meds. Monitor for hypotension #Meningioma - plan resection in jun? - keppra for seizure ppx - will require outpt f/u w/ neurosurgery #CAD - lipitor 10mg #HLD - lipitor 10mg #GERD PPI PPX Hep subq protonix FEN PO fluids Daily BMPs Chopped/thin liquids w/ aspiration precautions D/c to [facility] today once authorization complete and PT eval Plan discussed with attending, Dr. Sirena Broderick, PGY1 Visit type - Emergency Visit Emergency Visit: Yes ED Registration Date: 06/15/17 Care time: The patient presented to the Emergency Department on the above date and was hospitalized for further evaluation of their emergent condition. - New Patient This patient is new to me today: No - Critical Care Critical Care patient: No
[2017-06-17] MEDS: HEPARIN NA (PORCINE) 5,000 UNITS/ML 1ML VIAL SQ SCH ×3 (06:02→22:03)
[2017-06-17 07:34] LABS: BASO % 0.5 % (0-2.0); EOS % 0.5 % (0-4.5); HEMATOCRIT 27.3 % (35.4-49); HEMOGLOBIN 8.7 GM/dL (11.7-16.9); LYMPH % 10.6 % (8-40); MCH 27.4 pg (25.7-33.7); MCHC 31.9 g/dl (32.0-35.9); MEAN CELL VOLUME 85.9 fl (80-96); MEAN PLT VOLUME 7.6 fl (7.5-11.1); MONO % 8.9 % (3.8-10.2); NEUT % 79.5 % (42.8-82.8); PLATELET COUNT 221 K/MM3 (134-434); RBC 3.18 M/mm3 (4.00-5.60); RDW 19.5 % (11.9-15.9); WHITE BLOOD COUNT 13.1 K/mm3 (4.0-10.0)
[2017-06-17 08:07] LABS: ALBUMIN 1.9 g/dl (3.4-5.0); ANION GAP 9 (8-16); BLOOD UREA NITROGEN 13 mg/dL (7-18); CALCIUM 8.3 mg/dL (8.5-10.1); CHLORIDE 100 mmol/L (98-107); CO2 29 mmol/L (21-32); GLUCOSE,RANDOM 93 mg/dL (74-106); MAGNESIUM 2.1 mg/dL (1.8-2.4); PHOSPHOROUS 2.7 mg/dL (2.5-4.9); SGOT/AST 18 U/L (15-37); SGPT/ALT 114 U/L (12-78); SODIUM 138 mmol/L (136-145)
[2017-06-17 08:09] LABS: ALK PHOS 202 U/L (45-117); BILIRUBIN,TOTAL 0.6 mg/dL (0.2-1.0); CREATININE 1.1 mg/dL (0.7-1.3); TOT PROT 5.7 g/dl (6.4-8.2)
[2017-06-17] MEDS ORDERED: PT OWN MED DRAWER 7, Y5N ONE (09:31)
[2017-06-17] MEDS: SENNOSIDES 8.6MG TABLET (FP) PO SCH (09:32)
[2017-06-17] MEDS: levETIRAcetam 500 MG TABLET (FP) PO SCH ×2 (09:32→22:03)
[2017-06-17] MEDS: PANTOPRAZOLE 40 MG TABLET (FP) PO SCH (09:32)
[2017-06-17] MEDS: LISINOPRIL 5 MG TABLET (FP) PO SCH (09:32)
[2017-06-17] MEDS ORDERED: POLYETHYLENE GLYCOL 3350 119 GM BTL PO SCH (10:00)
--- NOTE | 2017-06-17 14:31 | PN ---
Teaching Attending Note Name of Resident: Morris Broderick ATTENDING PHYSICIAN STATEMENT Time of evaluation: 10:30 AM I saw and evaluated the patient. I reviewed the resident's note and discussed the case with the resident. I agree with the resident's findings and plan as documented. SUBJECTIVE: Patient seen and examined. No complaints, no chest pain, or abdominal pain. tolerating diet well. OBJECTIVE: Vital Signs Period Temp Pulse Resp BP Sys/Chin Pulse Ox Last 24 Hr 97.9 F-98.6 F 89-102 19-20 96-108/60-70 95-98 Intake & Output 06/14/17 06/15/17 06/16/17 06/17/17 23:59 23:59 23:59 23:59 Intake Total 0 330 130 Output Total 100 Balance 0 230 130 Weight 167 lb General: lying in bed in no acute distress Chest: decreased effort, no rales or wheezing abdomen: soft, NT throughout, ND, positive bowel sounds, neg An's sign extremities: no edema Home Medication List Medication Instructions Recorded Confirmed Type Aa/Hydrolyzed Collagen, Whey [Lps 30 ml PO BID 06/01/17 06/15/17 History 15-30 Liquid] Atorvastatin Ca [Lipitor] 10 mg PO HS 06/01/17 06/15/17 History Docusate Sodium [Colace] 300 mg PO HS 06/01/17 06/15/17 History Levetiracetam 500 mg PO BID 06/01/17 06/15/17 History Lisinopril 5 mg PO DAILY 06/01/17 06/15/17 History Omeprazole Magnesium [Prilosec] 10 mg PO HS 06/01/17 06/15/17 History Sennosides [Senna] 2 tab PO DAILY 06/01/17 06/15/17 History Acetaminophen [Tylenol] 325 mg PO QID PRN 06/15/17 06/15/17 History Albuterol 2.5/Ipratropium 0.5 1 neb NEB QID PRN 06/15/17 06/15/17 History [Duoneb -] Heparin - 5,000 unit SQ BID 06/15/17 06/15/17 History Oseltamivir Phosphate [Tamiflu] 75 mg PO DAILY 06/15/17 06/15/17 History Active Medications Generic Name Dose Route Start Last Admin Trade Name Freq PRN Reason Stop Dose Admin Albuterol/Ipratropium 1 amp 06/15/17 17:23 Duoneb - NEB QID PRN BREATHING Atorvastatin Calcium 10 mg 06/15/17 22:00 06/16/17 21:34 Lipitor - PO 10 mg HS ESAU Administration Docusate Sodium 300 mg 06/15/17 22:00 06/16/17 21:34 Colace - PO 300 mg HS ESAU Administration Heparin Sodium (Porcine) 5,000 unit 06/15/17 22:00 06/17/17 14:14 Heparin - SQ 5,000 unit TID ESAU Administration Levetiracetam 500 mg 06/15/17 22:00 06/17/17 09:32 Keppra - PO 500 mg BID ESAU Administration Lisinopril 5 mg 06/16/17 10:00 06/17/17 09:32 Prinivil PO 5 mg DAILY ESAU Administration Pantoprazole Sodium 40 mg 06/15/17 17:15 06/17/17 09:32 Protonix - PO 40 mg DAILY ESAU Administration Polyethylene Glycol 17 gm 06/17/17 10:00 06/17/17 09:32 Miralax (For Daily Use) - PO 17 gm DAILY ESAU Administration Senna 2 tab 06/16/17 10:00 06/17/17 09:32 Senna - PO 2 tab DAILY ESAU Administration Laboratory Results - last 24 hr 06/16/17 06/17/17 06/17/17 17:47 05:30 06:25 WBC 13.1 H RBC 3.18 L Hgb 8.7 L Hct 27.3 L MCV 85.9 MCH 27.4 MCHC 31.9 L RDW 19.5 H Plt Count 221 MPV 7.6 Neutrophils % 79.5 Lymphocytes % 10.6 D Monocytes % 8.9 Eosinophils % 0.5 Basophils % 0.5 Sodium Potassium Chloride Carbon Dioxide Anion Gap BUN Creatinine Creat Clearance w eGFR POC Glucometer 106 119 Random Glucose Calcium Phosphorus Magnesium Total Bilirubin AST ALT Alkaline Phosphatase Total Protein Albumin 06/17/17 06:25 WBC RBC Hgb Hct MCV MCH MCHC RDW Plt Count MPV Neutrophils % Lymphocytes % Monocytes % Eosinophils % Basophils % Sodium 138 Potassium 4.0 Chloride 100 Carbon Dioxide 29 Anion Gap 9 BUN 13 Creatinine 1.1 Creat Clearance w eGFR > 60 POC Glucometer Random Glucose 93 Calcium 8.3 L Phosphorus 2.7 Magnesium 2.1 Total Bilirubin 0.6 AST 18 D ALT 114 H D Alkaline Phosphatase 202 H Total Protein 5.7 L Albumin 1.9 L Microbiology 06/16/17 09:40 Urine - Urine Clean Catch Urine Culture - Final Contaminated: Please Repeat 06/16/17 16:30 Nasopharyngeal Swab Influenza Types A,B Antigen (SADIQ) - Final 06/16/17 16:30 Nasopharyngeal Swab - Final CT A/P: constipation, know CBD dilatation that is unchanged. ASSESSMENT AND PLAN: 72 yom with PMhx of Meningioma planned for resection in 05/2017, CVA with right hemiparesis, HTN, HLD, recently admitted with aspiration PNA, d/nguyen on augmentin and prednisone taper, h/o hypernatremia, admitted with chest pain and abnormal LFTs -Chest pain, -Abnormal LFTs, ?medication related (was recently on zosyn/augmentin) -recent aspiration PNA -H/o hypernatremia -Meningioma, planned for resection in 05/2017 -h/o CVA with residual right hemiparesis -HTN -HLD Plan: telemetry uneventful. ACS ruled out. 2D echo reviewed. Cardiology input appreciated, no additional intervention need. LFTs improved. Abdominal exam benign. ?recent antibiotic related. ULtrasound noted, CT A/P noted, no acute concerns, tolerating diet well. Finsihed augmentin and prednisone. WBC improved. Continue chopped diet with thin liquids and aspiration precautions Continue home seizure/hypertensive meds. DVTppx dispo d/c back to [place] pending authorization.
[2017-06-17] MEDS: DOCUSATE SODIUM 100 MG CAPSULE (FP) PO SCH (22:03)
[2017-06-17] MEDS: ATORVASTATIN CA 10 MG TABLET (FP) PO SCH (22:03)
[2017-06-18] MEDS ORDERED: ALBUTEROL SO4 2.5/IPRATROPIUM 0.5 INH SOL 3 ML VIAL.NEB. NEB PRN (02:43)
[2017-06-18] MEDS: HEPARIN NA (PORCINE) 5,000 UNITS/ML 1ML VIAL SQ SCH ×3 (05:38→21:59)
[2017-06-18 08:20] LABS: HEMATOCRIT 25.6 % (35.4-49); HEMOGLOBIN 8.2 GM/dL (11.7-16.9); MCH 27.4 pg (25.7-33.7); MCHC 32.1 g/dl (32.0-35.9); MEAN CELL VOLUME 85.5 fl (80-96); MEAN PLT VOLUME 7.6 fl (7.5-11.1); PLATELET COUNT 253 K/MM3 (134-434); RDW 19.2 % (11.9-15.9); WHITE BLOOD COUNT 12.2 K/mm3 (4.0-10.0)
[2017-06-18 08:25] LABS: ADD RBC MORPHOLOGY YES
[2017-06-18 09:11] LABS: ANISOCYTOSIS 2+; MACROCYTOSIS 0; TARGET CELLS 1+
[2017-06-18 09:14] LABS: CHLORIDE 104 mmol/L (98-107); POTASSIUM 4.5 mmol/L (3.5-5.1); SODIUM 139 mmol/L (136-145)
[2017-06-18 09:27] LABS: ALBUMIN 1.9 g/dl (3.4-5.0); ALK PHOS 177 U/L (45-117); ANION GAP 7 (8-16); BILIRUBIN,TOTAL 0.5 mg/dL (0.2-1.0); BLOOD UREA NITROGEN 19 mg/dL (7-18); CALCIUM 8.1 mg/dL (8.5-10.1); CO2 28 mmol/L (21-32); CREATININE 1.3 mg/dL (0.7-1.3); GLUCOSE,RANDOM 103 mg/dL (74-106); SGOT/AST 13 U/L (15-37); SGPT/ALT 80 U/L (12-78); TOT PROT 5.5 g/dl (6.4-8.2)
[2017-06-18] MEDS: PANTOPRAZOLE 40 MG TABLET (FP) PO SCH (10:04)
[2017-06-18] MEDS: levETIRAcetam 500 MG TABLET (FP) PO SCH ×2 (10:04→21:59)
[2017-06-18] MEDS: SENNOSIDES 8.6MG TABLET (FP) PO SCH (10:04)
[2017-06-18] MEDS: LISINOPRIL 5 MG TABLET (FP) PO SCH (10:04)
[2017-06-18] MEDS: POLYETHYLENE GLYCOL 3350 119 GM BTL PO SCH (10:06)
--- NOTE | 2017-06-18 16:31 | PN ---
Teaching Attending Note Name of Resident: . ATTENDING PHYSICIAN STATEMENT Time of evaluation: 8:15 AM I saw and evaluated the patient. I reviewed the resident's note and discussed the case with the resident. I agree with the resident's findings and plan as documented. SUBJECTIVE: Patient seen and examined. no complaints. OBJECTIVE: Vital Signs Period Temp Pulse Resp BP Sys/Chin Pulse Ox Last 24 Hr 98 F-99.5 F 78-105 18-20 95-106/55-70 98 Intake & Output 06/15/17 06/16/17 06/17/17 06/18/17 23:59 23:59 23:59 23:59 Intake Total 0 330 380 Output Total 100 Balance 0 230 380 Weight 167 lb General: sitting in bed in no acute distress CVS:S1S2 regular Chest: decreased effort, no rales or wheezing abdomen: soft, NT Home Medication List Medication Instructions Recorded Confirmed Type Aa/Hydrolyzed Collagen, Whey [Lps 30 ml PO BID 06/01/17 06/15/17 History 15-30 Liquid] Atorvastatin Ca [Lipitor] 10 mg PO HS 06/01/17 06/15/17 History Docusate Sodium [Colace] 300 mg PO HS 06/01/17 06/15/17 History Levetiracetam 500 mg PO BID 06/01/17 06/15/17 History Lisinopril 5 mg PO DAILY 06/01/17 06/15/17 History Omeprazole Magnesium [Prilosec] 10 mg PO HS 06/01/17 06/15/17 History Sennosides [Senna] 2 tab PO DAILY 06/01/17 06/15/17 History Acetaminophen [Tylenol] 325 mg PO QID PRN 06/15/17 06/15/17 History Albuterol 2.5/Ipratropium 0.5 1 neb NEB QID PRN 06/15/17 06/15/17 History [Duoneb -] Heparin - 5,000 unit SQ BID 06/15/17 06/15/17 History Oseltamivir Phosphate [Tamiflu] 75 mg PO DAILY 06/15/17 06/15/17 History Active Medications Generic Name Dose Route Start Last Admin Trade Name Freq PRN Reason Stop Dose Admin Albuterol/Ipratropium 1 amp 06/18/17 02:43 Duoneb - NEB Q6H PRN BREATHING Atorvastatin Calcium 10 mg 06/18/17 22:00 Lipitor - PO HS ESAU Docusate Sodium 300 mg 06/18/17 22:00 Colace - PO HS ESAU Heparin Sodium (Porcine) 5,000 unit 06/18/17 06:00 06/18/17 14:01 Heparin - SQ 5,000 unit TID ESAU Administration Levetiracetam 500 mg 06/18/17 10:00 06/18/17 10:04 Keppra - PO 500 mg BID ESAU Administration Lisinopril 5 mg 06/18/17 10:00 06/18/17 10:04 Prinivil PO 5 mg DAILY ESAU Administration Pantoprazole Sodium 40 mg 06/18/17 10:00 06/18/17 10:04 Protonix - PO 40 mg DAILY ESAU Administration Polyethylene Glycol 17 gm 06/18/17 10:00 06/18/17 10:06 Miralax (For Daily Use) - PO 17 gm DAILY ESAU Administration Senna 2 tab 06/18/17 10:00 06/18/17 10:04 Senna - PO 2 tab DAILY ESAU Administration Laboratory Results - last 24 hr 06/18/17 06/18/17 07:30 07:30 WBC 12.2 H RBC 3.00 L Hgb 8.2 L Hct 25.6 L MCV 85.5 MCH 27.4 MCHC 32.1 RDW 19.2 H Plt Count 253 MPV 7.6 Hypochromia 0 Polychromasia 0 Poikilocytosis 1+ Anisocytosis 2+ Microcytosis 2+ Macrocytosis 0 Target Cells 1+ Sodium 139 Potassium 4.5 Chloride 104 Carbon Dioxide 28 Anion Gap 7 L BUN 19 H D Creatinine 1.3 Creat Clearance w eGFR 53.96 Random Glucose 103 Calcium 8.1 L Total Bilirubin 0.5 AST 13 L D ALT 80 H D Alkaline Phosphatase 177 H Total Protein 5.5 L Albumin 1.9 L ASSESSMENT AND PLAN: 72 yom with PMhx of Meningioma planned for resection in 05/2017, CVA with right hemiparesis, HTN, HLD, recently admitted with aspiration PNA, d/nguyen on augmentin and prednisone taper, h/o hypernatremia, admitted with chest pain and abnormal LFTs -Chest pain, -Abnormal LFTs, ?medication related (was recently on zosyn/augmentin) -recent aspiration PNA -H/o hypernatremia -Meningioma, planned for resection in 05/2017 -h/o CVA with residual right hemiparesis -HTN -HLD Plan: telemetry uneventful. ACS ruled out. 2D echo reviewed. Cardiology input appreciated, no additional intervention need. LFTs improved. Abdominal exam benign. ?recent antibiotic related. ULtrasound noted, CT A/P noted, no acute concerns, tolerating diet well. Finsihed augmentin and prednisone. WBC improved. Continue chopped diet with thin liquids and aspiration precautions Continue home seizure/hypertensive meds. DVTppx dispo d/c back to [place] pending authorization.
[2017-06-18] MEDS: DOCUSATE SODIUM 100 MG CAPSULE (FP) PO SCH (21:59)
[2017-06-18] MEDS: ATORVASTATIN CA 10 MG TABLET (FP) PO SCH (21:59)
[2017-06-19] MEDS: HEPARIN NA (PORCINE) 5,000 UNITS/ML 1ML VIAL SQ SCH ×3 (05:46→21:58)
[2017-06-19] MEDS: LISINOPRIL 5 MG TABLET (FP) PO SCH (10:54)
[2017-06-19] MEDS: levETIRAcetam 500 MG TABLET (FP) PO SCH ×2 (10:54→21:58)
[2017-06-19] MEDS: POLYETHYLENE GLYCOL 3350 119 GM BTL PO SCH (10:54)
[2017-06-19] MEDS: SENNOSIDES 8.6MG TABLET (FP) PO SCH (10:55)
[2017-06-19] MEDS: PANTOPRAZOLE 40 MG TABLET (FP) PO SCH (10:55)
--- NOTE | 2017-06-19 12:12 | PN ---
Teaching Attending Note Name of Resident: . ATTENDING PHYSICIAN STATEMENT Time of evaluation: 9:55 AM SUBJECTIVE: Patient seen and examined, no complaints. OBJECTIVE: Vital Signs Period Temp Pulse Resp BP Sys/Chin Pulse Ox Last 24 Hr 97.6 F-99.5 F 78-100 18-20 99-124/58-75 97-97 Intake & Output 06/16/17 06/17/17 06/18/17 06/19/17 23:59 23:59 23:59 23:59 Intake Total 330 380 250 Output Total 100 Balance 230 380 250 general: sitting in bed in no acute distress Chest: poor effort, no rales or wheezing abdomen: soft, NT extremities: no edema Home Medication List Medication Instructions Recorded Confirmed Type Aa/Hydrolyzed Collagen, Whey [Lps 30 ml PO BID 06/01/17 06/15/17 History 15-30 Liquid] Atorvastatin Ca [Lipitor] 10 mg PO HS 06/01/17 06/15/17 History Docusate Sodium [Colace] 300 mg PO HS 06/01/17 06/15/17 History Levetiracetam 500 mg PO BID 06/01/17 06/15/17 History Lisinopril 5 mg PO DAILY 06/01/17 06/15/17 History Omeprazole Magnesium [Prilosec] 10 mg PO HS 06/01/17 06/15/17 History Sennosides [Senna] 2 tab PO DAILY 06/01/17 06/15/17 History Acetaminophen [Tylenol] 325 mg PO QID PRN 06/15/17 06/15/17 History Albuterol 2.5/Ipratropium 0.5 1 neb NEB QID PRN 06/15/17 06/15/17 History [Duoneb -] Heparin - 5,000 unit SQ BID 06/15/17 06/15/17 History Oseltamivir Phosphate [Tamiflu] 75 mg PO DAILY 06/15/17 06/15/17 History Active Medications Generic Name Dose Route Start Last Admin Trade Name Freq PRN Reason Stop Dose Admin Albuterol/Ipratropium 1 amp 06/18/17 02:43 Duoneb - NEB Q6H PRN BREATHING Atorvastatin Calcium 10 mg 06/18/17 22:00 06/18/17 21:59 Lipitor - PO 10 mg HS [facility] Administration Docusate Sodium 300 mg 06/18/17 22:00 06/18/17 21:59 Colace - PO 300 mg HS ESAU Administration Heparin Sodium (Porcine) 5,000 unit 06/18/17 06:00 06/19/17 05:46 Heparin - SQ 5,000 unit TID ESAU Administration Levetiracetam 500 mg 06/18/17 10:00 06/19/17 10:54 Keppra - PO 500 mg BID ESAU Administration Lisinopril 5 mg 06/18/17 10:00 06/19/17 10:54 Prinivil PO 5 mg DAILY ESAU Administration Pantoprazole Sodium 40 mg 06/18/17 10:00 06/19/17 10:55 Protonix - PO 40 mg DAILY ESAU Administration Polyethylene Glycol 17 gm 06/18/17 10:00 06/19/17 10:54 Miralax (For Daily Use) - PO 17 gm DAILY ESAU Administration Senna 2 tab 06/18/17 10:00 06/19/17 10:55 Senna - PO 2 tab DAILY ESAU Administration Microbiology 06/16/17 09:40 Urine - Urine Clean Catch Urine Culture - Final Contaminated: Please Repeat 06/16/17 16:30 Nasopharyngeal Swab Influenza Types A,B Antigen (SADIQ) - Final 06/16/17 16:30 Nasopharyngeal Swab - Final ASSESSMENT AND PLAN: 72 yom with PMhx of Meningioma planned for resection in 05/2017, CVA with right hemiparesis, HTN, HLD, recently admitted with aspiration PNA, d/nguyen on augmentin and prednisone taper, h/o hypernatremia, admitted with chest pain and abnormal LFTs -Chest pain, -Abnormal LFTs, ?medication related (was recently on zosyn/augmentin) -recent aspiration PNA -H/o hypernatremia -Meningioma, planned for resection in 05/2017 -h/o CVA with residual right hemiparesis -HTN -HLD Plan: telemetry uneventful. ACS ruled out. 2D echo reviewed. Cardiology input appreciated, no additional intervention need. LFTs improved. Abdominal exam benign. ?recent antibiotic related. ULtrasound noted, CT A/P noted, no acute concerns, tolerating diet well. Finsihed augmentin and prednisone. WBC improved. Continue chopped diet with thin liquids and aspiration precautions Continue home seizure/hypertensive meds. DVTppx dispo d/c back to [place] pending authorization
[2017-06-19] MEDS: DOCUSATE SODIUM 100 MG CAPSULE (FP) PO SCH (21:58)
[2017-06-19] MEDS: ATORVASTATIN CA 10 MG TABLET (FP) PO SCH (21:58)
[2017-06-20] MEDS: HEPARIN NA (PORCINE) 5,000 UNITS/ML 1ML VIAL SQ SCH ×2 (06:20→15:02)
--- NOTE | 2017-06-20 07:02 | PN ---
Physical Exam: SUBJECTIVE: Patient seen and examined by me this AM -Lfts resolved; No events on tele overnight; occasionally disoriented overnight per nursing; stable, no complaints OBJECTIVE: Vital Signs Intake & Output 06/17/17 06/18/17 06/19/17 06/20/17 23:59 23:59 23:59 23:59 Intake Total 380 250 560 100 Balance 380 250 560 100 Period Temp Pulse Resp BP Sys/Chin Pulse Ox Last 24 Hr 97.5 F-98.9 F 87-110 18-20 96-108/53-75 95-97 GENERAL: The patient is awake, alert, and fully oriented, in no acute distress. HEAD: Normal with no signs of trauma. EYES: PERRL, extraocular movements intact, sclera anicteric, conjunctiva clear. No ptosis. ENT: Ears normal, nares patent, oropharynx clear without exudates, moist mucous membranes. NECK: Trachea midline, full range of motion, supple. LUNGS: Good air entry today, better effort on exam. Breath sounds equal, clear to auscultation bilaterally, no wheezes, no crackles, no accessory muscle use. HEART: Regular rate and rhythm, S1, S2 without murmur, rub or gallop. ABDOMEN: Soft, nontender, nondistended, normoactive bowel sounds, no guarding, no rebound, no hepatosplenomegaly, no masses. EXTREMITIES: 2+ pulses, warm, well-perfused, no edema. NEUROLOGICAL: Cranial nerves II through XII grossly intact. Normal speech, gait not observed. PSYCH: Normal mood, normal affect. SKIN: Warm, dry, normal turgor, no rashes or lesions noted CBC, BMP 06/18/17 07:30 06/18/17 07:30 No new labs Active Medications Generic Name Dose Route Start Last Admin Trade Name Freq PRN Reason Stop Dose Admin Albuterol/Ipratropium 1 amp 06/18/17 02:43 Duoneb - NEB Q6H PRN BREATHING Atorvastatin Calcium 10 mg 06/18/17 22:00 06/19/17 21:58 Lipitor - PO 10 mg HS ESAU Administration Docusate Sodium 300 mg 06/18/17 22:00 06/19/17 21:58 Colace - PO 300 mg HS ESAU Administration Heparin Sodium (Porcine) 5,000 unit 06/18/17 06:00 06/20/17 06:20 Heparin - SQ 5,000 unit TID ESAU Administration Levetiracetam 500 mg 06/18/17 10:00 06/19/17 21:58 Keppra - PO 500 mg BID ESAU Administration Lisinopril 5 mg 06/18/17 10:00 06/19/17 10:54 Prinivil PO 5 mg DAILY ESAU Administration Pantoprazole Sodium 40 mg 06/18/17 10:00 06/19/17 10:55 Protonix - PO 40 mg DAILY ESAU Administration Polyethylene Glycol 17 gm 06/18/17 10:00 06/19/17 10:54 Miralax (For Daily Use) - PO 17 gm DAILY ESAU Administration Senna 2 tab 06/18/17 10:00 06/19/17 10:55 Senna - PO 2 tab DAILY ESAU Administration Microbiology 06/16/17 09:40 Urine - Urine Clean Catch Urine Culture - Final Contaminated: Please Repeat 06/16/17 16:30 Nasopharyngeal Swab Influenza Types A,B Antigen (SADIQ) - Final 06/16/17 16:30 Nasopharyngeal Swab - Final CXR 06/15: Interval better aeration of the lung with residual minimal atelectatic changes in the right lung base. However, correlation with CT scan of the chest would be more sensitive for comparison to prior CT scan of the chest dated 06/03/2017 RUQ U/S 06/15 - 1. Contracted gallbladder with sludge. No evidence of cholelithiasis. No definite evidence of acute cholecystitis. Prominent gallbladder wall measuring 4-5 mm in thickness may be secondary to contracted gallbladder. 2. Mild dilatation of the proximal common bile duct measuring 9 mm in diameter is similar to the CT, allowing for differences between modalities. No evidence of intrahepatic ductal dilatation. Please correlate with biliary markers. CT abdomen 06/16 - IMPRESSION: 1. Copious stool throughout the colon. Please correlate for constipation. No evidence of bowel obstruction. No definite bowel wall thickening to suggest active enterocolitis. 2. Gallbladder sludge and/or cholelithiasis. No CT evidence of acute cholecystitis. Borderline mild common bile duct dilatation measuring 8-9 mm is unchanged from 05/22/2017 CT. 3. No obstructive uropathy. No urinary tract calculi. 4. Subsegmental opacities in both lung bases (right more than left), may be atelectasis, however, pneumonia cannot be excluded. Please correlate clinically. Echo 06/06 - Normal LV function, EF 74, Mild TR/AR EKG 06/15 - NSR, NAD, rate 94, borderline LVH, No ST or TW changes No events on tele ASSESSMENT/PLAN: 72 yo man w/ pmh of HTN, HLD, CAD (S/P [place]), Aspiration PNA, CVA w/ residual hemiparesis and GERD, admitted for atypical chest pain and elevated LFTs. #Transaminitis - RUQ U/S thick GB wall w/ sludge, mild dilatation of proximal CBD; - f/u AM CMP - CT abdomen w/ sludge/stones in GB, copious stool -> possible element of cholestasis - will require outpt GI followup #Atypical chest pain - pain resolved - No ekg changes, negs trops - cardiac monitoring #Constipation - confirm on CT; one large BM overnight - c/w Senna, colace - received enema last night - Miralax PO #Recurrent aspiration PNA - prednisone d/c'ed, augmention course completed from prior admission - flu swab neg; tamiflu, isolation precautions removed - Duonebs QIDR PRN #HTN - hypotensive to 90s systolic overnight - c/w home BP meds. Monitor for hypotension #Meningioma - plan resection in jun? - keppra for seizure ppx - will require outpt f/u w/ neurosurgery #CAD - lipitor 10mg #HLD - lipitor 10mg #GERD PPI PPX Hep subq protonix FEN PO fluids Daily BMPs Chopped/thin liquids w/ aspiration precautions D/c to NH today once authorization complete and PT eval Plan discussed with attending, Dr. Sirena Broderick, PGY1
--- NOTE | 2017-06-20 08:21 | PN ---
Teaching Attending Note Name of Resident: Morris Broderick ATTENDING PHYSICIAN STATEMENT I saw and evaluated the patient. I reviewed the resident's note and discussed the case with the resident. I agree with the resident's findings and plan as documented. SUBJECTIVE: Patient seen and examined, no complaints. OBJECTIVE: Vital Signs Period Temp Pulse Resp BP Sys/Chin Pulse Ox Last 24 Hr 97.5 F-98.9 F 87-110 18-20 96-108/53-75 95-97 Intake & Output 06/17/17 06/18/17 06/19/17 06/20/17 23:59 23:59 23:59 23:59 Intake Total 380 250 560 100 Balance 380 250 560 100 General: sitting in bed in no acute distress Abdomen: soft, NT, ND, positive bowel sounds Home Medication List Medication Instructions Recorded Confirmed Type Aa/Hydrolyzed Collagen, Whey [Lps 30 ml PO BID 06/01/17 06/15/17 History 15-30 Liquid] Atorvastatin Ca [Lipitor] 10 mg PO HS 06/01/17 06/15/17 History Docusate Sodium [Colace] 300 mg PO HS 06/01/17 06/15/17 History Levetiracetam 500 mg PO BID 06/01/17 06/15/17 History Lisinopril 5 mg PO DAILY 06/01/17 06/15/17 History Omeprazole Magnesium [Prilosec] 10 mg PO HS 06/01/17 06/15/17 History Sennosides [Senna] 2 tab PO DAILY 06/01/17 06/15/17 History Acetaminophen [Tylenol] 325 mg PO QID PRN 06/15/17 06/15/17 History Albuterol 2.5/Ipratropium 0.5 1 neb NEB QID PRN 06/15/17 06/15/17 History [Duoneb -] Heparin - 5,000 unit SQ BID 06/15/17 06/15/17 History Oseltamivir Phosphate [Tamiflu] 75 mg PO DAILY 06/15/17 06/15/17 History Active Medications Generic Name Dose Route Start Last Admin Trade Name Freq PRN Reason Stop Dose Admin Albuterol/Ipratropium 1 amp 06/18/17 02:43 Duoneb - NEB Q6H PRN BREATHING Atorvastatin Calcium 10 mg 06/18/17 22:00 06/19/17 21:58 Lipitor - PO 10 mg HS ESAU Administration Docusate Sodium 300 mg 06/18/17 22:00 06/19/17 21:58 Colace - PO 300 mg HS ESAU Administration Heparin Sodium (Porcine) 5,000 unit 06/18/17 06:00 06/20/17 06:20 Heparin - SQ 5,000 unit TID ESAU Administration Levetiracetam 500 mg 06/18/17 10:00 06/19/17 21:58 Keppra - PO 500 mg BID ESAU Administration Lisinopril 5 mg 06/18/17 10:00 06/19/17 10:54 Prinivil PO 5 mg DAILY ESAU Administration Pantoprazole Sodium 40 mg 06/18/17 10:00 06/19/17 10:55 Protonix - PO 40 mg DAILY ESAU Administration Polyethylene Glycol 17 gm 06/18/17 10:00 06/19/17 10:54 Miralax (For Daily Use) - PO 17 gm DAILY ESAU Administration Senna 2 tab 06/18/17 10:00 06/19/17 10:55 Senna - PO 2 tab DAILY ESAU Administration Microbiology 06/16/17 09:40 Urine - Urine Clean Catch Urine Culture - Final Contaminated: Please Repeat 06/16/17 16:30 Nasopharyngeal Swab Influenza Types A,B Antigen (SADIQ) - Final 06/16/17 16:30 Nasopharyngeal Swab - Final ASSESSMENT AND PLAN: 72 yom with PMhx of Meningioma planned for resection in 05/2017, CVA with right hemiparesis, HTN, HLD, recently admitted with aspiration PNA, d/nguyen on augmentin and prednisone taper, h/o hypernatremia, admitted with chest pain and abnormal LFTs -Chest pain, -Abnormal LFTs, ?medication related (was recently on zosyn/augmentin) -recent aspiration PNA -H/o hypernatremia -Meningioma, planned for resection in 05/2017 -h/o CVA with residual right hemiparesis -HTN -HLD Plan: telemetry uneventful. ACS ruled out. 2D echo reviewed. Cardiology input appreciated, no additional intervention need. LFTs improved. Abdominal exam benign. ?recent antibiotic related. ULtrasound noted, CT A/P noted, no acute concerns, tolerating diet well. Finsihed augmentin and prednisone. WBC improved. Continue chopped diet with thin liquids and aspiration precautions Continue home seizure/hypertensive meds. DVTppx accepted back to NH, dc back to NH today.
[2017-06-20] MEDS: levETIRAcetam 500 MG TABLET (FP) PO SCH (10:39)
[2017-06-20] MEDS: LISINOPRIL 5 MG TABLET (FP) PO SCH (10:39)
[2017-06-20] MEDS: PANTOPRAZOLE 40 MG TABLET (FP) PO SCH (10:39)
[2017-06-20] MEDS: SENNOSIDES 8.6MG TABLET (FP) PO SCH (10:39)
[2017-06-20] MEDS: POLYETHYLENE GLYCOL 3350 119 GM BTL PO SCH (10:46)
[2017-06-20 15:36] VITALS: TEMP 97.9
--- NOTE | 2017-06-20 16:58 | DS ---
Physical Exam: SUBJECTIVE: Patient seen and examined by me this AM - Lfts resolved; No events on tele overnight; occasionally disoriented overnight per nursing; stable, no complaints - Minimally interactive with interviewer. Denies fever/chills, CP, SOB, Ab pain , N/V, peripheral edema, rashes OBJECTIVE: Vital Signs Intake & Output 06/17/17 06/18/17 06/19/17 06/20/17 23:59 23:59 23:59 23:59 Intake Total 380 250 560 500 Balance 380 250 560 500 Period Temp Pulse Resp BP Sys/Chin Pulse Ox Last 24 Hr 97.5 F-98.9 F 87-110 18-20 97-110/53-66 96-100 PHYSICAL EXAM GENERAL: The patient is awake, alert, and fully oriented, in no acute distress. HEAD: Normal with no signs of trauma. EYES: PERRL, extraocular movements intact, sclera anicteric, conjunctiva clear. No ptosis. ENT: Poor dentition. Ears normal, nares patent, oropharynx clear without exudates, moist mucous membranes. NECK: Trachea midline, full range of motion, supple. LUNGS: Breath sounds equal, clear to auscultation bilaterally, no wheezes, no crackles, no accessory muscle use. HEART: Regular rate and rhythm, S1, S2 without murmur, rub or gallop. ABDOMEN: Soft, nontender, nondistended, normoactive bowel sounds, no guarding, no rebound, no hepatosplenomegaly, no masses. EXTREMITIES: 2+ pulses, warm, well-perfused, no edema. NEUROLOGICAL: Cranial nerves II through XII grossly intact. Limited speech, gait not observed. PSYCH: Restricted affect. Normal mood. SKIN: Warm, dry, normal turgor, no rashes or lesions noted LABS CBC, BMP 06/18/17 07:30 06/18/17 07:30 HOSPITAL COURSE: Date of Admission:06/15/17 Date of Discharge: 06/20/17 72 yo man w/ pmh of HTN, HLD, CAD (S/P [place]), Aspiration PNA, CVA w/ residual hemiparesis and GERD, admitted for atypical chest pain and elevated LFTs. Microbiology 06/16/17 09:40 Urine - Urine Clean Catch Urine Culture - Final Contaminated: Please Repeat 06/16/17 16:30 Nasopharyngeal Swab Influenza Types A,B Antigen (SADIQ) - Final 06/16/17 16:30 Nasopharyngeal Swab - Final Imaging: CXR 06/15: Interval better aeration of the lung with residual minimal atelectatic changes in the right lung base. However, correlation with CT scan of the chest would be more sensitive for comparison to prior CT scan of the chest dated 06/03/2017 RUQ U/S 06/15 - 1. Contracted gallbladder with sludge. No evidence of cholelithiasis. No definite evidence of acute cholecystitis. Prominent gallbladder wall measuring 4-5 mm in thickness may be secondary to contracted gallbladder. 2. Mild dilatation of the proximal common bile duct measuring 9 mm in diameter is similar to the CT, allowing for differences between modalities. No evidence of intrahepatic ductal dilatation. Please correlate with biliary markers. CT abdomen 06/16 - IMPRESSION: 1. Copious stool throughout the colon. Please correlate for constipation. No evidence of bowel obstruction. No definite bowel wall thickening to suggest active enterocolitis. 2. Gallbladder sludge and/or cholelithiasis. No CT evidence of acute cholecystitis. Borderline mild common bile duct dilatation measuring 8-9 mm is unchanged from 05/22/2017 CT. 3. No obstructive uropathy. No urinary tract calculi. 4. Subsegmental opacities in both lung bases (right more than left), may be atelectasis, however, pneumonia cannot be excluded. Please correlate clinically. Echo 06/06 - Normal LV function, EF 74, Mild TR/AR EKG 06/15 - NSR, NAD, rate 94, borderline LVH, No ST or TW changes Discharge Summary Reason For Visit: CHEST PAIN Current Active Problems Chest pain (Acute) Condition: Stable - Instructions Diet, Activity, Other Instructions: During your stay you were treated for chest and elevated liver chemistries. You are being discharged back to [facility]. Please continue taking your home medications as previously prescribed. Please stop taking the following medications that were prescribed during your previous visit. Augmentin Prednisone Follow-up: Please follow up with your primary care provider, Dr. Urban, in one week for further management of your home medications. During your stay you were seen by one of our preferred cardiologists, Dr. Phillips, and his team. Please schedule an appointment with him in one week for further management of your cardiac medications and care. His contact information has been provided. Diet: Please adhere to a low-fat, low-sodium diet. If you experience any of the following symptoms, please return to the hospital: - Persistent chest pain or tightness - Sudden shortness of breath, dizziness or nausea - Pain/numbness in your arm or neck - Fast heart beat - Any other new or concerning symptoms. Referrals: Zhen Santos [Outside] Gama Phillips MD [Staff Physician] - 1 Week Tex Urban MD [Primary Care Provider] - 1 Week Disposition: HALFWAY FACILITY - Home Medications Comprehensive Discharge Medication List: Ambulatory Orders Aa/Hydrolyzed Collagen, Whey [Lps 15-30 Liquid] 30 ml PO BID 06/01/17 Atorvastatin Ca [Lipitor] 10 mg PO HS 06/01/17 Docusate Sodium [Colace] 300 mg PO HS 06/01/17 Levetiracetam 500 mg PO BID 06/01/17 Lisinopril 5 mg PO DAILY 06/01/17 Omeprazole Magnesium [Prilosec] 10 mg PO HS 06/01/17 Sennosides [Senna] 2 tab PO DAILY 06/01/17 Albuterol 2.5/Ipratropium 0.5 [Duoneb -] 1 amp NEB RQID #1 amp 06/08/17 Acetaminophen [Tylenol] 325 mg PO QID PRN 06/15/17 Albuterol 2.5/Ipratropium 0.5 [Duoneb -] 1 neb NEB QID PRN 06/15/17
[2017-06-20 18:33] VITALS: BP 102/70; PULSE 100
== END 2017-06-20 19:04 ==
LOC: JER 10:49 → JERBED 14:37 → J4W 19:30 → J5S 06-18 02:22
PROVIDERS: ADMIT Internal Medicine; ATTEND Hospitalist
PROC: 3E013GC Introduction of Other Therapeutic Substance into Subcutaneous Tissue, Percutaneous Approach (ICD-10-PCS; principal; 2017-06-15)
PROC: 3E0337Z Introduction of Electrolytic and Water Balance Substance into Peripheral Vein, Percutaneous Approach (ICD-10-PCS; 2017-06-15)
DX: R07.9 Chest pain, unspecified (principal); R07.89 Other chest pain; R74.0 Nonspecific elevation of levels of transaminase and lactic acid dehydrogenase [LDH]; I10 Essential (primary) hypertension; I25.10 Atherosclerotic heart disease of native coronary artery without angina pectoris; I25.2 Old myocardial infarction; R78.5 Finding of other psychotropic drug in blood; G40.909 Epilepsy, unspecified, not intractable, without status epilepticus; I69.351 Hemiplegia and hemiparesis following cerebral infarction affecting right dominant side; K21.9 Gastro-esophageal reflux disease without esophagitis; D64.9 Anemia, unspecified; F03.90 Unspecified dementia, unspecified severity, without behavioral disturbance, psychotic disturbance, mood disturbance, and anxiety; I08.0 Rheumatic disorders of both mitral and aortic valves; Z79.01 Long term (current) use of anticoagulants; Z86.74 Personal history of sudden cardiac arrest; D32.0 Benign neoplasm of cerebral meninges; K59.09 Other constipation; Z87.01 Personal history of pneumonia (recurrent)
CPT/HCPCS: 36415; 71045-TC; 74176-TC; 76705-TC; 80053; 81003; 82550; 82962; 83735; 84100; 84484; 85025; 85027; 85610; 87086; 87804; 93005; 93010; 93306-TC; 96372; 97116-GP; 97161-GP; 99283-25; G0378; J1644